=== PATIENT | male | born 1945 | race Caucasian/White ===

== ENCOUNTER 2018-03-29 11:58 | Emergency (ER) | payer OTHER, SELFPAY ==
[2018-03-29 12:05] VITALS: BP 153/87; PULSE 97; RESP 20; TEMP 36.8; O2SAT 95; BMI 30.8
--- NOTE | 2018-03-29 12:07 | DI.CT.S_ITS ---
PROCEDURE: CT CERVICAL SPINE WO CON INDICATIONS: fall yesterday neck pain TECHNIQUE: Noncontrast 3 mm thick sections acquired from the skull base to the T4 level. Sagittal and coronal reformats were then constructed. For radiation dose reduction, the following was used: automated exposure control, adjustment of mA and/or kV according to patient size. COMPARISON: None. FINDINGS: Image quality: Excellent. Bones: No fractures or dislocations. Visualized superior ribs are intact. Soft tissues: Prevertebral soft tissues are normal in thickness. No paravertebral hematomas. No apical pneumothoraces. 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 No hematoma is suspected. Dictated by: Hayden Monte M.D. on 03/29/2018 at 13:34 Approved by: Hayden Monte M.D. on 03/29/2018 at 13:35
--- NOTE | 2018-03-29 12:07 | DI.CT.S_ITS ---
PROCEDURE: CT HEAD/BRAIN WO CON INDICATIONS: fall yesterday on coumadin TECHNIQUE: Noncontrast 4.5 mm thick angled axial sections acquired from the foramen magnum to the vertex, with coronal and sagittal reformats. For radiation dose reduction, the following was used: automated exposure control, adjustment of mA and/or kV according to patient size. COMPARISON: [facility], CT, HEAD WITHOUT CONTRAST, 11/02/2015, 17:34. FINDINGS: Image quality: Excellent. CSF spaces: Basal cisterns are patent. No extra-axial fluid collections. The ventricles are symmetric in size and shape. Brain: No intracranial bleeds or masses. There is cerebral volume loss for age, with resultant ventricular and sulcal prominence. There are periventricular and deep white matter chronic small vessel ischemic changes. There is intracranial internal carotid artery atherosclerosis. Skull and face: Calvarium and visualized facial bones appear intact, without suspicious lesions. Sinuses: Visualized sinuses and mastoids are clear. IMPRESSION: No acute trauma found. Only mild microvascular atherosclerotic change is seen in the deep white matter of each hemisphere. Dictated by: Hayden Monte M.D. on 03/29/2018 at 13:34 Approved by: Hayden Monte M.D. on 03/29/2018 at 13:34
--- NOTE | 2018-03-29 12:07 | DI.RAD.S_ITS ---
PROCEDURE: XR ELBOW LT MIN 3V INDICATIONS: fall swelling TECHNIQUE: 3 views of the elbow were acquired. COMPARISON: None. FINDINGS: Bones: No fractures or dislocations. No suspicious bony lesions. Soft tissues: No elbow joint effusion. No suspicious soft tissue calcifications. IMPRESSION: Moderate osteoarthritis, no definite acute trauma found. However, osteoarthritic spurring produces areas of sclerosis and relative radiolucency and if there is clinical concerns for hidden fracture followup by CT he be warranted. Dictated by: Hayden Monte M.D. on 03/29/2018 at 13:33 Approved by: Hayden Monte M.D. on 03/29/2018 at 13:34
[2018-03-29 12:15] VITALS: BP 158/90; PULSE 93; RESP 14; O2SAT 93
--- NOTE | 2018-03-29 12:15 | ED_ITS ---
HPI - Head Injury General Chief complaint: Trauma Stated complaint: FALL, ARM AND NECK PAIN, HEAD HURTING Time Seen by Provider: 03/29/18 12:07 Source: patient and RN notes reviewed Mode of arrival: ambulatory Limitations: no limitations History of Present Illness HPI Narrative: Patient is a 72-year-old male who presents under ground level fall yesterday. He was sitting in a chair chair collapsed he fell backward hitting his head no loss of consciousness. He also landed on his left elbow. He is having left elbow pain and neck pain. He is on Coumadin for previous DVTs. He said he had some visual problems at of his right eye. Related Data Home Medications Medication Instructions Recorded Confirmed glucose 4 gm PO QDAYP PRN #0 11/27/17 03/29/18 diltiazem HCl 300 mg PO QDAY #0 11/28/17 03/29/18 glimepiride 4 mg PO QAM 03/29/18 03/29/18 Previous Rx's Medication Instructions Recorded prednisone 20 mg PO DAILY #5 tab 03/29/18 Allergies Allergy/AdvReac Type Severity Reaction Status Date / Time albuterol [ALBUTEROL] AdvReac Intermediate Shakiness Verified 03/29/18 12:14 Review of Systems Review of Systems All systems reviewed & are unremarkable except as noted in HPI and below Eyes Reports loss of vision (right side now improving) Cardiovascular Denies dyspnea and Denies dyspnea on exertion Respiratory Denies cough, Denies dyspnea, Denies dyspnea on exertion and Denies wheezing Gastrointestinal Gastrointestinal: Denies abdominal pain, Denies change in bowel habits, Denies diarrhea, Denies nausea and Denies vomiting Musculoskeletal Reports as per HPI and Denies abnormal gait Comments: left elbow pain Integumentary/Breasts Denies pruritus, Denies erythema, Denies rash and Denies wounds Neurologic Denies abnormal gait, Denies burning sensations, Reports loss of vision (right side now improving), Denies seizure-like activity and Denies other (LOC) Allergic/Immunologic Denies wheezing [facility] Medical History History of DVT (deep vein thrombosis) (Acute) Exam Initial Vital Signs Initial Vital Signs: Vital Signs Temperature 98.3 F 03/29/18 12:05 Pulse Rate 97 H 03/29/18 12:05 Respiratory Rate 20 03/29/18 12:05 Blood Pressure 153/87 H 03/29/18 12:05 Pulse Oximetry 95 03/29/18 12:05 Const General: cooperative and well developed Nutritional Appearance: well nourished Orientation: alert, awake, oriented x3 and not confused Neck Neck: normal visual inspection, trachea midline, No lymphadenopathy, No midline deformity and No JVD Lymphatic: No lymphedema Resp Effort & Inspection: normal respiratory effort, able to speak in complete sentences, no respiratory distress and no use of accessory muscles Auscultation: clear to auscultation bilaterally, no rales, no rhonchi and no wheezes Cardio Rate: regular rate Rhythm: regular rhythm Heart Sounds: no click, no gallops, no murmurs and no rubs Pulses: normal peripheral pulses Back/Spine/Pelvis Cervical Spine: cervical spinal tenderness (Mostly the right of vertebrae) and No step off deformity Skin General: no rashes or lesions noted, No jaundice and No petechiae Neuro General: alert, awake and oriented x3 Cranial Nerves: CN's II-XI intact bilaterally, PERRL, accommodation normal, EOM intact bilaterally, tongue midline and hearing normal Cognition: normal cognition Speech: speech normal Gait: normal gait Motor: muscle tone normal throughout and strength 5/5 throughout Sensory Exam: no sensory deficits noted Extrem Left upper extremity: elbow/forearm Details: swelling (Over olecranon on), normal ROM and distal pulses intact Course Orders Ordered: ED Orders 03/29/18 12:07 CT cervical spine wo con Stat CT head/brain wo con Stat XR elbow LT min 3V Stat Discontinued Medications Acetaminophen (Tylenol) 650 mg PO NOW ONE Stop: 03/29/18 13:50 Last Admin: 03/29/18 14:03 Dose: 650 mg Vital Signs - 8 hr 03/29/18 12:05 03/29/18 12:15 03/29/18 13:20 Temperature 98.3 F Pulse Rate 97 H 93 H 68 Respiratory Rate 20 14 16 Blood Pressure 153/87 H Blood Pressure [Right Arm] 158/90 H 136/73 H Pulse Oximetry 95 93 94 MDM - Head Injury Imaging Data CT scan - head: Radiologist's impression: PROCEDURE: CT HEAD/BRAIN WO CON INDICATIONS: fall yesterday on coumadin TECHNIQUE: Noncontrast 4.5 mm thick angled axial sections acquired from the foramen magnum to the vertex, with coronal and sagittal reformats. For radiation dose reduction, the following was used: automated exposure control, adjustment of mA and/or kV according to patient size. COMPARISON: [facility], CT, HEAD WITHOUT CONTRAST, 11/02/2015, 17:34. FINDINGS: Image quality: Excellent. CSF spaces: Basal cisterns are patent. No extra-axial fluid collections. The ventricles are symmetric in size and shape. Brain: No intracranial bleeds or masses. There is cerebral volume loss for age , with resultant ventricular and sulcal prominence. There are periventricular and deep white matter chronic small vessel ischemic changes. There is intracranial internal carotid artery atherosclerosis. Skull and face: Calvarium and visualized facial bones appear intact, without suspicious lesions. Sinuses: Visualized sinuses and mastoids are clear. IMPRESSION: No acute trauma found. Only mild microvascular atherosclerotic change is seen in the deep white matter of each hemisphere. CT C-spine: Radiologist's impression: PROCEDURE: CT CERVICAL SPINE WO CON INDICATIONS: fall yesterday neck pain TECHNIQUE: Noncontrast 3 mm thick sections acquired from the skull base to the T4 level. Sagittal and coronal reformats were then constructed. For radiation dose reduction, the following was used: automated exposure control, adjustment of mA and/or kV according to patient size. COMPARISON: None. FINDINGS: Image quality: Excellent. Bones: No fractures or dislocations. Visualized superior ribs are intact. Soft tissues: Prevertebral soft tissues are normal in thickness. No paravertebral hematomas. No apical pneumothoraces. 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 No hematoma is suspected. Dictated by: Hayden Monte M.D. on 03/29/2018 at 13:34 Left elbow x-ray: Radiologist's impression: PROCEDURE: XR ELBOW LT MIN 3V INDICATIONS: fall swelling TECHNIQUE: 3 views of the elbow were acquired. COMPARISON: None. FINDINGS: Bones: No fractures or dislocations. No suspicious bony lesions. Soft tissues: No elbow joint effusion. No suspicious soft tissue calcifications. IMPRESSION: Moderate osteoarthritis, no definite acute trauma found. However, osteoarthritic spurring produces areas of sclerosis and relative radiolucency and if there is clinical concerns for hidden fracture followup by CT he be warranted. Dictated by: Hayden Monte M.D. on 03/29/2018 at 13:33 MDM Narrative Medical decision making narrative: Patient has no focal deficits. His peripheral vision is intact. He is able to see out of both eyes. Head CT C- spine on an elbow x-ray are negative. Elbow likely has a bursitis is not appear to be infected he has very mild swelling not need to be drained at this point. Discharge Plan Departure Patient Disposition: Home, Self-Care Clinical Impression: Concussion, Bursitis of left elbow Discharge Date/Time: 03/29/18 14:30 Instructions: Concussion, Bursitis Activity Restrictions/Additional Instructions: *You have been diagnosed with concussion and left elbow bursitis *What to do: Expect to have some mild headache and neck pain, keep elbow elevated, iced 20 min at a time *Take medications as directed -Tylenol 650 mg every 4-6 hours if needed for pain -prednisone 20 mg once a day for 5 days for inflammation *Follow up with your primary care provider in 2-3 days *Return to ER if you should have increasing redness, increasing pain or fever, persistent vomiting or in headache, weakness or any new, worsening or concerning symptoms Prescriptions: New prednisone 20 mg tablet 20 mg PO DAILY Qty: 5 RF: 0 No Action glucose 4 GM tablet,chewable 4 gm PO QDAYP PRN (Reason: Hypoglycemia) Qty: 0 RF: 0 diltiazem HCl 300 MG capsule,extended release 24hr 300 mg PO QDAY Qty: 0 RF: 0 glimepiride 4 mg Tablet 4 mg PO QAM RF: 0 Referrals: Yuki Lopez MD [Primary Care Provider] -
[2018-03-29 13:20] VITALS: BP 136/73; PULSE 68; RESP 16; O2SAT 94
[2018-03-29] MEDS: ACETAMINOPHEN 325 MG TABLET 650 MG PO (14:03)
== END 2018-03-29 14:30 | disposition home or self-care (01) ==
PROVIDERS: Emergency Provider Emergency Medicine; Family Provider Internal Medicine; PCP Internal Medicine
DX: S06.0X9A Concussion with loss of consciousness of unspecified duration, initial encounter (principal); M70.32 Other bursitis of elbow, left elbow; W19.XXXA Unspecified fall, initial encounter
CPT/HCPCS: 70450; 72125; 73080; 99282; 99284

== ENCOUNTER 2018-07-21 10:12 | Emergency (ER) | payer OTHER, SELFPAY ==
[2018-07-21] VITALS (8 sets, daily range): BP systolic 126–157; BP diastolic 75–89; PULSE 64–75; RESP 13–20; TEMP 36.4; O2SAT 91–94; BMI 30.7
--- NOTE | 2018-07-21 10:31 | ED.CHESTPAIN ---
HPI - Chest Pain General Chief Complaint: Chest Pain Stated Complaint: CHEST PAIN,PNUMONIA Time Seen by Provider: 07/21/18 10:31 Source: patient Mode of arrival: ambulatory Limitations: no limitations History of Present Illness HPI narrative: The patient developed chest pain about 4 days ago. He has had a productive cough for about the same time duration. With the prior doctor cough there is no hemoptysis. He denies ear pain or sinus pain. He does have a mild sore throat. He has chest pain in the xiphoid area and across the costal margin bilaterally. He denies fever or chills. He denies a cardiac history. He occasionally smokes cigars, he does not smoke cigarettes. He has no associated orthopnea, or peripheral edema. He does tell me he has a hole in his heart, he does not know the specific diagnosis. Related Data Home Medications Medication Instructions Recorded Confirmed glucose 8 tab PO QDAYP PRN #0 11/27/17 07/21/18 diltiazem HCl 300 mg PO QDAY #0 11/28/17 07/21/18 atorvastatin 20 mg PO DAILY 07/21/18 07/21/18 brimonidine 1 drp OPHTHALMIC (EYE) BID 07/21/18 07/21/18 glimepiride 8 mg PO QAM 07/21/18 07/21/18 latanoprost 1 drp OPHTHALMIC (EYE) BEDTIME 07/21/18 07/21/18 losartan 50 mg PO DAILY 07/21/18 07/21/18 metformin 2,000 mg PO QPM 07/21/18 07/21/18 warfarin 10 mg PO MOFR 07/21/18 07/21/18 warfarin 12.5 mg PO SUTUWETHSA 07/21/18 07/21/18 Previous Rx's Medication Instructions Recorded azithromycin [Zithromax] 250 mg PO DAILY 4 Days #4 tab 07/21/18 codeine-guaifenesin 5 ml PO Q4H PRN #120 ml 07/21/18 prednisone 60 mg PO DAILY 5 Days #12 tab 07/21/18 Allergies Allergy/AdvReac Type Severity Reaction Status Date / Time albuterol [ALBUTEROL] AdvReac Intermediate Shakiness Verified 03/29/18 12:14 Review of Systems Review of Systems All systems reviewed & are unremarkable except as noted in HPI and below Constitutional Denies chills, Denies fever(s), Reports lethargy and Denies weakness Eyes Denies change in vision, Denies eye discharge and Denies irritation ENT Ears, Nose, Mouth, and Throat: Denies dizziness, Denies dry mouth, Denies nasal congestion, Denies neck pain, Denies sore throat and Reports other (No sinus tenderness.) Cardiovascular Reports chest pain, Denies irregular heart rhythm, Denies lightheadedness, Denies palpitations, Denies dyspnea and Denies orthopnea Respiratory Reports as per HPI, Reports cough, Denies dyspnea and Denies wheezing Gastrointestinal Gastrointestinal: Denies abdominal pain, Denies change in bowel habits, Denies diarrhea, Denies nausea and Denies vomiting Musculoskeletal Denies back pain and Denies neck pain Integumentary/Breasts Denies erythema, Denies rash and Denies wounds Neurologic Denies confusion, Denies dizziness and Denies weakness Psychiatric Denies confusion Endocrine Denies palpitations Allergic/Immunologic Denies wheezing PFSH Medical History Diabetes (Acute) History of DVT (deep vein thrombosis) (Acute) Hypertension (Acute) Social History Smoking Status: Current some day smoker substance use type: does not use Exam Initial Vital Signs Initial Vital Signs: Vital Signs Temperature 97.6 F 07/21/18 10:22 Pulse Rate 71 07/21/18 10:22 Respiratory Rate 20 07/21/18 10:22 Blood Pressure 157/89 H 07/21/18 10:22 Pulse Oximetry 94 07/21/18 10:22 Const General: cooperative and well developed Nutritional Appearance: well nourished Orientation: alert, awake, oriented x3 and not confused [facility] Head: normocephalic and atraumatic Ears: external ears normal and TM's normal bilaterally Nose: external nose normal and No nasal discharge Face and sinus: sinuses nontender, face symmetric, no sinus tenderness and No dry mucous membranes Mouth: oral mucosae normal and moist mucous membranes Teeth and gingiva: dentition normal Throat: tonsils normal and uvula midline Eyes General: appearance normal, both eyes and all related structures Eyelids: eyelids normal Conjunctivae: conjunctivae normal Sclera: sclerae normal Pupils: PERRL EOM: EOM intact bilaterally Neck Neck: normal visual inspection, trachea midline, No lymphadenopathy, No midline deformity and No JVD Chest Chest: No crepitus and localized rib tenderness with anteroposterior compression Resp Effort & Inspection: normal respiratory effort and able to speak in complete sentences Auscultation: clear to auscultation bilaterally, no rales, no rhonchi and no wheezes Cardio Rate: regular rate Rhythm: regular rhythm Heart Sounds: no click, no gallops, no murmurs and no rubs Pulses: normal peripheral pulses GI Inspection: non-distended Palpation: soft, no hepatosplenomegaly, No guarding, No pulsatile mass and No tender Auscultation: normal bowel sounds Back/Spine/Pelvis Back: No back tenderness and No CVA tenderness Skin General: no rashes or lesions noted Neuro General: alert, oriented x3, gait normal and no focal motor deficits Speech: speech normal Extrem General: no pedal edema and no calf tenderness Psych Appearance: grossly normal and well kempt Mental Status: mental status grossly normal Course Orders Ordered: Discontinued Medications Aspirin (Aspirin Chew) 324 mg PO NOW ONE Stop: 07/21/18 10:39 Last Admin: 07/21/18 10:56 Dose: 324 mg Azithromycin (Zithromax) 500 mg PO NOW ONE Stop: 07/21/18 14:33 Last Admin: 07/21/18 14:37 Dose: 500 mg Ipratropium [place] (Atrovent Neb) 0.5 mg INH NOW ONE Stop: 07/21/18 10:51 Last Admin: 07/21/18 10:53 Dose: 0.5 mg Ketorolac Tromethamine (Toradol) 15 mg IV NOW ONE Stop: 07/21/18 10:41 Last Admin: 07/21/18 10:58 Dose: 15 mg Levalbuterol HCl (Xopenex) 1.25 mg INH NOW ONE Stop: 07/21/18 10:41 Last Admin: 07/21/18 10:49 Dose: 1.25 mg Morphine Sulfate (Morphine) 4 mg IV NOW ONE Stop: 07/21/18 12:32 Last Admin: 07/21/18 12:57 Dose: 4 mg Prednisone (Deltasone) 60 mg PO NOW ONE Stop: 07/21/18 13:52 Last Admin: 07/21/18 13:58 Dose: 60 mg Vital Signs - 8 hr 07/21/18 12:30 07/21/18 13:00 07/21/18 14:03 Pulse Rate 66 64 69 Respiratory Rate 18 14 13 Blood Pressure [Left Arm] 129/82 138/79 133/75 Pulse Oximetry 93 91 94 MDM - Chest Pain Lab Data Result diagrams: 07/21/18 10:45 07/21/18 10:45 Lab Results 07/21/18 07/21/18 07/21/18 Range/Units 10:45 10:45 10:45 WBC 7.0 (4.5-11.0) X10^3/uL RBC 4.30 L (4.5-5.9) X10^6/uL Hgb 13.7 (13.5-17.5) g/dL Hct 40.1 L (41-53) % MCV 93.3 (80-100) fL MCH 31.8 (26-34) PG MCHC 34.1 (30-36) % RDW 14.8 (11.6-14.8) % Plt Count 173 (150-400) X10^3/uL Neut % (Auto) 68.7 (50-75) % Lymph % (Auto) 13.9 L (25-40) % [place] % (Auto) 13.5 (3-14) % Eos % (Auto) 3.0 (2-4) % Baso % (Auto) 0.9 (0-2) % Neut # (Auto) 4800 (4848-2099) /uL PT 31.5 H (10.1-12.7) SECONDS INR 2.9 H (0.9-1.3) D-Dimer 238 H (<230) ng/mL Sodium 142 (137-145) mmol/L Potassium 4.4 (3.4-5.1) mmol/L Chloride 105 (98-107) mmol/L Carbon Dioxide 27 (22-32) mmol/L BUN 15 (9-20) mg/dL Creatinine 0.80 (0.66-1.25) mg/dL Estimated GFR > 60.0 (>60) mL/min BUN/Creatinine Ratio 18.8 (6-22) Glucose 181 H (80-110) mg/dL Lactate (0.7-2.1) mmol/L Calcium 9.1 (8.4-10.2) mg/dL Total Creatine Kinase 216 H (55-170) U/L CK-MB (CK-2) 1.51 (<2.37) ng/mL CK-MB (CK-2) Rel Index 0.7 L (1.5-5.0) % Troponin I < 0.012 (0.01-0.034) ng/mL Lipase 58 (23-300) U/L 07/21/18 Range/Units 10:45 WBC (4.5-11.0) X10^3/uL RBC (4.5-5.9) X10^6/uL Hgb (13.5-17.5) g/dL Hct (41-53) % MCV (80-100) fL MCH (26-34) PG MCHC (30-36) % RDW (11.6-14.8) % Plt Count (150-400) X10^3/uL Neut % (Auto) (50-75) % Lymph % (Auto) (25-40) % [place] % (Auto) (3-14) % Eos % (Auto) (2-4) % Baso % (Auto) (0-2) % Neut # (Auto) (1004-6642) /uL PT (10.1-12.7) SECONDS INR (0.9-1.3) D-Dimer (<230) ng/mL Sodium (137-145) mmol/L Potassium (3.4-5.1) mmol/L Chloride (98-107) mmol/L Carbon Dioxide (22-32) mmol/L BUN (9-20) mg/dL Creatinine (0.66-1.25) mg/dL Estimated GFR (>60) mL/min BUN/Creatinine Ratio (6-22) Glucose (80-110) mg/dL Lactate 1.4 (0.7-2.1) mmol/L Calcium (8.4-10.2) mg/dL Total Creatine Kinase (55-170) U/L CK-MB (CK-2) (<2.37) ng/mL CK-MB (CK-2) Rel Index (1.5-5.0) % Troponin I (0.01-0.034) ng/mL Lipase (23-300) U/L Imaging Data Chest x-ray: Radiologist's impression: Normal ECG Data Attestation: I personally reviewed and interpreted this ECG as follows: (Normal sinus rhythm rate 67 bpm. IVCD. LVH. No acute ST or T-wave changes) MDM Narrative Medical decision making narrative: He has no evidence of is ACS, pneumonia or PE. The chest tenderness is costochondral nature. He was started on Zithromax for bronchitis. The chest discomfort was addressed with anti-inflammatories and antitussives. Discharge Plan Departure Patient Disposition: Home Clinical Impression: Bronchitis Discharge Date/Time: 07/21/18 14:52 Interventions: ED Discharge Assessment Last Done: 07/21/18 14:50 Instructions: Acute Bronchitis Activity Restrictions/Additional Instructions: Take a Zithromax (Z-Gonzalez) as prescribed. Advil 3 tablets every 6 hr as needed for pain. Robitussin/codeine 2 tsp every 4 hr as needed for cough. Prednisone 60 mg daily. Return here for increasing cough, increasing pain, fever or difficulty breathing. Recheck with her doctor next week. Prescriptions: New azithromycin [Zithromax] 250 mg tablet 250 mg PO DAILY 4 Days Qty: 4 RF: 0 prednisone 20 mg tablet 60 mg PO DAILY 5 Days Qty: 12 RF: 0 codeine-guaifenesin 10-100 mg/5 mL liquid 5 ml PO Q4H PRN (Reason: cough) Qty: 120 RF: 0 No Action glucose 4 GM tablet,chewable 8 tab PO QDAYP PRN (Reason: Hypoglycemia) Qty: 0 RF: 0 diltiazem HCl 300 MG capsule,extended release 24hr 300 mg PO QDAY Qty: 0 RF: 0 atorvastatin 20 mg Tablet 20 mg PO DAILY RF: 0 losartan 50 mg Tablet 50 mg PO DAILY RF: 0 latanoprost 0.005 % Drops 1 drp ophthalmic (eye) BEDTIME RF: 0 metformin 1,000 mg Tablet 2,000 mg PO QPM RF: 0 glimepiride 4 mg Tablet 8 mg PO QAM RF: 0 brimonidine 0.2 % Drops 1 drp ophthalmic (eye) BID RF: 0 warfarin 5 mg Tablet 12.5 mg PO SUTUWETHSA RF: 0 warfarin 5 mg Tablet 10 mg PO MOFR RF: 0
--- NOTE | 2018-07-21 10:38 | DI.RAD.S_ITS ---
PROCEDURE: XR CHEST 1V INDICATIONS: Chest pain. Productive cough. TECHNIQUE: One view of the chest was acquired. COMPARISON: [facility], , CHEST 1 VIEW, 11/27/2017, 15:15. FINDINGS: Surgical changes and devices: None. Lungs and pleura: No pleural effusions or pneumothorax. Lungs are clear. Eventration of the right hemidiaphragm noted. Mediastinum: Mediastinal contours appear normal. Heart size is normal. Bones and chest wall: No suspicious bony lesions. Overlying soft tissues appear unremarkable. IMPRESSION: No acute cardiopulmonary disease process. Dictated by: Deb Stevens MD, PhD on 07/21/2018 at 11:00 Approved by: Deb Stevens MD, PhD on 07/21/2018 at 11:01
[2018-07-21] MEDS: LEVALBUTEROL 1.25 MG/0.5 ML NEB INH (10:49)
[2018-07-21] MEDS: IPRATROPIUM 0.5 MG/3 ML NEB INH (10:53)
[2018-07-21 10:54] LABS: Add Manual Diff / Slide Review NO; Basophils Percent Auto 0.9 % (0-2); Hematocrit 40.1 % (41-53); Hemoglobin 13.7 g/dL (13.5-17.5); Lymphocytes Percent Auto 13.9 % (25-40); Mean Corpuscular HGB Conc 34.1 % (30-36); Mean Corpuscular Hemoglobin 31.8 PG (26-34); Mean Corpuscular Volume 93.3 fL (80-100); Monocytes Percent Auto 13.5 % (3-14); Neutrophils Absolute Auto 4800 /uL (3000-5900); Neutrophils Percent Auto 68.7 % (50-75); Platelet Count 173 X10^3/uL (150-400); Red Cell Distribution Width 14.8 % (11.6-14.8)
[2018-07-21] MEDS: ASPIRIN 81 MG TAB 324 MG PO (10:56)
[2018-07-21] MEDS: KETOROLAC 60 MG/2 ML VIAL 15 MG IV (10:58)
[2018-07-21 11:02] LABS: INR 2.9 (0.9-1.3); Prothrombin Time 31.5 SECONDS (10.1-12.7)
[2018-07-21 11:05] LABS: D Dimer 238 ng/mL (<230)
[2018-07-21 11:06] LABS: BUN Creatinine Ratio 18.8 (6-22); Blood Urea Nitrogen 15 mg/dL (9-20); Calcium 9.1 mg/dL (8.4-10.2); Carbon Dioxide 27 mmol/L (22-32); Chloride 105 mmol/L (98-107); Creatine Kinase 216 U/L (55-170); Estimated Glomerular Filt Rate > 60.0 mL/min (>60); Glucose 181 mg/dL (80-110); HEMOLYSIS < 15 (0-50); Lactate (Lactic Acid) 1.4 mmol/L (0.7-2.1); Lipase 58 U/L (23-300); Potassium 4.4 mmol/L (3.4-5.1); Sodium 142 mmol/L (137-145)
[2018-07-21 11:19] LABS: Troponin I < 0.012 ng/mL (0.01-0.034)
[2018-07-21 11:21] LABS: CKMB % Relative Index 0.7 % (1.5-5.0); Creatine Kinase MB 1.51 ng/mL (<2.37)
[2018-07-21] MEDS: MORPHINE 4 MG/ML INJ IV (12:57)
[2018-07-21] MEDS: predniSONE 20 MG TABLET 60 MG PO (13:58)
[2018-07-21] MEDS: AZITHROMYCIN 250 MG TABLET 500 MG PO (14:37)
== END 2018-07-21 14:52 | disposition home or self-care (01) ==
PROVIDERS: Emergency Provider Emergency Medicine; Family Provider Internal Medicine; PCP Internal Medicine
DX: J40 Bronchitis, not specified as acute or chronic (principal)
CPT/HCPCS: 36591; 71045; 80048; 82550; 82553; 83605; 83690; 84484; 85025; 85379; 85610; 93005; 93041; 94640; 96374; 96375; 99283; 99285; J1885; J2270; J7614

== ENCOUNTER 2018-12-19 18:06 | Observation (INO) | payer OTHER, SELFPAY ==
[2018-12-19] VITALS (7 sets, daily range): BP systolic 134–162; BP diastolic 80–93; PULSE 66–80; RESP 13–15; TEMP 36.5; O2SAT 92–94; BMI 32.2
--- NOTE | 2018-12-19 18:26 | DI.RAD.S_ITS ---
PROCEDURE: XR CHEST 1V INDICATIONS: chest pain TECHNIQUE: One view of the chest was acquired. COMPARISON: [facility], CR, XR CHEST 1V, 07/21/2018, 10:48. FINDINGS: Surgical changes and devices: None. Lungs and pleura: Minor left base atelectasis. Lungs are otherwise clear. No pleural effusions or pneumothorax. Mediastinum: Mediastinal contours appear normal. Heart size is normal. Bones and chest wall: No suspicious bony lesions. Overlying soft tissues appear unremarkable. IMPRESSION: Left lung base atelectasis versus scar. No acute process. Dictated by: Jennifer Tanner M.D. on 12/19/2018 at 19:18 Approved by: Jennifer Tanner M.D. on 12/19/2018 at 19:19
[2018-12-19 18:36] LABS: INR 1.1 (0.9-1.3); Prothrombin Time 12.6 SECONDS (10.1-12.7)
[2018-12-19 18:38] LABS: PTT Partial Thromboplastin Tim 33 SECONDS (26.4-36.2)
[2018-12-19 18:40] LABS: Alanine Aminotransferase 29 IU/L (21-72); Albumin 4.4 g/dL (3.5-5.0); Albumin Globulin Ratio 1.6 (1.0-2.8); Alkaline Phosphatase 85 U/L (38-126); Aspartate Aminotransferase 18 IU/L (17-59); BUN Creatinine Ratio 18.6 (6-22); Bilirubin Total 0.6 mg/dL (0.2-1.3); Blood Urea Nitrogen 13 mg/dL (9-20); Calcium 8.7 mg/dL (8.4-10.2); Carbon Dioxide 27 mmol/L (22-32); Chloride 103 mmol/L (98-107); Creatine Kinase 70 U/L (55-170); Estimated Glomerular Filt Rate > 60.0 mL/min (>60); Globulin 2.7 g/dL (1.7-4.1); Glucose 199 mg/dL (80-110); HEMOLYSIS < 15 (0-50); Lipase 109 U/L (23-300); Potassium 3.9 mmol/L (3.4-5.1); Sodium 140 mmol/L (137-145); Total Protein 7.1 g/dL (6.3-8.2)
--- NOTE | 2018-12-19 18:43 | DI.CT.S_ITS ---
PROCEDURE: CT HEAD/BRAIN WO CON INDICATIONS: dizzy, transient dysarthia, on eliquis TECHNIQUE: Noncontrast 4.5 mm thick angled axial sections acquired from the foramen magnum to the vertex, with coronal and sagittal reformats. For radiation dose reduction, the following was used: automated exposure control, adjustment of mA and/or kV according to patient size. COMPARISON: [facility], CT, CT HEAD/BRAIN WO CON, 03/29/2018, 12:17. FINDINGS: Image quality: Excellent. CSF spaces: Basal cisterns are patent. No extra-axial fluid collections. The ventricles are symmetric in size and shape. Brain: No intracranial bleeds or masses. There is cerebral volume loss for age, with resultant ventricular and sulcal prominence. There are mild to moderate periventricular and deep white matter chronic small vessel ischemic changes. There is intracranial internal carotid artery atherosclerosis. Skull and face: Calvarium and visualized facial bones appear intact, without suspicious lesions. Sinuses: Visualized sinuses and mastoids are clear. IMPRESSION: 1. No CT evidence of acute intracranial process. 2. Stable compared to the prior study. 3. Age-appropriate cortical volume loss and white matter changes suggestive of chronic microvascular ischemia. Dictated by: Jennifer Tanner M.D. on 12/19/2018 at 19:13 Approved by: Jennifer Tanner M.D. on 12/19/2018 at 19:18
--- NOTE | 2018-12-19 18:45 | ED.DIZZY ---
HPI - Dizziness General Chief Complaint: Dizziness Stated Complaint: states he almost passed out,low BP,feels dizzy Time Seen by Provider: 12/19/18 18:45 Source: patient Mode of arrival: ambulatory Limitations: no limitations History of Present Illness HPI Narrative: about noon today the patient was sitting at home, he became acutely dizzy. With this he had no visual changes. Symptom onset was very abrupt. His noticed a brief period of dysarthria. The patient denies visual deficits, confusion, or weakness. His speech quickly resolved. He is ambulatory without numbness or weakness. He has no balance problems. With the dizziness he is feeling left-sided pressure in the retro-orbital area. He has no neck pain. He does have diabetes, as well as hypertension. 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 He denies associated chest pain or dyspnea. He has no history of stroke or TIA. He denies recent illness. His glucose levels have been normal with home monitoring. He is currently alert, A very intelligent historian. He has no history of hypoglycemia on home monitoring. Related Data Home Medications Medication Instructions Recorded Confirmed glucose 8 tab PO QDAYP PRN #0 11/27/17 12/20/18 diltiazem HCl 300 mg PO QDAY #0 11/28/17 12/20/18 atorvastatin 20 mg PO DAILY 07/21/18 12/20/18 brimonidine 1 drp OPHTHALMIC (EYE) BID 07/21/18 12/20/18 glimepiride 8 mg PO QAM 07/21/18 07/21/18 latanoprost 1 drp OPHTHALMIC (EYE) BEDTIME 07/21/18 12/20/18 losartan 50 mg PO DAILY 07/21/18 12/20/18 apixaban [Eliquis] 5 mg PO BID 12/20/18 12/20/18 metformin 2,000 mg PO QPM 12/20/18 12/20/18 Allergies Allergy/AdvReac Type Severity Reaction Status Date / Time albuterol [ALBUTEROL] AdvReac Intermediate Shakiness Verified 12/19/18 18:20 Review of Systems Review of Systems ROS Unobtainable: All systems reviewed & are unremarkable except as noted in HPI and below Constitutional Denies chills, Denies fatigue, Denies fever(s), Reports headache(s) ( Left retro-orbital pain.), Denies lethargy and Denies weakness Eyes Denies change in vision, Denies eye discharge, Denies irritation and Denies loss of vision ENT Ears, Nose, Mouth, and Throat: Reports dizziness, Denies dry mouth, Denies ear discharge, Denies otalgia, Denies facial pain and Reports headache(s) ( Left retro-orbital pain.) Cardiovascular Denies chest pain, Denies irregular heart rhythm, Denies lightheadedness, Denies palpitations, Denies dyspnea, Denies dyspnea on exertion and Denies orthopnea Respiratory Denies cough, Denies dyspnea, Denies dyspnea on exertion and Denies wheezing Gastrointestinal Gastrointestinal: Denies abdominal pain, Denies change in bowel habits, Denies diarrhea, Denies nausea and Denies vomiting Musculoskeletal Denies back pain, Denies muscle weakness, Denies numbness and Denies tingling Integumentary/Breasts Denies pruritus, Denies erythema, Denies rash and Denies wounds Neurologic Reports dizziness, Reports headache(s) ( Left retro-orbital pain.), Denies loss of vision, Denies numbness, Denies tingling, Denies weakness and Reports other ( Brief speech changes) Endocrine Denies fatigue and Denies palpitations Comments: no significant abnormality on home glucose evaluation. Hematologic/Lymphatic Reports easy bleeding Allergic/Immunologic Denies wheezing [facility] Medical History Glaucoma (Acute) Hyperlipidemia (Acute) Diabetes (Acute) History of DVT (deep vein thrombosis) (Acute) Hypertension (Acute) Surgical History History of ankle surgery (Acute) History of bilateral inguinal hernia repair (Acute) History of hand surgery (Acute) Social History Smoking Status: Current some day smoker substance use type: does not use Social History Smoking Status: Current some day smoker substance use type: does not use Exam Initial Vital Signs Initial Vital Signs: Vital Signs Temperature 97.7 F 12/19/18 18:20 Pulse Rate 80 12/19/18 18:20 Respiratory Rate 13 12/19/18 18:20 Blood Pressure 162/93 H 12/19/18 18:20 Pulse Oximetry 92 12/19/18 18:20 Const General: cooperative and well developed Nutritional Appearance: well nourished Orientation: alert, awake, oriented x3 and not confused HENDE Head: normocephalic and atraumatic Ears: external ears normal and TM's normal bilaterally Nose: external nose normal and No nasal discharge Face and sinus: sinuses nontender, face symmetric, no sinus tenderness and No dry mucous membranes Mouth: oral mucosae normal and moist mucous membranes Teeth and gingiva: dentition normal Throat: tonsils normal and uvula midline Eyes General: appearance normal, both eyes and all related structures Eyelids: eyelids normal Conjunctivae: conjunctivae normal Sclera: sclerae normal Pupils: PERRL EOM: EOM intact bilaterally Neck Neck: normal visual inspection, trachea midline, No lymphadenopathy, No midline deformity and No JVD Lymphatic: No lymphedema Other: No carotid bruit Chest Chest: normal inspection of the chest Resp Effort & Inspection: normal respiratory effort, able to speak in complete sentences, no respiratory distress and no use of accessory muscles Auscultation: clear to auscultation bilaterally, no rales, no rhonchi and no wheezes Cardio Rate: regular rate Rhythm: regular rhythm Heart Sounds: no click, no gallops, no murmurs and no rubs Pulses: normal peripheral pulses GI Inspection: non-distended Palpation: soft, no hepatosplenomegaly, No guarding, No pulsatile mass and No tender Auscultation: normal bowel sounds Skin General: no rashes or lesions noted, No jaundice and No petechiae Neuro General: alert, oriented x3, gait normal and no focal motor deficits Speech: speech normal Extrem General: full ROM, no pedal edema, no calf tenderness and other ( normal lower extremity pulses.) Psych Appearance: well kempt Mental Status: mental status grossly normal Attitude: cooperative Thought Content: normal and suicidality Judgment: judgment good Scores NIH Stroke Scale Level of Conciousness: Alert, keenly responsive Ask month/age: Answers both questions correctly. Open/close eyes, close hand: Performs both tasks correctly Best gaze horizontal: Normal Visual brady: No visual loss Facial palsy: Normal symetrical movement Left arm drift: No drift for full 10 sec Right arm drift: No drift for full 10 sec Left leg drift: No drift for full 10 sec Right leg drift: No drift for full 10 sec Limb ataxia: Absent Sensory on face/arms/legs: Normal, no sensory loss Best language: No aphasia, normal Dysarthria: Normal Extinction or inattention: No abnormality Total NIH Stroke scale score: 0 Course Orders Ordered: ED Orders 12/19/18 18:23 BNP [B Type Natriuretic Peptide] Stat Complete Blood Count AUTO DIFF Stat Comprehensive Metabolic Panel Stat Lipase Stat Partial Thromboplastin Time Stat Prothrombin Time INR Stat Troponin & CK Cardiac Panel Stat 12/19/18 18:26 XR chest 1V Stat EKG-12 Lead Stat 12/19/18 18:43 CT head/brain wo con Stat 12/19/18 21:33 CT head/brain w con Stat 12/20/18 US carotid doppler BI Routine US periph venous low extrem rt Routine Lipid Panel Routine 12/20/18 00:59 Education, smoking cessation ONGOING 12/20/18 05:00 Comprehensive Metabolic Panel DAILY 12/21/18 05:00 Basic Metabolic Panel DAILY Comprehensive Metabolic Panel DAILY 12/22/18 05:00 Basic Metabolic Panel DAILY Comprehensive Metabolic Panel DAILY Acetaminophen (Tylenol) 650 mg PO Q6HR PRN PRN Reason: As Needed for Fever/Mild Pain Al Hydrox/Mg Hydrox/Simethicone (Maalox Plus) 30 ml PO Q6HR PRN PRN Reason: Dyspepsia Apixaban (Eliquis) 5 mg PO BID [facility] Atorvastatin Calcium (Lipitor) 20 mg PO DAILY [facility] Brimonidine Tartrate (Alphagan P 0.2%) 1 drops EYE-BOTH BID [facility] Dextrose (D50w) 25 gm IV PRN PRN; Protocol PRN Reason: Hypoglycemia Diltiazem HCl (Cardizem Cd) 120 mg PO DAILY [facility] Diltiazem HCl (Cardizem Cd) 180 mg PO DAILY [facility] Sodium Chloride (Normal Saline 0.9%) 1,000 mls @ 100 mls/hr IV CONT [facility] Insulin Aspart (Novolog Flexpen) 0 unit SUBCUT ACHS KAREY; Protocol Latanoprost (Xalatan) 1 drops EYE-BOTH BEDTIME [facility] Losartan Potassium (Cozaar) 50 mg PO DAILY [facility] Metformin HCl (Glucophage Xr) 2,000 mg PO QPM [facility] Ondansetron HCl (Zofran) 4 mg IV Q8HR PRN PRN Reason: Nausea And Vomiting Oxycodone HCl (Percolone) 5 mg PO Q4H PRN PRN Reason: Pain, Moderate (4-6) Pantoprazole Sodium (Protonix) 20 mg PO 0600 [facility] Discontinued Medications Sodium Chloride (Normal Saline 0.45%) 1,000 mls @ 100 mls/hr IV CONT [facility]ARE[facility] Stop: 12/20/18 10:59 Meclizine HCl (Antivert) 50 mg PO NOW ONE Stop: 12/19/18 20:17 Last Admin: 12/19/18 20:42 Dose: 50 mg Oxycodone/Acetaminophen (Percocet 5/325) 1 tab PO NOW ONE Stop: 12/19/18 20:17 Last Admin: 12/19/18 20:43 Dose: 1 tab Vital Signs - 8 hr 12/19/18 19:50 12/19/18 20:00 12/19/18 21:00 Pulse Rate 69 66 67 Respiratory Rate Blood Pressure [Right Arm] 135/82 134/82 137/80 Pulse Oximetry 92 93 94 12/19/18 21:30 12/19/18 22:00 12/20/18 00:03 Pulse Rate 69 69 73 Respiratory Rate 15 Blood Pressure [Right Arm] 135/81 135/81 Pulse Oximetry 94 92 93 12/20/18 00:31 12/20/18 02:18 Pulse Rate 73 67 Respiratory Rate 11 L 13 Blood Pressure [Right Arm] 139/90 142/91 H Pulse Oximetry 96 93 MDM - Dizziness Lab Data Result diagrams: 12/19/18 18:23 12/19/18 18:23 Lab Results 12/19/18 12/19/18 12/19/18 Range/Units 18:23 18:23 18:23 WBC 8.0 (4.5-11.0) X10^3/uL RBC 4.81 (4.5-5.9) X10^6/uL Hgb 15.3 (13.5-17.5) g/dL Hct 45.8 (41-53) % MCV 95.2 (80-100) fL MCH 31.7 (26-34) PG MCHC 33.3 (30-36) % RDW 14.4 (11.6-14.8) % Plt Count 218 (150-400) X10^3/uL Neut % (Auto) 70.7 (50-75) % Lymph % (Auto) 17.8 L (25-40) % Wright % (Auto) 8.1 (3-14) % Eos % (Auto) 2.6 (2-4) % Baso % (Auto) 0.8 (0-2) % Neut # (Auto) 5600 (8425-6170) /uL Lymph # (Auto) 1400 (9185-4491) /uL Wright # (Auto) 600 (0-900) /uL Eos # (Auto) 200 (0-450) /uL Baso # (Auto) 100 (0-100) /uL PT 12.6 (10.1-12.7) SECONDS INR 1.1 (0.9-1.3) APTT 33 (26.4-36.2) SECONDS Sodium 140 (137-145) mmol/L Potassium 3.9 (3.4-5.1) mmol/L Chloride 103 (98-107) mmol/L Carbon Dioxide 27 (22-32) mmol/L BUN 13 (9-20) mg/dL Creatinine 0.70 (0.66-1.25) mg/dL Estimated GFR > 60.0 (>60) mL/min BUN/Creatinine Ratio 18.6 (6-22) Glucose 199 H (80-110) mg/dL Calcium 8.7 (8.4-10.2) mg/dL Total Bilirubin 0.6 (0.2-1.3) mg/dL AST 18 (17-59) IU/L ALT 29 (21-72) IU/L Alkaline Phosphatase 85 (38-126) U/L Total Creatine Kinase 70 (55-170) U/L CK-MB (CK-2) TNP CK-MB (CK-2) Rel Index TNP Troponin I < 0.012 (0.01-0.034) ng/mL B-Natriuretic Peptide (<100) Total Protein 7.1 (6.3-8.2) g/dL Albumin 4.4 (3.5-5.0) g/dL Globulin 2.7 (1.7-4.1) g/dL Albumin/Globulin Ratio 1.6 (1.0-2.8) Lipase 109 (23-300) U/L 12/19/18 Range/Units 18:23 WBC (4.5-11.0) X10^3/uL RBC (4.5-5.9) X10^6/uL Hgb (13.5-17.5) g/dL Hct (41-53) % MCV (80-100) fL MCH (26-34) PG MCHC (30-36) % RDW (11.6-14.8) % Plt Count (150-400) X10^3/uL Neut % (Auto) (50-75) % Lymph % (Auto) (25-40) % Wright % (Auto) (3-14) % Eos % (Auto) (2-4) % Baso % (Auto) (0-2) % Neut # (Auto) (6222-1493) /uL Lymph # (Auto) (9057-9359) /uL Wright # (Auto) (0-900) /uL Eos # (Auto) (0-450) /uL Baso # (Auto) (0-100) /uL PT (10.1-12.7) SECONDS INR (0.9-1.3) APTT (26.4-36.2) SECONDS Sodium (137-145) mmol/L Potassium (3.4-5.1) mmol/L Chloride (98-107) mmol/L Carbon Dioxide (22-32) mmol/L BUN (9-20) mg/dL Creatinine (0.66-1.25) mg/dL Estimated GFR (>60) mL/min BUN/Creatinine Ratio (6-22) Glucose (80-110) mg/dL Calcium (8.4-10.2) mg/dL Total Bilirubin (0.2-1.3) mg/dL AST (17-59) IU/L ALT (21-72) IU/L Alkaline Phosphatase (38-126) U/L Total Creatine Kinase (55-170) U/L CK-MB (CK-2) CK-MB (CK-2) Rel Index Troponin I (0.01-0.034) ng/mL B-Natriuretic Peptide < 100 (<100) Total Protein (6.3-8.2) g/dL Albumin (3.5-5.0) g/dL Globulin (1.7-4.1) g/dL Albumin/Globulin Ratio (1.0-2.8) Lipase (23-300) U/L Point of Care Testing Glucose POC [address] scan - head: Radiologist's impression: [address] [address] [address] Scan Report Signed Patient: Maninder Hernandez CMR#: [id number] : 8Acct:[id number] Age/Sex: 72 / MDate of Service: 12/19/18 Loc: ED Accession Number: [id number] Procedure: CT head/brain wo con Ordering Provider: Jairo Goddard M.D. PROCEDURE: CT HEAD/BRAIN WO CON INDICATIONS: dizzy, transient dysarthia, on eliquis TECHNIQUE: Noncontrast 4.5 mm thick angled axial sections acquired from the foramen magnum to the vertex, with coronal and sagittal reformats. For radiation dose reduction, the following was used: automated exposure control, adjustment of mA and/or kV according to patient size. COMPARISON: [facility], CT, CT HEAD/BRAIN WO CON, 03/29/2018, 12:17. FINDINGS: Image quality: Excellent. CSF spaces: Basal cisterns are patent. No extra-axial fluid collections. The ventricles are symmetric in size and shape. Brain: No intracranial bleeds or masses. There is cerebral volume loss for age, with resultant ventricular and sulcal prominence. There are mild to moderate periventricular and deep white matter chronic small vessel ischemic changes. There is intracranial internal carotid artery atherosclerosis. Skull and face: Calvarium and visualized facial bones appear intact, without suspicious lesions. Sinuses: Visualized sinuses and mastoids are clear. IMPRESSION: 1. No CT evidence of acute intracranial process. 2. Stable compared to the prior study. 3. Age-appropriate cortical volume loss and white matter changes suggestive of chronic microvascular ischemia. Dictated by: Jennifer Tanner M.D. on 12/19/2018 at 19:13 Approved by: Jennifer Tanner M.D. on 12/19/2018 at 19:18 Chest x-ray: Radiologist's impression: [address] [address] XRay Report Signed Patient: Maninder Hernandez CMR#: [id number] : 8Acct:[id number] Age/Sex: 72 / MDate of Service: 12/19/18 Loc: ED Accession Number: [id number] Procedure: XR chest 1V Ordering Provider: Judd Potter D.O. PROCEDURE: XR CHEST 1V INDICATIONS: chest pain TECHNIQUE: One view of the chest was acquired. COMPARISON: [facility], CR, XR CHEST 1V, 07/21/2018, 10:48. FINDINGS: Surgical changes and devices: None. Lungs and pleura: Minor left base atelectasis. Lungs are otherwise clear. No pleural effusions or pneumothorax. Mediastinum: Mediastinal contours appear normal. Heart size is normal. Bones and chest wall: No suspicious bony lesions. Overlying soft tissues appear unremarkable. IMPRESSION: Left lung base atelectasis versus scar. No acute process. Dictated by: Jennifer Tanner M.D. on 12/19/2018 at 19:18 Approved by: Jennifer Tanner M.D. on 12/19/2018 at 19:19 CT brain:: Radiologist's impression: no acute findings ECG Data Attestation: I personally reviewed and interpreted this ECG as follows: ( normal sinus rhythm rate 77 bpm. LAFB. LVH with nonspecific ST T wave changes. Possible old septal OK. No acute ST T wave changes. No ectopy.) [facility] Narrative Medical decision making narrative: The patient presents with acute onset dizziness without confusion but with initial dysarthria. He has no recent illness, or history of ENT disease. He was not experiencing palpitations, or cardiovascular symptoms. I witnessed a brief episode of dysarthria while here in the ER. His was present, she confirmed the subtle speech change was consistent with her prior experience with him. Hallpike testing was negative. Meclizine did not help the dizziness. A normal head CT was followed by CTA, to assure there is no significant arterial lesion initiated current symptoms. With the negative CT a of the brain, hospitalization was discussed with [facility]UE[facility] Blake Hospitalist. My concern is that the symptoms may be from a posterior CVA, and given his risk factors further evaluation should be considered. Aspirin was not given because he already takes Eliquis. He is admitted to telemetry. My diagnosis is TIA due to the sudden neurologic changes, there is no other obvious reason. Discharge Plan Departure Patient Disposition: Admitted as Observation Clinical Impression: Brain TIA Admit Date/Time: 12/20/18 01:23 Admit Provider: Jed Blake
[2018-12-19 18:49] LABS: Add Manual Diff / Slide Review NO; Basophils Absolute Auto 100 /uL (0-100); Basophils Percent Auto 0.8 % (0-2); Eosinophils Absolute Auto 200 /uL (0-450); Eosinophils Percent Auto 2.6 % (2-4); Hematocrit 45.8 % (41-53); Hemoglobin 15.3 g/dL (13.5-17.5); Lymphocytes Absolute Auto 1400 /uL (1100-4500); Lymphocytes Percent Auto 17.8 % (25-40); Mean Corpuscular HGB Conc 33.3 % (30-36); Mean Corpuscular Hemoglobin 31.7 PG (26-34); Mean Corpuscular Volume 95.2 fL (80-100); Monocytes Absolute Auto 600 /uL (0-900); Monocytes Percent Auto 8.1 % (3-14); Neutrophils Absolute Auto 5600 /uL (1500-7000); Neutrophils Percent Auto 70.7 % (50-75); Platelet Count 218 X10^3/uL (150-400); Red Blood Cell Count 4.81 X10^6/uL (4.5-5.9); Red Cell Distribution Width 14.4 % (11.6-14.8)
[2018-12-19 18:51] LABS: Troponin I < 0.012 ng/mL (0.01-0.034)
[2018-12-19 19:12] LABS: B Type Natriuretic Peptide < 100 (<100)
[2018-12-19] MEDS: MECLIZINE HCL 12.5 MG TABLET 50 MG PO (20:42)
[2018-12-19] MEDS: OXYCODONE/ACETAMINOPHEN 5/325 TABLET 1 TAB PO (20:43)
--- NOTE | 2018-12-19 21:33 | DI.CT.S_ITS ---
PROCEDURE: CT HEAD/BRAIN W CON INDICATIONS: Dizziness, Dysarthria. no acute findings on noncontrast h TECHNIQUE: 4.5 mm thick angled axial sections acquired from the foramen magnum to the vertex after the administration of intravenous contrast, with coronal and sagittal reformats. For radiation dose reduction, the following was used: automated exposure control, adjustment of mA and/or kV according to patient size. COMPARISON: [facility], CT, CT HEAD WITHOUT CONTRAST, 03/31/2018, 16:04. [facility], CT, CT HEAD/BRAIN WO CON, 12/19/2018, 18:40. FINDINGS: Image quality: Excellent. CSF Spaces: Basal cisterns are patent. No extra-axial fluid collections. Ventricles are normal in size and shape. Brain: No midline shift. No intracranial bleeds or masses. No abnormal intracranial enhancement. Lin-white interface appears normal. Given slice thickness, the vasculature is grossly patent, although small aneurysm may be missed. No unusual enhancing mass. Skull and face: Calvarium and visualized facial bones appear intact, without suspicious lesions. No unusual extracranial enhancement. Sinuses: Visualized sinuses and mastoids are clear. IMPRESSION: 1. No abnormal enhancement within the brain. 2. The vasculature appears patent but given slice thickness, a small intracranial aneurysm may be missed. If there is further concern for such structural abnormality, MRA of the brain, or CT angiogram of the brain would be indicated. Dictated by: Jennifer Tanner M.D. on 12/19/2018 at 22:08 Approved by: Jennifer Tanner M.D. on 12/19/2018 at 22:18
[2018-12-20] VITALS (16 sets, daily range): BP systolic 125–157; BP diastolic 66–91; PULSE 67–90; RESP 11–20; TEMP 36.4–37; O2SAT 90–96; BMI 30.9
--- NOTE | 2018-12-20 | DI.ECHO.S_ITS ---
[facility]---------+ [facility] +---------+ : : [address] : : : : [address] : : : : Phone: [phone] Echocardiogram Report + + :Name: ALEAH CHICAS Study Date: 12/20/2018 Height: 74 in : :[facility] Weight: 240 lb : : Gender: Male BSA: 2.3 m2 : :: 1945 Age: 72 yrs BP: 132/72 mmHg: :Reason For Study: Dyspnea : : Performed By: Juanita Steiner : :Referring: ARIANA SMITH : + + Interpretation Summary Normal sinus rhythm. Normal LV size and wall thickness. Normal wall motion and LV systolic function. EF is 60-65%. Mild LA enlargement; otherwise normal chamber sizes. Mild MAC; otherwise no significant valvular abnormalities. No prior study available for comparison. Procedure: A two-dimensional transthoracic echocardiogram with color flow and Doppler was performed. The study quality was technically adequate. There is no prior echocardiogram noted for this patient. The patient was in normal sinus rhythm during the exam. Left Ventricle: The left ventricle is normal in size, wall thickness, and systolic function without any focal wall motion abnormalities. The ejection fraction is estimated to be 60-65%. Diastolic parameters suggest a relaxation abnormality of the left ventricle, consistent with probable normal filling pressures. Right Ventricle: The right ventricle grossly appears normal in size with probable normal systolic function. Atria: The left atrium is mildly dilated. Right atrial size is normal. Injection of contrast documented no interatrial shunt. Mitral Valve: The mitral valve is normal in structure and function. There is no mitral regurgitation noted. Aortic Valve: The aortic valve is trileaflet. The aortic valve opens well. There is trace aortic regurgitation. Tricuspid Valve: The tricuspid valve is normal in structure and function. There is trace tricuspid regurgitation. Pulmonic Valve: The pulmonic valve is normal in structure and function. There is no pulmonic valvular regurgitation. Great Vessels: The aortic root is borderline dilated. The dimensions of the ascending aorta are normal. The aortic arch is normal in size. The inferior vena cava was not visualized. Pericardium/ Pleura There is no pericardial effusion. There is no pleural effusion. MMode/2D Measurements & Calculations LVIDd: 5.4 cm Ao root diam: 3.8 cm LVIDs: 3.5 cm Aortic Jxn: 3.2 cm FS: 36.4 % asc Aorta Diam: 3.5 cm EPSS: 0.76 cm Ao Arch Diam (Prox Trans): 2.8 cm IVSd: 1.3 cm LVPWd: 1.1 cm LV mayer. diameter/BSA (cm/m^2): 2.3 LV sys. diameter/BSA (cm/m^2): 1.5 LA dimension: 4.4 cm RA long axis: 4.6 cm LA A2 area: 25.2 cm2 RA area: 20.7 cm2 LA A4 area: 22.2 cm2 RA vol: 78.9 ml LA length (vol): 5.2 cm RA : 33.6 ml/m2 LA vol: 91.4 ml RVDd major: 5.7 cm LA vol index: 38.9 ml/m2 RVD1 (basal): 4.4 cm RVD2 (mid): 3.7 cm Doppler Measurements & Calculations Ao V2 max: 150.8 cm/sec MV E max wilmer: 75.9 cm/sec Ao V2 mean: 102.1 cm/sec MV A max wilmer: 101.7 cm/sec Ao max P.1 mmHg MV E/A: 0.75 Ao mean P.8 mmHg Med Peak E' Wilmer: 4.2 cm/sec Ao V2 VTI: 31.1 cm E/E' med: 18.0 Lat Peak E' Wilmer: 5.2 cm/sec E/E' lat: 14.7 E/e' average: 16.4 MV dec time: 0.21 sec MV P1/2t: 63.3 msec TR max wilmer: 268.2 cm/sec MV P1/2t max wilmer: 75.4 cm/sec TR max P.8 mmHg MVA(P1/2t): 3.5 cm2 PA V2 max: 84.4 cm/sec PA V2 mean: 52.1 cm/sec PA mean P.3 mmHg PA Accel Time: 0.09 sec Electronically signed by: Sanjana Holcomb M.D. on Reading Physician:12/20/2018 06:33 PM
--- NOTE | 2018-12-20 | DI.MRI.S_ITS ---
PROCEDURE: MR HEAD/BRAIN WO CON INDICATIONS: TIA. DYSARTHRIA TECHNIQUE: Non-contrast axial T1 spin echo, axial T2 fast spin echo, sagittal and axial FLAIR, coronal T2 fast spin echo, axial gradient echo, axial diffusion and ADC through the brain. COMPARISON: None. FINDINGS: Image quality: Limited by patient motion artifact. CSF spaces: Ventricles appear symmetric in size and shape. Basal cisterns are patent. No extra-axial fluid collections. Brain: No intracranial bleeds or mass effects. There is mild cerebral volume loss for age. There are moderate periventricular and deep white matter chronic small vessel ischemic changes. Brainstem appears normal. Diffusion-weighted images show no acute ischemic insults. No chronic ischemic insults. Numerous punctate GRE weighted hypodensities noted in the parietal and cerebral hemispheres bilaterally. Normal intravascular flow voids are present. Skull and face: Calvarial bone marrow is normal in signal. Orbits are normal. Sinuses: Small mucous retention cyst versus polyp is noted in the right maxillary sinus. The mastoids are clear. IMPRESSION: 1. No acute intracranial disease process. 2. No areas of acute or chronic infarction. 3. Mild, diffuse cerebral and muscular para 4. Moderate periventricular and subcortical white matter chronic microvascular ischemic changes. 4. Punctate susceptibility artifact predominantly involving the parietal and occipital lobes bilaterally. Finding is nonspecific but typically represents hemosiderin deposition related to prior microbleeds. Finding is concerning for chronic hemorrhage related to amyloid angiopathy or less likely hypertension. Dictated by: Deb Stevens MD, PhD on 12/21/2018 at 15:22 Approved by: Deb Stevens MD, PhD on 12/21/2018 at 15:26
--- NOTE | 2018-12-20 01:55 | P.HP_ITS ---
History of Present Illness Date Patient Seen: 12/20/18 Time Patient Seen: 00:15 Chief complaint: states he almost passed out,low BP,feels dizzy Narrative: This is a 72-year-old male with a history of diabetes, hypertension, hyperlipidemia , glaucoma, obstructive sleep apnea, and prior diagnosis of DVT who was brought in the ER with chief complaint of feeling that he was going to pass out and weakness. The patient was brought in by his for symptoms began approximately noon when the patient states that he was not feeling well and felt lightheaded. He had associated ?hazy? vision and felt that he was about to pass out. His checked his blood sugar found to be within range a nd his symptoms abated however they reoccurred episodically several times through the afternoon into the evening. At dinner patient became diaphoretic and experienced an alteration in speech with slurring that too was transient for few minutes but reoccurred prompting presentation to the emergency. The patient has chronic neck pain related to degenerative disc disease and facet osteophytes however denies headache, nausea or vomiting, had no shortness of breath or chest pain. He endorses having a lengthy history of pleuritic type chest pain with deep inspiration or sneezing but denies cough, cardiac pain, radiation or palpitations. The patient presented to the ER at 6:20 p.m.. On arrival his blood pressure was 162/93 with heart rate of 80 and respirations of 14 an oxygen saturation 92% on room air. The patient was evaluated with a stat noncontrast CT that showed no acute intracranial pathology and subsequently a CT with contrast which again was negative for bleed or lesion. Twelve lead EKG was completed as reviewed by myself showed a sinus rhythm with ventricular rate of 77 without ectopy. 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 The Q-wave in V2 is new since his last EKG taken in July of 2018. Patient was given meclizine without change in his lightheadedness and oxycodone for his chronic neck pain. The ER physician obtained stroke consult with [facility] in [place] who based on information felt this was not a stroke event. Patient History Medical History Glaucoma (Acute) Hyperlipidemia (Acute) Diabetes (Acute) History of DVT (deep vein thrombosis) (Acute) Hypertension (Acute) Surgical History History of ankle surgery (Acute) History of bilateral inguinal hernia repair (Acute) History of hand surgery (Acute) Social History Smoking Status: Current some day smoker substance use type: does not use Family & Social History Safety & Behavioral: Feels Safe in Current Yes Environment Tobacco & Substance use: Smoking Status Current some day smoker alcohol intake frequency holiday/special occasion Substance Use Type does not use Comment: The patient is and lives with in a single family dwelling. His father is related to accidental when the patient was 7 years old. His mother at the age of 93 following trauma and closed head injury. He has 1 brother who had cancer involving the lungs and the brain and another brother who is in good and 1 sister who is estranged and has no knowledge of her health status. Smoking: Cigars Alcohol: Occasional Substance use: Denies recreational pharmaceuticals or cannabis products Advanced directive patient wishes to be full code and designates his Desiree to be a surrogate decision maker. Meds Home Medications Medication Instructions Recorded Confirmed Type glucose 8 tab PO QDAYP PRN #0 11/27/17 12/20/18 History diltiazem HCl 300 mg PO QDAY #0 11/28/17 12/20/18 History atorvastatin 20 mg PO DAILY 07/21/18 12/20/18 History brimonidine 1 drp OPHTHALMIC (EYE) BID 07/21/18 12/20/18 History glimepiride 8 mg PO QPM 07/21/18 12/20/18 History latanoprost 1 drp OPHTHALMIC (EYE) BEDTIME 07/21/18 12/20/18 History losartan 50 mg PO DAILY 07/21/18 12/20/18 History apixaban [Eliquis] 5 mg PO BID 12/20/18 12/20/18 History metformin 2,000 mg PO QPM 12/20/18 12/20/18 History Allergies Allergy/AdvReac Type Severity Reaction Status Date / Time albuterol [ALBUTEROL] AdvReac Intermediate Shakiness Verified 12/19/18 18:20 Review of Systems Review of Systems Constitutional: Denies recent illness, fevers, chills, sweats, fatigue, good appetite with stable weight Eyes: Positive for hazy vision with episodes of dizziness, Denies visual changes, visual field loss, floaters, diplopia ENT: Positive for multiple episodes of slurred speech, chronic cervical pain Denies headaches, hearing changes, ear pain, no nasal congestion, rhinorrhea, no dysphagia, sore throat or dentalgia Respiratory: Positive for smoking cigars, chest wall pain, Denies SOB, cough, exertional dyspnea, wheezing Cardiovascular: Positive for history of ?a hole in his heart, dyspnea on exertion, history of DVT right leg with continuing pain and swelling, Denies chest pressure, palpitations Gastrointestinal: Denies abdominal pain, nausea or vomiting, no reflux or bloating, constipation or diarrhea, denies blood in stool. Genitourinary: Positive for nocturia 3-4 times nightly, denies penile dischar ge, no complains of frequency, burning or urgency, hematuria on voiding Musculoskeletal: Positive for osteoarthritis bilateral knees, impaired ambulation using the braces, denies falls, cramps, myalgia or joint swelling. Integumentary: denies skin lesions, masses, rashes, hives, itching or hair loss Neurological: Positive for lightheadedness, denies and multiple episodes of difficulty speaking confusion, numbness or tingling, seizures Psychiatric: denies disturbances in thought, attentions or mood, denies substance abuse Endocrine: Positive for history of diabetes, excessive thirst and frequent urination, denies goiter, lethargy, abnormal sweating, and heat/cold intolerance. Heme/lymph: Positive for DVT treatment with Eliquis, Denies lymphadenopathy, abnormal bleeding or bruising Exam Vital Signs (past 8 hours): - 12/19/18 18:20 12/19/18 18:26 12/19/18 19:50 Temperature 97.7 F Pulse Rate 80 72 69 Respiratory Rate 13 15 Blood Pressure 162/93 H Blood Pressure [Right Arm] 162/93 H 135/82 Pulse Oximetry 92 93 92 12/19/18 20:00 12/19/18 21:00 12/19/18 21:30 Temperature Pulse Rate 66 67 69 Respiratory Rate Blood Pressure Blood Pressure [Right Arm] 134/82 137/80 135/81 Pulse Oximetry 93 94 94 12/19/18 22:00 12/20/18 00:03 12/20/18 00:31 Temperature Pulse Rate 69 73 73 Respiratory Rate 15 11 L Blood Pressure Blood Pressure [Right Arm] 135/81 139/90 Pulse Oximetry 92 93 96 Oxygen Delivery Method Room Air Narrative Exam Narrative: General: Well developed, well nourished, in no acute distress. Skin: Warm, dry, pink, no rashes, no visible lesions HEENT: Normocephalic, symmetrical facies, PERRLA, bilateral fundi are grossly normal bilateral, EOMs intact without nystagmus, conjunctiva moist, sclera is anicteric, right EAC occluded with cerumen, left EAC clear without inflammation with pearly translucent TM, hearing grossly normal, no sinus tenderness to percussion, no rhinorrhea, oropharynx is moist and pink without lesions or exudate, uvula midline, posterior pharynx without inflammation, no cervical lymphadenopathy Neck: Decreased range of motion related to pain, tender to palpation with bilateral cervical paraspinal muscle tension, no masses, no thyromegaly, trachea midline, no carotid bruits or JVD, no supraclavicular lymphadenopathy Cardiac: Regular rate and rhythm, S1-S2, no murmur appreciated, no gallops or rubs, 2+ radial pulse, 1+ dorsalis pedis pulse, capillary refill is brisk, 1+ edema right leg, no edema left leg Chest: Symmetrical movement, breathing non labored, no cough present, BS clear but diminished bibasilar without coarseness, crackles or wheezes Abdomen: Soft, no epigastric or abdominal tenderness or guarding, no masses or organomegaly, no flank or suprapubic pain, umbilical hernia, left upper abdomen ventral hernia, BS normal. Back: Normal curvature, no tenderness to palpation, no CVA tenderness on percussion Extremities: JOCY x4, strength 5/5 and symmetrical Neuro: AAOx4, cranial nerves II-XII grossly intact, impaired distal sensation to light touch in all extremities Psych: pleasant, thought coherent, stable mood and congruent affect Objective Labs Result Diagrams: 12/19/18 18:23 12/19/18 18:23 Labs: Laboratory Results - last 24 hr 12/19/18 12/19/18 12/19/18 18:23 18:23 18:23 WBC 8.0 RBC 4.81 Hgb 15.3 Hct 45.8 MCV 95.2 MCH 31.7 MCHC 33.3 RDW 14.4 Plt Count 218 Neut % (Auto) 70.7 Lymph % (Auto) 17.8 L [place] % (Auto) 8.1 Eos % (Auto) 2.6 Baso % (Auto) 0.8 Neut # (Auto) 5600 Lymph # (Auto) 1400 [place] # (Auto) 600 Eos # (Auto) 200 Baso # (Auto) 100 PT 12.6 INR 1.1 APTT 33 Sodium 140 Potassium 3.9 Chloride 103 Carbon Dioxide 27 BUN 13 Creatinine 0.70 Estimated GFR > 60.0 BUN/Creatinine Ratio 18.6 Glucose 199 H Calcium 8.7 Total Bilirubin 0.6 AST 18 ALT 29 Alkaline Phosphatase 85 Total Creatine Kinase 70 CK-MB (CK-2) TNP CK-MB (CK-2) Rel Index TNP Troponin I < 0.012 B-Natriuretic Peptide Total Protein 7.1 Albumin 4.4 Globulin 2.7 Albumin/Globulin Ratio 1.6 Lipase 109 12/19/18 18:23 WBC RBC Hgb Hct MCV MCH MCHC RDW Plt Count Neut % (Auto) Lymph % (Auto) [place] % (Auto) Eos % (Auto) Baso % (Auto) Neut # (Auto) Lymph # (Auto) [place] # (Auto) Eos # (Auto) Baso # (Auto) PT INR APTT Sodium Potassium Chloride Carbon Dioxide BUN Creatinine Estimated GFR BUN/Creatinine Ratio Glucose Calcium Total Bilirubin AST ALT Alkaline Phosphatase Total Creatine Kinase CK-MB (CK-2) CK-MB (CK-2) Rel Index Troponin I B-Natriuretic Peptide < 100 Total Protein Albumin Globulin Albumin/Globulin Ratio Lipase Assessment & Plan Assessment & Plan narrative: This is a 72-year-old male patient who is admitted to hospital for neurological symptoms including near syncope, dizziness/vertigo, dysarthria 1. Possible TIA, acute -patient with near syncope, continuing lightheadedness, episodic dysarthria -patient is high risk for neurologic event with diabetes and hypertension and is currently taking Eliquis without history of trauma or head injury -CT of head with and without find no intracranial abnormalities are lesions. -ABCD2 score is 6, NIH score at time of exam is 0 -no improvement in dizziness with meclizine in the ER. -patient continues to have dizziness at time of examination however dysarthria is not evident and cranial nerves are grossly normal -will obtain carotid ultrasound and an echocardiogram which will also evaluate patient's stated history a septal defect. -patient will be on telemetry with neurologic monitoring 2. Hypertension, chronic -patient is taking diltiazem 300 mg daily as well as losartan 50 mg daily -blood pressure on arrival was 162/93 which has diminished to 140/90 -will continue monitor blood pressure and assess the need for escalation of antihypertensive therapy 3. Type 2 diabetes with neuropathy, chronic -patient is taking metformin XR 2 g at bedtime -blood sugars evaluated when patient was diaphoretic at home found to be 102 with no overt hypoglycemia contributory to his neurologic symptoms -will continue metformin and check blood sugar a.c. and HS and cover with sliding scale insulin as needed -will obtain a hemoglobin A1c 4. Mixed hyperlipidemia, chronic -Patient taking atorvastatin 20 mg daily -will check a lipid panel 5. History of DVT, right leg, chronic, active -patient was recently transitioned from warfarin to Eliquis 5 mg twice daily which is continued -continuing right leg pain and swelling -will obtain a venous duplex right leg The patient is admitted to as an inpatient due to the high risk potential complications and the need for close monitoring. The patient's length of stay is expected to be greater than 2 midnights. Scores GCS [place] coma scale eye opening: Spontaneous Axel coma scale verbal response: Orientated Axel coma scale motor response: Obey commands [place] coma scale total score: 15 ABCD2 Age >= 60 years: yes Initial BP. Either SBP >= 140 or DBP >= 90.: yes Clinical features of the TIA: speech disturbance without weakness Duration of symptoms: >= 60 minutes History of diabetes: yes ABCD2 Score: 6 NIHSS Level of Conciousness: Alert, keenly responsive Ask month/age: Answers both questions correctly. Open/close eyes, close hand: Performs both tasks correctly Best gaze horizontal: Normal Visual brady: No visual loss Facial palsy: Normal symetrical movement Left arm drift: No drift for full 10 sec Right arm drift: No drift for full 10 sec Left leg drift: No drift for full 10 sec Right leg drift: No drift for full 10 sec Limb ataxia: Absent Sensory on face/arms/legs: Normal, no sensory loss (Peripheral neuropathy of all extremities present) Best language: No aphasia, normal Dysarthria: Normal Extinction or inattention: No abnormality Total NIH Stroke scale score: 0
[2018-12-20] MEDS: OXYCODONE IR 5 MG TABLET PO ×2 (03:38→08:26)
[2018-12-20] MEDS: SODIUM CHLORIDE 0.9% 1,000 ML 100 ML IV (03:39)
[2018-12-20 05:48] LABS: Alanine Aminotransferase 24 IU/L (21-72); Albumin 3.8 g/dL (3.5-5.0); Albumin Globulin Ratio 1.5 (1.0-2.8); Alkaline Phosphatase 59 U/L (38-126); Aspartate Aminotransferase 16 IU/L (17-59); Bilirubin Total 0.3 mg/dL (0.2-1.3); Blood Urea Nitrogen 14 mg/dL (9-20); Calcium 8.7 mg/dL (8.4-10.2); Carbon Dioxide 28 mmol/L (22-32); Chloride 104 mmol/L (98-107); Estimated Glomerular Filt Rate > 60.0 mL/min (>60); Globulin 2.5 g/dL (1.7-4.1); Glucose 137 mg/dL (80-110); HEMOLYSIS < 15 (0-50); Potassium 3.9 mmol/L (3.4-5.1); Sodium 140 mmol/L (137-145); Total Protein 6.3 g/dL (6.3-8.2)
[2018-12-20 06:08] LABS: Cholesterol 86 mg/dL (140-199); HDL Cholesterol 23 mg/dL (40-60); LDL Cholesterol Calculated 37 mg/dL (<100); Triglycerides 132 mg/dL (35-150)
--- NOTE | 2018-12-20 06:35 | PC.NURSE ---
NOC Shift: Pt admitted for persistent dizziness when ambulating, near syncope. Has HTN history, cardiac history of hole in heart, DM and bilateral LE's knee arthritis bone on bone chronic pain. Pt AAOx3, is ambulate w/SA to toilet. Complains of dizziness, intermittent SOB w/activity and knee joint pain. VSS, SR BBB on tele. Lungs clear, sats low 90's on room air, pt smokes cigars only 1 to 5 a day depending on the day. No murmur noted. Has left leg edema > than right. Pt currently waiting for surgical repair to knees but needs clearance due to A1C elevation. Pt is concerned about all the medications he is on and doesn't know if the meds are causing the dizziness, or is it actually a disease, condition process. Discussed w/pt and concerns and current ordered tests to be done by [facility] and treatment plan at this time. Pt medicated for 7/10 pain. , Desiree sleeping at bedside. F/C tele.
[2018-12-20] MEDS: APIXABAN 5 MG TABLET PO ×2 (08:25→22:37)
[2018-12-20] MEDS: LOSARTAN 50 MG TABLET PO (08:25)
[2018-12-20] MEDS: ATORVASTATIN 20 MG TABLET PO (08:25)
[2018-12-20] MEDS: dilTIAZem CD 240 MG CAP PO (08:25)
[2018-12-20] MEDS: PANTOPRAZOLE 20 MG TABLET PO (08:26)
[2018-12-20] MEDS: DORZOLAMIDE/TIMOLOL OPHTH 10 ML 1 DROPS EYE-BOTH ×2 (08:36→22:37)
--- NOTE | 2018-12-20 08:38 | CM.DANOTE ---
DCP: Case received, EMR reviewed and met with patient. Introduced self and role. DCP template completed with information currently available. Patient is a 72 year old male who admitted early this morning to the care of the hospitalist team. PCP: Dr. Miller at [facility]. Payer: confirmed: [facility]. Patient came to hospital via family vehicle due to dizziness and weakness. Patient was noted to have decreased blood pressure. Has history of diabetes as well, and had checked it when symptoms started, and blood sugar was normal. Met with patient and . He gets his medical care down at the [facility], and has his main provider there as well. Has supportive , Desiree. Patient does not drive, but stated that he is independent at home, uses a cane and walker as well. Him and his reside in [facility]. P: DCP to follow closely. May have further work up today at hospital. Should be able to go home when he is medically stable. Lurdes Kaur RN/[place]
--- NOTE | 2018-12-20 08:43 | PM.PN.1 ---
Subjective Date Patient Seen: 12/20/18 Interval history: He is seen today to follow up an apparent TIA yesterday. He also has Hyperlipidemia, a DVT, HTN and Diabetes Mellitus 2. Pending MRI and Carotid US today. He is complaining of a sore throat. His neurological exam is normal. He has had no recurrence of the stuttering neurological symptoms that occurred yesterday. Exam Vital Signs (past 8 hours): - 12/20/18 02:18 12/20/18 02:55 12/20/18 04:00 Temperature 98.0 F 98.5 F Pulse Rate 67 70 69 Respiratory Rate 13 20 15 Blood Pressure 143/84 H 142/83 H Blood Pressure [Right Arm] 142/91 H Pulse Oximetry 93 95 90 L 12/20/18 04:09 12/20/18 06:10 12/20/18 07:14 Temperature 97.5 F L Pulse Rate 70 Respiratory Rate 18 Blood Pressure 132/72 Blood Pressure [Right Arm] Pulse Oximetry 90 L 92 95 Oxygen Delivery Method Nasal Cannula Oxygen Flow Rate 1 Narrative Exam Narrative: He is alert and oriented x3 and is in no apparent distress Heart is regular rate and rhythm without murmur. Lungs are clear to auscultation bilaterally. Extremities have no ankle edema. Neurologic exam is notable for cranial nerves 2-12 testing normal, motor function 4/5 throughout and no lateralizing deficits. Objective Labs Result Diagrams: 12/19/18 18:23 12/20/18 04:44 Labs: Laboratory Results - last 24 hr 12/19/18 12/19/18 12/19/18 18:23 18:23 18:23 WBC 8.0 RBC 4.81 Hgb 15.3 Hct 45.8 MCV 95.2 MCH 31.7 MCHC 33.3 RDW 14.4 Plt Count 218 Neut % (Auto) 70.7 Lymph % (Auto) 17.8 L [place] % (Auto) 8.1 Eos % (Auto) 2.6 Baso % (Auto) 0.8 Neut # (Auto) 5600 Lymph # (Auto) 1400 [place] # (Auto) 600 Eos # (Auto) 200 Baso # (Auto) 100 PT 12.6 INR 1.1 APTT 33 Sodium 140 Potassium 3.9 Chloride 103 Carbon Dioxide 27 BUN 13 Creatinine 0.70 Estimated GFR > 60.0 BUN/Creatinine Ratio 18.6 Glucose 199 H Calcium 8.7 Total Bilirubin 0.6 AST 18 ALT 29 Alkaline Phosphatase 85 Total Creatine Kinase 70 CK-MB (CK-2) TNP CK-MB (CK-2) Rel Index TNP Troponin I < 0.012 B-Natriuretic Peptide Total Protein 7.1 Albumin 4.4 Globulin 2.7 Albumin/Globulin Ratio 1.6 Triglycerides Cholesterol LDL Cholesterol, Calc HDL Cholesterol Lipase 109 Nasal Screen MRSA (PCR) 12/19/18 12/20/18 12/20/18 18:23 03:09 04:44 WBC RBC Hgb Hct MCV MCH MCHC RDW Plt Count Neut % (Auto) Lymph % (Auto) [place] % (Auto) Eos % (Auto) Baso % (Auto) Neut # (Auto) Lymph # (Auto) [place] # (Auto) Eos # (Auto) Baso # (Auto) PT INR APTT Sodium 140 Potassium 3.9 Chloride 104 Carbon Dioxide 28 BUN 14 Creatinine 1.00 Estimated GFR > 60.0 BUN/Creatinine Ratio 14.0 Glucose 137 H Calcium 8.7 Total Bilirubin 0.3 AST 16 L ALT 24 Alkaline Phosphatase 59 Total Creatine Kinase CK-MB (CK-2) CK-MB (CK-2) Rel Index Troponin I B-Natriuretic Peptide < 100 Total Protein 6.3 Albumin 3.8 Globulin 2.5 Albumin/Globulin Ratio 1.5 Triglycerides Cholesterol LDL Cholesterol, Calc HDL Cholesterol Lipase Nasal Screen MRSA (PCR) Negative for mrsa 12/20/18 04:44 WBC RBC Hgb Hct MCV MCH MCHC RDW Plt Count Neut % (Auto) Lymph % (Auto) [place] % (Auto) Eos % (Auto) Baso % (Auto) Neut # (Auto) Lymph # (Auto) [place] # (Auto) Eos # (Auto) Baso # (Auto) PT INR APTT Sodium Potassium Chloride Carbon Dioxide BUN Creatinine Estimated GFR BUN/Creatinine Ratio Glucose Calcium Total Bilirubin AST ALT Alkaline Phosphatase Total Creatine Kinase CK-MB (CK-2) CK-MB (CK-2) Rel Index Troponin I B-Natriuretic Peptide Total Protein Albumin Globulin Albumin/Globulin Ratio Triglycerides 132 Cholesterol 86 L LDL Cholesterol, Calc 37 HDL Cholesterol 23 L Lipase Nasal Screen MRSA (PCR) Assessment & Plan Assessment & Plan narrative: 1. Possible TIA, acute -patient with near syncope, continuing lightheadedness, episodic dysarthria yesterday -patient is high risk for neurologic event with diabetes and hypertension and is currently taking Eliquis without history of trauma or head injury -CT of head with and without find no intracranial abnormalities or lesions. -ABCD2 score is 6, NIH score at time of exam is 0 -no improvement in dizziness with meclizine in the ER. -patient continues to have dizziness at time of examination however dysarthria is not evident and cranial nerves are grossly normal again during my exam -will obtain carotid ultrasound and an echocardiogram which will also evaluate patient's stated history of a septal defect. -patient will be on telemetry with neurologic monitoring -brain MRI tomorrow (not available today) 2. Hypertension, chronic -patient is taking diltiazem 300 mg daily as well as losartan 50 mg daily. There is no listed history of atrial fibrillation but he is on anticoagulation and diltiazem? -blood pressure on arrival was 162/93 which has diminished to 140/90 -will continue monitor blood pressure and assess the need for escalation of antihypertensive therapy 3. Type 2 diabetes with neuropathy, chronic -patient is taking metformin XR 2 g at bedtime -blood sugars evaluated when patient was diaphoretic at home found to be 102 with no overt hypoglycemia contributory to his neurologic symptoms -will continue metformin and check blood sugar a.c. and HS and cover with sliding scale insulin as needed -Hemoglobin A1c result is not available so will be reordered. 4. Mixed hyperlipidemia, chronic -Patient taking atorvastatin 20 mg daily -will check a lipid panel 5. History of DVT, right leg, chronic, active -patient was recently transitioned from warfarin to Eliquis 5 mg twice daily which is continued -continuing right leg pain and swelling -pending surveillance venous duplex right leg Quality VTE Deep Vein Thrombosis/Pulmonary Embolism Present on Admission: No
[2018-12-20] MEDS: VIT C/E/ZN/COPPR/LUTEIN/ZEAXAN CAPSULE 1 CAP PO (09:23)
[2018-12-20] MEDS: MULTIVIT,CALC,MINS/IRON/FOLIC 1 TABLET 1 TAB PO (09:23)
[2018-12-20] MEDS: INSULIN ASPART 100 UNIT/ML INSULN PEN SUBCUT (12:07)
[2018-12-20] MEDS: METFORMIN XR 500 MG TABLET 2000 MG PO (17:15)
[2018-12-20] MEDS: LATANOPROST 0.005% OPHTH 2.5 ML 1 DROPS EYE-BOTH (22:37)
[2018-12-20] MEDS: SODIUM CHLORIDE 0.9% FLUSH 10 ML IV (22:38)
[2018-12-21] VITALS (10 sets, daily range): BP systolic 119–154; BP diastolic 58–90; PULSE 67–77; RESP 16–20; TEMP 36.7–36.9; O2SAT 90–96
--- NOTE | 2018-12-21 | DI.US.S_ITS ---
PROCEDURE: US CAROTID DOPPLER BI INDICATIONS: dysarthria TECHNIQUE: Color and pulse Doppler interrogation was performed of both carotid systems, with image documentation and velocity measurements. COMPARISON: None. FINDINGS: Stenosis calculations are based on SRU (Society of Radiologists in Ultrasound) criteria. Right side: Brachial blood pressure: 152/90 mm Hg. Common carotid artery peak systolic velocity: 60 cm/sec. Internal carotid artery peak systolic velocity: 76 cm/sec. Internal carotid artery end diastolic velocity: 35 cm/sec. External carotid artery peak systolic velocity: 81 cm/sec. ICA/CCA peak systolic ratio: 1.3. Lin scale imaging description: Trace, sessile calcification in the right carotid bulb without significant luminal stenosis. Percent internal carotid artery stenosis: Less than 50%. Vertebral artery: Flow direction is antegrade. Left side: Brachial blood pressure: 140/85 mm Hg. Common carotid artery peak systolic velocity: 100 cm/sec. Internal carotid artery peak systolic velocity: 94 cm/sec. Internal carotid artery end diastolic velocity: 35 cm/sec. External carotid artery peak systolic velocity: 142 cm/sec. ICA/CCA peak systolic ratio: 1.0. Lin scale imaging description: Trace scattered calcification in the carotid bulb without focal stenosis. Tortuosity of the origin of the external carotid artery. Percent internal carotid artery stenosis: Less than 50%. Vertebral artery: Flow direction is antegrade. IMPRESSION: 1. Scattered atherosclerotic calcification. No visible stenosis. 2. Antegrade vertebral artery flow bilaterally. Dictated by: Jennifer Tanner M.D. on 12/21/2018 at 12:54 Approved by: Jennifer Tanner M.D. on 12/21/2018 at 12:59
--- NOTE | 2018-12-21 | DI.US.S_ITS ---
PROCEDURE: US PERIPH VENOUS LOW EXTREM RT INDICATIONS: Right leg pain, swelling, prior dx DVT TECHNIQUE: Real-time imaging, as well as color and pulse Doppler interrogation, were performed of the lower extremity deep veins from the inguinal ligament to the popliteal fossa. COMPARISON: None. FINDINGS: The deep veins are normally compressible, and free of intraluminal thrombus. Color and pulse Doppler demonstrate normal phasic intraluminal flow. There is normal augmentation response to distal compression maneuver. Incidental note is made of a borderline prominent right inguinal lymph nodes. Moderate-sized Jose cyst is seen within the popliteal fossa. IMPRESSION: 1. No evidence of right lower extremity deep vein thrombosis. 2. Moderate-sized Jose's cyst. Dictated by: Tree Nuñez M.D. on 12/21/2018 at 11:09 Approved by: Tree Nuñez M.D. on 12/21/2018 at 11:10
[2018-12-21 05:04] LABS: Alanine Aminotransferase 28 IU/L (21-72); Albumin 3.8 g/dL (3.5-5.0); Albumin Globulin Ratio 1.6 (1.0-2.8); Alkaline Phosphatase 61 U/L (38-126); Aspartate Aminotransferase 15 IU/L (17-59); BUN Creatinine Ratio 24.4 (6-22); Bilirubin Total 0.4 mg/dL (0.2-1.3); Blood Urea Nitrogen 22 mg/dL (9-20); Calcium 8.9 mg/dL (8.4-10.2); Carbon Dioxide 27 mmol/L (22-32); Chloride 104 mmol/L (98-107); Estimated Glomerular Filt Rate > 60.0 mL/min (>60); Globulin 2.4 g/dL (1.7-4.1); Glucose 161 mg/dL (80-110); HEMOLYSIS < 15 (0-50); Potassium 4.4 mmol/L (3.4-5.1); Sodium 139 mmol/L (137-145); Total Protein 6.2 g/dL (6.3-8.2)
[2018-12-21] MEDS: PANTOPRAZOLE 20 MG TABLET PO (05:08)
[2018-12-21] MEDS: SODIUM CHLORIDE 0.9% FLUSH 10 ML IV ×2 (05:09→08:18)
[2018-12-21] MEDS: INSULIN ASPART 100 UNIT/ML INSULN PEN SUBCUT (08:17)
[2018-12-21] MEDS: VIT C/E/ZN/COPPR/LUTEIN/ZEAXAN CAPSULE 1 CAP PO (08:17)
[2018-12-21] MEDS: APIXABAN 5 MG TABLET PO (08:18)
[2018-12-21] MEDS: LOSARTAN 50 MG TABLET PO (08:18)
[2018-12-21] MEDS: MULTIVIT,CALC,MINS/IRON/FOLIC 1 TABLET 1 TAB PO (08:19)
[2018-12-21] MEDS: DORZOLAMIDE/TIMOLOL OPHTH 10 ML 1 DROPS EYE-BOTH (08:19)
[2018-12-21] MEDS: ATORVASTATIN 20 MG TABLET PO (08:19)
[2018-12-21] MEDS: dilTIAZem CD 240 MG CAP PO (08:19)
[2018-12-21] MEDS: OXYCODONE IR 5 MG TABLET PO ×2 (08:27→13:58)
--- NOTE | 2018-12-21 11:14 | PC.NURSE ---
PT ALERT/ORIENTED X 3- VAGUE COMPLAINTS OF HEAD FEELING NUMB , NECK ISSUES AND BILAT HAND CLUMSINESS- SR WITHOUT ECTOPY- INDEPENDENT ( WITH ASSIST OF PER HIS INSISTENCE TO BR - TAKING PO WELL AND REQUESTING OXYCODONE FOR ABOVE STATED CONCERNS- HE DECLINES TO GET OUT OF BED TO CHAIR IN ROOM- SPO2 95% ON ROOM AIR
--- NOTE | 2018-12-21 16:50 | PM.DS.1 ---
History of Present Illness Date Patient Seen: 12/20/18 Chief complaint: states he almost passed out,low BP,feels dizzy Narrative: Written by Jed Blake: This is a 72-year-old male with a history of diabetes, hypertension, hyperlipidemia , glaucoma, obstructive sleep apnea, and prior diagnosis of DVT who was brought in the ER with chief complaint of feeling that he was going to pass out and weakness. The patient was brought in by his for symptoms began approximately noon when the patient states that he was not feeling well and felt lightheaded. He had associated ?hazy? vision and felt that he was about to pass out. His checked his blood sugar found to be within range and his symptoms abated however they reoccurred episodically several times through the afternoon into the evening. At dinner patient became diaphoretic and experienced an alteration in speech with slurring that too was transient for few minutes but reoccurred prompting presentation to the emergency. The patient has chronic neck pain related to degenerative disc disease and facet osteophytes however denies headache, nausea or vomiting, had no shortness of breath or chest pain. He endorses having a lengthy history of pleuritic type chest pain with deep inspiration or sneezing but denies cough, cardiac pain, radiation or palpitations. The patient presented to the ER at 6:20 p.m.. On arrival his blood pressure was 162/93 with heart rate of 80 and respirations of 14 an oxygen saturation 92% on room air. The patient was evaluated with a stat noncontrast CT that showed no acute intracranial pathology and subsequently a CT with contrast which again was negative for bleed or lesion. Twelve lead EKG was completed as reviewed by myself showed a sinus rhythm with ventricular rate of 77 without ectopy. 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 The Q-wave in V2 is new since his last EKG taken in July of 2018. Patient was given meclizine without change in his lightheadedness and oxycodone for his chronic neck pain. The ER physician obtained stroke consult with [facility] in [place] who based on information felt this was not a stroke event. Discharge Providers Date of admission: 12/20/18 01:23 Primary care physician: Yuki Lopez MD Discharge provider: Kiya Adorno DO Discharge Date: 12/21/18 Summary Discharge Diagnosis: 1. Possible amyloid angiopathy versus TIA, present on admission. Resolved. 2. Hypertension, chronic, present on admission. Stable. 3. Diabetes mellitus type 2, with peripheral neuropathy, present on admission. Stable. 4. Hyperlipidemia, chronic, present on admission. Stable. 5. 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 Resolved. Hospital Course: Maninder Hernandez is a 72-year-old male with a history of diabetes, hypertension, hyperlipidemia , glaucoma, obstructive sleep apnea, and prior diagnosis of DVT who was brought in the ER with chief complaint of feeling that he was going to pass out and weakness. 1. Possible amyloid angiopathy versus TIA, present on admission. Resolved. -Patient with near syncope, lightheadedness, and episodic dysarthria yesterday now thought to possibly related to amyloid angiopathy versus some other neurological process as below. -ABCD2 score was 6, NIH score at time of admission was 0. -CT brain did not demonstrate any acute intracranial process. MRI demonstrated no acute intracranial disease process or areas of acute or chronic infarction. Mild, diffuse cerebral volume loss and moderate periventricular and subcortical white matter chronic microvascular ischemic changes. Punctate susceptibility artifact predominantly involving the parietal and occipital lobes bilaterally. Finding is nonspecific but typically represents hemosiderin deposition related to prior micro-bleeds. Finding may represent chronic hemorrhage related to amyloid angiopathy or hypertension. -Patient is high risk for neurologic event with diabetes and hypertension. Patient is currently taking Eliquis due to remote history of DVT in approximately 1995. Discontinued Eliquis due to possibility of amyloid angiopathy. Also recommended he avoid aspirin and NSAIDs. Recommend close follow-up with PCP at [facility] and referral to Neurology for further workup and recommendations. -No improvement in dizziness with meclizine in the ER. -Carotid ultrasound did not demonstrate any significant stenosis. -Echocardiogram demonstrated preserved systolic function with EF of 60-65% with mild left atrial enlargement and MAC. No intra-atrial shunt. -Monitored closely on telemetry throughout hospitalization. No significant ectopy. 2. Hypertension, chronic, present on admission. Stable. -Continued diltiazem 240 mg daily and Losartan 50 mg daily. There is no listed history of atrial fibrillation but he is on anticoagulation and diltiazem? -Blood pressure on arrival was 162/93. Improved during hospitalization with SBP 140-150's. Will need tighter control outpatient. 3. Diabetes mellitus type 2, with peripheral neuropathy, present on admission. Stable. -Continued metformin XR 2 g at bedtime -Blood sugars evaluated when patient was diaphoretic at home found to be 102 with no overt hypoglycemia contributory to his neurologic symptoms. -Continued blood glucose checks and low-dose correction scale insulin ACHS. -Hemoglobin A1c 7.0% -Continued carbohydrate consistent and heart healthy diet. 4. Hyperlipidemia, chronic, present on admission. Stable. -Continued atorvastatin 20 mg daily. -Lipid panel within normal limits: Total cholesterol 86, triglycerides 132, LDL 37, HDL 23. 5. 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 Resolved. -Patient was recently transitioned from warfarin to Eliquis 5 mg twice daily which was continued throughout hospitalization and discontinued prior to discharge due to possibility of amyloid angiopathy. -Doppler ultrasound of right lower extremity did not demonstrate DVT in right leg. Status at Discharge Functional status at discharge: independent ambulation Overall status at discharge: patient is back to baseline Exam Vital Signs (past 8 hours): - 12/21/18 12:29 12/21/18 12:30 12/21/18 15:42 Temperature 98.5 F 98.2 F Pulse Rate 67 69 Respiratory Rate 16 18 Blood Pressure 140/85 150/90 H 123/64 Pulse Oximetry 91 90 L Oxygen Delivery Method Room Air Oxygen Flow Rate 0 Narrative Exam Narrative: General: Older gentleman sitting in bed and in no acute distress, mildly anxious, well-developed, well-nourished, appropriately interactive. HEENT: Normocephalic, atraumatic. External ears without defect. Pupils equal, round, and reactive to light. Anicteric sclerae, moist conjunctivae, and no lid lag. Poor dentition. Neck: Supple with full range of motion. No jugular venous distension. No bruits. No lymphadenopathy or thyromegaly. Cardiovascular: Regular rate and rhythm without murmurs, rubs, or gallops appreciated. Pulmonary: Clear to auscultation bilaterally without crackles, wheezes, or rhonchi. Normal respiratory effort with no use of accessory muscles. Abdomen: Soft, bowel sounds present, nontender, nondistended. No hepatosplenomegaly or masses appreciated. Extremities: No clubbing, cyanosis, or edema. Skin: Normal temperature, turgor, and texture; no rash, ulcers, or subcutaneous nodules appreciated. Neurological: Cranial nerves grossly intact. Psychiatric: Normal mood and affect. Alert and oriented to person, place, and time. Objective Labs Result Diagrams: 12/19/18 18:23 12/21/18 04:41 Labs: Laboratory Results - last 24 hr 12/21/18 12/21/18 04:41 04:41 Sodium 139 Potassium 4.4 Chloride 104 Carbon Dioxide 27 BUN 22 H Creatinine 0.90 Estimated GFR > 60.0 BUN/Creatinine Ratio 24.4 H Glucose 161 H Hemoglobin A1c 7.0 H Calcium 8.9 Total Bilirubin 0.4 AST 15 L ALT 28 Alkaline Phosphatase 61 Total Protein 6.2 L Albumin 3.8 Globulin 2.4 Albumin/Globulin Ratio 1.6 Discharge Plan Discharge Plan Patient Disposition: Home Discharge comment: You are being discharged home. The MRI of your brain demonstrated small micro bleeds on both sides of your brain. This may be related to uncontrolled high blood pressure versus amyloid angiopathy (a type of protein deposition in the blood vessels of the brain). Your Eliquis has been stopped. Do not take aspirin or NSAIDs such as ibuprofen, naproxen, meloxicam, indomethacin, etc. You may continue your Percocet as needed for osteoarthritic pain. Please follow-up with your PCP, as soon as, available and recommend that you be referred to a neurologist for further workup of your brain. Your ultrasound of your heart did not demonstrate PFO (hole in your heart) or heart failure, your carotid ultrasound did not demonstrate any narrowing of the vessels in your neck, and your ultrasound of your lower extremity did not demonstrate any blood clots. Please use a walker at all times and be very careful not to fall. Discharge Med Rec/Prescriptions Prescriptions: Continued glucose 4 GM tablet,chewable 8 tab PO QDAYP PRN (Reason: Hypoglycemia) Qty: 0 RF: 0 atorvastatin 20 mg Tablet 20 mg PO DAILY RF: 0 losartan 50 mg Tablet 50 mg PO DAILY RF: 0 latanoprost 0.005 % Drops 1 drp EYE-BOTH BEDTIME RF: 0 glimepiride 4 mg Tablet 8 mg PO QPM RF: 0 metformin 1,000 mg Tablet Extended Release 24hr 2,000 mg PO QPM RF: 0 polyvinyl alcohol [Artificial Tears (polyvin alc)] 1.4 % Drops 1 - 2 drp EYE-BOTH PRN PRN (Reason: Dry Eye(S)) RF: 0 diltiazem HCl 240 mg Capsule,Extended Release 24 Hr 240 mg PO DAILY RF: 0 dorzolamide-timolol 22.3-6.8 mg/mL Drops 1 drp EYE-BOTH BID RF: 0 capsaicin 0.1 % Cream 1 applic TOPICAL BID PRN (Reason: pain) RF: 0 empagliflozin 10 mg Tablet 10 mg PO QAM RF: 0 Discontinued Eliquis 5 mg Tablet 5 mg PO BID RF: 0 Follow up/Referrals: Yuki Lopez MD [Primary Care Provider] - Provider Discharge Instructions Diet: Carb-consistent/Diabetic, Low-fat, Low-sodium and Low-cholesterol Activity: Activity as tolerated with a cane/walker being very careful to sit down when dizzy and avoid falls. Discharge Data Primary Care Provider: Yuki Lopez Attending Provider: Jed Blake Admit Date/Time: 12/20/18 01:23 Discharges patient from system. Discharge Date/Time: 12/21/18 19:02 Quality VTE Deep Vein Thrombosis/Pulmonary Embolism Present on Admission: No
[2018-12-21] MEDS: METFORMIN XR 500 MG TABLET 2000 MG PO (17:29)
--- NOTE | 2018-12-22 11:03 | CM.DPC ---
Addendum entered by Inessa Rust LPN 12/22/18 15:37: Diandra has faxed multiple times to the [phone] (after confirming that this was a correct [facility] fax # but has yet to get a fax receipt saying it went through. States all 4 faxings have stated the line is busy. She does note this is not unusual when their dept faxes the [facility] as the system is so large. She has called back now to say that the Dept of [place] just sent Med Records a request from Dr. Miller (no first name) requesting the dc summary. Diandra states she will fax all of the records including the d/c summary as per Dr. Adorno's request. Fax gives tel # : Provider Line Only: [phone] and Pt has been calling this d/c tank erector anxiously throughout the day. Diandra has updated him and this CM did just speak with him now. Original Note: DCP: dc: update: Dr. Adorno states she d/c'd pt home last night but wants to make sure his records from this stay [facility] to the [facility]. She requested assist. She also needed confirmation re his PCP. Called pt and he confirmed that he sees Dr. Miller and provider Yuki Lopez primarily. His next [facility] appt at the [facility] is 12/28/18 but it's with another doctor. Pt states he was told by the [facility] that they had already requested records for this stay from . Conferred with CM team. UR RN states no clinicals were faxed as per their protocol for VA and OBS status stays. Called Medical Records and spoke with Diandra. She confirmed no request for clinical has been received from the [facility]. She agrees to gather all documents but does need a fax #. Have now left a vm at [phone] op 6 with request for this fax #. Will now call the basic line provided by the pt: . Agreed to update pt when more is known: cell: [phone]. Just heard back from pt. He has talked with the [facility] again and says Fax to send his info to is: either 206 or [phone]: [phone]. Diandra from [facility] records is updated. States she will do a search to confirm which is the appropriate number and then fax the records. She agrees to call pt back when all is faxed and when a fax receipt is obtained. Pt and his Desiree are updated. Diandra will alert this CM if there are any further difficulties with the faxing of the records.
== END 2018-12-21 19:02 | disposition home or self-care (01) ==
LOC: ED 18:45 → AC 12-20 02:36 → ICU 12-20 08:09 → AC 12-21 09:01 → ICU 12-21 09:01
PROVIDERS: Emergency Medicine; Family Medicine; Admitting Provider Nurse Practitioner Adult Health; Emergency Provider Emergency Medicine; Family Provider Internal Medicine; PCP Internal Medicine; Visit Provider Nurse Practitioner Adult Health
DX: G45.9 Transient cerebral ischemic attack, unspecified (principal); R42 Dizziness and giddiness; E11.40 Type 2 diabetes mellitus with diabetic neuropathy, unspecified; Z79.84 Long term (current) use of oral hypoglycemic drugs; I10 Essential (primary) hypertension; Z79.01 Long term (current) use of anticoagulants; Z86.718 Personal history of other venous thrombosis and embolism; E78.5 Hyperlipidemia, unspecified; H40.9 Unspecified glaucoma; F17.210 Nicotine dependence, cigarettes, uncomplicated; G47.33 Obstructive sleep apnea (adult) (pediatric); M54.2 Cervicalgia
CPT/HCPCS: 36415; 36591; 70450; 70460; 70551; 71045; 80053; 80061; 82550; 82962; 83036; 83690; 83880; 84484; 85025; 85610; 85730; 87797; 93005; 93306; 93880; 93971; 94762; 99284; 99285; G0378; Q9967

== ENCOUNTER 2019-03-07 16:27 | Emergency (ER) | payer OTHER, SELFPAY ==
[2018-12-20 03:00] VITALS: BMI 30.9
[2019-03-07 16:42] VITALS: BP 137/78; PULSE 83; RESP 20; TEMP 37.8; O2SAT 93
[2019-03-07 17:20] LABS: Add Manual Diff / Slide Review NO; Basophils Absolute Auto 0 /uL (0-100); Basophils Percent Auto 0.5 % (0-2); Eosinophils Absolute Auto 200 /uL (0-450); Hematocrit 43.7 % (41-53); Hemoglobin 14.4 g/dL (13.5-17.5); Lymphocytes Absolute Auto 1200 /uL (1100-4500); Lymphocytes Percent Auto 12.6 % (25-40); Mean Corpuscular Hemoglobin 31.6 PG (26-34); Mean Corpuscular Volume 95.6 fL (80-100); Monocytes Absolute Auto 1100 /uL (0-900); Monocytes Percent Auto 11.7 % (3-14); Neutrophils Absolute Auto 7100 /uL (1500-7000); Neutrophils Percent Auto 73.2 % (50-75); Platelet Count 205 X10^3/uL (150-400); Red Blood Cell Count 4.57 X10^6/uL (4.5-5.9); Red Cell Distribution Width 13.8 % (11.6-14.8); White Blood Cell Count 9.7 X10^3/uL (4.5-11.0)
[2019-03-07 17:29] LABS: INR 0.9 (0.9-1.3); Prothrombin Time 10.8 SECONDS (10.1-12.7)
[2019-03-07 17:33] LABS: Alanine Aminotransferase 25 IU/L (21-72); Albumin 4.4 g/dL (3.5-5.0); Albumin Globulin Ratio 1.6 (1.0-2.8); Alkaline Phosphatase 91 U/L (38-126); Aspartate Aminotransferase 13 IU/L (17-59); BUN Creatinine Ratio 18.8 (6-22); Bilirubin Total 0.5 mg/dL (0.2-1.3); Blood Urea Nitrogen 15 mg/dL (9-20); Calcium 9.1 mg/dL (8.4-10.2); Carbon Dioxide 25 mmol/L (22-32); Chloride 105 mmol/L (98-107); Creatine Kinase 57 U/L (55-170); Estimated Glomerular Filt Rate > 60.0 mL/min (>60); Globulin 2.8 g/dL (1.7-4.1); Glucose 148 mg/dL (80-110); HEMOLYSIS < 15 (0-50); Potassium 3.8 mmol/L (3.4-5.1); Sodium 141 mmol/L (137-145); Total Protein 7.2 g/dL (6.3-8.2)
[2019-03-07 17:44] LABS: Troponin I < 0.012 ng/mL (0.01-0.034)
--- NOTE | 2019-03-07 19:06 | ED.NECK ---
HPI - Neck Pain/Injury General Chief Complaint: Neck Pain/Injury Stated Complaint: history of brain bleed,thinks has blood clot Time Seen by Provider: 03/07/19 18:00 Source: patient and family Mode of arrival: ambulatory Limitations: no limitations History of Present Illness HPI Narrative: 73-year-old male smoker presents with right-sided neck pain in the absence of a known injury. this pain is worse with motion and improves with rest. Is in the musculature of the right side of his neck. He denies any radiation into his extremities. He denies any blurred vision or other stroke-like symptoms. Related Data Home Medications Medication Instructions Recorded Confirmed glucose 8 tab PO QDAYP PRN #0 11/27/17 12/20/18 atorvastatin 20 mg PO DAILY 07/21/18 12/20/18 glimepiride 8 mg PO QPM 07/21/18 12/20/18 latanoprost 1 drp EYE-BOTH BEDTIME 07/21/18 12/20/18 losartan 50 mg PO DAILY 07/21/18 12/20/18 capsaicin 1 applic TOPICAL BID PRN 12/20/18 12/20/18 diltiazem HCl 240 mg PO DAILY 12/20/18 12/20/18 dorzolamide-timolol 1 drp EYE-BOTH BID 12/20/18 12/20/18 empagliflozin 10 mg PO QAM 12/20/18 12/20/18 metformin 2,000 mg PO QPM 12/20/18 12/20/18 polyvinyl alcohol [Artificial 1 - 2 drp EYE-BOTH PRN PRN 12/20/18 12/20/18 Tears (polyvin alc)] Previous Rx's Medication Instructions Recorded cyclobenzaprine 10 mg PO TID PRN #14 tab 03/07/19 oxycodone 5 mg PO Q4-6H PRN #10 tab 03/07/19 Allergies Allergy/AdvReac Type Severity Reaction Status Date / Time albuterol [ALBUTEROL] AdvReac Intermediate Shakiness Verified 12/19/18 18:20 Review of Systems Constitutional Denies chills, Denies fever(s), Denies lethargy and Denies weakness Eyes Denies change in vision, Denies eye discharge, Denies irritation and Denies loss of vision ENT Ears, Nose, Mouth, and Throat: Denies change in voice, Reports neck pain and Denies sore throat Cardiovascular Denies chest pain, Denies irregular heart rhythm, Denies lightheadedness, Denies palpitations, Denies dyspnea, Denies dyspnea on exertion and Denies orthopnea Respiratory Denies cough, Denies dyspnea, Denies dyspnea on exertion and Denies wheezing Gastrointestinal Gastrointestinal: Denies abdominal pain, Denies change in bowel habits, Denies diarrhea, Denies nausea and Denies vomiting Genitourinary Denies hematuria, Denies flank pain, Denies urinary incontinence and Denies urinary urgency Musculoskeletal Reports neck pain Integumentary/Breasts Denies pruritus, Denies erythema, Denies rash and Denies wounds Neurologic Denies confusion, Denies loss of vision and Denies weakness Psychiatric Denies anxiety, Denies confusion, Denies depression, Denies homicidal ideation and Denies suicidal ideation Endocrine Denies palpitations Hematologic/Lymphatic Denies easy bruising Allergic/Immunologic Denies wheezing FOR[facility]LY [facility] Medical History Diabetes (Acute) Glaucoma (Acute) History of DVT (deep vein thrombosis) (Acute) Hyperlipidemia (Acute) Hypertension (Acute) Surgical History History of ankle surgery (Acute) History of bilateral inguinal hernia repair (Acute) History of hand surgery (Acute) Social History household members: spouse Smoking Status: Current some day smoker alcohol intake: former substance use type: does not use Social History household members: spouse Smoking Status: Current some day smoker alcohol intake: former substance use type: does not use Exam Narrative Exam Narrative: GENERAL: This is a well-nourished, well-developed patient, in mild distress. HEAD: Atraumatic. Normocephalic. No temporal or scalp tenderness. EYES: Pupils equal round and reactive. Extraocular motions intact. No scleral icterus. No injection or drainage. ENT: Nose without bleeding, purulent drainage or septal hematoma. Throat without erythema, tonsillar hypertrophy or exudate. Uvula midline. Airway patent. NECK: Trachea midline. R sided neck CARDIOVASCULAR: Regular rate and rhythm without murmurs, gallops, or rubs. RESPIRATORY: Clear to auscultation. Breath sounds equal bilaterally. No wheezes, rales, or rhonchi. GASTROINTESTINAL: Abdomen soft, non-tender, nondistended. No hepato-splenomegaly, or palpable masses. No guarding. EXTREMITIES: No clubbing, cyanosis, or edema. No joint tenderness, effusion, or edema noted. BACK: Nontender without deformity or crepitance. No flank tenderness. NEURO: AOx3. SKIN: No rash or erythema. Initial Vital Signs Initial Vital Signs: Vital Signs Temperature 100.1 F H 03/07/19 16:42 Pulse Rate 83 03/07/19 16:42 Respiratory Rate 20 03/07/19 16:42 Blood Pressure 137/78 03/07/19 16:42 Pulse Oximetry 93 03/07/19 16:42 Course Orders Ordered: Discontinued Medications Cyclobenzaprine HCl (Flexeril 10 Mg Prepack) 1 bottle MISC SEEINSTR ONE Stop: 03/07/19 21:16 Last Admin: 03/07/19 21:33 Dose: 1 bottle Oxycodone/Acetaminophen (Percocet 5/325) 1 tab PO NOW ONE Stop: 03/07/19 21:27 Last Admin: 03/07/19 21:33 Dose: 1 tab Vital Signs - 8 hr 03/07/19 16:42 Temperature 100.1 F H Pulse Rate 83 Respiratory Rate 20 Blood Pressure 137/78 Pulse Oximetry 93 MDM - Neck Pain/Injury Lab Data Result diagrams: 03/07/19 17:11 03/07/19 17:11 Lab Results 03/07/19 03/07/19 03/07/19 Range/Units 17:11 17:11 17:11 WBC 9.7 (4.5-11.0) X10^3/uL RBC 4.57 (4.5-5.9) X10^6/uL Hgb 14.4 (13.5-17.5) g/dL Hct 43.7 (41-53) % MCV 95.6 (80-100) fL MCH 31.6 (26-34) PG MCHC 33.0 (30-36) % RDW 13.8 (11.6-14.8) % Plt Count 205 (150-400) X10^3/uL Neut % (Auto) 73.2 (50-75) % Lymph % (Auto) 12.6 L (25-40) % [place] % (Auto) 11.7 (3-14) % Eos % (Auto) 2.0 (2-4) % Baso % (Auto) 0.5 (0-2) % Neut # (Auto) 7100 H (0776-1472) /uL Lymph # (Auto) 1200 (7869-5733) /uL [place] # (Auto) 1100 H (0-900) /uL Eos # (Auto) 200 (0-450) /uL Baso # (Auto) 0 (0-100) /uL PT 10.8 (10.1-12.7) SECONDS INR 0.9 (0.9-1.3) Sodium 141 (137-145) mmol/L Potassium 3.8 (3.4-5.1) mmol/L Chloride 105 (98-107) mmol/L Carbon Dioxide 25 (22-32) mmol/L BUN 15 (9-20) mg/dL Creatinine 0.80 (0.66-1.25) mg/dL Estimated GFR > 60.0 (>60) mL/min BUN/Creatinine Ratio 18.8 (6-22) Glucose 148 H (80-110) mg/dL Calcium 9.1 (8.4-10.2) mg/dL Total Bilirubin 0.5 (0.2-1.3) mg/dL AST 13 L (17-59) IU/L ALT 25 (21-72) IU/L Alkaline Phosphatase 91 (38-126) U/L Total Creatine Kinase 57 (55-170) U/L CK-MB (CK-2) TNP CK-MB (CK-2) Rel Index TNP Troponin I < 0.012 (0.01-0.034) ng/mL Total Protein 7.2 (6.3-8.2) g/dL Albumin 4.4 (3.5-5.0) g/dL Globulin 2.8 (1.7-4.1) g/dL Albumin/Globulin Ratio 1.6 (1.0-2.8) Imaging Data CTA Head/Neck: Radiologist's impression: [address] [address] [address] Scan Report Signed Patient: Maninder Hernandez CMR#: [id number] : 8Acct:[id number] Age/Sex: 73 / MDate of Service: 03/07/19 Loc: ED Accession Number: [id number] Procedure: CT angio head and neck Ordering Provider: Judd Potter D.O. PROCEDURE: CT ANGIO HEAD AND NECK INDICATIONS: R sided neck pain, vision change, R arm TECHNIQUE: Pre-contrast 4.5 mm thick sections acquired from the foramen magnum to the vertex. After the administration of intravenous contrast, 1 mm thick sections acquired from the aortic arch through the [place] of [place]. Post-contrast 4.5 mm thick sections then re-acquired from the foramen magnum to the vertex. 3-dimensional zvloycj-xizptcjyc-toywshexfr (MIP) and/or volume rendering reformats were acquired of the central intracranial vasculature and neck separately. COMPARISON: CT head dated 12/19/18. FINDINGS: Image quality: Excellent. BRAIN: CSF spaces: Ventricles are normal in size and shape. Basal cisterns are patent. No extra-axial fluid collections. Brain: No midline shift. No intracranial bleeds or masses. Lin-white matter interface appears intact. Stable diffuse cortical volume loss and changes of chronic small vessel ischemic disease. No acute intracranial hemorrhage. Skull and face: Calvarium and facial bones appear intact, without suspicious lesions. Orbits appear normal. Sinuses: Sinuses and mastoids are clear. HEAD CT ANGIOGRAPHY: Anterior circulation: Scattered atherosclerotic calcifications involving the intracranial segments of the internal carotid arteries without hemodynamically significant stenosis, occlusion, or aneurysm. The anterior and middle cerebral arteries are patent bilaterally. No hemodynamically significant stenosis, occlusion, or aneurysm. Posterior circulation: Visualized portions of the vertebral arteries demonstrate normal caliber, and join to form a normal appearing basilar artery. Flow within the posterior cerebral arteries is normal and symmetric. No aneurysms are seen. NECK CT ANGIOGRAPHY: Carotid system: The great vessels demonstrate a conventional anatomy as they arise from the aortic arch. Scattered atherosclerotic calcifications without hemodynamically significant stenosis. The origins of the common carotid arteries appear patent. The common carotid arteries demonstrate normal caliber and courses. The bifurcation regions are both widely patent. The internal carotid arteries demonstrate normal calibers and courses. Posterior circulation: The origins of the vertebral arteries both appear patent. The more superior extracranial portions of both vertebral arteries also demonstrate normal courses and calibers. They join to form a normal appearing basilar artery. Incidental note of left dominant vertebral artery. Soft tissues: Visualized neck soft tissues demonstrate no suspicious abnormalities. Bones: No suspicious bony lesions. Moderate multilevel cervical spondylosis. Visualized cervical spine appears normally aligned. IMPRESSION: 1. Head CT without acute intracranial abnormalities. Stable age-related senescent changes and sequela of chronic small vessel ischemic disease. 2. Scattered atherosclerotic calcifications of the carotid vasculature and intracranial segment of the bilateral internal carotid arteries without hemodynamically significant stenosis, occlusion, or aneurysms. Overall, negative CT angiogram of the brain and neck. Any quantitative measurements of stenosis were performed using NASCET criteria. Dictated by: Dale Mora M.D. on 03/07/2019 at 20:37 Approved by: Dale Mora M.D. on 03/07/2019 at 20:48 Discharge Plan Departure Patient Disposition: Home Clinical Impression: Cervical paraspinal muscle spasm Discharge Date/Time: 03/07/19 21:47 Interventions: ED Discharge Assessment Last Done: 03/07/19 21:47 Instructions: DI for Neck Pain Activity Restrictions/Additional Instructions: *You have been diagnosed with [neck pain] *What to do: *Take medications as directed *Follow up with your primary care provider in 2-3 days, call for an appointment. Let them know you were seen in the Emergency Department and that we ask that you be seen in follow up *Return to ER if you should have any new, worsening or concerning symptoms Prescriptions: New cyclobenzaprine 10 mg tablet 10 mg PO TID PRN (Reason: muscle spasm) Qty: 14 RF: 0 oxycodone 5 mg tablet 5 mg PO Q4-6H PRN (Reason: pain) Qty: 10 RF: 0 No Action glucose 4 GM tablet,chewable 8 tab PO QDAYP PRN (Reason: Hypoglycemia) Qty: 0 RF: 0 atorvastatin 20 mg Tablet 20 mg PO DAILY RF: 0 losartan 50 mg Tablet 50 mg PO DAILY RF: 0 latanoprost 0.005 % Drops 1 drp EYE-BOTH BEDTIME RF: 0 glimepiride 4 mg Tablet 8 mg PO QPM RF: 0 metformin 1,000 mg Tablet Extended Release 24hr 2,000 mg PO QPM RF: 0 polyvinyl alcohol [Artificial Tears (polyvin alc)] 1.4 % Drops 1 - 2 drp EYE-BOTH PRN PRN (Reason: Dry Eye(S)) RF: 0 diltiazem HCl 240 mg Capsule,Extended Release 24 Hr 240 mg PO DAILY RF: 0 dorzolamide-timolol 22.3-6.8 mg/mL Drops 1 drp EYE-BOTH BID RF: 0 capsaicin 0.1 % Cream 1 applic TOPICAL BID PRN (Reason: pain) RF: 0 empagliflozin 10 mg Tablet 10 mg PO QAM RF: 0 Referrals: Yuki Lopez MD [Primary Care Provider] -
--- NOTE | 2019-03-07 19:23 | DI.CT.S_ITS ---
PROCEDURE: CT ANGIO HEAD AND NECK INDICATIONS: R sided neck pain, vision change, R arm TECHNIQUE: Pre-contrast 4.5 mm thick sections acquired from the foramen magnum to the vertex. After the administration of intravenous contrast, 1 mm thick sections acquired from the aortic arch through the [place] of [place]. Post-contrast 4.5 mm thick sections then re-acquired from the foramen magnum to the vertex. 3-dimensional ldjcsfa-ccortsvus-dclbdoeoxw (MIP) and/or volume rendering reformats were acquired of the central intracranial vasculature and neck separately. COMPARISON: CT head dated 12/19/18. FINDINGS: Image quality: Excellent. BRAIN: CSF spaces: Ventricles are normal in size and shape. Basal cisterns are patent. No extra-axial fluid collections. Brain: No midline shift. No intracranial bleeds or masses. Lin-white matter interface appears intact. Stable diffuse cortical volume loss and changes of chronic small vessel ischemic disease. No acute intracranial hemorrhage. Skull and face: Calvarium and facial bones appear intact, without suspicious lesions. Orbits appear normal. Sinuses: Sinuses and mastoids are clear. HEAD CT ANGIOGRAPHY: Anterior circulation: Scattered atherosclerotic calcifications involving the intracranial segments of the internal carotid arteries without hemodynamically significant stenosis, occlusion, or aneurysm. The anterior and middle cerebral arteries are patent bilaterally. No hemodynamically significant stenosis, occlusion, or aneurysm. Posterior circulation: Visualized portions of the vertebral arteries demonstrate normal caliber, and join to form a normal appearing basilar artery. Flow within the posterior cerebral arteries is normal and symmetric. No aneurysms are seen. NECK CT ANGIOGRAPHY: Carotid system: The great vessels demonstrate a conventional anatomy as they arise from the aortic arch. Scattered atherosclerotic calcifications without hemodynamically significant stenosis. The origins of the common carotid arteries appear patent. The common carotid arteries demonstrate normal caliber and courses. The bifurcation regions are both widely patent. The internal carotid arteries demonstrate normal calibers and courses. Posterior circulation: The origins of the vertebral arteries both appear patent. The more superior extracranial portions of both vertebral arteries also demonstrate normal courses and calibers. They join to form a normal appearing basilar artery. Incidental note of left dominant vertebral artery. Soft tissues: Visualized neck soft tissues demonstrate no suspicious abnormalities. Bones: No suspicious bony lesions. Moderate multilevel cervical spondylosis. Visualized cervical spine appears normally aligned. IMPRESSION: 1. Head CT without acute intracranial abnormalities. Stable age-related senescent changes and sequela of chronic small vessel ischemic disease. 2. Scattered atherosclerotic calcifications of the carotid vasculature and intracranial segment of the bilateral internal carotid arteries without hemodynamically significant stenosis, occlusion, or aneurysms. Overall, negative CT angiogram of the brain and neck. Any quantitative measurements of stenosis were performed using NASCET criteria. Dictated by: Dale Mora M.D. on 03/07/2019 at 20:37 Approved by: Dale Mora M.D. on 03/07/2019 at 20:48
--- NOTE | 2019-03-07 21:13 | ED_ITS ---
HPI - Neck Pain/Injury General Chief Complaint: Neck Pain/Injury Stated Complaint: history of brain bleed,thinks has blood clot Time Seen by Provider: 03/07/19 18:00 Source: patient and family Mode of arrival: ambulatory Limitations: no limitations History of Present Illness HPI Narrative: 73-year-old male smoker presents with right-sided neck pain in the absence of a known injury. this pain is worse with motion and improves with rest. Is in the musculature of the right side of his neck. He denies any radiation into his extremities. He denies any blurred vision or other stroke- like symptoms. Related Data Home Medications Medication Instructions Recorded Confirmed glucose 8 tab PO QDAYP PRN #0 11/27/17 12/20/18 atorvastatin 20 mg PO DAILY 07/21/18 12/20/18 glimepiride 8 mg PO QPM 07/21/18 12/20/18 latanoprost 1 drp EYE-BOTH BEDTIME 07/21/18 12/20/18 losartan 50 mg PO DAILY 07/21/18 12/20/18 capsaicin 1 applic TOPICAL BID PRN 12/20/18 12/20/18 diltiazem HCl 240 mg PO DAILY 12/20/18 12/20/18 dorzolamide-timolol 1 drp EYE-BOTH BID 12/20/18 12/20/18 empagliflozin 10 mg PO QAM 12/20/18 12/20/18 metformin 2,000 mg PO QPM 12/20/18 12/20/18 polyvinyl alcohol [Artificial 1 - 2 drp EYE-BOTH PRN PRN 12/20/18 12/20/18 Tears (polyvin alc)] Previous Rx's Medication Instructions Recorded cyclobenzaprine 10 mg PO TID PRN #14 tab 03/07/19 oxycodone 5 mg PO Q4-6H PRN #10 tab 03/07/19 Allergies Allergy/AdvReac Type Severity Reaction Status Date / Time albuterol [ALBUTEROL] AdvReac Intermediate Shakiness Verified 12/19/18 18:20 Review of Systems Constitutional Denies chills, Denies fever(s), Denies lethargy and Denies weakness Eyes Denies change in vision, Denies eye discharge, Denies irritation and Denies loss of vision ENT Ears, Nose, Mouth, and Throat: Denies change in voice, Reports neck pain and Denies sore throat Cardiovascular Denies chest pain, Denies irregular heart rhythm, Denies lightheadedness, Denies palpitations, Denies dyspnea, Denies dyspnea on exertion and Denies orthopnea Respiratory Denies cough, Denies dyspnea, Denies dyspnea on exertion and Denies wheezing Gastrointestinal Gastrointestinal: Denies abdominal pain, Denies change in bowel habits, Denies diarrhea, Denies nausea and Denies vomiting Genitourinary Denies hematuria, Denies flank pain, Denies urinary incontinence and Denies urinary urgency Musculoskeletal Reports neck pain Integumentary/Breasts Denies pruritus, Denies erythema, Denies rash and Denies wounds Neurologic Denies confusion, Denies loss of vision and Denies weakness Psychiatric Denies anxiety, Denies confusion, Denies depression, Denies homicidal ideation and Denies suicidal ideation Endocrine Denies palpitations Hematologic/Lymphatic Denies easy bruising Allergic/Immunologic Denies wheezing COUNT INCLUDES THE [facility] Medical History Diabetes (Acute) Glaucoma (Acute) History of DVT (deep vein thrombosis) (Acute) Hyperlipidemia (Acute) Hypertension (Acute) Surgical History History of ankle surgery (Acute) History of bilateral inguinal hernia repair (Acute) History of hand surgery (Acute) Social History household members: spouse Smoking Status: Current some day smoker alcohol intake: former substance use type: does not use Social History household members: spouse Smoking Status: Current some day smoker alcohol intake: former substance use type: does not use Exam Narrative Exam Narrative: GENERAL: This is a well-nourished, well-developed patient, in mild distress. HEAD: Atraumatic. Normocephalic. No temporal or scalp tenderness. EYES: Pupils equal round and reactive. Extraocular motions intact. No scleral icterus. No injection or drainage. ENT: Nose without bleeding, purulent drainage or septal hematoma. Throat without erythema, tonsillar hypertrophy or exudate. Uvula midline. Airway patent. NECK: Trachea midline. R sided neck CARDIOVASCULAR: Regular rate and rhythm without murmurs, gallops, or rubs. RESPIRATORY: Clear to auscultation. Breath sounds equal bilaterally. No wheezes, rales, or rhonchi. GASTROINTESTINAL: Abdomen soft, non-tender, nondistended. No hepato- splenomegaly, or palpable masses. No guarding. EXTREMITIES: No clubbing, cyanosis, or edema. No joint tenderness, effusion, or edema noted. BACK: Nontender without deformity or crepitance. No flank tenderness. NEURO: AOx3. SKIN: No rash or erythema. Initial Vital Signs Initial Vital Signs: Vital Signs Temperature 100.1 F H 03/07/19 16:42 Pulse Rate 83 03/07/19 16:42 Respiratory Rate 20 03/07/19 16:42 Blood Pressure 137/78 03/07/19 16:42 Pulse Oximetry 93 03/07/19 16:42 Course Orders Ordered: Discontinued Medications Cyclobenzaprine HCl (Flexeril 10 Mg Prepack) 1 bottle MISC SEEINSTR ONE Stop: 03/07/19 21:16 Last Admin: 03/07/19 21:33 Dose: 1 bottle Oxycodone/Acetaminophen (Percocet 5/325) 1 tab PO NOW ONE Stop: 03/07/19 21:27 Last Admin: 03/07/19 21:33 Dose: 1 tab Vital Signs - 8 hr 03/07/19 16:42 Temperature 100.1 F H Pulse Rate 83 Respiratory Rate 20 Blood Pressure 137/78 Pulse Oximetry 93 MDM - Neck Pain/Injury Lab Data Result diagrams: 03/07/19 17:11 03/07/19 17:11 Lab Results 03/07/19 03/07/19 03/07/19 Range/Units 17:11 17:11 17:11 WBC 9.7 (4.5-11.0) X10^3/uL RBC 4.57 (4.5-5.9) X10^6/uL Hgb 14.4 (13.5-17.5) g/dL Hct 43.7 (41-53) % MCV 95.6 (80-100) fL MCH 31.6 (26-34) PG MCHC 33.0 (30-36) % RDW 13.8 (11.6-14.8) % Plt Count 205 (150-400) X10^3/uL Neut % (Auto) 73.2 (50-75) % Lymph % (Auto) 12.6 L (25-40) % Mcdonald % (Auto) 11.7 (3-14) % Eos % (Auto) 2.0 (2-4) % Baso % (Auto) 0.5 (0-2) % Neut # (Auto) 7100 H (5929-1816) /uL Lymph # (Auto) 1200 (8785-8062) /uL [place] # (Auto) 1100 H (0-900) /uL Eos # (Auto) 200 (0-450) /uL Baso # (Auto) 0 (0-100) /uL PT 10.8 (10.1-12.7) SECONDS INR 0.9 (0.9-1.3) Sodium 141 (137-145) mmol/L Potassium 3.8 (3.4-5.1) mmol/L Chloride 105 (98-107) mmol/L Carbon Dioxide 25 (22-32) mmol/L BUN 15 (9-20) mg/dL Creatinine 0.80 (0.66-1.25) mg/dL Estimated GFR > 60.0 (>60) mL/min BUN/Creatinine Ratio 18.8 (6-22) Glucose 148 H (80-110) mg/dL Calcium 9.1 (8.4-10.2) mg/dL Total Bilirubin 0.5 (0.2-1.3) mg/dL AST 13 L (17-59) IU/L ALT 25 (21-72) IU/L Alkaline Phosphatase 91 (38-126) U/L Total Creatine Kinase 57 (55-170) U/L CK-MB (CK-2) TNP CK-MB (CK-2) Rel Index TNP Troponin I < 0.012 (0.01-0.034) ng/mL Total Protein 7.2 (6.3-8.2) g/dL Albumin 4.4 (3.5-5.0) g/dL Globulin 2.8 (1.7-4.1) g/dL Albumin/Globulin Ratio 1.6 (1.0-2.8) Imaging Data CTA Head/Neck: Radiologist's impression: [address] [address] [address] Scan Report Signed Patient: Maninder Hernandez CMR#: [id number] : 8Acct:[id number] Age/Sex: 73 / MDate of Service: 03/07/19 Loc: ED Accession Number: [id number] Procedure: CT angio head and neck Ordering Provider: Judd Potter D.O. PROCEDURE: CT ANGIO HEAD AND NECK INDICATIONS: R sided neck pain, vision change, R arm TECHNIQUE: Pre-contrast 4.5 mm thick sections acquired from the foramen magnum to the vertex. After the administration of intravenous contrast, 1 mm thick sections acquired from the aortic arch through the [place]. Post-contrast 4.5 mm thick sections then re- acquired from the foramen magnum to the vertex. 3-dimensional maximum-intensity- projection (MIP) and/or volume rendering reformats were acquired of the central intracranial va sculature and neck separately. COMPARISON: CT head dated 12/19/18. FINDINGS: Image quality: Excellent. BRAIN: CSF spaces: Ventricles are normal in size and shape. Basal cisterns are pa tent. No extra-axial fluid collections. Brain: No midline shift. No intracranial bleeds or masses. Lin-white matter interface appears intact. Stable diffuse cortical volume loss and changes of chronic small vessel ischemic disease. No acute intracranial hemorrhage. Skull and face: Calvarium and facial bones appear intact, without suspicious lesions. Orbits appear normal. Sinuses: Sinuses and mastoids are clear. HEAD CT ANGIOGRAPHY: Anterior circulation: Scattered atherosclerotic calcifications involving the intracranial segments of the internal carotid arteries without hemodynamically significant stenosis, occlusion, or aneurysm. The anterior and middle cerebral arteries are patent bilaterally. No hemodynamically significant stenosis, occlusion, or aneurysm. Posterior circulation: Visualized portions of the vertebral arteries demonstrate normal caliber, and join to form a normal appearing basilar artery. Flow within the posterior cerebral arteries is normal and symmetric. No aneurysms are seen. NECK CT ANGIOGRAPHY: Carotid system: The great vessels demonstrate a conventional anatomy as they arise from the aortic arch. Scattered atherosclerotic calcifications without hemodynamically significant stenosis. The origins of the common carotid arteries appear patent. The common carotid arteries demonstrate normal caliber and courses. The bifurcation regions are both widely patent. The internal carotid arteries demonstrate normal calibers and courses. Posterior circulation: The origins of the vertebral arteries both appear patent. The more superior extracranial portions of both vertebral arteries also demonstrate normal courses and calibers. They join to form a normal appearing basilar artery. Incidental note of left dominant vertebral artery. Soft tissues: Visualized neck soft tissues demonstrate no suspicious abnormalities. Bones: No suspicious bony lesions. Moderate multilevel cervical spondylosis. Visualized cervical spine appears normally aligned. IMPRESSION: 1. Head CT without acute intracranial abnormalities. Stable age-related senescent changes and sequela of chronic small vessel ischemic disease. 2. Scattered atherosclerotic calcifications of the carotid vasculature and intra cranial segment of the bilateral internal carotid arteries without hemodynamically significant stenosis, occlusion, or aneurysms. Overall, negative CT angiogram of the brain and neck. Any quantitative measurements of stenosis were performed using NASCET criteria. Dictated by: Dale Mora M.D. on 03/07/2019 at 20:37 Approved by: Dale Mora M.D. on 03/07/2019 at 20:48 Discharge Plan Departure Patient Disposition: Home Clinical Impression: Cervical paraspinal muscle spasm Discharge Date/Time: 03/07/19 21:47 Interventions: ED Discharge Assessment Last Done: 03/07/19 21:47 Instructions: DI for Neck Pain Activity Restrictions/Additional Instructions: *You have been diagnosed with [neck pain] *What to do: *Take medications as directed *Follow up with your primary care provider in 2-3 days, call for an appointment. Let them know you were seen in the Emergency Department and that we ask that you be seen in follow up *Return to ER if you should have any new, worsening or concerning symptoms Prescriptions: New cyclobenzaprine 10 mg tablet 10 mg PO TID PRN (Reason: muscle spasm) Qty: 14 RF: 0 oxycodone 5 mg tablet 5 mg PO Q4-6H PRN (Reason: pain) Qty: 10 RF: 0 No Action glucose 4 GM tablet,chewable 8 tab PO QDAYP PRN (Reason: Hypoglycemia) Qty: 0 RF: 0 atorvastatin 20 mg Tablet 20 mg PO DAILY RF: 0 losartan 50 mg Tablet 50 mg PO DAILY RF: 0 latanoprost 0.005 % Drops 1 drp EYE-BOTH BEDTIME RF: 0 glimepiride 4 mg Tablet 8 mg PO QPM RF: 0 metformin 1,000 mg Tablet Extended Release 24hr 2,000 mg PO QPM RF: 0 polyvinyl alcohol [Artificial Tears (polyvin alc)] 1.4 % Drops 1 - 2 drp EYE-BOTH PRN PRN (Reason: Dry Eye(S)) RF: 0 diltiazem HCl 240 mg Capsule,Extended Release 24 Hr 240 mg PO DAILY RF: 0 dorzolamide-timolol 22.3-6.8 mg/mL Drops 1 drp EYE-BOTH BID RF: 0 capsaicin 0.1 % Cream 1 applic TOPICAL BID PRN (Reason: pain) RF: 0 empagliflozin 10 mg Tablet 10 mg PO QAM RF: 0 Referrals: Yuki Lopez MD [Primary Care Provider] -
[2019-03-07 21:24] VITALS: BP 137/79; PULSE 87; RESP 17; O2SAT 92
[2019-03-07] MEDS: CYCLOBENZAPRINE 10 MG PREPACK 1 BOTTLE MISC (21:33)
[2019-03-07] MEDS: OXYCODONE/ACETAMINOPHEN 5/325 TABLET 1 TAB PO (21:33)
== END 2019-03-07 21:47 | disposition home or self-care (01) ==
PROVIDERS: Emergency Medicine; Emergency Provider Emergency Medicine; Family Provider Internal Medicine; PCP Internal Medicine
DX: M62.838 Other muscle spasm (principal); M54.2 Cervicalgia
CPT/HCPCS: 36415; 70496; 70498; 80053; 82550; 84484; 85025; 85610; 93005; 99282; 99284; Q9967

== ENCOUNTER 2019-06-06 20:10 | Emergency (ER) | payer OTHER, SELFPAY ==
[2018-12-20 03:00] VITALS: BMI 30.9
[2019-06-06 20:15] VITALS: BP 175/102; PULSE 84; RESP 16; TEMP 37.1; O2SAT 94; BMI 30.7
[2019-06-06 20:45] LABS: Add Manual Diff / Slide Review NO; Basophils Absolute Auto 100 /uL (0-100); Basophils Percent Auto 0.9 % (0-2); Eosinophils Absolute Auto 200 /uL (0-450); Hematocrit 42.3 % (41-53); Hemoglobin 14.3 g/dL (13.5-17.5); Lymphocytes Absolute Auto 1500 /uL (1100-4500); Lymphocytes Percent Auto 24.1 % (25-40); Mean Corpuscular HGB Conc 33.8 % (30-36); Mean Corpuscular Hemoglobin 32.2 PG (26-34); Mean Corpuscular Volume 95.3 fL (80-100); Monocytes Absolute Auto 700 /uL (0-900); Monocytes Percent Auto 11.3 % (3-14); Neutrophils Absolute Auto 3600 /uL (1500-7000); Neutrophils Percent Auto 59.7 % (50-75); Platelet Count 188 X10^3/uL (150-400); Red Blood Cell Count 4.44 X10^6/uL (4.5-5.9); Red Cell Distribution Width 14.2 % (11.6-14.8)
[2019-06-06 20:48] LABS: HCO3 VBG 26 mmol/L (23-28); Oxygen Saturation VBG 86 % (70-75); PCO2 VBG 44.5 mmHg (45-50); PO2 VBG 54 mmHg (35-45); Total CO2 VBG 27 mmol/L (24-29); pH VBG 7.37 (7.33-7.43)
[2019-06-06 20:51] LABS: INR 0.9 (0.9-1.3); Prothrombin Time 9.9 SECONDS (10.1-12.7)
[2019-06-06 20:53] LABS: PTT Partial Thromboplastin Tim 27 SECONDS (26.4-36.2)
[2019-06-06 20:55] LABS: Alanine Aminotransferase 29 IU/L (21-72); Albumin 4.2 g/dL (3.5-5.0); Albumin Globulin Ratio 1.6 (1.0-2.8); Alkaline Phosphatase 114 U/L (38-126); Aspartate Aminotransferase 15 IU/L (17-59); BUN Creatinine Ratio 24.3 (6-22); Bilirubin Total 0.5 mg/dL (0.2-1.3); Blood Urea Nitrogen 17 mg/dL (9-20); Calcium 9.5 mg/dL (8.4-10.2); Carbon Dioxide 25 mmol/L (22-32); Chloride 105 mmol/L (98-107); Estimated Glomerular Filt Rate > 60.0 mL/min (>60); Globulin 2.7 g/dL (1.7-4.1); Glucose 309 mg/dL (80-110); HEMOLYSIS < 15 (0-50); Lipase 109 U/L (23-300); Sodium 141 mmol/L (137-145); Total Protein 6.9 g/dL (6.3-8.2)
[2019-06-06 21:00] VITALS: BP 144/85; PULSE 82; O2SAT 94
--- NOTE | 2019-06-06 21:10 | ED.ABDPAIN ---
HPI - Abdominal Pain General Chief Complaint: Abdominal Pain Stated Complaint: Diabetes Time Seen by Provider: 06/06/19 20:23 Source: patient and family Mode of arrival: ambulatory Limitations: no limitations History of Present Illness HPI narrative: 73-year-old male former smoker with history of diabetes presents with a chief complaint of elevated blood sugars in the 300, when he consistently runs in the 150s and 60s. Patient is not dizzy nor weak or lightheaded. He denies nausea or vomiting. He did have few days of very loose stools last week followed by some generalized abdominal cramping which tended to build until he had a bowel movement. Today he checked his blood sugar and found it to be elevated and was encouraged to come to the emergency department. Patient denies any international travel, recent antibiotics, or exposure to obviously bad food. He no longer has significant abdominal pain, he has never had a colonoscopy. He denies any respiratory distress MD complaint: abdominal pain Onset (ago): day(s) Pain Consistency: now resolved Location: diffuse Severity: mild Quality: cramping Radiation: none Migration to: no migration Relieving factors: bowel movement Exacerbating factors: nothing Associated symptoms: diarrhea Related Data Home Medications Medication Instructions Recorded Confirmed glucose 8 tab PO QDAYP PRN #0 11/27/17 12/20/18 atorvastatin 20 mg PO DAILY 07/21/18 12/20/18 glimepiride 8 mg PO QPM 07/21/18 12/20/18 latanoprost 1 drp EYE-BOTH BEDTIME 07/21/18 12/20/18 losartan 50 mg PO DAILY 07/21/18 12/20/18 capsaicin 1 applic TOPICAL BID PRN 12/20/18 12/20/18 diltiazem HCl 240 mg PO DAILY 12/20/18 12/20/18 dorzolamide-timolol 1 drp EYE-BOTH BID 12/20/18 12/20/18 empagliflozin 10 mg PO QAM 12/20/18 12/20/18 metformin 2,000 mg PO QPM 12/20/18 12/20/18 polyvinyl alcohol [Artificial 1 - 2 drp EYE-BOTH PRN PRN 12/20/18 12/20/18 Tears (polyvin alc)] Previous Rx's Medication Instructions Recorded cyclobenzaprine 10 mg PO TID PRN #14 tab 03/07/19 oxycodone 5 mg PO Q4-6H PRN #10 tab 03/07/19 Allergies Allergy/AdvReac Type Severity Reaction Status Date / Time albuterol [ALBUTEROL] AdvReac Intermediate Shakiness Verified 12/19/18 18:20 Review of Systems Constitutional Denies chills, Denies fever(s), Denies lethargy and Denies weakness Eyes Denies change in vision, Denies eye discharge, Denies irritation and Denies loss of vision ENT Ears, Nose, Mouth, and Throat: Denies change in voice, Denies neck pain and Denies sore throat Cardiovascular Denies chest pain, Denies irregular heart rhythm, Denies lightheadedness, Denies palpitations, Denies dyspnea, Denies dyspnea on exertion and Denies orthopnea Respiratory Denies cough, Denies dyspnea, Denies dyspnea on exertion and Denies wheezing Gastrointestinal Gastrointestinal: Reports abdominal pain, Denies change in bowel habits, Reports diarrhea, Denies nausea and Denies vomiting Genitourinary Denies hematuria, Denies flank pain, Denies urinary incontinence and Denies urinary urgency Musculoskeletal Denies neck pain Integumentary/Breasts Denies pruritus, Denies erythema, Denies rash and Denies wounds Neurologic Denies confusion, Denies loss of vision and Denies weakness Psychiatric Denies anxiety, Denies confusion, Denies depression, Denies homicidal ideation and Denies suicidal ideation Endocrine Denies palpitations Hematologic/Lymphatic Denies easy bruising Allergic/Immunologic Denies wheezing [facility] Medical History Diabetes (Acute) Glaucoma (Acute) History of DVT (deep vein thrombosis) (Acute) Hyperlipidemia (Acute) Hypertension (Acute) Surgical History History of ankle surgery (Acute) History of bilateral inguinal hernia repair (Acute) History of hand surgery (Acute) Social History household members: spouse Smoking Status: Current some day smoker alcohol intake: former substance use type: does not use Social History household members: spouse Smoking Status: Current some day smoker alcohol intake: former substance use type: does not use Exam Narrative Exam Narrative: GENERAL: 73-year-old male appears stated age, obviously uncomfortable and a bit nervous or anxious. HEAD: Atraumatic. Normocephalic. No temporal or scalp tenderness. EYES: Pupils equal round and reactive. Extraocular motions intact. No scleral icterus. No injection or drainage. ENT: Nose without bleeding, purulent drainage or septal hematoma. Throat without erythema, tonsillar hypertrophy or exudate. Uvula midline. Airway patent. NECK: Trachea midline. No JVD or lymphadenopathy. Supple, nontender, no meningeal signs. CARDIOVASCULAR: Regular rate and rhythm without murmurs, gallops, or rubs. RESPIRATORY: Clear to auscultation. Breath sounds equal bilaterally. No wheezes, rales, or rhonchi. GASTROINTESTINAL: Abdomen soft, non-tender, nondistended. No hepato-splenomegaly, or palpable masses. No guarding. EXTREMITIES: No clubbing, cyanosis, or edema. No joint tenderness, effusion, or edema noted. BACK: Nontender without deformity or crepitance. No flank tenderness. NEURO: AOx3. SKIN: No rash or erythema. Initial Vital Signs Initial Vital Signs: Vital Signs Temperature 98.7 F 06/06/19 20:15 Pulse Rate 84 06/06/19 20:15 Respiratory Rate 16 06/06/19 20:15 Blood Pressure 175/102 H 06/06/19 20:15 Pulse Oximetry 94 06/06/19 20:15 Course Orders Ordered: ED Orders 06/06/19 20:22 EKG-12 Lead Stat 06/06/19 20:30 Complete Blood Count AUTO DIFF Stat Comprehensive Metabolic Panel Stat Lipase Stat Partial Thromboplastin Time Stat Prothrombin Time INR Stat 06/06/19 20:34 Venous Blood Gas Stat 06/06/19 21:19 CT abdomen pelvis w con Stat Vital Signs - 8 hr 06/06/19 21:00 06/06/19 22:00 06/06/19 23:00 Pulse Rate 82 73 67 Respiratory Rate Blood Pressure Blood Pressure [Left Arm] 144/85 H 145/85 H 149/90 H Pulse Oximetry 94 93 92 06/06/19 23:40 Pulse Rate 73 Respiratory Rate 16 Blood Pressure 138/95 H Blood Pressure [Left Arm] Pulse Oximetry 94 MDM - Abdominal Pain Lab Data Result diagrams: 06/06/19 20:30 06/06/19 20:30 Lab Results 06/06/19 06/06/19 06/06/19 Range/Units 20:30 20:30 20:30 WBC 6.0 (4.5-11.0) X10^3/uL RBC 4.44 L (4.5-5.9) X10^6/uL Hgb 14.3 (13.5-17.5) g/dL Hct 42.3 (41-53) % MCV 95.3 (80-100) fL MCH 32.2 (26-34) PG MCHC 33.8 (30-36) % RDW 14.2 (11.6-14.8) % Plt Count 188 (150-400) X10^3/uL Neut % (Auto) 59.7 (50-75) % Lymph % (Auto) 24.1 L (25-40) % [place] % (Auto) 11.3 (3-14) % Eos % (Auto) 4.0 (2-4) % Baso % (Auto) 0.9 (0-2) % Neut # (Auto) 3600 (4003-4125) /uL Lymph # (Auto) 1500 (6320-8366) /uL [place] # (Auto) 700 (0-900) /uL Eos # (Auto) 200 (0-450) /uL Baso # (Auto) 100 (0-100) /uL PT 9.9 L (10.1-12.7) SECONDS INR 0.9 (0.9-1.3) APTT 27 D (26.4-36.2) SECONDS VBG pH (7.33-7.43) VBG pCO2 (45-50) mmHg VBG pO2 (35-45) mmHg VBG HCO3 (23-28) mmol/L VBG Total CO2 (24-29) mmol/L VBG O2 Saturation (70-75) % VBG Base Excess (0-4) mmol/L Sodium 141 (137-145) mmol/L Potassium 4.0 (3.4-5.1) mmol/L Chloride 105 (98-107) mmol/L Carbon Dioxide 25 (22-32) mmol/L BUN 17 (9-20) mg/dL Creatinine 0.70 (0.66-1.25) mg/dL Estimated GFR > 60.0 (>60) mL/min BUN/Creatinine Ratio 24.3 H (6-22) Glucose 309 H (80-110) mg/dL Calcium 9.5 (8.4-10.2) mg/dL Total Bilirubin 0.5 (0.2-1.3) mg/dL AST 15 L (17-59) IU/L ALT 29 (21-72) IU/L Alkaline Phosphatase 114 (38-126) U/L Total Protein 6.9 (6.3-8.2) g/dL Albumin 4.2 (3.5-5.0) g/dL Globulin 2.7 (1.7-4.1) g/dL Albumin/Globulin Ratio 1.6 (1.0-2.8) Lipase 109 (23-300) U/L 06/06/19 Range/Units 20:34 WBC (4.5-11.0) X10^3/uL RBC (4.5-5.9) X10^6/uL Hgb (13.5-17.5) g/dL Hct (41-53) % MCV (80-100) fL MCH (26-34) PG MCHC (30-36) % RDW (11.6-14.8) % Plt Count (150-400) X10^3/uL Neut % (Auto) (50-75) % Lymph % (Auto) (25-40) % Lam[place] % (Auto) (3-14) % Eos % (Auto) (2-4) % Baso % (Auto) (0-2) % Neut # (Auto) (1017-2161) /uL Lymph # (Auto) (0018-2786) /uL Lamar # (Auto) (0-900) /uL Eos # (Auto) (0-450) /uL Baso # (Auto) (0-100) /uL PT (10.1-12.7) SECONDS INR (0.9-1.3) APTT (26.4-36.2) SECONDS VBG pH 7.37 (7.33-7.43) VBG pCO2 44.5 L (45-50) mmHg VBG pO2 54 H (35-45) mmHg VBG HCO3 26 (23-28) mmol/L VBG Total CO2 27 (24-29) mmol/L VBG O2 Saturation 86 H (70-75) % VBG Base Excess 0.0 (0-4) mmol/L Sodium (137-145) mmol/L Potassium (3.4-5.1) mmol/L Chloride (98-107) mmol/L Carbon Dioxide (22-32) mmol/L BUN (9-20) mg/dL Creatinine (0.66-1.25) mg/dL Estimated GFR (>60) mL/min BUN/Creatinine Ratio (6-22) Glucose (80-110) mg/dL Calcium (8.4-10.2) mg/dL Total Bilirubin (0.2-1.3) mg/dL AST (17-59) IU/L ALT (21-72) IU/L Alkaline Phosphatase (38-126) U/L Total Protein (6.3-8.2) g/dL Albumin (3.5-5.0) g/dL Globulin (1.7-4.1) g/dL Albumin/Globulin Ratio (1.0-2.8) Lipase (23-300) U/L Point of care testing: Point of Care Testing Glucose POC 312 Urine Dip Bedside Urine Glucose 1000 mg/dl Bedside Urine Bilirubin - Negative Bedside Urine Ketone - Negative Urine Specific [place] 1.015 Bedside Urine Occult Blood - Negative Bedside Urine pH 6.0 Bedside Urine Protein - Negative Bedside Urine Urobilinogen - Negative Bedside Urine Nitrite - Negative Bedside Urine Leukocytes - Negative Esterase MDM Narrative Medical decision making narrative: Multiple etiologies for patient's symptoms considered including: [DKA vs. HONK vs. infectious diarrhea vs. colitis vs. SBO vs. other] Patient's symptoms improved or duration of stay with above-stated therapies. Findings and discharge diagnosis discussed with patient/family followed by verbalization of understanding Return precautions discussed with patient/family whom verbalize understanding. Discharge Plan Departure Patient Disposition: Home Clinical Impression: Acute hyperglycemia Abdominal pain Qualifiers: Abdominal location: generalized Qualified Code(s): R10.84 - Generalized abdominal pain Diarrhea Qualifiers: Diarrhea type: unspecified type Qualified Code(s): R19.7 - Diarrhea, unspecified Discharge Date/Time: 06/06/19 23:40 Interventions: ED Discharge Assessment Last Done: 06/06/19 23:40 Instructions: DI for Hyperglycemia -- Adult Activity Restrictions/Additional Instructions: *You have been diagnosed with [elevated blood sugar, generalized abdominal pain, likely due to the recent diarrhea] *What to do: *Take medications as directed *Follow up with your primary care provider in 2-3 days, call for an appointment. Let them know you were seen in the Emergency Department and that we ask that you be seen in follow up *Return to ER if you should have any new, worsening or concerning symptoms, such as [worsening pain, fever over 101, vomiting, other bothersome symptom] Prescriptions: No Action glucose 4 GM tablet,chewable 8 tab PO QDAYP PRN (Reason: Hypoglycemia) Qty: 0 RF: 0 atorvastatin 20 mg Tablet 20 mg PO DAILY RF: 0 losartan 50 mg Tablet 50 mg PO DAILY RF: 0 latanoprost 0.005 % Drops 1 drp EYE-BOTH BEDTIME RF: 0 glimepiride 4 mg Tablet 8 mg PO QPM RF: 0 metformin 1,000 mg Tablet Extended Release 24hr 2,000 mg PO QPM RF: 0 polyvinyl alcohol [Artificial Tears (polyvin alc)] 1.4 % Drops 1 - 2 drp EYE-BOTH PRN PRN (Reason: Dry Eye(S)) RF: 0 diltiazem HCl 240 mg Capsule,Extended Release 24 Hr 240 mg PO DAILY RF: 0 dorzolamide-timolol 22.3-6.8 mg/mL Drops 1 drp EYE-BOTH BID RF: 0 capsaicin 0.1 % Cream 1 applic TOPICAL BID PRN (Reason: pain) RF: 0 empagliflozin 10 mg Tablet 10 mg PO QAM RF: 0 cyclobenzaprine 10 mg tablet 10 mg PO TID PRN (Reason: muscle spasm) Qty: 14 RF: 0 oxycodone 5 mg tablet 5 mg PO Q4-6H PRN (Reason: pain) Qty: 10 RF: 0 Referrals: Yuki Lopez MD [Primary Care Provider] -
--- NOTE | 2019-06-06 21:19 | DI.CT.S_ITS ---
PROCEDURE: CT ABDOMEN PELVIS W CON INDICATIONS: severe lower abdominal pain TECHNIQUE: After the administration of intravenous contrast, 5 mm thick sections acquired from the diaphragm to the symphysis. 5 mm coronal and sagittal reformats were acquired. For radiation dose reduction, the following was used: automated exposure control, adjustment of mA and/or kV according to patient size. COMPARISON: [facility], CT, ABDOMEN/PELVIS WITH CONTRAST, 07/28/2015, 13:16. FINDINGS: Image quality: Excellent. ABDOMEN: Lung bases: Lung bases are clear. Stable benign 7 mm pleural-based nodule extreme right lung base. Heart size is normal. Solid organs: Mild hepatic steatosis. No focal liver mass. Gallbladder is contracted without visualized stone. Biliary system is non dilated. Pancreas enhances normally. Spleen is normal in size and enhancement. Benign stable low-density left adrenal nodule. Right adrenal is unremarkable. Kidneys demonstrate normal size and enhancement, without hydronephrosis. Bilateral renal cysts are noted. Peritoneum and bowel: Bowel loops demonstrate normal wall thickness and caliber. No free fluid or air. Normal appendix. Nodes and vessels: No retroperitoneal or mesenteric adenopathy by size criteria. Aorta and inferior vena cava are normal in size. Miscellaneous: Fat-containing umbilical hernia. PELVIS: Genitourinary: Bladder wall thickness is normal. Miscellaneous: Fat containing left inguinal hernia. No inguinal adenopathy. Bones: No suspicious bony lesions. No vertebral body compression fractures. Lumbar degenerative change with severe canal stenosis at L4-L5. IMPRESSION: 1. No evidence acute abdominal process. 2. Periumbilical hernia, left inguinal hernia 3. Severe canal stenosis at L4-L5. 4. Stable benign left adrenal nodule Comment: Final report is concurrent with preliminary interpretation provided by [facility]. Dictated by: Edward Aguillon M.D. on 06/07/2019 at 7:38 Approved by: Edward Aguillon M.D. on 06/07/2019 at 7:48
[2019-06-06 22:00] VITALS: BP 145/85; PULSE 73; O2SAT 93
[2019-06-06 23:00] VITALS: BP 149/90; PULSE 67; O2SAT 92
[2019-06-06 23:40] VITALS: BP 138/95; PULSE 73; RESP 16; O2SAT 94
== END 2019-06-06 23:40 | disposition home or self-care (01) ==
PROVIDERS: Emergency Provider Emergency Medicine; Family Provider Internal Medicine; PCP Internal Medicine
DX: R73.9 Hyperglycemia, unspecified (principal); R10.9 Unspecified abdominal pain; R19.7 Diarrhea, unspecified
CPT/HCPCS: 36591; 74177; 80053; 81003; 82805; 82962; 83690; 85025; 85610; 85730; 93005; 93010; 99283; 99285; Q9967

== ENCOUNTER 2020-03-08 12:12 | Emergency (ER) | payer OTHER, SELFPAY ==
[2018-12-20 03:00] VITALS: BMI 30.9
[2020-03-08 12:25] VITALS: BP 158/89; PULSE 71; RESP 16; TEMP 36.7; O2SAT 98; BMI 31.9
[2020-03-08 13:00] LABS: Add Manual Diff / Slide Review NO; Basophils Absolute Auto 0 /uL (0-100); Basophils Percent Auto 0.9 % (0-2); Eosinophils Absolute Auto 200 /uL (0-450); Hematocrit 43.1 % (41-53); Hemoglobin 14.9 g/dL (13.5-17.5); Lymphocytes Absolute Auto 1200 /uL (1100-4500); Lymphocytes Percent Auto 23.4 % (25-40); Mean Corpuscular HGB Conc 34.5 % (30-36); Mean Corpuscular Hemoglobin 33.6 PG (26-34); Mean Corpuscular Volume 97.2 fL (80-100); Monocytes Absolute Auto 600 /uL (0-900); Monocytes Percent Auto 10.5 % (3-14); Neutrophils Absolute Auto 3200 /uL (1500-7000); Neutrophils Percent Auto 61.2 % (50-75); Platelet Count 182 X10^3/uL (150-400); Red Blood Cell Count 4.44 X10^6/uL (4.5-5.9); Red Cell Distribution Width 13.9 % (11.6-14.8); White Blood Cell Count 5.3 X10^3/uL (4.5-11.0)
[2020-03-08 13:12] LABS: Lactate (Lactic Acid) 1.2 mmol/L (0.7-2.1)
[2020-03-08 13:13] LABS: Alanine Aminotransferase 17 IU/L (<50); Albumin 4.4 g/dL (3.5-5.0); Albumin Globulin Ratio 1.6 (1.0-2.8); Alkaline Phosphatase 77 U/L (38-126); Aspartate Aminotransferase 20 IU/L (17-59); BUN Creatinine Ratio 22.1 (6-22); Bilirubin Total 0.8 mg/dL (0.2-1.3); Blood Urea Nitrogen 17 mg/dL (9-20); Calcium 9.4 mg/dL (8.4-10.2); Carbon Dioxide 24 mmol/L (22-32); Chloride 107 mmol/L (98-107); Estimated Glomerular Filt Rate > 60.0 mL/min (>60); Globulin 2.8 g/dL (1.7-4.1); Glucose 101 mg/dL (80-110); HEMOLYSIS 23 (0-50); Lipase 106 U/L (23-300); Potassium 4.2 mmol/L (3.4-5.1); Sodium 140 mmol/L (137-145); Total Protein 7.2 g/dL (6.3-8.2)
--- NOTE | 2020-03-08 13:29 | DI.CT.S_ITS ---
PROCEDURE: CT CHEST ABD PEL W CON INDICATIONS: hx of DVT, generalized abd pain, R flank pain TECHNIQUE: After the administration of intravenous contrast, 5 mm thick sections acquired from the lung apices to the symphysis. 5 mm coronal and sagittal reformats were performed, with additional 7 mm MIP reformats through the lungs. For radiation dose reduction, the following was used: automated exposure control, adjustment of mA and/or kV according to patient size. COMPARISON: [facility], CT, ABDOMEN/PELVIS WITH CONTRAST, 07/28/2015, 13:16. FINDINGS: Image quality: Excellent. CHEST: Lungs and pleura: No acute consolidation. Scattered scarring/atelectasis A pair of small nodules in the right posterior right lung base are unchanged since 2015, therefore benign No pleural effusions or pneumothorax. Central and peripheral airways appear patent and normal in caliber. Mediastinum: Heart size is normal. Coronary artery calcifications are present. No pericardial effusion. No mediastinal or hilar adenopathy by size criteria. Thoracic aorta and central pulmonary arteries are normal in size. Esophagus is normal in caliber. No hiatal hernia. Chest wall: No axillary or supraclavicular adenopathy by size criteria. Thyroid gland negative. ABDOMEN: Solid organs: Liver is normal in size and enhancement. Gallbladder negative. Biliary system is non dilated. Pancreas enhances normally. Spleen is normal in size and enhancement. Left adrenal nodule measuring approximately 1.3 cm grossly unchanged since 2014. No hydronephrosis. Bilateral renal cysts are seen, with grossly simple appearance. Peritoneum and bowel: Colonic diverticulosis is seen without evidence of acute complication. Normal appendix No free fluid or air. Nodes and vessels: No retroperitoneal or mesenteric adenopathy by size criteria. Aorta and inferior vena cava are normal in size. Fat-containing umbilical hernia. PELVIS: Genitourinary: Bladder wall thickness is normal. Fat containing left inguinal hernia. Bones: No suspicious bony lesions. No vertebral body compression fractures. Spondylosis and facet arthropathy IMPRESSION: Normal appearance of the appendix. Colonic diverticulosis without evidence of acute complication Elsewhere, no acute process identified Additional chronic and incidental findings as above. Dictated by: Wang Kunz M.D. on 03/08/2020 at 14:58 Approved by: Wang Kunz M.D. on 03/08/2020 at 15:13
--- NOTE | 2020-03-08 13:37 | ED.ABDPAIN ---
HPI - Abdominal Pain <DOMINGUEZ Michaud - Last Filed: 03/09/20 02:54> General Chief Complaint: Abdominal Pain Stated Complaint: Lower right side pain Time Seen by Provider: 03/08/20 12:18 Source: patient Mode of arrival: Ambulatory Limitations: no limitations History of Present Illness HPI narrative: This is a 74-year-old gentleman, smoker, who presents to ED with chief complain of generalized abdominal pain and right flank/back pain for last 8 days. Patient reports pain is constant and rates as 8/10 and sharp. Patient denies aggravating and relieving factors including rest, movements, changing in position. Patient denies nausea, vomiting, fever or chills. His appetite has been normal and denies diarrhea or blood in his stool. Last bowel movement was his normal and today while in ED. patient denies chest pain, dyspnea, dizziness, urinary symptoms including hematuria, urgency, frequency, dysuria. Patient states he has history of diabetes, hemorrhagic stroke, bilateral knee pain, DVT on right lower extremity. 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 Patient reports recent travel to [facility] 1 week ago. Patient wears bilateral lower extremity braces for constant knee pain but denies redness, swelling, warmth to his legs and different or increasing pain from his baseline. [facility] and was referred to ED for an evaluation. Patient denies recent fall or trauma. Related Data Home Medications Medication Instructions Recorded Confirmed glucose 8 tab PO QDAYP PRN #0 11/27/17 12/20/18 atorvastatin 20 mg PO DAILY 07/21/18 12/20/18 glimepiride 8 mg PO QPM 07/21/18 12/20/18 latanoprost 1 drp EYE-BOTH BEDTIME 07/21/18 12/20/18 losartan 50 mg PO DAILY 07/21/18 12/20/18 capsaicin 1 applic TOPICAL BID PRN 12/20/18 12/20/18 diltiazem HCl 240 mg PO DAILY 12/20/18 12/20/18 dorzolamide-timolol 1 drp EYE-BOTH BID 12/20/18 12/20/18 empagliflozin 10 mg PO QAM 12/20/18 12/20/18 metformin 2,000 mg PO QPM 12/20/18 12/20/18 polyvinyl alcohol [Artificial 1 - 2 drp EYE-BOTH PRN PRN 12/20/18 12/20/18 Tears (polyvin alc)] Previous Rx's Medication Instructions Recorded cyclobenzaprine 10 mg PO TID PRN #14 tab 03/07/19 oxycodone 5 mg PO Q4-6H PRN #10 tab 03/07/19 lidocaine 1 patch TOP Q24H #30 each 03/08/20 Allergies Allergy/AdvReac Type Severity Reaction Status Date / Time albuterol [ALBUTEROL] AdvReac Intermediate Shakiness Verified 03/08/20 12:32 Review of Systems <DOMINGUEZ Michaud - Last Filed: 03/09/20 02:54> Review of Systems Narrative: General: Denies fever, chills, fatigue, malaise, sweats. HEENT: Denies sinus pain, ear pain, sore throat, difficulty swallowing, dizziness. Respiratory: Denies dyspnea, cough, wheezing, hemoptysis, sputum. Cardiovascular: Denies chest pain, palpitations, orthopnea, edema. Gastrointestinal: Denies nausea, vomiting, (+) abdominal pain, diarrhea, constipation, melena. : Denies dysuria, frequency, incontinence, hematuria, urinary retention. Musculoskeletal: See HPI Skin: Denies rash, skin lesions, or other. Neurologic: Denies weakness, headache, numbness, change in speech, confusion, seizures, incoordination. Psychiatric: No concerning psychosocial issues. 12-point review of systems is negative except for those stated above. Patient History <DOMINGUEZ Michaud - Last Filed: 03/09/20 02:54> Medical History Diabetes (Acute) Glaucoma (Acute) History of DVT (deep vein thrombosis) (Acute) Hyperlipidemia (Acute) Hypertension (Acute) Surgical History History of ankle surgery (Acute) History of bilateral inguinal hernia repair (Acute) History of hand surgery (Acute) Social History household members: spouse Smoking Status: Current some day smoker alcohol intake: former substance use type: does not use Smoking Status: Current some day smoker alcohol intake frequency: holidays/special occasions only Substance Use Type: does not use Exam <Peter DOMINGUEZ Nichole - Last Filed: 03/09/20 02:54> Narrative Exam Narrative: GEN: Alert, oriented x 3, well appearing and nourished, and in no acute distress. Head: Normal cephalic, atraumatic. No scalp or temporal tenderness, palpable mass or rash. EYES: Pupils are equal, round, and reactive to light and accommodation. Extraocular muscles are intact bilaterally. There is no subconjunctival hemorrhage, exudate and sclera non-icteric. ENT: Bilateral auditory canals and tympanic membranes clear. Hearing grossly intact. Nose without bleeding, purulent discharge or deviation. Facial sinuses nontender to palpate. Mucous membrane moist, no mucosal lesion. Throat without erythema, tonsillar hypertrophy or exudate. Uvula in midline, airway patent. Neck: Trachea in midline. No JVD, non-tender without lymphadenopathy. No masses or thyroid megaly. Supple, non-tender and no meningeal signs. CARDIAC: Normal regular rate and rhythm without murmurs, gallops, or rubs. No chest wall tenderness. No peripheral edema, cyanosis or pallor. Capillary refill is less than 2 seconds. RESPIRATORY: Lungs are clear to auscultate bilaterally. No cough, wheezes, rales, or rhonchi. No stridor, respiratory distress, increase work of breathing, or accessary muscle used. ABD: Abdomen soft and non-distended. Tender to palpate in 4 quadrants. No guarding or rebound tenderness to palpate. Bowel sounds are normal in all 4 quadrants. There is no palpable masses or organomegaly. EXT: Patient has bilateral lower extremity braces due to chronic knee pain. No increased or loss of sensation, strength, effusion or edema. SKIN: Warm, dry, normal color for patient. No erythema, lesions or rash over visible areas. BACK: Spinous tenderness to palpate in thoracic region. Mild tenderness to palpate in right paraspinous region. No rashes or deformity noted. Nontender without deformity or crepitance. NEUROLOGICAL: Alert and oriented to place, time and person. Sensation and motor function intact bilaterally. No facial droops, dysphasia. PSYCHIATRIC: Good judgement and reason, without hallucinations, abnormal affect or abnormal behaviors during the examination. Initial Vital Signs Initial Vital Signs: Vital Signs Temperature 98.0 F 03/08/20 12:25 Pulse Rate 71 03/08/20 12:25 Respiratory Rate 16 03/08/20 12:25 Blood Pressure 158/89 H 03/08/20 12:25 Pulse Oximetry 98 03/08/20 12:25 <Odette Crowe MD - Last Filed: 03/14/20 21:01> Initial Vital Signs Initial Vital Signs: Vital Signs Temperature 98.0 F 03/08/20 12:25 Pulse Rate 71 03/08/20 12:25 Respiratory Rate 16 03/08/20 12:25 Blood Pressure 158/89 H 03/08/20 12:25 Pulse Oximetry 98 03/08/20 12:25 Scores <DOMINGUEZ Michaud - Last Filed: 03/09/20 02:54> GCS Axel coma scale eye opening: Spontaneous [place] coma scale verbal response: Orientated [place] coma scale motor response: Obey commands Axel coma scale total score: 15 Wells' Criteria for PE Clinical signs and symptoms of DVT: No PE is #1 Dx or equally likely: No Heart rate > 100: No Immobilization at least 3 days or surg in previous 4 weeks: No History of PE or DVT: Yes Hemoptysis: No Malignancy w/Treatment within 6 months or palliative: No Wells' PE Score total: 1.5 Wells' Criteria for DVT Active Cancer (Treatment within 6 months): No Bedridden recently >3 days or major surgery within 4 weeks: No Calf Swelling >3cm compared to other leg: No Collateral (nonvericose) superficial veins present: No Entire leg swollen: No Localized tenderness along the deep vein system: Yes Pitting edema, confined to symtomatic leg: No Paralysis, paresis, or recent plaster immobilization of ext: No Previously documented DVT: Yes Alternative dx to DVT as likely or more likely: Yes Wells' criteria for DVT: 0 Course <DOMINGUEZ Michaud - Last Filed: 03/09/20 02:54> Orders Ordered: Discontinued Medications Sodium Chloride (Normal Saline 0.9%) 1,000 mls @ 125 mls/hr IV CONT KAREY Last Infusion: 03/08/20 16:54 Dose: 0 mls/hr Documented by: Admin: 03/08/20 14:02 Dose: 125 mls/hr Documented by: CELINA Ketorolac Tromethamine (Toradol) 15 mg IV NOW ONE Stop: 03/08/20 13:50 Last Admin: 03/08/20 14:02 Dose: 15 mg Documented by: CELINA Lidocaine (Lidoderm) 1 each TOP NOW ONE Stop: 03/08/20 15:49 Last Admin: 03/08/20 16:03 Dose: 1 each Documented by: AMOL Morphine Sulfate (Morphine) 2 mg IV NOW ONE Stop: 03/08/20 14:47 Last Admin: 03/08/20 15:14 Dose: 2 mg Documented by: AMOL Morphine Sulfate (Morphine) 2 mg IV NOW ONE Stop: 03/08/20 15:49 Last Admin: 03/08/20 16:04 Dose: 2 mg Documented by: AMOL Vital Signs Vital signs: Vital Signs - 8 hr 03/08/20 12:25 Temperature 98.0 F Pulse Rate 71 Respiratory Rate 16 Blood Pressure 158/89 H Pulse Oximetry 98 <Odette Crowe MD - Last Filed: 03/14/20 21:01> Orders Ordered: Discontinued Medications Sodium Chloride (Normal Saline 0.9%) 1,000 mls @ 125 mls/hr IV CONT KAREY Last Infusion: 03/08/20 16:54 Dose: 0 mls/hr Documented by: Admin: 03/08/20 14:02 Dose: 125 mls/hr Documented by: CELINA Ketorolac Tromethamine (Toradol) 15 mg IV NOW ONE Stop: 03/08/20 13:50 Last Admin: 03/08/20 14:02 Dose: 15 mg Documented by: CELINA Lidocaine (Lidoderm) 1 each TOP NOW ONE Stop: 03/08/20 15:49 Last Admin: 03/08/20 16:03 Dose: 1 each Documented by: AMOL Morphine Sulfate (Morphine) 2 mg IV NOW ONE Stop: 03/08/20 14:47 Last Admin: 03/08/20 15:14 Dose: 2 mg Documented by: AMOL Morphine Sulfate (Morphine) 2 mg IV NOW ONE Stop: 03/08/20 15:49 Last Admin: 03/08/20 16:04 Dose: 2 mg Documented by: AMOL Vital Signs Vital signs: Vital Signs - 8 hr 03/08/20 12:25 Temperature 98.0 F Pulse Rate 71 Respiratory Rate 16 Blood Pressure 158/89 H Pulse Oximetry 98 MDM - Abdominal Pain <Peter Juarez-NadineDOMINGUEZ - Last Filed: 03/09/20 02:54> Differential Diagnosis Differential diagnosis: Likely abdominal pain, calculus of kidney, diverticulitis, pancreatitis, small bowel obstruction and other (Cholecystitis, PE, musculoskeletal back pain, spine fracture, kidney infection,) Medical Records Attestation: I reviewed the patient's medical records. Lab Data Attestation: I reviewed the patient's lab results. Result diagrams: 03/08/20 12:48 03/08/20 12:48 Labs: Lab Results 03/08/20 03/08/20 03/08/20 Range/Units 12:48 12:48 12:48 WBC 5.3 (4.5-11.0) X10^3/uL RBC 4.44 L (4.5-5.9) X10^6/uL Hgb 14.9 (13.5-17.5) g/dL Hct 43.1 (41-53) % MCV 97.2 (80-100) fL MCH 33.6 (26-34) PG MCHC 34.5 (30-36) % RDW 13.9 (11.6-14.8) % Plt Count 182 (150-400) X10^3/uL Neut % (Auto) 61.2 (50-75) % Lymph % (Auto) 23.4 L (25-40) % Harrison % (Auto) 10.5 (3-14) % Eos % (Auto) 4.0 (2-4) % Baso % (Auto) 0.9 (0-2) % Neut # (Auto) 3200 (5676-8441) /uL Lymph # (Auto) 1200 (7952-9326) /uL Harrison # (Auto) 600 (0-900) /uL Eos # (Auto) 200 (0-450) /uL Baso # (Auto) 0 (0-100) /uL Sodium 140 (137-145) mmol/L Potassium 4.2 (3.4-5.1) mmol/L Chloride 107 (98-107) mmol/L Carbon Dioxide 24 (22-32) mmol/L BUN 17 (9-20) mg/dL Creatinine 0.77 (0.66-1.25) mg/dL Estimated GFR > 60.0 (>60) mL/min BUN/Creatinine Ratio 22.1 H (6-22) Glucose 101 (80-110) mg/dL Lactate 1.2 (0.7-2.1) mmol/L Calcium 9.4 (8.4-10.2) mg/dL Total Bilirubin 0.8 (0.2-1.3) mg/dL AST 20 (17-59) IU/L ALT 17 (<50) IU/L Alkaline Phosphatase 77 (38-126) U/L Total Creatine Kinase (55-170) U/L CK-MB (CK-2) CK-MB (CK-2) Rel Index Troponin I (0.01-0.034) ng/mL Total Protein 7.2 (6.3-8.2) g/dL Albumin 4.4 (3.5-5.0) g/dL Globulin 2.8 (1.7-4.1) g/dL Albumin/Globulin Ratio 1.6 (1.0-2.8) Lipase 106 (23-300) U/L /04/22 Range/Units 12:48 WBC (4.5-11.0) X10^3/uL RBC (4.5-5.9) X10^6/uL Hgb (13.5-17.5) g/dL Hct (41-53) % MCV (80-100) fL MCH (26-34) PG MCHC (30-36) % RDW (11.6-14.8) % Plt Count (150-400) X10^3/uL Neut % (Auto) (50-75) % Lymph % (Auto) (25-40) % Harrison % (Auto) (3-14) % Eos % (Auto) (2-4) % Baso % (Auto) (0-2) % Neut # (Auto) (8108-0729) /uL Lymph # (Auto) (5371-6784) /uL Harrison # (Auto) (0-900) /uL Eos # (Auto) (0-450) /uL Baso # (Auto) (0-100) /uL Sodium (137-145) mmol/L Potassium (3.4-5.1) mmol/L Chloride (98-107) mmol/L Carbon Dioxide (22-32) mmol/L BUN (9-20) mg/dL Creatinine (0.66-1.25) mg/dL Estimated GFR (>60) mL/min BUN/Creatinine Ratio (6-22) Glucose (80-110) mg/dL Lactate (0.7-2.1) mmol/L Calcium (8.4-10.2) mg/dL Total Bilirubin (0.2-1.3) mg/dL AST (17-59) IU/L ALT (<50) IU/L Alkaline Phosphatase (38-126) U/L Total Creatine Kinase 70 (55-170) U/L CK-MB (CK-2) TNP CK-MB (CK-2) Rel Index TNP Troponin I < 0.012 (0.01-0.034) ng/mL Total Protein (6.3-8.2) g/dL Albumin (3.5-5.0) g/dL Globulin (1.7-4.1) g/dL Albumin/Globulin Ratio (1.0-2.8) Lipase (23-300) U/L Point of care testing: Urine Dip Bedside Urine Glucose 1000 mg/dl Bedside Urine Bilirubin - Negative Bedside Urine Ketone - Negative Urine Specific [place] 1.015 Bedside Urine Occult Blood - Negative Bedside Urine pH 7.0 Bedside Urine Protein - Negative Bedside Urine Urobilinogen +/- 1mg Bedside Urine Nitrite - Negative Bedside Urine Leukocytes - Negative Esterase Imaging Data CT-Chest/abd/pelvis: Radiologist's Impression: [place] [address] CT Scan Report Signed Patient: Maninder Hernandez CMR#: [id number] : 1946Acct:[id number] Age/Sex: 74 / MDate of Service: 03/08/20 Loc: ED Accession Number: [id number] Procedure: CT chest abd pel w con Ordering Provider: Peter Nichole PROCEDURE: CT CHEST ABD PEL W CON INDICATIONS: hx of DVT, generalized abd pain, R flank pain TECHNIQUE: After the administration of intravenous contrast, 5 mm thick sections acquired from the lung apices to the symphysis. 5 mm coronal and sagittal reformats were performed, with additional 7 mm MIP reformats through the lungs. For radiation dose reduction, the following was used: automated exposure control, adjustment of mA and/or kV according to patient size. COMPARISON: [facility], CT, ABDOMEN/PELVIS WITH CONTRAST, 07/28/2015, 13:16. FINDINGS: Image quality: Excellent. CHEST: Lungs and pleura: No acute consolidation. Scattered scarring/atelectasis A pair of small nodules in the right posterior right lung base are unchanged since 2015, therefore benign No pleural effusions or pneumothorax. Central and peripheral airways appear patent and normal in caliber. Mediastinum: Heart size is normal. Coronary artery calcifications are present. No pericardial effusion. No mediastinal or hilar adenopathy by size criteria. Thoracic aorta and central pulmonary arteries are normal in size. Esophagus is normal in caliber. No hiatal hernia. Chest wall: No axillary or supraclavicular adenopathy by size criteria. Thyroid gland negative. ABDOMEN: Solid organs: Liver is normal in size and enhancement. Gallbladder negative. Biliary system is non dilated. Pancreas enhances normally. Spleen is normal in size and enhancement. Left adrenal nodule measuring approximately 1.3 cm grossly unchanged since 2015. No hydronephrosis. Bilateral renal cysts are seen, with grossly simple appearance. Peritoneum and bowel: Colonic diverticulosis is seen without evidence of acute complication. Normal appendix No free fluid or air. Nodes and vessels: No retroperitoneal or mesenteric adenopathy by size criteria. Aorta and inferior vena cava are normal in size. Fat-containing umbilical hernia. PELVIS: Genitourinary: Bladder wall thickness is normal. Fat containing left inguinal hernia. Bones: No suspicious bony lesions. No vertebral body compression fractures. Spondylosis and facet arthropathy IMPRESSION: Normal appearance of the appendix. Colonic diverticulosis without evidence of acute complication Elsewhere, no acute process identified Additional chronic and incidental findings as above. Dictated by: Wang Kunz M.D. on 03/08/2020 at 14:58 Approved by: Wang Kunz M.D. on 03/08/2020 at 15:13 ECG Data Attestation: I personally reviewed and interpreted this ECG as follows: Prior ECG tracings: available for review Interpretation: Sinus rhythm rate at 66 with left anterior fascicular block. Left ventricular hypertrophy with nonspecific ST and T-wave abnormality. Left axis dominant. TX interval 182, QRS duration 120, QT/QTC 384/402. No significant changes from previous EKGs. MDM Narrative Medical decision making narrative: This is a 74-year-old male who presents to ED with right flank/back pain for about 8 days without urinary symptoms. Patient reports pain has been constant sharp without aggravating and relieving factors. No constitutional symptoms. Patient has history of diabetes, hemorrhagic CVA/stroke, bilateral knee pain wears braces daily, history of right DVT and currently not on anticoagulants. Patient states he has history of pulled muscle/back pain but it does not feels the same. Patient had recent prolonged travel to [facility] and back to home. Patient's wells score for DVT was 0 and wells score for PE was 1.5. Patient's heat rates in 70s without syncopal episode. Was free of urine nitrite or leukocytes esterase but with 1000 mg/dL urine glucose. There is no leukocytosis. Normal lactate. Negative cardiac enzyme and normal kidney function, liver function test and normal lipase. Glucose is normal as 101. Due to patient's history of DVT and currently not on anticoagulant due to hemorrhagic stroke, CT test of abdomen/pelvis including chest was obtained. CT test indicates no acute consolidation but scattered scarring atelectasis and a pair of benign small nodule in right posterior lung. No indication for PE. No hydronephrosis, stones but bilateral simple renal cysts. There was colonic diverticulosis without evidence of acute complications with normal appendix. Thoracic aorta and inferior vena cava are normal in size. Patient has fat containing umbilical hernia which is known to him. There was no vertebral body compression fracture appreciated but spondylosis and facet arthropathy. Appendix appears to be normal. Patient was medicated with IV morphine, toward our, Zofran, lidocaine patch patient found to be improved discomfort. Patient's back pain is likely musculoskeletal in origin. Patient informed to follow with primary care physician for recurring pain and may need a referral to physical therapy and return precautions were discussed with the patient and verbalized understanding in agreement with the treatment plan. Patient advised to use [id number] Tylenol as first-line pain management and to use lidocaine patch. Patient states he has Percocet at home and of advised to use this medication as needed for severe pain. Narcotic medication precautions and constipation side effect has been discussed with the patient. <Odette Crowe MD - Last Filed: 03/14/20 21:01> Lab Data Labs: Lab Results 03/08/20 03/08/20 03/08/20 Range/Units 12:48 12:48 12:48 WBC 5.3 (4.5-11.0) X10^3/uL RBC 4.44 L (4.5-5.9) X10^6/uL Hgb 14.9 (13.5-17.5) g/dL Hct 43.1 (41-53) % MCV 97.2 (80-100) fL MCH 33.6 (26-34) PG MCHC 34.5 (30-36) % RDW 13.9 (11.6-14.8) % Plt Count 182 (150-400) X10^3/uL Neut % (Auto) 61.2 (50-75) % Lymph % (Auto) 23.4 L (25-40) % Harrison % (Auto) 10.5 (3-14) % Eos % (Auto) 4.0 (2-4) % Baso % (Auto) 0.9 (0-2) % Neut # (Auto) 3200 (5439-1259) /uL Lymph # (Auto) 1200 (1370-5007) /uL Harrison # (Auto) 600 (0-900) /uL Eos # (Auto) 200 (0-450) /uL Baso # (Auto) 0 (0-100) /uL Sodium 140 (137-145) mmol/L Potassium 4.2 (3.4-5.1) mmol/L Chloride 107 (98-107) mmol/L Carbon Dioxide 24 (22-32) mmol/L BUN 17 (9-20) mg/dL Creatinine 0.77 (0.66-1.25) mg/dL Estimated GFR > 60.0 (>60) mL/min BUN/Creatinine Ratio 22.1 H (6-22) Glucose 101 (80-110) mg/dL Lactate 1.2 (0.7-2.1) mmol/L Calcium 9.4 (8.4-10.2) mg/dL Total Bilirubin 0.8 (0.2-1.3) mg/dL AST 20 (17-59) IU/L ALT 17 (<50) IU/L Alkaline Phosphatase 77 (38-126) U/L Total Creatine Kinase (55-170) U/L CK-MB (CK-2) CK-MB (CK-2) Rel Index Troponin I (0.01-0.034) ng/mL Total Protein 7.2 (6.3-8.2) g/dL Albumin 4.4 (3.5-5.0) g/dL Globulin 2.8 (1.7-4.1) g/dL Albumin/Globulin Ratio 1.6 (1.0-2.8) Lipase 106 (23-300) U/L 03/08/20 Range/Units 12:48 WBC (4.5-11.0) X10^3/uL RBC (4.5-5.9) X10^6/uL Hgb (13.5-17.5) g/dL Hct (41-53) % MCV (80-100) fL MCH (26-34) PG MCHC (30-36) % RDW (11.6-14.8) % Plt Count (150-400) X10^3/uL Neut % (Auto) (50-75) % Lymph % (Auto) (25-40) % Harrison % (Auto) (3-14) % Eos % (Auto) (2-4) % Baso % (Auto) (0-2) % Neut # (Auto) (4903-4945) /uL Lymph # (Auto) (3797-6591) /uL Harrison # (Auto) (0-900) /uL Eos # (Auto) (0-450) /uL Baso # (Auto) (0-100) /uL Sodium (137-145) mmol/L Potassium (3.4-5.1) mmol/L Chloride (98-107) mmol/L Carbon Dioxide (22-32) mmol/L BUN (9-20) mg/dL Creatinine (0.66-1.25) mg/dL Estimated GFR (>60) mL/min BUN/Creatinine Ratio (6-22) Glucose (80-110) mg/dL Lactate (0.7-2.1) mmol/L Calcium (8.4-10.2) mg/dL Total Bilirubin (0.2-1.3) mg/dL AST (17-59) IU/L ALT (<50) IU/L Alkaline Phosphatase (38-126) U/L Total Creatine Kinase 70 (55-170) U/L CK-MB (CK-2) TNP CK-MB (CK-2) Rel Index TNP Troponin I < 0.012 (0.01-0.034) ng/mL Total Protein (6.3-8.2) g/dL Albumin (3.5-5.0) g/dL Globulin (1.7-4.1) g/dL Albumin/Globulin Ratio (1.0-2.8) Lipase (23-300) U/L Point of care testing: Urine Dip Bedside Urine Glucose 1000 mg/dl Bedside Urine Bilirubin - Negative Bedside Urine Ketone - Negative Urine Specific [place] 1.015 Bedside Urine Occult Blood - Negative Bedside Urine pH 7.0 Bedside Urine Protein - Negative Bedside Urine Urobilinogen +/- 1mg Bedside Urine Nitrite - Negative Bedside Urine Leukocytes - Negative Esterase Discharge Plan Departure Patient Disposition: Home Clinical Impression: Lumbar back pain Thoracic back pain Qualifiers: Chronicity: unspecified Back pain laterality: right Qualified Code(s): M54.6 - Pain in thoracic spine Abdominal pain Qualifiers: Abdominal location: generalized Qualified Code(s): R10.84 - Generalized abdominal pain Discharge Date/Time: 03/08/20 17:00 Instructions: DI for Low Back Pain, DI for Abdominal Pain-Adult Activity Restrictions/Additional Instructions: You have been diagnosed with [right back pain and generalized abdominal pain. For kidney infection or stones. Labs for liver function tests were within normal and unremarkable CT test results on abdominal organs. You have left kidney nodule measuring 1.3 cm which has been unchanged since 2015 CT scan. There is colonic diverticulosis without acute findings such as infection. Appendectomy appears to be normal. As you already know you have fat containing umbilical hernia. No findings of pneumonia per CT test and airway appears to be patent and central pulmonary arteries are normal in size. You were medicated with small dose of morphine and Toradol via IV and Lidocaine patch while in ED. At this time, your symptoms are likely related to musculoskeletal pathology. What to do: *Take your medications as directed. Please continue with her medications and you can take Percocet that you have 0.5 tab to 1 tab as needed for severe pain. Otherwise, you can add [id number] Tylenol and ibuprofen as needed for discomfort. Percocet has 325 mg of Tylenol mixed with oxycodone 5 mg. Please limited Tylenol intake up to 3000 mg a day. Please use lidocaine patch which stays on for 12 hours and off for 12 hours on affected site for pain. *Follow up with your primary care provider in 2-3 days, call for an appointment. Let them know you were seen in the ED and that we asked you to be seen in follow up. *Return to ED if you have any new, worsening, or concerning symptoms, such as [chest pain, breathing difficulty, unable to tolerate fluids, high fever, tingling/numbness/weakness to lower extremities, incontinence, or any acute concerns]. Prescriptions: New lidocaine 5 % adhesive patch,medicated 1 patch TOP Q24H Qty: 30 RF: 0 No Action glucose 4 GM tablet,chewable 8 tab PO QDAYP PRN (Reason: Hypoglycemia) Qty: 0 RF: 0 atorvastatin 20 mg Tablet 20 mg PO DAILY RF: 0 losartan 50 mg Tablet 50 mg PO DAILY RF: 0 latanoprost 0.005 % Drops 1 drp EYE-BOTH BEDTIME RF: 0 glimepiride 4 mg Tablet 8 mg PO QPM RF: 0 metformin 1,000 mg Tablet Extended Release 24hr 2,000 mg PO QPM RF: 0 polyvinyl alcohol [Artificial Tears (polyvin alc)] 1.4 % Drops 1 - 2 drp EYE-BOTH PRN PRN (Reason: Dry Eye(S)) RF: 0 diltiazem HCl 240 mg Capsule,Extended Release 24 Hr 240 mg PO DAILY RF: 0 dorzolamide-timolol 22.3-6.8 mg/mL Drops 1 drp EYE-BOTH BID RF: 0 capsaicin 0.1 % Cream 1 applic TOPICAL BID PRN (Reason: pain) RF: 0 empagliflozin 10 mg Tablet 10 mg PO QAM RF: 0 cyclobenzaprine 10 mg tablet 10 mg PO TID PRN (Reason: muscle spasm) Qty: 14 RF: 0 oxycodone 5 mg tablet 5 mg PO Q4-6H PRN (Reason: pain) Qty: 10 RF: 0 Referrals: Yuki Lopez MD [Primary Care Provider] - <Odette Crowe MD - Last Filed: 03/14/20 21:01> Cosign ED Attending Rafature Attestation: I was immediately available in the department for consultation throughout this patient's visit. I agree with documentation as above. Odette Crowe MD
[2020-03-08 13:47] LABS: Creatine Kinase 70 U/L (55-170)
[2020-03-08 14:00] LABS: Troponin I < 0.012 ng/mL (0.01-0.034)
[2020-03-08] MEDS: SODIUM CHLORIDE 0.9% 1,000 ML 125 ML IV (14:02)
[2020-03-08] MEDS: KETOROLAC 60 MG/2 ML VIAL 15 MG IV (14:02)
[2020-03-08 14:32] VITALS: BP 133/76; PULSE 62; O2SAT 94
[2020-03-08] MEDS: MORPHINE 2 MG/ML INJ IV ×2 (15:14→16:04)
[2020-03-08] MEDS: LIDOCAINE PATCH 1 EACH ADH..PATCH TOP (16:03)
[2020-03-08 16:30] VITALS: BP 149/88; PULSE 72; RESP 15; O2SAT 94
[2020-03-08 16:55] VITALS: BP 152/94; PULSE 73; RESP 20; O2SAT 94
== END 2020-03-08 17:00 | disposition home or self-care (01) ==
PROVIDERS: Emergency Provider Nurse Practitioner Family; Family Provider Internal Medicine; PCP Internal Medicine
DX: M54.5 Low back pain (principal); M54.6 Pain in thoracic spine; R10.84 Generalized abdominal pain; E11.9 Type 2 diabetes mellitus without complications; K42.9 Umbilical hernia without obstruction or gangrene
CPT/HCPCS: 36415; 71260; 74177; 80053; 81003; 82550; 83605; 83690; 84484; 85025; 93005; 96361; 96374; 96375; 96376; 99284; J1885; J2270; Q9967

== ENCOUNTER 2020-04-29 16:00 | Emergency (ER) | payer OTHER, SELFPAY ==
[2018-12-20 03:00] VITALS: BMI 30.9
[2020-04-29 16:04] VITALS: BMI 32.1
--- NOTE | 2020-04-29 16:09 | DI.US.S_ITS ---
PROCEDURE: US PERIPH VENOUS LOW EXTREM LT INDICATIONS: UNILATERAL EDEMA, R/O DVT TECHNIQUE: Real-time imaging, as well as color and pulse Doppler interrogation, were performed of the lower extremity deep veins from the inguinal ligament to the popliteal fossa. COMPARISON: None. FINDINGS: The common femoral, femoral and popliteal veins are normally compressible, and free of intraluminal thrombus. Color and pulse Doppler demonstrate normal phasic intraluminal flow. There is normal augmentation response to distal compression maneuver. IMPRESSION: Negative left lower extremity deep venous ultrasound for DVT Comment: Preliminary findings were reported by the textile supervisor to the referring provider at the time of study completion. Dictated by: Edward Aguillon M.D. on 04/29/2020 at 16:57 Approved by: Edward Aguillon M.D. on 04/29/2020 at 16:58
[2020-04-29 16:16] VITALS: BP 147/82; PULSE 60; RESP 20; TEMP 36.8; O2SAT 95
--- NOTE | 2020-04-29 16:24 | DI.RAD.S_ITS ---
PROCEDURE: XR KNEE LT 3V INDICATIONS: acute L knee pain TECHNIQUE: 3 views of the knee were acquired. COMPARISON: None. FINDINGS: Bones: No fractures or dislocations. No suspicious bony lesions. Severe, end-stage degenerative arthritis of the left knee. Bulky tricompartment osteophytes. Medial compartment joint space obliteration with lateral subluxation of the tibia relative to the femur. Lateral patellofemoral joint space obliteration. Soft tissues: No joint effusion. No suspicious soft tissue calcifications. IMPRESSION: End-stage degenerative arthritis of the left knee. No evidence acute bony abnormality of the left knee. Dictated by: Edward Aguillon M.D. on 04/29/2020 at 15:42 Approved by: Edward Aguillon M.D. on 04/29/2020 at 15:43
--- NOTE | 2020-04-29 16:40 | ED_ITS ---
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 He he says that lab comp of weeks ago his left knee started hurting much worse than usual he says he does have chronic severe bilateral knee pain because he is ?bone on bone? 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 He says that it is so bad that he can barely walk because of the pain and when he does have to walk recently he has been using a cane and his for support. Describes the pain as constant and sharp and it does not radiate he says that it is most intense on the left side of the outside of his knee but he also feels like the back of his left knee is swollen and tender. He wears compression socks most of the time and knee braces whenever he is up. He advises he is waiting to hear back regarding scheduling bilateral MRIs of his knees. He denies any fever, chills, shortness of breath, calf pain, hip pain, abdominal pain, nausea, vomiting, diarrhea or any other symptoms. MD Complaint: extremity pain, joint swelling and joint paint Onset (ago): week(s) (worsened 2 weeks ago) Pain Consistency: constant Location: left Severity scale (1-10): 8 Quality: sharp Radiation: none Relieving factors: nothing Exacerbating factors: range of motion, weight bearing, walking and palpation Associated symptoms: denies other symptoms Related Data Home Medications Medication Instructions Recorded Confirmed glucose 8 tab PO QDAYP PRN #0 11/27/17 12/20/18 atorvastatin 20 mg PO DAILY 07/21/18 12/20/18 glimepiride 8 mg PO QPM 07/21/18 12/20/18 latanoprost 1 drp EYE-BOTH BEDTIME 07/21/18 12/20/18 losartan 50 mg PO DAILY 07/21/18 12/20/18 capsaicin 1 applic TOPICAL BID PRN 12/20/18 12/20/18 diltiazem HCl 240 mg PO DAILY 12/20/18 12/20/18 dorzolamide-timolol 1 drp EYE-BOTH BID 12/20/18 12/20/18 empagliflozin 10 mg PO QAM 12/20/18 12/20/18 metformin 2,000 mg PO QPM 12/20/18 12/20/18 polyvinyl alcohol [Artificial 1 - 2 drp EYE-BOTH PRN PRN 12/20/18 12/20/18 Tears (polyvin alc)] Previous Rx's Medication Instructions Recorded cyclobenzaprine 10 mg PO TID PRN #14 tab 03/07/19 oxycodone 5 mg PO Q4-6H PRN #10 tab 03/07/19 lidocaine 1 patch TOP Q24H #30 each 03/08/20 Allergies Allergy/AdvReac Type Severity Reaction Status Date / Time albuterol [ALBUTEROL] AdvReac Intermediate Shakiness Verified 04/29/20 16:04 Review of Systems <Amalia Wiggins PA-C - Last Filed: 04/29/20 23:30> Review of Systems Narrative: GENERAL: Denies chills, fatigue, malaise, fever, sweats. HEENT: Denies sinus pain, ear pain, sore throat, difficulty swallowing, dizziness. RESPIRATORY: Denies dyspnea, cough, wheezing, hemoptysis, sputum. CARDIOVASCULAR: Denies chest pain, palpitations, orthopnea, edema, GASTROINTESTINAL: Denies nausea, vomiting, abdominal pain, diarrhea, constipation, melena. : Denies dysuria, frequency, incontinence, hematuria, urinary retention. MUSCULOSKELETAL: Positive for chronic bilateral weakness of lower extremities, chronic bilateral knee joint pain, and chronic bilateral bony pain of knees, negative for any other bony pain, joint pain or weakness. SKIN: Denies rash, skin lesions, or other NEUROLOGIC: Denies weakness, headache, numbness, change in speech, confusion, seizures, incoordination. PSYCHIATRIC: No concerning psychosocial issues. 12 point review of systems is negative except for those stated above Patient History <Amalia Wiggins PA-C - Last Filed: 04/29/20 23:30> Medical History Diabetes (Acute) Glaucoma (Acute) History of DVT (deep vein thrombosis) (Acute) Hyperlipidemia (Acute) Hypertension (Acute) Surgical History History of ankle surgery (Acute) History of bilateral inguinal hernia repair (Acute) History of hand surgery (Acute) Social History household members: spouse Smoking Status: Current some day smoker alcohol intake: former substance use type: does not use Smoking Status: Current some day smoker alcohol intake frequency: holidays/special occasions only Substance Use Type: does not use Exam <Amalia Wiggins PA-C - Last Filed: 04/29/20 23:30> Narrative Exam Narrative: GENERAL: 74 year old patient appears stated age. Well-nourished, obese patient, in mild distress. HEAD: Atraumatic. Normocephalic. EYES: Pupils equal round and reactive. Extraocular motions intact. No scleral icterus. No injection or drainage. ENT: Nose without bleeding, purulent drainage. Throat without erythema, tonsillar hypertrophy or exudate. Airway patent. NECK: Trachea midline. Non tender CARDIOVASCULAR: Regular rate and rhythm without murmurs, gallops, or rubs. RESPIRATORY: Clear to auscultation. Breath sounds equal bilaterally. No wheezes, rales, or rhonchi. GASTROINTESTINAL: Abdomen soft, protruberant, non-tender, nondistended. EXTREMITIES: Bilateral compression socks up to just below the knee, bilateral knee braces (both removed for exam). There is tenderness of the knees bilaterally at the medial joint line, there is a small area of mild swelling and tenderness on the lateral left knee just posterior to the patella approximately 1 cm x 1 cm in the area of the patient's described severe pain. No edema or joint tenderness. The right and left calves measured at 10 cm below the tibial tuberosity are equal bilaterally 44.5 cm. There is no appreciable heat in the left knee joint, dorsalis pedis pulses are strong and equal bilaterally. There is pain with range of motion of the knee on the left. BACK: Nontender without deformity or crepitance. No flank tenderness. NEURO: AOx3. SKIN: No rash or erythema of visible areas; the sun-exposed areas on the patient's knees are bilaterally madrigal in color around the area where he wears his leg brace, however his left knee is darker in color but does not appear to be erythematous simply more ?tanned. Initial Vital Signs Initial Vital Signs: Vital Signs Temperature 98.2 F 04/29/20 16:16 Pulse Rate 60 04/29/20 16:16 Respiratory Rate 04/29/20 16:16 Blood Pressure 147/82 H 04/29/20 16:16 Pulse Oximetry 95 04/29/20 16:16 <Odette Crowe MD - Last Filed: 05/01/20 18:53> Initial Vital Signs Initial Vital Signs: Vital Signs Temperature 98.2 F 04/29/20 16:16 Pulse Rate 60 04/29/20 16:16 Respiratory Rate 04/29/20 16:16 Blood Pressure 147/82 H 04/29/20 16:16 Pulse Oximetry 95 04/29/20 16:16 Scores <Amalia Wiggins PA-C - Last Filed: 04/29/20 23:30> GCS Axel coma scale eye opening: Spontaneous Axel coma scale verbal response: Orientated [place] coma scale motor response: Obey commands Axel coma scale total score: 15 Course <Amalia Wiggins PA-C - Last Filed: 04/29/20 23:30> Orders Ordered: Discontinued Medications Oxycodone/Acetaminophen (Percocet 5/325) 1 tab PO NOW ONE Stop: 04/29/20 18:39 Last Admin: 04/29/20 18:42 Dose: 1 tab Documented by: HAN Vital Signs Vital signs: Vital Signs - 8 hr 04/29/20 16:16 Temperature 98.2 F Pulse Rate 60 Respiratory Rate 20 Blood Pressure [Left Arm] 147/82 H Pulse Oximetry 95 <Odette Crowe MD - Last Filed: 05/01/20 18:53> Orders Ordered: Discontinued Medications Oxycodone/Acetaminophen (Percocet 5/325) 1 tab PO NOW ONE Stop: 04/29/20 18:39 Last Admin: 04/29/20 18:42 Dose: 1 tab Documented by: HAN Vital Signs Vital signs: Vital Signs - 8 hr 04/29/20 16:16 Temperature 98.2 F Pulse Rate 60 Respiratory Rate 20 Blood Pressure [Left Arm] 147/82 H Pulse Oximetry 95 MDM - Extremity (Nontraumatic) <Amalia Wiggins PA-C - Last Filed: 04/29/20 23:30> Lab Data Result diagrams: 04/29/20 16:50 04/29/20 16:50 Labs: Lab Results 04/29/20 04/29/20 04/29/20 Range/Units 16:50 16:50 16:50 WBC 5.3 (4.5-11.0) X10^3/uL RBC 4.30 L (4.5-5.9) X10^6/uL Hgb 14.4 (13.5-17.5) g/dL Hct 41.6 (41-53) % MCV 96.7 (80-100) fL MCH 33.5 (26-34) PG MCHC 34.7 (30-36) % RDW 13.3 (11.6-14.8) % Plt Count 183 (150-400) X10^3/uL Neut % (Auto) 58.1 (50-75) % Lymph % (Auto) 24.6 L (25-40) % [place] % (Auto) 11.3 (3-14) % Eos % (Auto) 5.2 H (2-4) % Baso % (Auto) 0.8 (0-2) % Neut # (Auto) 3100 (1420-6580) /uL Lymph # (Auto) 1300 (0282-1596) /uL [place] # (Auto) 600 (0-900) /uL Eos # (Auto) 300 (0-450) /uL Baso # (Auto) 0 (0-100) /uL Sodium 141 (137-145) mmol/L Potassium 4.0 (3.4-5.1) mmol/L Chloride 108 H (98-107) mmol/L Carbon Dioxide 30 (22-32) mmol/L BUN 13 (9-20) mg/dL Creatinine 0.79 (0.66-1.25) mg/dL Estimated GFR > 60.0 (>60) mL/min BUN/Creatinine Ratio 16.5 (6-22) Glucose 76 L (80-110) mg/dL Lactate 0.8 (0.7-2.1) mmol/L Uric Acid 4.2 (3.5-8.5) mg/dL Calcium 9.3 (8.4-10.2) mg/dL Total Bilirubin 0.6 (0.2-1.3) mg/dL AST 17 (17-59) IU/L ALT 18 (<50) IU/L Alkaline Phosphatase 82 (38-126) U/L C-Reactive Protein < 0.5 (<1.0) mg/dL Total Protein 6.7 (6.3-8.2) g/dL Albumin 4.1 (3.5-5.0) g/dL Globulin 2.6 (1.7-4.1) g/dL Albumin/Globulin Ratio 1.6 (1.0-2.8) Imaging Data Extremity x-ray #1: Attestation: I personally reviewed and interpreted this imaging study as follows: Radiologist's Impression: [address] [address] XRay Report Signed Patient: Maninder Hernandez CMR#: [id number] : 8Acct:[id number] Age/Sex: 74 / MDate of Service: 04/29/20 Loc: ED Accession Number: [id number] Procedure: XR knee LT 3V Ordering Provider: Amalia Wiggins P.A-C PROCEDURE: XR KNEE LT 3V INDICATIONS: acute L knee pain TECHNIQUE: 3 views of the knee were acquired. COMPARISON: None. FINDINGS: Bones: No fractures or dislocations. No suspicious bony lesions. Severe, end-stage degenerative arthritis of the left knee. Bulky tricompartment osteophytes. Medial compartment joint space obliteration with lateral subluxation of the tibia relative to the femur. Lateral patellofemoral joint space obliteration. Soft tissues: No joint effusion. No suspicious soft tissue calcifications. IMPRESSION: End-stage degenerative arthritis of the left knee. No evidence acute bony abnormality of the left knee. Dictated by: Edward Aguillon M.D. on 04/29/2020 at 15:42 Approved by: Edward Aguillon M.D. on 04/29/2020 at 15:43 US - DVT: Attestation: I personally reviewed and interpreted this imaging study as follows: Radiologist's Impression: [address] [address] Ultrasound Report Signed Patient: Maninder Hernandez CMR#: [id number] : 8Acct:[id number] Age/Sex: 74 / MDate of Service: 04/29/20 Loc: ED Accession Number: [id number] Procedure: US periph venous low extrem lt Ordering Provider: Odette Crowe MD PROCEDURE: US PERIPH VENOUS LOW EXTREM LT INDICATIONS: UNILATERAL EDEMA, R/O DVT TECHNIQUE: Real-time imaging, as well as color and pulse Doppler interrogation, were performed of the lower extremity deep veins from the inguinal ligament to the popliteal bert a. COMPARISON: None. FINDINGS: The common femoral, femoral and popliteal veins are normally c ompressible, and free of intraluminal thrombus. Color and pulse Doppler demonstrate normal phasic intraluminal flow. There is normal augmentation response to distal compression maneuver. IMPRESSION: Negative left lower extremity deep venous ultrasound for DVT Comment: Preliminary findings were reported by the masonry teacher to the referring provider at the time of study completion. Dictated by: Edward Aguillon M.D. on 04/29/2020 at 16:57 Approved by: Edward Aguillon M.D. on 04/29/2020 at 16:58 [facility] [place] Narrative Medical decision making narrative: This is a 74-year-old gentleman with a history of TIA, back pain, bilateral chronic knee pain with degenerative changes to his knees who presents to the emergency department with left knee pain that been going on for 2 weeks but he feels is not getting better. Differential diagnoses considered include bursitis, DVT, Bakers cyst, degenerative joint disease pain, septic arthritis, gout. No recent trauma, patient has chronic knee pain, not on blood thinners, reported history of DVT in the right leg prior to 2009. Have low suspicion for DVT, gout or septic arthritis based on the location and nature of the patient's pain, labs and imaging; however given his history of DVT, he is not on blood thinners, and he is a smoker assessed with ultrasound for DVT and other findings that might suggest cause of his worsening pain, XR/labs performed. X-ray and ultrasound did not show anything to suggest a cause for the patient's new worsening pain over the last 2 weeks, it is still possible that he has a bursitis, it is also possible that he simply has worsening of his knee joint pain 2nd to his significant degenerative changes. Declined to add medicine to his pain regimen as he is already taking opioids, has lidocaine patches and capsaicin. Advised him to continue to work with his doctors regarding MRI for his knees, and follow-up with his other medical issues and imaging, consider consulting for a 2nd opinion regarding the possibility of knee surgery (he has been advised he is not a candidate for surgery). And minimize use of his knees at least through his follow-up appointment. Discussed emergency return precautions, follow-up plan, all questions answered. <Odette Crowe MD - Last Filed: 05/01/20 18:53> Lab Data Labs: Lab Results 04/29/20 04/29/20 04/29/20 Range/Units 16:50 16:50 16:50 WBC 5.3 (4.5-11.0) X10^3/uL RBC 4.30 L (4.5-5.9) X10^6/uL Hgb 14.4 (13.5-17.5) g/dL Hct 41.6 (41-53) % MCV 96.7 (80-100) fL MCH 33.5 (26-34) PG MCHC 34.7 (30-36) % RDW 13.3 (11.6-14.8) % Plt Count 183 (150-400) X10^3/uL Neut % (Auto) 58.1 (50-75) % Lymph % (Auto) 24.6 L (25-40) % [place] % (Auto) 11.3 (3-14) % Eos % (Auto) 5.2 H (2-4) % Baso % (Auto) 0.8 (0-2) % Neut # (Auto) 3100 (1385-9169) /uL Lymph # (Auto) 1300 (9114-0474) /uL [place] # (Auto) 600 (0-900) /uL Eos # (Auto) 300 (0-450) /uL Baso # (Auto) 0 (0-100) /uL Sodium 141 (137-145) mmol/L Potassium 4.0 (3.4-5.1) mmol/L Chloride 108 H (98-107) mmol/L Carbon Dioxide 30 (22-32) mmol/L BUN 13 (9-20) mg/dL Creatinine 0.79 (0.66-1.25) mg/dL Estimated GFR > 60.0 (>60) mL/min BUN/Creatinine Ratio 16.5 (6-22) Glucose 76 L (80-110) mg/dL Lactate 0.8 (0.7-2.1) mmol/L Uric Acid 4.2 (3.5-8.5) mg/dL Calcium 9.3 (8.4-10.2) mg/dL Total Bilirubin 0.6 (0.2-1.3) mg/dL AST 17 (17-59) IU/L ALT 18 (<50) IU/L Alkaline Phosphatase 82 (38-126) U/L C-Reactive Protein < 0.5 (<1.0) mg/dL Total Protein 6.7 (6.3-8.2) g/dL Albumin 4.1 (3.5-5.0) g/dL Globulin 2.6 (1.7-4.1) g/dL Albumin/Globulin Ratio 1.6 (1.0-2.8) Discharge Plan Departure Patient Disposition: Home Clinical Impression: Acute pain of left knee Discharge Date/Time: 04/29/20 19:00 Instructions: DI for Knee Pain Activity Restrictions/Additional Instructions: You for letting us to be part of your care in the emergency department today. There is no evidence of an emergent or life threatening illness at this time, but follow up with your doctor in 1-2 days is recommended nonetheless to continue to rule out serious underlying causes of your symptoms. Please call the office for an appointment. Please return to the Emergency Department for any worsening or persistent symptoms. Please take medications as directed. We do no t find evidence of a DVT today on ultrasound nor did we see any evidence of a Jose cyst or effusion in your knee, it is difficult to clearly see bursitis or inflammation of some of the smaller bursa with the ultrasound, so it is possible that you may have some bursitis that could explain some of your pain, it is also possible that your pain is due to your ongoing knee issues and that this chronic pain has worsened for a recently. I recommend you continue to follow-up as planned for your bilateral knee MRIs in your other medical care as has already been coordinated by your doctors. Please continue to wear your compression socks and your knee braces. Prescriptions: No Action glucose 4 GM tablet,chewable 8 tab PO QDAYP PRN (Reason: Hypoglycemia) Qty: 0 RF: 0 atorvastatin 20 mg Tablet 20 mg PO DAILY RF: 0 losartan 50 mg Tablet 50 mg PO DAILY RF: 0 latanoprost 0.005 % Drops 1 drp EYE-BOTH BEDTIME RF: 0 glimepiride 4 mg Tablet 8 mg PO QPM RF: 0 lidocaine 5 % adhesive patch,medicated 1 patch TOP Q24H Qty: 30 RF: 0 metformin 1,000 mg Tablet Extended Release 24hr 2,000 mg PO QPM RF: 0 polyvinyl alcohol [Artificial Tears (polyvin alc)] 1.4 % Drops 1 - 2 drp EYE-BOTH PRN PRN (Reason: Dry Eye(S)) RF: 0 diltiazem HCl 240 mg Capsule,Extended Release 24 Hr 240 mg PO DAILY RF: 0 dorzolamide-timolol 22.3-6.8 mg/mL Drops 1 drp EYE-BOTH BID RF: 0 capsaicin 0.1 % Cream 1 applic TOPICAL BID PRN (Reason: pain) RF: 0 empagliflozin 10 mg Tablet 10 mg PO QAM RF: 0 cyclobenzaprine 10 mg tablet 10 mg PO TID PRN (Reason: muscle spasm) Qty: 14 RF: 0 oxycodone 5 mg tablet 5 mg PO Q4-6H PRN (Reason: pain) Qty: 10 RF: 0 Referrals: Yuki Lopez MD [Primary Care Provider] - <Odette Crowe MD - Last Filed: 05/01/20 18:53> Cosign ED Attending Cosignature Attestation: I was immediately available in the department for consultation throughout this patient's visit. I agree with documentation as above. Odette Crowe MD
[2020-04-29 16:59] LABS: Add Manual Diff / Slide Review NO; Basophils Absolute Auto 0 /uL (0-100); Basophils Percent Auto 0.8 % (0-2); Eosinophils Absolute Auto 300 /uL (0-450); Eosinophils Percent Auto 5.2 % (2-4); Hematocrit 41.6 % (41-53); Hemoglobin 14.4 g/dL (13.5-17.5); Lymphocytes Absolute Auto 1300 /uL (1100-4500); Lymphocytes Percent Auto 24.6 % (25-40); Mean Corpuscular HGB Conc 34.7 % (30-36); Mean Corpuscular Hemoglobin 33.5 PG (26-34); Mean Corpuscular Volume 96.7 fL (80-100); Monocytes Absolute Auto 600 /uL (0-900); Monocytes Percent Auto 11.3 % (3-14); Neutrophils Absolute Auto 3100 /uL (1500-7000); Neutrophils Percent Auto 58.1 % (50-75); Platelet Count 183 X10^3/uL (150-400); Red Cell Distribution Width 13.3 % (11.6-14.8); White Blood Cell Count 5.3 X10^3/uL (4.5-11.0)
[2020-04-29 17:18] LABS: Lactate (Lactic Acid) 0.8 mmol/L (0.7-2.1)
[2020-04-29 17:20] LABS: Alanine Aminotransferase 18 IU/L (<50); Albumin 4.1 g/dL (3.5-5.0); Albumin Globulin Ratio 1.6 (1.0-2.8); Alkaline Phosphatase 82 U/L (38-126); Aspartate Aminotransferase 17 IU/L (17-59); BUN Creatinine Ratio 16.5 (6-22); Bilirubin Total 0.6 mg/dL (0.2-1.3); Blood Urea Nitrogen 13 mg/dL (9-20); C-Reactive Protein Quant < 0.5 mg/dL (<1.0); Calcium 9.3 mg/dL (8.4-10.2); Carbon Dioxide 30 mmol/L (22-32); Chloride 108 mmol/L (98-107); Estimated Glomerular Filt Rate > 60.0 mL/min (>60); Globulin 2.6 g/dL (1.7-4.1); Glucose 76 mg/dL (80-110); HEMOLYSIS < 15 (0-50); Sodium 141 mmol/L (137-145); Total Protein 6.7 g/dL (6.3-8.2); Uric Acid 4.2 mg/dL (3.5-8.5)
[2020-04-29] MEDS: OXYCODONE/ACETAMINOPHEN 5/325 TABLET 1 TAB PO (18:42)
== END 2020-04-29 19:00 | disposition home or self-care (01) ==
PROVIDERS: Emergency Provider Student in an Organized Health Care Education/Training Program; Family Provider Internal Medicine; PCP Internal Medicine
DX: M25.562 Pain in left knee (principal); R60.9 Edema, unspecified
CPT/HCPCS: 36415; 73562; 80053; 83605; 84550; 85025; 86140; 93971; 99284

== ENCOUNTER 2020-10-20 17:29 | Emergency (ER) | payer OTHER, SELFPAY ==
[2018-12-20 03:00] VITALS: BMI 30.9
[2020-10-20] VITALS (13 sets, daily range): BP systolic 141–155; BP diastolic 78–82; PULSE 65–82; RESP 15–30; TEMP 36.7; O2SAT 92–96; BMI 33.7
--- NOTE | 2020-10-20 | DI.MRI.S_ITS ---
PROCEDURE: MR ANGIO HEAD WO CON INDICATIONS: STROKE TECHNIQUE: Noncontrast axial 3-D [id number] MR angiogram, with 3-dimensional maximum intensity projection (MIP) reformats of the internal carotid arteries and posterior circulation then performed. COMPARISON: [facility], CT, CT ANGIO HEAD AND NECK, 03/07/2019, 19:44. FINDINGS: Image quality: Excellent. Anterior circulation: Intracranial internal carotid arteries demonstrate normal size and intraluminal flow signal. The flow within the paired anterior cerebral arteries is normal and symmetric. The flow within the middle cerebral arteries is normal and symmetric. The anterior communicating artery is seen. No stenoses, occlusions, or aneurysms. Posterior circulation: Visualized portions of the vertebral arteries demonstrate normal caliber, and join to form a normal appearing basilar artery. The flow within the posterior cerebral arteries is normal and symmetric. No stenoses, occlusions, or aneurysms. IMPRESSION: No hemodynamically significant stenosis or aneurysm is seen in intracranial circulation. No significant changes from 2019 study. Dictated by: Raheem Fernandez M.D. on 10/20/2020 at 21:33 Approved by: Raheem Fernandez M.D. on 10/20/2020 at 21:36
--- NOTE | 2020-10-20 17:42 | DI.RAD.S_ITS ---
PROCEDURE: XR CHEST 1V INDICATIONS: Chest pain TECHNIQUE: One view of the chest was acquired. COMPARISON: [facility], CR, XR CHEST 1V, 12/19/2018, 18:50. FINDINGS: Surgical changes and devices: None. Lungs and pleura: Lungs are clear. No pleural effusions or pneumothorax. Mediastinum: Mediastinal contours appear normal. Heart size is normal. Bones and chest wall: No suspicious bony lesions. Overlying soft tissues appear unremarkable. IMPRESSION: No acute cardiopulmonary pathology. Dictated by: Raheem Fernandez M.D. on 10/20/2020 at 18:10 Approved by: Raheem Fernandez M.D. on 10/20/2020 at 18:10
--- NOTE | 2020-10-20 18:01 | DI.CT.S_ITS ---
PROCEDURE: CT HEAD/BRAIN WO CON INDICATIONS: dizziness, feelis like prior brain bleed TECHNIQUE: Noncontrast 4.5 mm thick angled axial sections acquired from the foramen magnum to the vertex, with coronal and sagittal reformats. For radiation dose reduction, the following was used: automated exposure control, adjustment of mA and/or kV according to patient size. COMPARISON: [facility], CT, CT HEAD/BRAIN WO CON, 12/19/2018, 18:40. FINDINGS: Image quality: Excellent. CSF spaces: Basal cisterns are patent. No extra-axial fluid collections. The ventricles are symmetric in size and shape. Brain: No intracranial bleeds or masses. There is cerebral volume loss for age, with resultant ventricular and sulcal prominence. There are periventricular and deep white matter chronic small vessel ischemic changes. There is intracranial internal carotid artery atherosclerosis. Skull and face: Calvarium and visualized facial bones appear intact, without suspicious lesions. Sinuses: Visualized sinuses and mastoids are clear. IMPRESSION: No CT evidence of acute intracranial pathology. No significant changes from previous study. Dictated by: Raheem Fernandez M.D. on 10/20/2020 at 18:24 Approved by: Raheem Fernandez M.D. on 10/20/2020 at 18:24
[2020-10-20 18:23] LABS: Add Manual Diff / Slide Review NO; Basophils Absolute Auto 0 /uL (0-100); Basophils Percent Auto 0.7 % (0-2); Eosinophils Absolute Auto 200 /uL (0-450); Eosinophils Percent Auto 3.4 % (2-4); Hematocrit 45.6 % (41-53); Hemoglobin 15.1 g/dL (13.5-17.5); Lymphocytes Absolute Auto 1300 /uL (1100-4500); Lymphocytes Percent Auto 22.4 % (25-40); Mean Corpuscular HGB Conc 33.2 % (30-36); Mean Corpuscular Hemoglobin 32.4 PG (26-34); Mean Corpuscular Volume 97.8 fL (80-100); Monocytes Absolute Auto 600 /uL (0-900); Monocytes Percent Auto 10.8 % (3-14); Neutrophils Absolute Auto 3600 /uL (1500-7000); Neutrophils Percent Auto 62.7 % (50-75); Platelet Count 195 X10^3/uL (150-400); Red Blood Cell Count 4.66 X10^6/uL (4.5-5.9); Red Cell Distribution Width 13.8 % (11.6-14.8); White Blood Cell Count 5.8 X10^3/uL (4.5-11.0)
--- NOTE | 2020-10-20 18:28 | DI.MRI.S_ITS ---
PROCEDURE: MR HEAD/BRAIN WO/W CON INDICATIONS: dizziness, symptoms similar to prior stroke TECHNIQUE: Noncontrast axial T1 spin echo, axial T2 fast spin echo, sagittal and axial FLAIR, coronal T2 fast spin echo, axial gradient echo, axial diffusion and ADC through the brain. After the administration of contrast, axial and coronal T1 spin echo with fat saturation through the brain. COMPARISON: [facility], MR, MR HEAD/BRAIN WO CON, 12/21/2018, 14:46. [facility], CT, CT ANGIO HEAD AND NECK, 03/07/2019, 19:44. FINDINGS: Image quality: Excellent. CSF spaces: Basal cisterns are patent. No extra-axial fluid collections. Ventricles are normal in size and shape. Brain: No midline shift. No intracranial bleeds or masses. No abnormal intracranial enhancement. There is cerebral volume loss for age. There is periventricular white matter chronic small vessel ischemic change. The brainstem appears normal. Diffusion-weighted images demonstrate no acute ischemic insults. No chronic ischemic insults. Previously described numerous punctate GRE weighted hypodensities noted in parietal and cerebral hemispheres bilaterally are again seen and are grossly unchanged in size and appearance. Normal intravascular flow voids are present. Skull and face: Calvarial marrow is normal in signal. Orbits appear normal. Sinuses: Sinuses and mastoids appear clear. IMPRESSION: 1. No evidence of acute or chronic infarction. No acute intracranial bleed. No midline shift or mass effect. 2. Mild diffuse cerebral atrophy and moderate white matter chronic microvascular ischemic changes. 3. Again noted are punctate susceptibility artifact predominantly involving bilateral parietal and occipital lobes unchanged in size and appearance from previous study and are most consistent with chronic micro bleed related to amyloid angiopathy or hypertension. 4. No area of abnormal intracranial enhancement is seen. Dictated by: Raheem Fernandez M.D. on 10/20/2020 at 21:27 Approved by: Raheem Fernandez M.D. on 10/20/2020 at 21:32
[2020-10-20 18:32] LABS: Alanine Aminotransferase 22 IU/L (<50); Albumin 4.2 g/dL (3.5-5.0); Albumin Globulin Ratio 1.4 (1.0-2.8); Alkaline Phosphatase 82 U/L (38-126); Aspartate Aminotransferase 21 IU/L (17-59); BUN Creatinine Ratio 23.8 (6-22); Bilirubin Total 0.9 mg/dL (0.2-1.3); Blood Urea Nitrogen 20 mg/dL (9-20); Calcium 9.1 mg/dL (8.4-10.2); Carbon Dioxide 28 mmol/L (22-32); Chloride 108 mmol/L (98-107); Creatine Kinase 73 U/L (55-170); Estimated Glomerular Filt Rate > 60.0 mL/min (>60); Globulin 2.9 g/dL (1.7-4.1); Glucose 98 mg/dL (80-110); HEMOLYSIS 29 (0-50); Lipase 83 U/L (23-300); Potassium 4.1 mmol/L (3.4-5.1); Sodium 140 mmol/L (137-145); Total Protein 7.1 g/dL (6.3-8.2)
--- NOTE | 2020-10-20 18:34 | ED.CHESTPAIN ---
HPI - Chest Pain General Chief Complaint: Chest Pain Stated Complaint: low blood pressure and low oxygen level Time Seen by Provider: 10/20/20 18:01 Source: patient Mode of arrival: Ambulatory Limitations: no limitations History of Present Illness HPI narrative: 74M former smoker with history of prior microbleed stroke, HTN, hyperlipidemia, DM presents with a concern of an abnormal vital sign on a home monitor. He has a home blood pressure monitor and the ?bottom number? was 69 and he thought this correlated to the percentage of oxygen in his blood. He states he came in because his doctor told him to due to 69% pulse ox. In fact, he did not have a pulse ox at all and the 69 was his diastolic blood pressure. Upon further questioning he mentions that he has had three weeks of dizziness and lightheadedness which reminds him of an episode that required admission a few years ago in which he was told he had a history of microbleeds. His symptoms have been present for the past few weeks and he denies any other neurologic symptoms such as blurred vision, trouble with speech, numbness, tingling or weakness. He states that he has generally felt fatigued and overall weak. He denies any obvious provocation or palliation and specifically says he doesn't seem to have any improvement if he slowly gets up. He states the symptoms have largely been present, and mild for the duration. He denies any recent head injuries or falls. He denies any chest pain or shortness of breath. He denies any new medications or dietary change. He has had no nausea, vomiting or diarrhea. He denies any symptoms consistent with COVID. MD complaint: other Onset (ago): week(s) Duration: constant Severity: moderate Pain radiation: none Relieving factors: nothing Exacerbating factors: nothing Treatments prior to arrival chest pain: none Related Data Home Medications Medication Instructions Recorded Confirmed glucose 8 tab PO QDAYP PRN #0 11/27/17 12/20/18 atorvastatin 20 mg PO DAILY 07/21/18 12/20/18 glimepiride 8 mg PO QPM 07/21/18 12/20/18 latanoprost 1 drp EYE-BOTH BEDTIME 07/21/18 12/20/18 losartan 50 mg PO DAILY 07/21/18 12/20/18 capsaicin 1 applic TOPICAL BID PRN 12/20/18 12/20/18 diltiazem HCl 240 mg PO DAILY 12/20/18 12/20/18 dorzolamide-timolol 1 drp EYE-BOTH BID 12/20/18 12/20/18 empagliflozin 10 mg PO QAM 12/20/18 12/20/18 metformin 2,000 mg PO QPM 12/20/18 12/20/18 polyvinyl alcohol [Artificial 1 - 2 drp EYE-BOTH PRN PRN 12/20/18 12/20/18 Tears (polyvin alc)] Previous Rx's Medication Instructions Recorded cyclobenzaprine 10 mg PO TID PRN #14 tab 03/07/19 oxycodone 5 mg PO Q4-6H PRN #10 tab 03/07/19 lidocaine 1 patch TOP Q24H #30 each 03/08/20 Allergies Allergy/AdvReac Type Severity Reaction Status Date / Time albuterol [ALBUTEROL] AdvReac Intermediate Shakiness Verified 10/20/20 17:36 Review of Systems Constitutional Constitutional: Denies chills, Denies fatigue, Denies fever(s), Denies frequent falls, Reports lethargy and Reports weakness Eyes Eyes: Denies change in vision, Denies eye discharge, Denies irritation and Denies loss of vision ENT Ears, Nose, Mouth, and Throat: Denies change in voice, Reports dizziness, Denies neck pain, Denies sore throat and Denies throat swelling Cardiovascular Cardiovascular: Denies chest pain, Denies irregular heart rhythm, Denies lightheadedness, Denies palpitations, Denies dyspnea, Denies dyspnea on exertion and Denies orthopnea Respiratory Respiratory: Denies cough, Denies dyspnea, Denies dyspnea on exertion and Denies wheezing Gastrointestinal Gastrointestinal: Denies abdominal pain, Denies change in bowel habits, Denies diarrhea, Denies nausea and Denies vomiting Musculoskeletal Musculoskeletal: Denies neck pain and Denies numbness Integumentary/Breasts Skin/Breast: Denies pruritus, Denies erythema, Denies rash and Denies wounds Neurologic Neurologic: Denies behavioral changes, Denies confusion, Reports dizziness, Denies frequent falls, Denies loss of vision, Denies numbness and Reports weakness Psychiatric Psychiatric: Denies anxiety, Denies behavioral changes, Denies confusion, Denies depression, Denies homicidal ideation and Denies suicidal ideation Endocrine Endocrine: Denies fatigue, Denies flushing and Denies palpitations Hematologic/Lymphatic Hematologic/Lymphatic: Denies easy bruising Allergic/Immunologic Allergic/Immunologic: Denies urticaria, Denies throat swelling and Denies wheezing Patient History Medical History (Updated 10/20/20 @ 23:06 by Judd Potter DO) Diabetes Glaucoma History of DVT (deep vein thrombosis) Hyperlipidemia Hypertension Surgical History History of ankle surgery History of bilateral inguinal hernia repair History of hand surgery Social History household members: spouse Smoking Status: Former smoker alcohol intake: former substance use type: does not use Smoking Status: Former smoker alcohol intake frequency: holidays/special occasions only Substance Use Type: does not use Exam Narrative Exam Narrative: GENERAL: [74] year old patient appears stated age. Well-nourished, well-developed patient, in mild distress. Resting comfortably. GCS 15. HEAD: Atraumatic. Normocephalic. EYES: Pupils equal round and reactive. Extraocular motions intact. No scleral icterus. No injection or drainage. No obvious nystagmus. ENT: Nose without bleeding, purulent drainage. Throat without erythema, tonsillar hypertrophy or exudate. Airway patent. NECK: Trachea midline. Non tender CARDIOVASCULAR: Regular rate and rhythm without murmurs, gallops, or rubs. RESPIRATORY: Clear to auscultation. Breath sounds equal bilaterally. No wheezes, rales, or rhonchi. GASTROINTESTINAL: Abdomen soft, non-tender, nondistended. EXTREMITIES: No edema or joint tenderness. B/L knee braces in place. BACK: Nontender without deformity or crepitance. No flank tenderness. NEURO: AOx3. SKIN: No rash or erythema of visible areas NIH Stroke Scale 1a. LOC: Patient is alert and keenly responsive (0) 1b. LOC Questions: Patient answers both LOC questions accurately (0) 1c. LOC Commands: Patient performs both tasks correctly (0) 2. Best Gaze: Normal (0) 3. Visual: No visual loss (0) 4. Facial palsy: Normal symmetrical movements (0) 5. Motor arm: No drift (0) 6. Motor leg: No drift (0) 7. Limb ataxia: Absent (0) 8. Sensory: Normal (0) 9. Best language: No aphasia; normal (0) 10. Dysarthria: Normal (0) 11. Extinction and inattention: No abnormality (0) NIHSS: 0 Initial Vital Signs Initial Vital Signs: Vital Signs Temperature 98.1 F 10/20/20 17:36 Pulse Rate 82 10/20/20 17:36 Respiratory Rate 18 10/20/20 17:36 Blood Pressure 145/80 H 10/20/20 17:36 Pulse Oximetry 96 10/20/20 17:36 Course Orders Ordered: Discontinued Medications Aspirin (Aspirin 81 Mg Chew Tab) 324 mg PO NOW ONE Stop: 10/20/20 17:43 Last Admin: 10/20/20 18:40 Dose: 324 mg Documented by: KIMBERLEY Sodium Chloride (Normal Saline 0.9%) 1,000 mls @ 150 mls/hr IV CONT KAREY Last Infusion: 10/20/20 22:31 Dose: 0 mls/hr Documented by: Admin: 10/20/20 18:40 Dose: 150 mls/hr Documented by: KIMBERLEY Vital Signs Vital signs: Vital Signs - 8 hr 10/20/20 21:26 10/20/20 21:27 10/20/20 21:30 Pulse Rate 81 80 81 Respiratory Rate 16 18 19 Blood Pressure 150/82 H 145/80 H Pulse Oximetry 94 94 94 10/20/20 22:00 Pulse Rate 77 Respiratory Rate 17 Blood Pressure 141/79 H Pulse Oximetry 92 MDM - Chest Pain Lab Data Result diagrams: 10/20/20 18:00 10/20/20 18:00 Labs: Lab Results 10/20/20 10/20/20 Range/Units 18:00 18:00 WBC 5.8 (4.5-11.0) X10^3/uL RBC 4.66 (4.5-5.9) X10^6/uL Hgb 15.1 (13.5-17.5) g/dL Hct 45.6 (41-53) % MCV 97.8 (80-100) fL MCH 32.4 (26-34) PG MCHC 33.2 (30-36) % RDW 13.8 (11.6-14.8) % Plt Count 195 (150-400) X10^3/uL Neut % (Auto) 62.7 (50-75) % Lymph % (Auto) 22.4 L (25-40) % [place] % (Auto) 10.8 (3-14) % Eos % (Auto) 3.4 (2-4) % Baso % (Auto) 0.7 (0-2) % Neut # (Auto) 3600 (5029-9968) /uL Lymph # (Auto) 1300 (1687-3652) /uL [place] # (Auto) 600 (0-900) /uL Eos # (Auto) 200 (0-450) /uL Baso # (Auto) 0 (0-100) /uL Sodium 140 (137-145) mmol/L Potassium 4.1 (3.4-5.1) mmol/L Chloride 108 H (98-107) mmol/L Carbon Dioxide 28 (22-32) mmol/L BUN 20 (9-20) mg/dL Creatinine 0.84 (0.66-1.25) mg/dL Estimated GFR > 60.0 (>60) mL/min BUN/Creatinine Ratio 23.8 H (6-22) Glucose 98 (80-110) mg/dL Calcium 9.1 (8.4-10.2) mg/dL Total Bilirubin 0.9 (0.2-1.3) mg/dL AST 21 (17-59) IU/L ALT 22 (<50) IU/L Alkaline Phosphatase 82 (38-126) U/L Total Creatine Kinase 73 (55-170) U/L CK-MB (CK-2) TNP CK-MB (CK-2) Rel Index TNP Troponin I < 0.012 (0.01-0.034) ng/mL Total Protein 7.1 (6.3-8.2) g/dL Albumin 4.2 (3.5-5.0) g/dL Globulin 2.9 (1.7-4.1) g/dL Albumin/Globulin Ratio 1.4 (1.0-2.8) Lipase 83 (23-300) U/L Imaging Data CT scan - head: Radiologist's Impression: No bleed MRI Head: Radiologist's Impression: Chart Viewer Diagnostics DATE TYPE STATUS REF RANGE/AUTHOR Hx 10/20/20 18:28 Raheem Fernandez 10/20/20 18:01 Raheem Fernandez 10/20/20 17:42 Raheem Fernandez 10/20/20 00:00 Raheem Fernandez 04/29/20 16:24 Edward Aguillon 04/29/20 16:09 Elva Aguillonic 03/08/20 13:29 Wang Kunz 06/06/19 21:19 Pal,[place] 03/07/19 19:23 Dale Mora 12/21/18 00:00 JoaquinTree taylor 12/21/18 00:00 Jennifer Tanner 12/20/18 01:23 12/20/18 00:00 AichaSanjana 12/20/18 00:00 RodneyDeb 12/19/18 21:33 Ciro,Jennifer 12/19/18 18:43 Ciro,Jennifer 12/19/18 18:26 Ciro,Jennifer 07/21/18 10:38 Rodney,Deb 03/29/18 12:07 Hayden Monte 03/29/18 12:07 Hayden Monte 03/29/18 12:07 Hayden MonteManinder fatima Marizol 74, M1945 [facility] ER, Main ED 187.96cm 119.295kg BMI: 33.8kg/m? Chest Pain Search Chart No Data to Display Shakiness ONSET 10/20/20 22:00 Maninder Hernandez 74 M [address] [id number] Resonance ReportSigned Patient: Maninder Hernandez CMR#: [id number]: 1945cct:[id number]/Sex: 74 / MDate of Service: 10/20/20Loc: EDAccession Number: [id number] Procedure: MR head/brain wo/w con Ordering Provider: Judd Potter D.O. PROCEDURE: MR HEAD/BRAIN WO/W CON INDICATIONS: dizziness, symptoms similar to prior stroke TECHNIQUE: Noncontrast axial T1 spin echo, axial T2 fast spin echo, sagittal and axial FLAIR, coronal T2 fast spin echo, axial gradient echo, axial diffusion and ADC through the brain. After the administration of contrast, axial and coronal T1 spin echo with fat saturation through the brain. COMPARISON: [facility], MR HEAD/BRAIN WO CON, 12/21/2018, 14:46. [facility], CT, CT ANGIO HEAD AND NECK, 03/07/2019, 19:44. FINDINGS: Image quality: Excellent. CSF spaces: Basal cisterns are patent. No extra-axial fluid collections. Ventricles are normal in size and shape. Brain: No midline shift. No intracranial bleeds or masses. No abnormal intracranial enhancement. There is cerebral volume loss for age. There is periventricular white matter chronic small vessel ischemic change. The brainstem appears normal. Diffusion-weighted images demonstrate no acute ischemic insults. No chronic ischemic insults. Previously described numerous punctate GRE weighted hypodensities noted in parietal and cerebral hemispheres bilaterally are again seen and are grossly unchanged in size and appearance. Normal intravascular flow voids are present. Skull and face: Calvarial marrow is normal in signal. Orbits appear normal. Sinuses: Sinuses and mastoids appear clear. IMPRESSION: 1. No evidence of acute or chronic infarction. No acute intracranial bleed. No midline shift or mass effect. 2. Mild diffuse cerebral atrophy and moderate white matter chronic microvascular ischemic changes. 3. Again noted are punctate susceptibility artifact predominantly involving bilateral parietal and occipital lobes unchanged in size and appearance from previous study and are most consistent with chronic micro bleed related to amyloid angiopathy or hypertension. 4. No area of abnormal intracranial enhancement is seen. Dictated by: Raheem Fernandez M.D. on 10/20/2020 at 21:27 Approved by: Raheem Fernandez M.D. on 10/20/2020 at 21:32 MDM Narrative Medical decision making narrative: Multiple etiologies for patient's symptoms considered including: stroke vs. bleed vs. cardiac disease vs. electrolyte abnormality vs. other Patient's symptoms improved over duration of stay with above-stated therapies. Findings and discharge diagnosis discussed with patient/family followed by verbalization of understanding Return precautions discussed with patient/family whom verbalize understanding. Discharge Plan Departure Patient Disposition: Home Clinical Impression: Dizziness Instructions: DI for Dizziness-Nonvertigo Activity Restrictions/Additional Instructions: *You have been diagnosed with [chronic dizziness, your exam, CT scan, MRI and labs are very reassuring.] *What to do: *Take medications as directed *Follow up with your primary care provider in 2-3 days, call for an appointment. Let them know you were seen in the Emergency Department and that we ask that you be seen in follow up *Return to ER if you should have any new, worsening or concerning symptoms Prescriptions: No Action glucose 4 GM tablet,chewable 8 tab PO QDAYP PRN (Reason: Hypoglycemia) Qty: 0 RF: 0 atorvastatin 20 mg Tablet 20 mg PO DAILY RF: 0 losartan 50 mg Tablet 50 mg PO DAILY RF: 0 latanoprost 0.005 % Drops 1 drp EYE-BOTH BEDTIME RF: 0 glimepiride 4 mg Tablet 8 mg PO QPM RF: 0 lidocaine 5 % adhesive patch,medicated 1 patch TOP Q24H Qty: 30 RF: 0 metformin 1,000 mg Tablet Extended Release 24hr 2,000 mg PO QPM RF: 0 polyvinyl alcohol [Artificial Tears (polyvin alc)] 1.4 % Drops 1 - 2 drp EYE-BOTH PRN PRN (Reason: Dry Eye(S)) RF: 0 diltiazem HCl 240 mg Capsule,Extended Release 24 Hr 240 mg PO DAILY RF: 0 dorzolamide-timolol 22.3-6.8 mg/mL Drops 1 drp EYE-BOTH BID RF: 0 capsaicin 0.1 % Cream 1 applic TOPICAL BID PRN (Reason: pain) RF: 0 empagliflozin 10 mg Tablet 10 mg PO QAM RF: 0 cyclobenzaprine 10 mg tablet 10 mg PO TID PRN (Reason: muscle spasm) Qty: 14 RF: 0 oxycodone 5 mg tablet 5 mg PO Q4-6H PRN (Reason: pain) Qty: 10 RF: 0 Referrals: Yuki oLpez MD [Primary Care Provider] -
[2020-10-20] MEDS: SODIUM CHLORIDE 0.9% 1,000 ML 150 ML IV (18:40)
[2020-10-20] MEDS: ASPIRIN 81 MG CHEW TAB 324 MG PO (18:40)
[2020-10-20 18:44] LABS: Troponin I < 0.012 ng/mL (0.01-0.034)
== END 2020-10-20 23:10 | disposition home or self-care (01) ==
PROVIDERS: Emergency Provider Emergency Medicine; Family Provider Internal Medicine; PCP Internal Medicine
DX: R42 Dizziness and giddiness (principal); R07.9 Chest pain, unspecified; I10 Essential (primary) hypertension; E78.5 Hyperlipidemia, unspecified; E11.9 Type 2 diabetes mellitus without complications; Z86.73 Personal history of transient ischemic attack (TIA), and cerebral infarction without residual deficits; Z86.718 Personal history of other venous thrombosis and embolism
CPT/HCPCS: 36415; 70450; 70544; 70553; 71045; 80053; 82550; 83690; 84484; 85025; 93005; 96360; 96361; 99284; A9579

== ENCOUNTER 2020-11-15 16:39 | Observation (INO) | payer OTHER, SELFPAY ==
[2018-12-20 03:00] VITALS: BMI 30.9
[2020-11-15] VITALS (20 sets, daily range): BP systolic 129–177; BP diastolic 76–96; PULSE 69–94; RESP 13–20; TEMP 36.7–37.6; O2SAT 91–96; BMI 33.3
--- NOTE | 2020-11-15 16:57 | ED_ITS ---
HPI - Dizziness <Alicia Rabago, DO - Last Filed: 11/16/20 07:59> General Chief Complaint: Syncope Stated Complaint: Dizziness Time Seen by Provider: 11/15/20 16:49 Source: patient, EMS and old records reviewed Mode of arrival: EMS Limitations: no limitations History of Present Illness HPI Narrative: Patient is a 74-year-old male with history of prior micro bleeding strokes, hypertension, lipidemia, diabetes presenting with dizziness. He states that he was under his car when he felt sudden onset of dizziness. He feels at rest and with change in position. He says this is how his previous micro bleeds have happened in the past. He denies any chest pain or palpitations. EMS reports fever of 101. He was unaware he had a fever he says he certainly and have 1 yesterday. He denies any cough shortness of breath painful or frequent urination. He does have an umbilical hernia which is quite tender. But that is always that way MD complaint: dizziness Timing: sudden onset Description: sense of movement Severity: moderate Relieving factors: nothing Exacerbating factors: nothing Related Data Home Medications Medication Instructions Recorded Confirmed glucose 8 tab PO QDAYP PRN #0 11/27/17 11/16/20 atorvastatin 20 mg PO DAILY 07/21/18 11/16/20 glimepiride 8 mg PO QPM 07/21/18 11/16/20 latanoprost 1 drp EYE-BOTH BEDTIME 07/21/18 11/16/20 losartan 50 mg PO DAILY 07/21/18 11/16/20 capsaicin 1 applic TOPICAL BID PRN 12/20/18 11/16/20 diltiazem HCl 240 mg PO DAILY 12/20/18 11/16/20 dorzolamide-timolol 1 drp EYE-BOTH BID 12/20/18 11/16/20 empagliflozin 10 mg PO QAM 12/20/18 11/16/20 metformin 2,000 mg PO QPM 12/20/18 11/16/20 polyvinyl alcohol [Artificial 1 - 2 drp EYE-BOTH PRN PRN 12/20/18 11/16/20 Tears (polyvin alc)] Previous Rx's Medication Instructions Recorded cyclobenzaprine 10 mg PO TID PRN #14 tab 03/07/19 lidocaine 1 patch TOP Q24H #30 each 03/08/20 Allergies Allergy/AdvReac Type Severity Reaction Status Date / Time albuterol [ALBUTEROL] AdvReac Intermediate Shakiness Verified 11/15/20 16:49 Review of Systems <Alicia Rabago DO - Last Filed: 11/16/20 07:59> Review of Systems ROS Unobtainable: All systems reviewed & are unremarkable except as noted in HPI and below Constitutional Constitutional: Denies chills, Denies fever(s), Denies lethargy and Denies weakness Eyes Eyes: Denies blurry vision, Denies change in vision and Denies diplopia ENT Ears, Nose, Mouth, and Throat: Denies change in voice, Reports vertigo, Reports dizziness, Denies neck pain and Denies sore throat Cardiovascular Cardiovascular: Denies chest pain, Denies irregular heart rhythm, Denies lightheadedness, Denies palpitations, Denies dyspnea, Denies dyspnea on exertion and Denies orthopnea Respiratory Respiratory: Denies cough, Denies dyspnea, Denies dyspnea on exertion and Denies wheezing Gastrointestinal Gastrointestinal: Denies abdominal pain, Denies change in bowel habits, Denies diarrhea, Denies nausea and Denies vomiting Musculoskeletal Musculoskeletal: Denies neck pain Integumentary/Breasts Skin/Breast: Denies pruritus, Denies erythema, Denies rash and Denies wounds Neurologic Neurologic: Reports as per HPI, Reports vertigo, Reports dizziness and Denies weakness Endocrine Endocrine: Denies palpitations Allergic/Immunologic Allergic/Immunologic: Denies wheezing Patient History <Alicia Rabago DO - Last Filed: 11/16/20 07:59> Medical History Diabetes Glaucoma History of DVT (deep vein thrombosis) Hyperlipidemia Hypertension Surgical History History of ankle surgery History of bilateral inguinal hernia repair History of hand surgery Social History household members: none Smoking Status: Former smoker alcohol intake: former substance use type: does not use Smoking Status: Former smoker alcohol intake frequency: holidays/special occasions only Substance Use Type: does not use Exam <Alicia Rabago DO - Last Filed: 11/16/20 07:59> Initial Vital Signs Initial Vital Signs: Vital Signs Pulse Rate 87 11/15/20 16:45 Pulse Oximetry 95 11/15/20 16:45 GENERAL: Alert 74-year-old male and in no acute distress. HEENT: Head atraumatic,EOMI, pupils reactive, face symmetric, moist mucous m embranes CARDIOVASCULAR: Regular rate and rhythm without murmurs, rubs or gallops. RESPIRATORY: Breath sounds equal bilaterally, no wheezes rales or rhonchi. ABDOMEN: Soft, nontender. Normoactive bowel sounds all 4 quadrants. No guarding or rebound. EXTREMITIES: Normal range of motion, no clubbing or edema. Neurovascularly intact NEUROLOGICAL: Alert and oriented x4.Normal gait and speech. Cranial nerves II through XII grossly intact. Good [id number], good [id number], strength equal bilaterally, no dysarthria or aphasia, sensation in tact to soft touch bilaterally, no visual changes, no facial droop SKIN: Warm, dry, no laceration, no petechiae, no rashes or lesions. <Evert Peralta, DO - Last Filed: 11/16/20 00:14> Initial Vital Signs Initial Vital Signs: Vital Signs Pulse Rate 87 11/15/20 16:45 Pulse Oximetry 95 11/15/20 16:45 Course <Alicia Rabago DO - Last Filed: 11/16/20 07:59> Orders Ordered: Acetaminophen (Acetaminophen 325 Mg Tablet) 650 mg PO Q6HR PRN PRN Reason: Fever/Mild Pain (1-3) Artificial Tears (Polyvinyl Alcohol Drops) 0 drops EYE-BOTH PRN PRN PRN Reason: Dry Eye(S) Atorvastatin Calcium (Atorvastatin 20 Mg Tablet) 20 mg PO DAILY [facility] Dextrose (Dextrose 50 % In Water 25 Gm/50 Ml Syringe) 25 gm IV PRN PRN PRN Reason: Hypoglycemia Diltiazem HCl (Diltiazem Cd 240 Mg Cap) 240 mg PO DAILY [facility] Dorzolamide/Timolol (Dorzolamide/Timolol Ophth 10 Ml) 1 drops EYE-BOTH BID [facility] Last Admin: 11/16/20 01:33 Dose: Not Given Documented by: JERMAINE Insulin Aspart (Insulin Aspart 100 Unit/Ml Insuln Pen) 0 unit SUBCUT ACHS KAREY; Protocol Ketorolac Tromethamine (Ketorolac 30 Mg/Ml Vial) 30 mg IV Q6HR PRN PRN Reason: Pain, Moderate (4-6) Stop: 11/21/20 01:01 Last Admin: 11/16/20 01:40 Dose: 30 mg Documented by: JERMAINE Latanoprost (Latanoprost 0.005% Ophth 2.5 Ml) 1 drops EYE-BOTH BEDTIME KAREY Losartan Potassium (Losartan 50 Mg Tablet) 50 mg PO DAILY [facility] Naloxone HCl (Naloxone 0.4 Mg/Ml Vial) 0.2 mg IV Q2MIN PRN PRN Reason: Opiate Reversal Ondansetron HCl (Ondansetron 4 Mg/2 Ml Inj) 4 mg IV Q8HR PRN PRN Reason: Nausea And Vomiting Discontinued Medications Meclizine HCl (Meclizine Hcl 12.5 Mg Tablet) 25 mg PO NOW ONE Stop: 11/15/20 18:38 Last Admin: 11/15/20 18:42 Dose: 25 mg Documented by: HAN Vital Signs Vital signs: Vital Signs - 8 hr 11/15/20 16:45 11/15/20 16:49 11/15/20 17:00 Temperature 99.7 F H Pulse Rate 87 87 87 Pulse Rate [Orthostatic Lying] Pulse Rate [Orthostatic Sitting] Pulse Rate [Orthostatic Standing] Respiratory Rate 20 Blood Pressure 177/96 H Blood Pressure [Orthostatic Lying] Blood Pressure [Orthostatic Sitting] Blood Pressure [Orthostatic Standing] Pulse Oximetry 95 96 93 11/15/20 17:01 11/15/20 17:30 11/15/20 17:36 Temperature Pulse Rate 86 83 84 Pulse Rate [Orthostatic Lying] Pulse Rate [Orthostatic Sitting] Pulse Rate [Orthostatic Standing] Respiratory Rate 18 Blood Pressure 157/89 H 158/87 H Blood Pressure [Orthostatic Lying] Blood Pressure [Orthostatic Sitting] Blood Pressure [Orthostatic Standing] Pulse Oximetry 93 95 94 11/15/20 18:00 11/15/20 18:17 11/15/20 18:22 Temperature Pulse Rate 82 85 94 H Pulse Rate [Orthostatic Lying] Pulse Rate [Orthostatic Sitting] Pulse Rate [Orthostatic Standing] Respiratory Rate 20 Blood Pressure 138/77 131/84 158/91 H Blood Pressure [Orthostatic Lying] Blood Pressure [Orthostatic Sitting] Blood Pressure [Orthostatic Standing] Pulse Oximetry 93 91 11/15/20 18:30 11/15/20 18:33 11/15/20 19:00 Temperature Pulse Rate 80 81 Pulse Rate [Orthostatic Lying] 82 Pulse Rate [Orthostatic Sitting] 90 Pulse Rate [Orthostatic Standing] 87 Respiratory Rate 20 19 Blood Pressure 138/81 155/78 H Blood Pressure [Orthostatic Lying] 138/77 Blood Pressure [Orthostatic Sitting] 131/84 Blood Pressure [Orthostatic Standing] 158/91 H Pulse Oximetry 95 95 11/15/20 19:30 11/15/20 20:00 11/15/20 20:30 Temperature Pulse Rate 77 77 75 Pulse Rate [Orthostatic Lying] Pulse Rate [Orthostatic Sitting] Pulse Rate [Orthostatic Standing] Respiratory Rate 17 13 16 Blood Pressure 135/80 136/78 136/80 Blood Pressure [Orthostatic Lying] Blood Pressure [Orthostatic Sitting] Blood Pressure [Orthostatic Standing] Pulse Oximetry 92 94 93 11/15/20 21:00 11/15/20 21:03 11/15/20 21:30 Temperature 98.1 F Pulse Rate 72 73 Pulse Rate [Orthostatic Lying] Pulse Rate [Orthostatic Sitting] Pulse Rate [Orthostatic Standing] Respiratory Rate 20 14 Blood Pressure 129/81 144/76 H Blood Pressure [Orthostatic Lying] Blood Pressure [Orthostatic Sitting] Blood Pressure [Orthostatic Standing] Pulse Oximetry 94 <Evert Peralta, - Last Filed: 11/16/20 00:14> Orders Ordered: Acetaminophen (Acetaminophen 325 Mg Tablet) 650 mg PO Q6HR PRN PRN Reason: Fever/Mild Pain (1-3) Artificial Tears (Polyvinyl Alcohol Drops) 0 drops EYE-BOTH PRN PRN PRN Reason: Dry Eye(S) Atorvastatin Calcium (Atorvastatin 20 Mg Tablet) 20 mg PO DAILY [facility] Dextrose (Dextrose 50 % In Water 25 Gm/50 Ml Syringe) 25 gm IV PRN PRN PRN Reason: Hypoglycemia Diltiazem HCl (Diltiazem Cd 240 Mg Cap) 240 mg PO DAILY [facility] Dorzolamide/Timolol (Dorzolamide/Timolol Ophth 10 Ml) 1 drops EYE-BOTH BID [facility] Last Admin: 11/16/20 01:33 Dose: Not Given Documented by: RAMSEYEXCRISTAL Insulin Aspart (Insulin Aspart 100 Unit/Ml Insuln Pen) 0 unit SUBCUT ACHS KAREY; Protocol Ketorolac Tromethamine (Ketorolac 30 Mg/Ml Vial) 30 mg IV Q6HR PRN PRN Reason: Pain, Moderate (4-6) Stop: 11/21/20 01:01 Last Admin: 11/16/20 01:40 Dose: 30 mg Documented by: JERMAINE Latanoprost (Latanoprost 0.005% Ophth 2.5 Ml) 1 drops EYE-BOTH BEDTIME KAREY Losartan Potassium (Losartan 50 Mg Tablet) 50 mg PO DAILY [facility] Naloxone HCl (Naloxone 0.4 Mg/Ml Vial) 0.2 mg IV Q2MIN PRN PRN Reason: Opiate Reversal Ondansetron HCl (Ondansetron 4 Mg/2 Ml Inj) 4 mg IV Q8HR PRN PRN Reason: Nausea And Vomiting Discontinued Medications Meclizine HCl (Meclizine Hcl 12.5 Mg Tablet) 25 mg PO NOW ONE Stop: 11/15/20 18:38 Last Admin: 11/15/20 18:42 Dose: 25 mg Documented by: HAN Vital Signs Vital signs: Vital Signs - 8 hr 11/15/20 16:45 11/15/20 16:49 11/15/20 17:00 Temperature 99.7 F H Pulse Rate 87 87 87 Pulse Rate [Orthostatic Lying] Pulse Rate [Orthostatic Sitting] Pulse Rate [Orthostatic Standing] Respiratory Rate 20 Blood Pressure 177/96 H Blood Pressure [Orthostatic Lying] Blood Pressure [Orthostatic Sitting] Blood Pressure [Orthostatic Standing] Pulse Oximetry 95 96 93 11/15/20 17:01 11/15/20 17:30 11/15/20 17:36 Temperature Pulse Rate 86 83 84 Pulse Rate [Orthostatic Lying] Pulse Rate [Orthostatic Sitting] Pulse Rate [Orthostatic Standing] Respiratory Rate 18 Blood Pressure 157/89 H 158/87 H Blood Pressure [Orthostatic Lying] Blood Pressure [Orthostatic Sitting] Blood Pressure [Orthostatic Standing] Pulse Oximetry 93 95 94 11/15/20 18:00 11/15/20 18:17 11/15/20 18:22 Temperature Pulse Rate 82 85 94 H Pulse Rate [Orthostatic Lying] Pulse Rate [Orthostatic Sitting] Pulse Rate [Orthostatic Standing] Respiratory Rate 20 Blood Pressure 138/77 131/84 158/91 H Blood Pressure [Orthostatic Lying] Blood Pressure [Orthostatic Sitting] Blood Pressure [Orthostatic Standing] Pulse Oximetry 93 91 11/15/20 18:30 11/15/20 18:33 11/15/20 19:00 Temperature Pulse Rate 80 81 Pulse Rate [Orthostatic Lying] 82 Pulse Rate [Orthostatic Sitting] 90 Pulse Rate [Orthostatic Standing] 87 Respiratory Rate 20 19 Blood Pressure 138/81 155/78 H Blood Pressure [Orthostatic Lying] 138/77 Blood Pressure [Orthostatic Sitting] 131/84 Blood Pressure [Orthostatic Standing] 158/91 H Pulse Oximetry 95 95 11/15/20 19:30 11/15/20 20:00 11/15/20 20:30 Temperature Pulse Rate 77 77 75 Pulse Rate [Orthostatic Lying] Pulse Rate [Orthostatic Sitting] Pulse Rate [Orthostatic Standing] Respiratory Rate 17 13 16 Blood Pressure 135/80 136/78 136/80 Blood Pressure [Orthostatic Lying] Blood Pressure [Orthostatic Sitting] Blood Pressure [Orthostatic Standing] Pulse Oximetry 92 94 93 11/15/20 21:00 11/15/20 21:03 11/15/20 21:30 Temperature 98.1 F Pulse Rate 72 73 Pulse Rate [Orthostatic Lying] Pulse Rate [Orthostatic Sitting] Pulse Rate [Orthostatic Standing] Respiratory Rate 20 14 Blood Pressure 129/81 144/76 H Blood Pressure [Orthostatic Lying] Blood Pressure [Orthostatic Sitting] Blood Pressure [Orthostatic Standing] Pulse Oximetry 94 MDM - Dizziness <Alicia Rabago DO - Last Filed: 11/16/20 07:59> Lab Data Attestation: I reviewed the patient's lab results. Result diagrams: 11/16/20 05:41 11/16/20 05:41 Labs: Lab Results 11/15/20 11/15/20 11/15/20 Range/Units 16:52 17:26 17:26 WBC 5.8 (4.5-11.0) X10^3/uL RBC 4.66 (4.5-5.9) X10^6/uL Hgb 15.4 (13.5-17.5) g/dL Hct 45.5 (41-53) % MCV 97.7 (80-100) fL MCH 33.0 (26-34) PG MCHC 33.8 (30-36) % RDW 13.3 (11.6-14.8) % Plt Count 174 (150-400) X10^3/uL Neut % (Auto) 66.1 (50-75) % Lymph % (Auto) 21.0 L (25-40) % Nelson % (Auto) 9.6 (3-14) % Eos % (Auto) 2.4 (2-4) % Baso % (Auto) 0.9 (0-2) % Neut # (Auto) 3800 (8984-5675) /uL Lymph # (Auto) 1200 (4588-7933) /uL Nelson # (Auto) 600 (0-900) /uL Eos # (Auto) 100 (0-450) /uL Baso # (Auto) 100 (0-100) /uL PT 11.2 (10.1-12.7) SECONDS INR 1.0 (0.9-1.3) APTT (26.4-36.2) SECONDS Sodium (137-145) mmol/L Potassium (3.4-5.1) mmol/L Chloride (98-107) mmol/L Carbon Dioxide (22-32) mmol/L BUN (9-20) mg/dL Creatinine (0.66-1.25) mg/dL Estimated GFR (>60) mL/min BUN/Creatinine Ratio (6-22) Glucose (80-110) mg/dL Hemoglobin A1c (4.0-6.0) % Lactate (0.7-2.1) mmol/L Calcium (8.4-10.2) mg/dL Magnesium (1.6-2.3) mg/dL Total Bilirubin (0.2-1.3) mg/dL AST (17-59) IU/L ALT (<50) IU/L Alkaline Phosphatase (38-126) U/L Total Creatine Kinase (55-170) U/L CK-MB (CK-2) CK-MB (CK-2) Rel Index Troponin I (0.01-0.034) ng/mL Total Protein (6.3-8.2) g/dL Albumin (3.5-5.0) g/dL Globulin (1.7-4.1) g/dL Albumin/Globulin Ratio (1.0-2.8) Procalcitonin (<0.5) ng/mL Urine Color Urine Appearance Urine pH (4.5-8.0) Ur Specific [place] (1.000-1.035) Urine Protein (Negative) Urine Glucose (UA) (Negative) g/dL Urine Ketones (NEGATIVE) Urine Occult Blood (Negative) Urine Nitrate (Negative) Urine Bilirubin (NEGATIVE) Urine Urobilinogen (0.2) E.U./dL Ur Leukocyte Esterase (NEGATIVE) Urine RBC (0-5/HPF) Urine WBC (0-5/HPF) Urine Bacteria (None) Ur Culture Indicated? SARS-CoV-2 (PCR) Negative (Negative) 11/15/20 11/15/20 11/15/20 Range/Units 17:26 17:26 17:26 WBC (4.5-11.0) X10^3/uL RBC (4.5-5.9) X10^6/uL Hgb (13.5-17.5) g/dL Hct (41-53) % MCV (80-100) fL MCH (26-34) PG MCHC (30-36) % RDW (11.6-14.8) % Plt Count (150-400) X10^3/uL Neut % (Auto) (50-75) % Lymph % (Auto) (25-40) % Nelson % (Auto) (3-14) % Eos % (Auto) (2-4) % Baso % (Auto) (0-2) % Neut # (Auto) (4710-4667) /uL Lymph # (Auto) (6047-0120) /uL Nelson # (Auto) (0-900) /uL Eos # (Auto) (0-450) /uL Baso # (Auto) (0-100) /uL PT (10.1-12.7) SECONDS INR (0.9-1.3) APTT (26.4-36.2) SECONDS Sodium 140 (137-145) mmol/L Potassium 3.8 (3.4-5.1) mmol/L Chloride 106 (98-107) mmol/L Carbon Dioxide 30 (22-32) mmol/L BUN 14 (9-20) mg/dL Creatinine 0.86 (0.66-1.25) mg/dL Estimated GFR > 60.0 (>60) mL/min BUN/Creatinine Ratio 16.3 (6-22) Glucose 76 L (80-110) mg/dL Hemoglobin A1c (4.0-6.0) % Lactate 1.1 (0.7-2.1) mmol/L Calcium 9.2 (8.4-10.2) mg/dL Magnesium (1.6-2.3) mg/dL Total Bilirubin 0.8 (0.2-1.3) mg/dL AST 19 (17-59) IU/L ALT 16 (<50) IU/L Alkaline Phosphatase 84 (38-126) U/L Total Creatine Kinase 78 (55-170) U/L CK-MB (CK-2) TNP CK-MB (CK-2) Rel Index TNP Troponin I < 0.012 (0.01-0.034) ng/mL Total Protein 6.8 (6.3-8.2) g/dL Albumin 4.1 (3.5-5.0) g/dL Globulin 2.7 (1.7-4.1) g/dL Albumin/Globulin Ratio 1.5 (1.0-2.8) Procalcitonin < 0.05 (<0.5) ng/mL Urine Color Urine Appearance Urine pH (4.5-8.0) Ur Specific [place] (1.000-1.035) Urine Protein (Negative) Urine Glucose (UA) (Negative) g/dL Urine Ketones (NEGATIVE) Urine Occult Blood (Negative) Urine Nitrate (Negative) Urine Bilirubin (NEGATIVE) Urine Urobilinogen (0.2) E.U./dL Ur Leukocyte Esterase (NEGATIVE) Urine RBC (0-5/HPF) Urine WBC (0-5/HPF) Urine Bacteria (None) Ur Culture Indicated? SARS-CoV-2 (PCR) (Negative) 11/15/20 11/15/20 11/15/20 Range/Units 17:26 17:26 17:26 WBC (4.5-11.0) X10^3/uL RBC (4.5-5.9) X10^6/uL Hgb (13.5-17.5) g/dL Hct (41-53) % MCV (80-100) fL MCH (26-34) PG MCHC (30-36) % RDW (11.6-14.8) % Plt Count (150-400) X10^3/uL Neut % (Auto) (50-75) % Lymph % (Auto) (25-40) % Nelson % (Auto) (3-14) % Eos % (Auto) (2-4) % Baso % (Auto) (0-2) % Neut # (Auto) (8919-6044) /uL Lymph # (Auto) (5278-2812) /uL Nelson # (Auto) (0-900) /uL Eos # (Auto) (0-450) /uL Baso # (Auto) (0-100) /uL PT (10.1-12.7) SECONDS INR (0.9-1.3) APTT 29 (26.4-36.2) SECONDS Sodium (137-145) mmol/L Potassium (3.4-5.1) mmol/L Chloride (98-107) mmol/L Carbon Dioxide (22-32) mmol/L BUN (9-20) mg/dL Creatinine (0.66-1.25) mg/dL Estimated GFR (>60) mL/min BUN/Creatinine Ratio (6-22) Glucose (80-110) mg/dL Hemoglobin A1c 7.1 H (4.0-6.0) % Lactate (0.7-2.1) mmol/L Calcium (8.4-10.2) mg/dL Magnesium 2.0 (1.6-2.3) mg/dL Total Bilirubin (0.2-1.3) mg/dL AST (17-59) IU/L ALT (<50) IU/L Alkaline Phosphatase (38-126) U/L Total Creatine Kinase (55-170) U/L CK-MB (CK-2) CK-MB (CK-2) Rel Index Troponin I (0.01-0.034) ng/mL Total Protein (6.3-8.2) g/dL Albumin (3.5-5.0) g/dL Globulin (1.7-4.1) g/dL Albumin/Globulin Ratio (1.0-2.8) Procalcitonin (<0.5) ng/mL Urine Color Urine Appearance Urine pH (4.5-8.0) Ur Specific [place] (1.000-1.035) Urine Protein (Negative) Urine Glucose (UA) (Negative) g/dL Urine Ketones (NEGATIVE) Urine Occult Blood (Negative) Urine Nitrate (Negative) Urine Bilirubin (NEGATIVE) Urine Urobilinogen (0.2) E.U./dL Ur Leukocyte Esterase (NEGATIVE) Urine RBC (0-5/HPF) Urine WBC (0-5/HPF) Urine Bacteria (None) Ur Culture Indicated? SARS-CoV-2 (PCR) (Negative) 11/15/20 Range/Units 18:30 WBC (4.5-11.0) X10^3/uL RBC (4.5-5.9) X10^6/uL Hgb (13.5-17.5) g/dL Hct (41-53) % MCV (80-100) fL MCH (26-34) PG MCHC (30-36) % RDW (11.6-14.8) % Plt Count (150-400) X10^3/uL Neut % (Auto) (50-75) % Lymph % (Auto) (25-40) % Nelson % (Auto) (3-14) % Eos % (Auto) (2-4) % Baso % (Auto) (0-2) % Neut # (Auto) (5899-6413) /uL Lymph # (Auto) (9361-3719) /uL Nelson # (Auto) (0-900) /uL Eos # (Auto) (0-450) /uL Baso # (Auto) (0-100) /uL PT (10.1-12.7) SECONDS INR (0.9-1.3) APTT (26.4-36.2) SECONDS Sodium (137-145) mmol/L Potassium (3.4-5.1) mmol/L Chloride (98-107) mmol/L Carbon Dioxide (22-32) mmol/L BUN (9-20) mg/dL Creatinine (0.66-1.25) mg/dL Estimated GFR (>60) mL/min BUN/Creatinine Ratio (6-22) Glucose (80-110) mg/dL Hemoglobin A1c (4.0-6.0) % Lactate (0.7-2.1) mmol/L Calcium (8.4-10.2) mg/dL Magnesium (1.6-2.3) mg/dL Total Bilirubin (0.2-1.3) mg/dL AST (17-59) IU/L ALT (<50) IU/L Alkaline Phosphatase (38-126) U/L Total Creatine Kinase (55-170) U/L CK-MB (CK-2) CK-MB (CK-2) Rel Index Troponin I (0.01-0.034) ng/mL Total Protein (6.3-8.2) g/dL Albumin (3.5-5.0) g/dL Globulin (1.7-4.1) g/dL Albumin/Globulin Ratio (1.0-2.8) Procalcitonin (<0.5) ng/mL Urine Color Yellow Urine Appearance Clear Urine pH 7.0 (4.5-8.0) Ur Specific [place] 1.015 (1.000-1.035) Urine Protein Negative (Negative) Urine Glucose (UA) 2+ H (Negative) g/dL Urine Ketones 1+ H (NEGATIVE) Urine Occult Blood Negative (Negative) Urine Nitrate Negative (Negative) Urine Bilirubin Negative (NEGATIVE) Urine Urobilinogen 0.2 (0.2) E.U./dL Ur Leukocyte Esterase Negative (NEGATIVE) Urine RBC 0-1/hpf (0-5/HPF) Urine WBC 0-1/hpf (0-5/HPF) Urine Bacteria None seen (None) Ur Culture Indicated? Cult not indicated SARS-CoV-2 (PCR) (Negative) Point of Care Testing Glucose POC 101 Urine Dip Bedside Urine Glucose 1000 mg/dl Bedside Urine Bilirubin - Negative Bedside Urine Ketone + 15 Urine Specific [place] 1.020 Bedside Urine Occult Blood - Negative Bedside Urine pH 6.5 Bedside Urine Protein - Negative Bedside Urine Urobilinogen - Negative Bedside Urine Nitrite - Negative Bedside Urine Leukocytes - Negative Esterase Imaging Data CT scan - head: Radiologist's Impression: PROCEDURE: CT HEAD/BRAIN WO CON INDICATIONS: dizzy hx of bleeds TECHNIQUE: Noncontrast 4.5 mm thick angled axial sections acquired from the foramen magnum to the vertex, with coronal and sagittal reformats. For radiation dose reduction, the following was used: automated exposure control, adjustment of mA and/or kV according to patient size. COMPARISON: [facility], CT, CT HEAD WITHOUT CONTRAST, 03/31/2018, 16:04. [facility], CT, CT HEAD/BRAIN WO CON, 10/20/2020, 18:01. [facility], CT, CT HEAD/BRAIN WO CON, 12/19/2018, 18:40. FINDINGS: Image quality: Excellent. CSF spaces: Basal cisterns are patent. No extra-axial fluid collections. The ventricles are symmetric in size and shape. Brain: No intracranial bleeds or masses. There is moderate cerebral volume loss for age, with resultant ventricular and sulcal prominence. There are moderate periventricular and deep white matter chronic small vessel ischemic changes. Findings are most pronounced in the posterior parietal region bilaterally and more severe on the left. This is unchanged. There is intracranial internal carotid artery atherosclerosis. Skull and face: Calvarium and visualized facial bones appear intact, without suspicious lesions. Sinuses: Visualized sinuses and mastoids are clear. IMPRESSION: 1. CT head without acute intracranial abnormalities or acute calvarial fractures. 2. Age-related senescent changes and sequela of chronic small vessel ischemic disease, unchanged. Dictated by: Dale Mora M.D. on 11/15/2020 at 16:26 Chest x-ray: Radiologist's Impression: PROCEDURE: XR CHEST 1V INDICATIONS: dizzy TECHNIQUE: One view of the chest was acquired. COMPARISON: [facility], , XR CHEST 1V, 10/20/2020, 17:48. FINDINGS: Surgical changes and devices: None. Lungs and pleura: Lungs are clear. No pleural effusions or pneumothorax. Mediastinum: Mediastinal contours appear normal. Heart size is normal. Bones and chest wall: No suspicious bony lesions. Overlying soft tissues appear unremarkable. IMPRESSION: No acute disease. Dictated by: Wang Kunz M.D. on 11/15/2020 at 17:21 ECG Data Attestation: I personally reviewed and interpreted this ECG as follows: Prior ECG tracings: available for review Interpretation: Sinus rhythm rate 86 OH interval 138 QRS [address] changes similar to previous EKGs MDM Narrative Medical decision making narrative: Patient is afebrile in the ED. No source of infection found certainly does not appear septic. His head CT is negative. Patient still is feeling dizzy. He has had complications in the past and is afraid. He is given meclizine to help with dizziness. Signed out to Dr. Peralta for further management <Evert Peralta, - Last Filed: 11/16/20 00:14> Lab Data Labs: Lab Results 11/15/20 11/15/20 11/15/20 Range/Units 16:52 17:26 17:26 WBC 5.8 (4.5-11.0) X10^3/uL RBC 4.66 (4.5-5.9) X10^6/uL Hgb 15.4 (13.5-17.5) g/dL Hct 45.5 (41-53) % MCV 97.7 (80-100) fL MCH 33.0 (26-34) PG MCHC 33.8 (30-36) % RDW 13.3 (11.6-14.8) % Plt Count 174 (150-400) X10^3/uL Neut % (Auto) 66.1 (50-75) % Lymph % (Auto) 21.0 L (25-40) % Nelson % (Auto) 9.6 (3-14) % Eos % (Auto) 2.4 (2-4) % Baso % (Auto) 0.9 (0-2) % Neut # (Auto) 3800 (3294-8584) /uL Lymph # (Auto) 1200 (9869-8350) /uL Nelson # (Auto) 600 (0-900) /uL Eos # (Auto) 100 (0-450) /uL Baso # (Auto) 100 (0-100) /uL PT 11.2 (10.1-12.7) SECONDS INR 1.0 (0.9-1.3) APTT (26.4-36.2) SECONDS Sodium (137-145) mmol/L Potassium (3.4-5.1) mmol/L Chloride (98-107) mmol/L Carbon Dioxide (22-32) mmol/L BUN (9-20) mg/dL Creatinine (0.66-1.25) mg/dL Estimated GFR (>60) mL/min BUN/Creatinine Ratio (6-22) Glucose (80-110) mg/dL Hemoglobin A1c (4.0-6.0) % Lactate (0.7-2.1) mmol/L Calcium (8.4-10.2) mg/dL Magnesium (1.6-2.3) mg/dL Total Bilirubin (0.2-1.3) mg/dL AST (17-59) IU/L ALT (<50) IU/L Alkaline Phosphatase (38-126) U/L Total Creatine Kinase (55-170) U/L CK-MB (CK-2) CK-MB (CK-2) Rel Index Troponin I (0.01-0.034) ng/mL Total Protein (6.3-8.2) g/dL Albumin (3.5-5.0) g/dL Globulin (1.7-4.1) g/dL Albumin/Globulin Ratio (1.0-2.8) Procalcitonin (<0.5) ng/mL Urine Color Urine Appearance Urine pH (4.5-8.0) Ur Specific [place] (1.000-1.035) Urine Protein (Negative) Urine Glucose (UA) (Negative) g/dL Urine Ketones (NEGATIVE) Urine Occult Blood (Negative) Urine Nitrate (Negative) Urine Bilirubin (NEGATIVE) Urine Urobilinogen (0.2) E.U./dL Ur Leukocyte Esterase (NEGATIVE) Urine RBC (0-5/HPF) Urine WBC (0-5/HPF) Urine Bacteria (None) Ur Culture Indicated? SARS-CoV-2 (PCR) Negative (Negative) 11/15/20 11/15/20 11/15/20 Range/Units 17:26 17:26 17:26 WBC (4.5-11.0) X10^3/uL RBC (4.5-5.9) X10^6/uL Hgb (13.5-17.5) g/dL Hct (41-53) % MCV (80-100) fL MCH (26-34) PG MCHC (30-36) % RDW (11.6-14.8) % Plt Count (150-400) X10^3/uL Neut % (Auto) (50-75) % Lymph % (Auto) (25-40) % Nelson % (Auto) (3-14) % Eos % (Auto) (2-4) % Baso % (Auto) (0-2) % Neut # (Auto) (0878-4493) /uL Lymph # (Auto) (0943-4030) /uL Nelson # (Auto) (0-900) /uL Eos # (Auto) (0-450) /uL Baso # (Auto) (0-100) /uL PT (10.1-12.7) SECONDS INR (0.9-1.3) APTT (26.4-36.2) SECONDS Sodium 140 (137-145) mmol/L Potassium 3.8 (3.4-5.1) mmol/L Chloride 106 (98-107) mmol/L Carbon Dioxide 30 (22-32) mmol/L BUN 14 (9-20) mg/dL Creatinine 0.86 (0.66-1.25) mg/dL Estimated GFR > 60.0 (>60) mL/min BUN/Creatinine Ratio 16.3 (6-22) Glucose 76 L (80-110) mg/dL Hemoglobin A1c (4.0-6.0) % Lactate 1.1 (0.7-2.1) mmol/L Calcium 9.2 (8.4-10.2) mg/dL Magnesium (1.6-2.3) mg/dL Total Bilirubin 0.8 (0.2-1.3) mg/dL AST 19 (17-59) IU/L ALT 16 (<50) IU/L Alkaline Phosphatase 84 (38-126) U/L Total Creatine Kinase 78 (55-170) U/L CK-MB (CK-2) TNP CK-MB (CK-2) Rel Index TNP Troponin I < 0.012 (0.01-0.034) ng/mL Total Protein 6.8 (6.3-8.2) g/dL Albumin 4.1 (3.5-5.0) g/dL Globulin 2.7 (1.7-4.1) g/dL Albumin/Globulin Ratio 1.5 (1.0-2.8) Procalcitonin < 0.05 (<0.5) ng/mL Urine Color Urine Appearance Urine pH (4.5-8.0) Ur Specific [place] (1.000-1.035) Urine Protein (Negative) Urine Glucose (UA) (Negative) g/dL Urine Ketones (NEGATIVE) Urine Occult Blood (Negative) Urine Nitrate (Negative) Urine Bilirubin (NEGATIVE) Urine Urobilinogen (0.2) E.U./dL Ur Leukocyte Esterase (NEGATIVE) Urine RBC (0-5/HPF) Urine WBC (0-5/HPF) Urine Bacteria (None) Ur Culture Indicated? SARS-CoV-2 (PCR) (Negative) 11/15/20 11/15/20 11/15/20 Range/Units 17:26 17:26 17:26 WBC (4.5-11.0) X10^3/uL RBC (4.5-5.9) X10^6/uL Hgb (13.5-17.5) g/dL Hct (41-53) % MCV (80-100) fL MCH (26-34) PG MCHC (30-36) % RDW (11.6-14.8) % Plt Count (150-400) X10^3/uL Neut % (Auto) (50-75) % Lymph % (Auto) (25-40) % Nelson % (Auto) (3-14) % Eos % (Auto) (2-4) % Baso % (Auto) (0-2) % Neut # (Auto) (6543-3623) /uL Lymph # (Auto) (6757-1241) /uL Nelson # (Auto) (0-900) /uL Eos # (Auto) (0-450) /uL Baso # (Auto) (0-100) /uL PT (10.1-12.7) SECONDS INR (0.9-1.3) APTT 29 (26.4-36.2) SECONDS Sodium (137-145) mmol/L Potassium (3.4-5.1) mmol/L Chloride (98-107) mmol/L Carbon Dioxide (22-32) mmol/L BUN (9-20) mg/dL Creatinine (0.66-1.25) mg/dL Estimated GFR (>60) mL/min BUN/Creatinine Ratio (6-22) Glucose (80-110) mg/dL Hemoglobin A1c 7.1 H (4.0-6.0) % Lactate (0.7-2.1) mmol/L Calcium (8.4-10.2) mg/dL Magnesium 2.0 (1.6-2.3) mg/dL Total Bilirubin (0.2-1.3) mg/dL AST (17-59) IU/L ALT (<50) IU/L Alkaline Phosphatase (38-126) U/L Total Creatine Kinase (55-170) U/L CK-MB (CK-2) CK-MB (CK-2) Rel Index Troponin I (0.01-0.034) ng/mL Total Protein (6.3-8.2) g/dL Albumin (3.5-5.0) g/dL Globulin (1.7-4.1) g/dL Albumin/Globulin Ratio (1.0-2.8) Procalcitonin (<0.5) ng/mL Urine Color Urine Appearance Urine pH (4.5-8.0) Ur Specific [place] (1.000-1.035) Urine Protein (Negative) Urine Glucose (UA) (Negative) g/dL Urine Ketones (NEGATIVE) Urine Occult Blood (Negative) Urine Nitrate (Negative) Urine Bilirubin (NEGATIVE) Urine Urobilinogen (0.2) E.U./dL Ur Leukocyte Esterase (NEGATIVE) Urine RBC (0-5/HPF) Urine WBC (0-5/HPF) Urine Bacteria (None) Ur Culture Indicated? SARS-CoV-2 (PCR) (Negative) 11/15/20 Range/Units 18:30 WBC (4.5-11.0) X10^3/uL RBC (4.5-5.9) X10^6/uL Hgb (13.5-17.5) g/dL Hct (41-53) % MCV (80-100) fL MCH (26-34) PG MCHC (30-36) % RDW (11.6-14.8) % Plt Count (150-400) X10^3/uL Neut % (Auto) (50-75) % Lymph % (Auto) (25-40) % Nelson % (Auto) (3-14) % Eos % (Auto) (2-4) % Baso % (Auto) (0-2) % Neut # (Auto) (6757-5978) /uL Lymph # (Auto) (3067-1400) /uL Nelson # (Auto) (0-900) /uL Eos # (Auto) (0-450) /uL Baso # (Auto) (0-100) /uL PT (10.1-12.7) SECONDS INR (0.9-1.3) APTT (26.4-36.2) SECONDS Sodium (137-145) mmol/L Potassium (3.4-5.1) mmol/L Chloride (98-107) mmol/L Carbon Dioxide (22-32) mmol/L BUN (9-20) mg/dL Creatinine (0.66-1.25) mg/dL Estimated GFR (>60) mL/min BUN/Creatinine Ratio (6-22) Glucose (80-110) mg/dL Hemoglobin A1c (4.0-6.0) % Lactate (0.7-2.1) mmol/L Calcium (8.4-10.2) mg/dL Magnesium (1.6-2.3) mg/dL Total Bilirubin (0.2-1.3) mg/dL AST (17-59) IU/L ALT (<50) IU/L Alkaline Phosphatase (38-126) U/L Total Creatine Kinase (55-170) U/L CK-MB (CK-2) CK-MB (CK-2) Rel Index Troponin I (0.01-0.034) ng/mL Total Protein (6.3-8.2) g/dL Albumin (3.5-5.0) g/dL Globulin (1.7-4.1) g/dL Albumin/Globulin Ratio (1.0-2.8) Procalcitonin (<0.5) ng/mL Urine Color Yellow Urine Appearance Clear Urine pH 7.0 (4.5-8.0) Ur Specific [place] 1.015 (1.000-1.035) Urine Protein Negative (Negative) Urine Glucose (UA) 2+ H (Negative) g/dL Urine Ketones 1+ H (NEGATIVE) Urine Occult Blood Negative (Negative) Urine Nitrate Negative (Negative) Urine Bilirubin Negative (NEGATIVE) Urine Urobilinogen 0.2 (0.2) E.U./dL Ur Leukocyte Esterase Negative (NEGATIVE) Urine RBC 0-1/hpf (0-5/HPF) Urine WBC 0-1/hpf (0-5/HPF) Urine Bacteria None seen (None) Ur Culture Indicated? Cult not indicated SARS-CoV-2 (PCR) (Negative) Point of Care Testing Glucose POC 101 Urine Dip Bedside Urine Glucose 1000 mg/dl Bedside Urine Bilirubin - Negative Bedside Urine Ketone + 15 Urine Specific [place] 1.020 Bedside Urine Occult Blood - Negative Bedside Urine pH 6.5 Bedside Urine Protein - Negative Bedside Urine Urobilinogen - Negative Bedside Urine Nitrite - Negative Bedside Urine Leukocytes - Negative Esterase MDM Narrative Medical decision making narrative: Dr peralta: Received turned over. Reviewed patient's history and physical and workup up to this point. Performed my own independent exam. I did discuss patient's symptoms with the patient. Patient still having dizziness despite meclizine. He states he has had vertigo in the past in the symptoms and brought him in today are not a vertigo like sensation. He has had intracranial ?micro bleeds ?in the past. He states that he felt very similar to this when these have been diagnosed. He has not seen ear nose and throat. Feel given his age, presentation and the fact that he is very unsteady with standing at bedside that patient should be admitted for further evaluation to include ear nose and throat and also an MRI. Discussed the case with JR Kunz the [facility] provider who will admit for further evaluation and treatment. Discharge Plan Departure Patient Disposition: Admitted as Observation Clinical Impression: Dizziness Admit Date/Time: 11/15/20 21:50 Admit Provider: Cinthya Kunz
--- NOTE | 2020-11-15 17:02 | DI.CT.S_ITS ---
PROCEDURE: CT HEAD/BRAIN WO CON INDICATIONS: dizzy hx of bleeds TECHNIQUE: Noncontrast 4.5 mm thick angled axial sections acquired from the foramen magnum to the vertex, with coronal and sagittal reformats. For radiation dose reduction, the following was used: automated exposure control, adjustment of mA and/or kV according to patient size. COMPARISON: [facility], CT, CT HEAD WITHOUT CONTRAST, 03/31/2018, 16:04. [facility], CT, CT HEAD/BRAIN WO CON, 10/20/2020, 18:01. [facility], CT, CT HEAD/BRAIN WO CON, 12/19/2018, 18:40. FINDINGS: Image quality: Excellent. CSF spaces: Basal cisterns are patent. No extra-axial fluid collections. The ventricles are symmetric in size and shape. Brain: No intracranial bleeds or masses. There is moderate cerebral volume loss for age, with resultant ventricular and sulcal prominence. There are moderate periventricular and deep white matter chronic small vessel ischemic changes. Findings are most pronounced in the posterior parietal region bilaterally and more severe on the left. This is unchanged. There is intracranial internal carotid artery atherosclerosis. Skull and face: Calvarium and visualized facial bones appear intact, without suspicious lesions. Sinuses: Visualized sinuses and mastoids are clear. IMPRESSION: 1. CT head without acute intracranial abnormalities or acute calvarial fractures. 2. Age-related senescent changes and sequela of chronic small vessel ischemic disease, unchanged. Dictated by: Dale Mora M.D. on 11/15/2020 at 16:26 Approved by: Dale Mora M.D. on 11/15/2020 at 16:29
--- NOTE | 2020-11-15 17:02 | DI.RAD.S_ITS ---
PROCEDURE: XR CHEST 1V INDICATIONS: dizzy TECHNIQUE: One view of the chest was acquired. COMPARISON: [facility], , XR CHEST 1V, 10/20/2020, 17:48. FINDINGS: Surgical changes and devices: None. Lungs and pleura: Lungs are clear. No pleural effusions or pneumothorax. Mediastinum: Mediastinal contours appear normal. Heart size is normal. Bones and chest wall: No suspicious bony lesions. Overlying soft tissues appear unremarkable. IMPRESSION: No acute disease. Dictated by: Wang Kunz M.D. on 11/15/2020 at 17:21 Approved by: Wang Kunz M.D. on 11/15/2020 at 17:22
[2020-11-15 17:34] LABS: Add Manual Diff / Slide Review NO; Basophils Absolute Auto 100 /uL (0-100); Basophils Percent Auto 0.9 % (0-2); Eosinophils Absolute Auto 100 /uL (0-450); Eosinophils Percent Auto 2.4 % (2-4); Hematocrit 45.5 % (41-53); Hemoglobin 15.4 g/dL (13.5-17.5); Lymphocytes Absolute Auto 1200 /uL (1100-4500); Mean Corpuscular HGB Conc 33.8 % (30-36); Mean Corpuscular Volume 97.7 fL (80-100); Monocytes Absolute Auto 600 /uL (0-900); Monocytes Percent Auto 9.6 % (3-14); Neutrophils Absolute Auto 3800 /uL (1500-7000); Neutrophils Percent Auto 66.1 % (50-75); Platelet Count 174 X10^3/uL (150-400); Red Blood Cell Count 4.66 X10^6/uL (4.5-5.9); Red Cell Distribution Width 13.3 % (11.6-14.8); White Blood Cell Count 5.8 X10^3/uL (4.5-11.0)
[2020-11-15 17:43] LABS: COVID19 -Nasal RAPID Negative (Negative)
[2020-11-15 17:44] LABS: Prothrombin Time 11.2 SECONDS (10.1-12.7)
[2020-11-15 17:47] LABS: Alanine Aminotransferase 16 IU/L (<50); Albumin 4.1 g/dL (3.5-5.0); Albumin Globulin Ratio 1.5 (1.0-2.8); Alkaline Phosphatase 84 U/L (38-126); Aspartate Aminotransferase 19 IU/L (17-59); BUN Creatinine Ratio 16.3 (6-22); Bilirubin Total 0.8 mg/dL (0.2-1.3); Blood Urea Nitrogen 14 mg/dL (9-20); Calcium 9.2 mg/dL (8.4-10.2); Carbon Dioxide 30 mmol/L (22-32); Chloride 106 mmol/L (98-107); Creatine Kinase 78 U/L (55-170); Estimated Glomerular Filt Rate > 60.0 mL/min (>60); Globulin 2.7 g/dL (1.7-4.1); Glucose 76 mg/dL (80-110); HEMOLYSIS < 15 (0-50); PTT Partial Thromboplastin Tim 29 SECONDS (26.4-36.2); Potassium 3.8 mmol/L (3.4-5.1); Sodium 140 mmol/L (137-145); Total Protein 6.8 g/dL (6.3-8.2)
[2020-11-15 17:48] LABS: Lactate (Lactic Acid) 1.1 mmol/L (0.7-2.1)
[2020-11-15 18:00] LABS: Troponin I < 0.012 ng/mL (0.01-0.034)
[2020-11-15 18:19] LABS: Procalcitonin < 0.05 ng/mL (<0.5)
[2020-11-15 18:35] LABS: Bacteria Urine None Seen
[2020-11-15 18:36] LABS: Appearance Urine UA CLEAR; Bilirubin Urine UA NEGATIVE (NEGATIVE); Color Urine UA YELLOW; Glucose Urine UA 2+ g/dL (Negative); Ketones Urine UA 1+ (NEGATIVE); Leukocyte Esterase Urine UA NEGATIVE (NEGATIVE); Nitrite Urine UA NEGATIVE (Negative); Occult Blood Urine UA NEGATIVE (Negative); Protein Urine UA NEGATIVE (Negative); Specific Gravity Urine UA 1.015 (1.000-1.035); Urobilinogen Urine UA 0.2 E.U./dL (0.2)
[2020-11-15] MEDS: MECLIZINE HCL 12.5 MG TABLET 25 MG PO (18:42)
[2020-11-15 18:43] LABS: RBC Urine 0-1/HPF (0-5/HPF); WBC Urine 0-1/HPF (0-5/HPF)
[2020-11-15 18:57] LABS: Culture Indicated Urine Cult Not Indicated
--- NOTE | 2020-11-15 22:14 | PC.NURSE ---
Pt still reports dizziness while lying in bed, increased dizziness with position changes. Denies pain. Spoke with daughter Mehnaz per pt request to update family on pt status.
--- NOTE | 2020-11-15 22:43 | PM.HP.1 ---
History of Present Illness History of Present Illness Date Patient Seen: 11/15/20 Time Patient Seen: 22:43 Chief complaint: Dizziness Narrative: Maninder Hernandez is a 74 y.o. male with a history of diabetes, hypertension, hyperlipidemia , glaucoma, obstructive sleep apnea, and prior diagnosis of right sided lower extremity DVT who was brought in the ER with chief complaint of passing out while working under his car. He does not know how long he was out before waking up. He has a multitude of complaints which include headache, pressure behind his eyes, chest tightness but not pain and that he has a hole in his heart [facility], denies nausea or vomiting, had dark urine this am, but was normal tonight, denies diarrhea or constipation and is very anxious. He states in the last year, he was hospitalized for what he calls a micro brain bleed which was preventing him from having surgery on his knees. He complains that they are both bone on bone and that his doctor told him that the left leg was one-half inch larger than his right. He states he has an umbilical hernia and one proximal to his lower ribs. He states he was told by the [facility] that they wanted to do imaging studies of both his aorta and his liver. He was admitted in December of 2018 for vertigo and a syncopal episode with similar symptoms. He previously was on warfarin, then transitioned to eliquis and this was d/c'd during the hospitalization of December 2018. He states he was hospitalized again where he underwent both a head CT as well as an MRI, though that was a daytime ED visit. He states he was told by a number of people that he had microvascular bleeds and is concerned it is happening again. After the hospitalization in 2018, he states he saw Dr. Grant a neurologist at the [facility] and stated he was informed at that time of having had a microvascular brain bleed. He also states he has a hole in his heart. Echo done during his December 2018 admission ruled out presence of a PFO. Head CT was normal with no acute intercranial process. Report noted age related microvascular changes. On arrival his blood pressure was 176/96 with heart rate of 87 and respirations of 20 an oxygen saturation 95% on room air, he weighs 117.8 kgs with a BMI of 30.9. Patient was given meclizine without change in his lightheadedness in the ED. He was requested for admission to have the head MRI done in the morning and for ENT to see him on 11/16. CBC and BMP within normal limits, he was mildly hypoglycemic at 76 and his A1c was 7.1, U/A nl, and COVID-19 PCR is negative. Patient History Medical History Diabetes Glaucoma History of DVT (deep vein thrombosis) Hyperlipidemia Hypertension Surgical History History of ankle surgery History of bilateral inguinal hernia repair History of hand surgery Family & Social History Social History: household members spouse Safety & Behavioral: Feels Safe in Current Yes Environment Tobacco & Substance use: Tobacco type cigars Smoking Status Former smoker alcohol intake former alcohol intake frequency holiday/special occasion Substance Use Type does not use Meds Home Medications and Allergies Home Medications Medication Instructions Recorded Confirmed Type glucose 8 tab PO QDAYP PRN #0 11/27/17 12/20/18 History atorvastatin 20 mg PO DAILY 07/21/18 12/20/18 History glimepiride 8 mg PO QPM 07/21/18 12/20/18 History latanoprost 1 drp EYE-BOTH BEDTIME 07/21/18 12/20/18 History losartan 50 mg PO DAILY 07/21/18 12/20/18 History capsaicin 1 applic TOPICAL BID PRN 12/20/18 12/20/18 History diltiazem HCl 240 mg PO DAILY 12/20/18 12/20/18 History dorzolamide-timolol 1 drp EYE-BOTH BID 12/20/18 12/20/18 History empagliflozin 10 mg PO QAM 12/20/18 12/20/18 History metformin 2,000 mg PO QPM 12/20/18 12/20/18 History polyvinyl alcohol [Artificial 1 - 2 drp EYE-BOTH PRN PRN 12/20/18 12/20/18 History Tears (polyvin alc)] cyclobenzaprine 10 mg PO TID PRN #14 tab 03/07/19 Rx oxycodone 5 mg PO Q4-6H PRN #10 tab 03/07/19 Rx lidocaine 1 patch TOP Q24H #30 each 03/08/20 Rx Allergies Allergy/AdvReac Type Severity Reaction Status Date / Time albuterol [ALBUTEROL] AdvReac Intermediate Shakiness Verified 11/15/20 16:49 Review of Systems Review of Systems ROS: Yes All systems reviewed with the patient and are negative except as otherwise documented Exam Vital Signs (past 8 hours): - 11/15/20 16:45 11/15/20 16:49 11/15/20 17:00 Temperature 99.7 F H Pulse Rate 87 87 87 Pulse Rate [Orthostatic Lying] Pulse Rate [Orthostatic Sitting] Pulse Rate [Orthostatic Standing] Respiratory Rate 20 Blood Pressure 177/96 H Blood Pressure [Orthostatic Lying] Blood Pressure [Orthostatic Sitting] Blood Pressure [Orthostatic Standing] Pulse Oximetry 95 96 93 11/15/20 17:01 11/15/20 17:30 11/15/20 17:36 Temperature Pulse Rate 86 83 84 Pulse Rate [Orthostatic Lying] Pulse Rate [Orthostatic Sitting] Pulse Rate [Orthostatic Standing] Respiratory Rate 18 Blood Pressure 157/89 H 158/87 H Blood Pressure [Orthostatic Lying] Blood Pressure [Orthostatic Sitting] Blood Pressure [Orthostatic Standing] Pulse Oximetry 93 95 94 11/15/20 18:00 11/15/20 18:17 11/15/20 18:22 Temperature Pulse Rate 82 85 94 H Pulse Rate [Orthostatic Lying] Pulse Rate [Orthostatic Sitting] Pulse Rate [Orthostatic Standing] Respiratory Rate 20 Blood Pressure 138/77 131/84 158/91 H Blood Pressure [Orthostatic Lying] Blood Pressure [Orthostatic Sitting] Blood Pressure [Orthostatic Standing] Pulse Oximetry 93 91 11/15/20 18:30 11/15/20 18:33 11/15/20 19:00 Temperature Pulse Rate 80 81 Pulse Rate [Orthostatic Lying] 82 Pulse Rate [Orthostatic Sitting] 90 Pulse Rate [Orthostatic Standing] 87 Respiratory Rate 20 19 Blood Pressure 138/81 155/78 H Blood Pressure [Orthostatic Lying] 138/77 Blood Pressure [Orthostatic Sitting] 131/84 Blood Pressure [Orthostatic Standing] 158/91 H Pulse Oximetry 95 95 11/15/20 19:30 11/15/20 20:00 11/15/20 20:30 Temperature Pulse Rate 77 77 75 Pulse Rate [Orthostatic Lying] Pulse Rate [Orthostatic Sitting] Pulse Rate [Orthostatic Standing] Respiratory Rate 17 13 16 Blood Pressure 135/80 136/78 136/80 Blood Pressure [Orthostatic Lying] Blood Pressure [Orthostatic Sitting] Blood Pressure [Orthostatic Standing] Pulse Oximetry 92 94 93 11/15/20 21:00 11/15/20 21:03 11/15/20 21:30 Temperature 98.1 F Pulse Rate 72 73 Pulse Rate [Orthostatic Lying] Pulse Rate [Orthostatic Sitting] Pulse Rate [Orthostatic Standing] Respiratory Rate 20 14 Blood Pressure 129/81 144/76 H Blood Pressure [Orthostatic Lying] Blood Pressure [Orthostatic Sitting] Blood Pressure [Orthostatic Standing] Pulse Oximetry 94 11/15/20 22:00 Temperature Pulse Rate 69 Pulse Rate [Orthostatic Lying] Pulse Rate [Orthostatic Sitting] Pulse Rate [Orthostatic Standing] Respiratory Rate 17 Blood Pressure 130/76 Blood Pressure [Orthostatic Lying] Blood Pressure [Orthostatic Sitting] Blood Pressure [Orthostatic Standing] Pulse Oximetry 91 Oxygen Delivery Method Room Air Narrative Exam Narrative: Gen: Alert, oriented, overweight 74 y.o. male, very anxious HEENT: normocephalic, atraumatic, conjunctiva clear, sclera non-icteric, Neck: supple, full ROM, no JVD, trachea is midline Resp: Lungs CTA, non-labored breathing CV: RRR, no murmur or rubs Abd: soft, non-tender, normoactive BTs, umbilical hernia Skin: no lesions or rashes, dry and intact Neuro: Alert and oriented X 4 w/no focal deficits. Speech clear and coherent. Extremities: moves all 4 extremities, is ambulatory, positive Nura?s sign Psyche: normal mood and affect. Objective Labs Result Diagrams: 11/15/20 17:26 11/15/20 17:26 Labs: Laboratory Results - last 24 hr 11/15/20 11/15/20 11/15/20 16:52 17:26 17:26 WBC 5.8 RBC 4.66 Hgb 15.4 Hct 45.5 MCV 97.7 MCH 33.0 MCHC 33.8 RDW 13.3 Plt Count 174 Neut % (Auto) 66.1 Lymph % (Auto) 21.0 L [place] % (Auto) 9.6 Eos % (Auto) 2.4 Baso % (Auto) 0.9 Neut # (Auto) 3800 Lymph # (Auto) 1200 [place] # (Auto) 600 Eos # (Auto) 100 Baso # (Auto) 100 PT 11.2 INR 1.0 APTT Sodium Potassium Chloride Carbon Dioxide BUN Creatinine Estimated GFR BUN/Creatinine Ratio Glucose Lactate Calcium Total Bilirubin AST ALT Alkaline Phosphatase Total Creatine Kinase CK-MB (CK-2) CK-MB (CK-2) Rel Index Troponin I Total Protein Albumin Globulin Albumin/Globulin Ratio Procalcitonin Urine Color Urine Appearance Urine pH Ur Specific [place] Urine Protein Urine Glucose (UA) Urine Ketones Urine Occult Blood Urine Nitrate Urine Bilirubin Urine Urobilinogen Ur Leukocyte Esterase Urine RBC Urine WBC Urine Bacteria Ur Culture Indicated? SARS-CoV-2 (PCR) Negative 11/15/20 11/15/20 11/15/20 17:26 17:26 17:26 WBC RBC Hgb Hct MCV MCH MCHC RDW Plt Count Neut % (Auto) Lymph % (Auto) [place] % (Auto) Eos % (Auto) Baso % (Auto) Neut # (Auto) Lymph # (Auto) [place] # (Auto) Eos # (Auto) Baso # (Auto) PT INR APTT Sodium 140 Potassium 3.8 Chloride 106 Carbon Dioxide 30 BUN 14 Creatinine 0.86 Estimated GFR > 60.0 BUN/Creatinine Ratio 16.3 Glucose 76 L Lactate 1.1 Calcium 9.2 Total Bilirubin 0.8 AST 19 ALT 16 Alkaline Phosphatase 84 Total Creatine Kinase 78 CK-MB (CK-2) TNP CK-MB (CK-2) Rel Index TNP Troponin I < 0.012 Total Protein 6.8 Albumin 4.1 Globulin 2.7 Albumin/Globulin Ratio 1.5 Procalcitonin < 0.05 Urine Color Urine Appearance Urine pH Ur Specific [place] Urine Protein Urine Glucose (UA) Urine Ketones Urine Occult Blood Urine Nitrate Urine Bilirubin Urine Urobilinogen Ur Leukocyte Esterase Urine RBC Urine WBC Urine Bacteria Ur Culture Indicated? SARS-CoV-2 (PCR) 11/15/20 11/15/20 17:26 18:30 WBC RBC Hgb Hct MCV MCH MCHC RDW Plt Count Neut % (Auto) Lymph % (Auto) [place] % (Auto) Eos % (Auto) Baso % (Auto) Neut # (Auto) Lymph # (Auto) [place] # (Auto) Eos # (Auto) Baso # (Auto) PT INR APTT 29 Sodium Potassium Chloride Carbon Dioxide BUN Creatinine Estimated GFR BUN/Creatinine Ratio Glucose Lactate Calcium Total Bilirubin AST ALT Alkaline Phosphatase Total Creatine Kinase CK-MB (CK-2) CK-MB (CK-2) Rel Index Troponin I Total Protein Albumin Globulin Albumin/Globulin Ratio Procalcitonin Urine Color Yellow Urine Appearance Clear Urine pH 7.0 Ur Specific [place] 1.015 Urine Protein Negative Urine Glucose (UA) 2+ H Urine Ketones 1+ H Urine Occult Blood Negative Urine Nitrate Negative Urine Bilirubin Negative Urine Urobilinogen 0.2 Ur Leukocyte Esterase Negative Urine RBC 0-1/hpf Urine WBC 0-1/hpf Urine Bacteria None seen Ur Culture Indicated? Cult not indicated SARS-CoV-2 (PCR) Assessment & Plan Assessment & Plan narrative: Maninder Hernandez will be placed in observation for further workup of a syncopal episode. He apparently was unsteady on his feet in the ED. Syncopal episode, acute, not present on admission -MR stroke scheduled for 11/16 -Will contact ENT on 11/16, but will not order a consult unless they are agreeable to seeing the patient in house Left lower leg tenderness -Patient had a positive Nura's sign -US of the left lower extremity to r/o DVT -He has a hx of a right lower leg DVT Hx of PFO, -Echocardiogram in 12/22 ruled out intratrial shunt Diabetes type 2, fair controll -A1c was 7.1 -Low dose insulin correctional scale -carb controlled diet Essential hypertension, stable -Continue home dose of diltiazem 240 mg po daily and losartan 50 mg po daily Hyperlipidemia, stable -Continue home dose of atorvastatin 20 mg po daily VTE prophylaxis: Wells risk score: 1..5 [] Enoxaparin 40 mg subQ daily Bilateral SCDs Consults: none Patient is observation status as his stay is not likely to exceed 2 midnights. FEN: Saline lock, carb controlled diet, BMP and magnesium in the am. Dispo: eventual discharge to home Code Status: Full Code as discussed with patient COVID-19 COVID-19 status: Negative Result date/Date tested (Pos, Neg/Pending): 11/15/20 Scores Wells' Criteria for PE Clinical signs and symptoms of DVT: No PE is #1 Dx or equally likely: No Heart rate > 100: No Immobilization at least 3 days or surg in previous 4 weeks: No History of PE or DVT: Yes Hemoptysis: No Malignancy w/Treatment within 6 months or palliative: No Wells' PE Score total: 1.5
--- NOTE | 2020-11-15 23:07 | DI.US.S_ITS ---
PROCEDURE: US PERIPH VENOUS LOW EXTREM LT INDICATIONS: EDEMA TECHNIQUE: Real-time imaging, as well as color and pulse Doppler interrogation, were performed of the lower extremity deep veins from the inguinal ligament to the popliteal fossa. COMPARISON: [facility], CR, XR KNEE LT 3V, 04/29/2020, 16:19. [facility], US, US PERIPH VENOUS LOW EXTREM LT, 04/29/2020, 17:14. FINDINGS: The common femoral, femoral and popliteal veins are normally compressible, and free of intraluminal thrombus. Color and pulse Doppler demonstrate normal phasic intraluminal flow. There is normal augmentation response to distal compression maneuver. There is a complex Jose cyst measuring 8.6 x 2.3 x 6.3 cm. IMPRESSION: 1. No DVT in the left lower extremity. 2. A large complex Jose cyst. Dictated by: Maddi Engle M.D. on 11/16/2020 at 8:28 Approved by: Maddi Engle M.D. on 11/16/2020 at 8:29
--- NOTE | 2020-11-15 23:23 | PC.NURSE ---
Admit/Evening Shift Note- Patient arrived to room via stretcher from ER at 2225. Patient able to pivot from stretcher to bed without issue. Patient alert and oriented and able to make needs known to staff. Vital signs done. Hospitalist came in to see patient while this RN was attempting to orient patient to room. was able to orient patient to call loaiza. Safety measures in place. bed alarm activated for safety. Report passed on to operations supervisor 2nd shift.
[2020-11-15 23:34] LABS: Hemoglobin A1C% w Est Avg Glu 7.1 % (4.0-6.0)
[2020-11-15 23:52] LABS: Troponin I < 0.012 ng/mL (0.01-0.034)
[2020-11-16] VITALS: BP 145/76; PULSE 72; RESP 18; TEMP 36.2; O2SAT 94
[2020-11-16] MEDS: KETOROLAC 30 MG/ML VIAL IV ×2 (01:40→09:59)
--- NOTE | 2020-11-16 03:10 | PC.NURSE ---
Pt stable at start of shift, admission assessment completed at 2330. Pt in no apparent cardiovascular or respiratory distress, AOx4, lungs bilat CTA, pedal and radial pulses present 2+, BLE measure equal 42 cm calf circumference. Abdomen soft non tender but presence of umbilical hernia that is extremely tender to touch. Intermittent dizziness doesn't feel like vertigo, reports no nausea, able to eat without difficulty. Chronic pain BLE. Home medications reconciled. Requested Percocet for sleep, educated on pain medication. Pt is currently from with a no-contact order against him from the court per pt report. Pt attempting to get staff to contact her for him, coordinator aware, staff OK to refuse.
[2020-11-16 05:40] VITALS: BP 119/69; PULSE 68; RESP 18; TEMP 36.7; O2SAT 93
[2020-11-16 05:51] LABS: Add Manual Diff / Slide Review NO; Basophils Absolute Auto 100 /uL (0-100); Basophils Percent Auto 0.9 % (0-2); Eosinophils Absolute Auto 200 /uL (0-450); Eosinophils Percent Auto 4.1 % (2-4); Hematocrit 42.4 % (41-53); Hemoglobin 14.1 g/dL (13.5-17.5); Lymphocytes Absolute Auto 1700 /uL (1100-4500); Lymphocytes Percent Auto 29.8 % (25-40); Mean Corpuscular HGB Conc 33.2 % (30-36); Mean Corpuscular Hemoglobin 32.4 PG (26-34); Mean Corpuscular Volume 97.6 fL (80-100); Monocytes Absolute Auto 700 /uL (0-900); Monocytes Percent Auto 12.2 % (3-14); Neutrophils Absolute Auto 3100 /uL (1500-7000); Platelet Count 175 X10^3/uL (150-400); Red Blood Cell Count 4.34 X10^6/uL (4.5-5.9); Red Cell Distribution Width 13.8 % (11.6-14.8); White Blood Cell Count 5.8 X10^3/uL (4.5-11.0)
[2020-11-16 06:05] LABS: Alanine Aminotransferase 13 IU/L (<50); Albumin 3.7 g/dL (3.5-5.0); Albumin Globulin Ratio 1.6 (1.0-2.8); Alkaline Phosphatase 64 U/L (38-126); Aspartate Aminotransferase 16 IU/L (17-59); Bilirubin Total 0.4 mg/dL (0.2-1.3); Blood Urea Nitrogen 22 mg/dL (9-20); Calcium 9.2 mg/dL (8.4-10.2); Carbon Dioxide 34 mmol/L (22-32); Chloride 105 mmol/L (98-107); Estimated Glomerular Filt Rate > 60.0 mL/min (>60); Globulin 2.3 g/dL (1.7-4.1); Glucose 128 mg/dL (80-110); HEMOLYSIS < 15 (0-50); Potassium 4.1 mmol/L (3.4-5.1); Sodium 142 mmol/L (137-145)
[2020-11-16 06:16] LABS: Troponin I < 0.012 ng/mL (0.01-0.034)
[2020-11-16 06:36] LABS: Thyroid Stimulating Hormone 1.43 uIU/mL (0.47-4.68)
[2020-11-16 07:55] VITALS: BP 130/83; PULSE 68; RESP 13; TEMP 36.6; O2SAT 96
--- NOTE | 2020-11-16 08:47 | PC.NURSE ---
Addendum entered by Raymundo Sarmiento R.N. 11/16/20 10:47: After MRI patient back in room and back to bed. Patient states he had another lightheaded episode while he was laying in MRI and one when he was up. He states these episodes have been occurring intermittently for several weeks but also states I never had these episodes before they found the micro bleeds. Education on fall precautions reinforced with patient, and patient instructed not to get up by himself related to risk of falling when dizzy or lightheaded. Patient agrees, call light within reach reach and bed alarm active for safety. Patient medicated for his continued headache, and will continue to monitor. Patient currently resting in bed, states his head is a little better. Patient is very anxious about not finding answers to what is causing the episodes. Original Note: Patient taken down to MRI while this RN off unit for code team. Continue with plan of care when patient back.
--- NOTE | 2020-11-16 09:07 | DI.MRI.S_ITS ---
PROCEDURE: MR STROKE Pre- and post-contrast brain MRI, non-contrast brain MR angiogram, pre- and postcontrast neck MR angiogram INDICATIONS: dizziness, suspect amyloid angiopathy TECHNIQUE: Brain: Noncontrast axial T1 spin echo, axial T2 fast spin echo, sagittal and axial FLAIR, coronal T2 fast spin echo, axial gradient echo, axial diffusion and ADC through the brain. After the administration of contrast, axial 3D VIBE of the cranial vasculature and brain. Brain MRA: Non-contrast 3-D time of flight MR angiogram, with multiple dsxbjsz-scnygjoiy-mulcpnxypt (MIP) reformats performed. Neck MRA: Axial and sagittal TruFISP through the neck. Coronal dynamic MR angiogram during administration of contrast in the arterial and venous phases, with 3-dimenstional heasfqi-qcyujnyfn-wirxmkjvje (MIP) reformats constructed from subtraction images. COMPARISON: [facility], CT, CT HEAD/BRAIN WO CON, 12/19/2018, 18:40. [facility], , US CAROTID DOPPLER BI, 12/21/2018, 11:28. [facility], CT, CT ANGIO HEAD AND NECK, 03/07/2019, 19:44. [facility], MR, MR HEAD/BRAIN WO CON, 12/21/2018, 14:46. [facility], MR, MR ANGIO HEAD WO CON, 10/20/2020, 20:32. [facility], CT, CT HEAD/BRAIN WO CON, 11/15/2020, 17:02. [facility], , US PERIPH VENOUS LOW EXTREM LT, 11/16/2020, 7:40. [facility], CR, XR CHEST 1V, 11/15/2020, 17:06. FINDINGS: Image quality: Excellent. BRAIN: CSF spaces: Ventricles are normal in size and shape. Basal cisterns are patent. No extra-axial fluid collections. Brain: No intracranial mass effects. As previously demonstrated, there are a few foci of susceptibility artifact seen, primarily within the occipital lobes, as on series 25. Lin-white matter interface is normal. Diffusion weighted images show no acute ischemic insults. Brain parenchymal volume loss is seen. Chronic small vessel ischemic changes are seen. Brainstem appears normal. Normal intravascular flow voids are present. No abnormal intracranial enhancement. Skull and face: Calvarial marrow signal is normal. Orbits appear normal. Sinuses: Sinuses and mastoids are clear. BRAIN MR ANGIOGRAM: Anterior circulation: Intracranial internal carotid arteries are normal in size and enhancement. The flow within the paired anterior cerebral arteries is normal and symmetric. The flow within the middle cerebral arteries is normal and symmetric. The anterior communicating artery is seen. No stenoses, occlusions, or aneurysms. Posterior circulation: The visualized portions of the vertebral arteries demonstrate normal caliber, and join to form a normal appearing basilar artery. The flow within the posterior cerebral arteries is normal and symmetric. No stenoses, occlusions, or aneurysms. NECK MR ANGIOGRAM: Carotids: Great vessels demonstrate a conventional anatomy as they arise from the aortic arch. The origins of the common carotid arteries appear patent. The calibers and courses of both common carotid arteries are normal. The bifurcation regions appear normal bilaterally. The internal carotid arteries demonstrate normal course and caliber. Posterior circulation: The origins of the vertebral arteries appear somewhat obscured. More superior portions of both vertebral arteries demonstrate normal course and caliber, and join to form a normal appearing basilar artery. The left vertebral artery is dominant to the right. Miscellaneous: Subclavian arteries appear patent. Pre-contrast images through the neck show no soft tissue abnormalities. IMPRESSION: BRAIN MRI: A few foci of susceptibility artifact can be seen, primarily within the occipital lobes. Differential diagnosis includes mild amyloid angiopathy. No masses or abnormal enhancement can be seen. No findings of acute or subacute infarction can be seen. Note is made of age-appropriate brain parenchymal volume loss and chronic small vessel ischemic changes. BRAIN MR ANGIOGRAM: No significant intracranial arterial abnormality is seen. NECK MR ANGIOGRAM: Within the arteries of the neck, no hemodynamically significant stenosis can be seen. Dictated by: Zafar Last M.D. on 11/16/2020 at 8:33 Approved by: Zafar Last M.D. on 11/16/2020 at 8:39
[2020-11-16] MEDS: ATORVASTATIN 20 MG TABLET PO (09:55)
[2020-11-16] MEDS: ACETAMINOPHEN 325 MG TABLET 650 MG PO (09:55)
[2020-11-16] MEDS: dilTIAZem CD 240 MG CAP PO (09:55)
[2020-11-16 09:59] VITALS: BP 130/74; PULSE 77
[2020-11-16] MEDS: SODIUM CHLORIDE 0.9% FLUSH 10 ML IV (09:59)
[2020-11-16] MEDS: LOSARTAN 50 MG TABLET PO (09:59)
[2020-11-16] MEDS: DORZOLAMIDE/TIMOLOL OPHTH 10 ML 1 DROPS EYE-BOTH (10:07)
[2020-11-16] MEDS: ENOXAPARIN 40 MG/0.4 ML SYRINGE SUBCUT (11:47)
[2020-11-16] MEDS: INSULIN ASPART 100 UNIT/ML INSULN PEN SUBCUT ×2 (12:16→16:20)
--- NOTE | 2020-11-16 14:43 | PC.NURSE ---
Addendum entered by Raymundo Sarmiento R.N. 11/16/20 14:59: Patient was able to speak with his daughter and is planning to have her come up and pick him up, she lives in [place] and can come up this evening to pick him up and then have him stay with her for a few days. He will go home to get his medications and belongings and stay with his daughter, he feels better about his new plan. Report given to evening shift RN who will review discharge instructions and discharge this evening when his daughter arrives. Patient currently resting in bed comfortably, call light within reach. Original Note: Patient reports he had diarrhea and is now worried he has something wrong with his colon. Patient is anxious about going home, and feels like he wants to stay longer in the hospital. Dr. Yap notified of patient's concerns, he states he spent a long time with patient and he feels patient is safe to discharge to home.
[2020-11-16 15:20] VITALS: BP 116/62; PULSE 69; RESP 16; TEMP 36.9; O2SAT 90
[2020-11-16 16:10] VITALS: O2SAT 90
--- NOTE | 2020-11-16 18:42 | PC.NURSE ---
Pt discharge education given to pt and daughter, Lucretia. DC instructions discussed- vertigo education, continue medications, no new medications, s/s of stroke and reason to seek medical attention, follow-up with PCP. SUPERVISOR CAB assisted pt with dressing. IV removed, intact. Tele removed. All belongings given to pt and daughter. Pt left via W/C by SUPERVISOR CAB to daughter's POV.
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
== END 2020-11-16 18:45 | disposition home or self-care (01) ==
LOC: ED 21:23 → AC 21:51
PROVIDERS: Emergency Medicine; Admitting Provider Nurse Practitioner Family; Emergency Provider Emergency Medicine; Family Provider Internal Medicine; PCP Internal Medicine; Referring Provider Emergency Medicine; Visit Provider Nurse Practitioner Family
DX: R55 Syncope and collapse (principal); R42 Dizziness and giddiness; I10 Essential (primary) hypertension; E11.9 Type 2 diabetes mellitus without complications; E78.5 Hyperlipidemia, unspecified; G47.33 Obstructive sleep apnea (adult) (pediatric); Z86.718 Personal history of other venous thrombosis and embolism; H40.9 Unspecified glaucoma; Z79.84 Long term (current) use of oral hypoglycemic drugs; Z20.822 Contact with and (suspected) exposure to COVID-19
CPT/HCPCS: 36415; 70450; 70548; 70553; 71045; 80053; 81001; 81003; 82550; 82962; 83036; 83605; 83735; 84145; 84443; 84484; 85025; 85610; 85730; 87040; 87635; 93005; 93010; 93971; 96372; 96374; 96376; 99284; C9803; G0378; J1650; J1885

== ENCOUNTER 2020-12-30 18:41 | Emergency (ER) | payer OTHER, SELFPAY ==
[2020-11-15 23:30] VITALS: BMI 33.3
[2020-12-30] VITALS (8 sets, daily range): BP systolic 129–160; BP diastolic 76–90; PULSE 79–89; RESP 18–31; TEMP 37.3; O2SAT 92–94; BMI 31.4
--- NOTE | 2020-12-30 19:18 | DI.RAD.S_ITS ---
PROCEDURE: XR CHEST 1V INDICATIONS: shortness of breath TECHNIQUE: One view of the chest was acquired. COMPARISON: [facility], CR, XR CHEST 1V, 10/20/2020, 17:48. [facility], CR, XR CHEST 1V, 11/15/2020, 17:06. FINDINGS: Surgical changes and devices: None. Lungs and pleura: There is right hemidiaphragm elevation. Left basilar infiltrate, scars or atelectasis. No pneumothorax. Mediastinum: Mediastinal contours appear normal. Heart size is normal. Bones and chest wall: No suspicious bony lesions. Overlying soft tissues appear unremarkable. IMPRESSION: Left basilar infiltrate, scar or atelectasis. Dictated by: Maddi Engle M.D. on 12/30/2020 at 20:01 Approved by: Maddi Engle M.D. on 12/30/2020 at 20:03
[2020-12-30 19:32] LABS: COVID19 -Nasal RAPID POSITIVE (Negative)
[2020-12-30 20:21] LABS: Creatine Kinase 55 U/L (55-170)
[2020-12-30 20:31] LABS: Alanine Aminotransferase 27 IU/L (<50); Albumin 3.9 g/dL (3.5-5.0); Albumin Globulin Ratio 1.4 (1.0-2.8); Alkaline Phosphatase 84 U/L (38-126); Aspartate Aminotransferase 25 IU/L (17-59); BUN Creatinine Ratio 15.7 (6-22); Bilirubin Total 0.5 mg/dL (0.2-1.3); Blood Urea Nitrogen 13 mg/dL (9-20); Carbon Dioxide 28 mmol/L (22-32); Chloride 105 mmol/L (98-107); Estimated Glomerular Filt Rate > 60.0 mL/min (>60); Globulin 2.8 g/dL (1.7-4.1); Glucose 90 mg/dL (80-110); HEMOLYSIS < 15 (0-50); Potassium 4.1 mmol/L (3.4-5.1); Sodium 139 mmol/L (137-145); Total Protein 6.7 g/dL (6.3-8.2)
[2020-12-30 20:34] LABS: Troponin I < 0.012 ng/mL (0.01-0.034)
--- NOTE | 2020-12-30 20:49 | ED.SOB ---
HPI - SOB/Dyspnea General Chief Complaint: Shortness of Breath/Dyspnea Stated Complaint: CHILLS, COUGH Time Seen by Provider: 12/30/20 19:32 Source: patient and family Mode of arrival: Ambulatory Limitations: no limitations History of Present Illness HPI Narrative: Patient is a 74-year-old male with history of diabetes hyperlipidemia presenting today with 3 days of body aches and shortness of breath. He is currently afebrile. He says he thinks he has pneumonia he has had pneumonia in the past. He denies any chest pain tightness palpitations. He denies orthopnea and lower extremity edema. He is actually positive for COVID. He denies any loss of taste or smell. He says that he has been quite isolated. They live in a trailer currently in the [place] but are supposed to stay in a hotel tonight and go to [place] in 2 days. He states that they have been quite isolated. Related Data Home Medications Medication Instructions Recorded Confirmed glucose 8 tab PO QDAYP PRN #0 11/27/17 11/16/20 atorvastatin 20 mg PO DAILY 07/21/18 11/16/20 glimepiride 8 mg PO QPM 07/21/18 11/16/20 latanoprost 1 drp EYE-BOTH BEDTIME 07/21/18 11/16/20 losartan 50 mg PO DAILY 07/21/18 11/16/20 capsaicin 1 applic TOPICAL BID PRN 12/20/18 11/16/20 diltiazem HCl 240 mg PO DAILY 12/20/18 11/16/20 dorzolamide-timolol 1 drp EYE-BOTH BID 12/20/18 11/16/20 empagliflozin 10 mg PO QAM 12/20/18 11/16/20 metformin 2,000 mg PO QPM 12/20/18 11/16/20 polyvinyl alcohol [Artificial 1 - 2 drp EYE-BOTH PRN PRN 12/20/18 11/16/20 Tears (polyvin alc)] Previous Rx's Medication Instructions Recorded cyclobenzaprine 10 mg PO TID PRN #14 tab 03/07/19 lidocaine 1 patch TOP Q24H #30 each 03/08/20 Allergies Allergy/AdvReac Type Severity Reaction Status Date / Time albuterol [ALBUTEROL] AdvReac Intermediate Shakiness Verified 11/15/20 16:49 Review of Systems Review of Systems ROS Unobtainable: All systems reviewed & are unremarkable except as noted in HPI and below Constitutional Constitutional: Denies chills, Reports fever(s), Reports lethargy and Reports weakness Eyes Eyes: Denies change in vision, Denies eye discharge, Denies irritation and Denies loss of vision Cardiovascular Cardiovascular: Denies chest pain, Denies irregular heart rhythm, Denies lightheadedness, Denies palpitations and Denies orthopnea Respiratory Respiratory: Reports as per HPI Gastrointestinal Gastrointestinal: Denies abdominal pain, Denies change in bowel habits, Denies diarrhea, Denies nausea and Denies vomiting Musculoskeletal Musculoskeletal: Reports myalgias and Reports arthralgias (Bilateral lower leg) Integumentary/Breasts Skin/Breast: Denies pruritus, Denies erythema, Denies rash and Denies wounds Neurologic Neurologic: Denies loss of vision and Reports weakness Endocrine Endocrine: Denies palpitations Patient History Medical History Diabetes Glaucoma History of DVT (deep vein thrombosis) Hyperlipidemia Hypertension Surgical History History of ankle surgery History of bilateral inguinal hernia repair History of hand surgery Social History household members: none Smoking Status: Former smoker alcohol intake: former substance use type: does not use Smoking Status: Former smoker alcohol intake frequency: holidays/special occasions only Substance Use Type: does not use Exam Initial Vital Signs Initial Vital Signs: Vital Signs Pulse Rate 82 12/30/20 19:07 Pulse Oximetry 94 12/30/20 19:07 GENERAL: Alert 74-year-old male slightly and in no acute distress. HEENT: Head atraumatic,EOMI, pupils reactive, face symmetric, moist mucous membranes CARDIOVASCULAR: Regular rate and rhythm without murmurs, rubs or gallops. RESPIRATORY: Breath sounds equal bilaterally, no wheezes rales or rhonchi. ABDOMEN: Soft, nontender. Normoactive bowel sounds all 4 quadrants. No guarding or rebound. EXTREMITIES: Normal range of motion, no clubbing or edema. Neurovascularly intact NEUROLOGICAL: Alert and oriented x4.Normal gait and speech. Cranial nerves II through XII grossly intact. SKIN: Warm, dry, no laceration, no petechiae, no rashes or lesions. Course Orders Ordered: ED Orders 12/30/20 19:09 COVID19 Stat 12/30/20 19:14 EKG-12 Lead Stat 12/30/20 19:18 XR chest 1V Stat 12/30/20 19:30 BNP [NT-proBNP (BNP-Adult 18+)] Stat Comprehensive Metabolic Panel Stat 12/30/20 19:50 Troponin & CK Cardiac Panel Stat 12/30/20 20:20 Blood Culture Stat 12/30/20 20:40 Complete Blood Count AUTO DIFF Stat D Dimer Stat Lactate (Lactic Acid) Stat Discontinued Medications Acetaminophen (Acetaminophen 325 Mg Tablet) 975 mg PO NOW ONE Stop: 12/30/20 21:28 Last Admin: 12/30/20 21:33 Dose: 975 mg Documented by: OMARI Vital Signs Vital signs: Vital Signs - 8 hr 12/30/20 19:07 12/30/20 19:15 12/30/20 19:30 Temperature 99.1 F Pulse Rate 82 85 79 Respiratory Rate 18 23 Blood Pressure 160/90 H Pulse Oximetry 94 94 93 12/30/20 20:00 12/30/20 20:13 12/30/20 20:30 Temperature Pulse Rate 83 89 80 Respiratory Rate 22 31 H 19 Blood Pressure 142/78 H 142/76 H Pulse Oximetry 92 93 94 12/30/20 21:00 12/30/20 22:45 Temperature Pulse Rate 85 85 Respiratory Rate 24 25 H Blood Pressure 147/85 H 129/76 Pulse Oximetry 93 92 MDM - SOB/Dyspnea Lab Data Attestation: I reviewed the patient's lab results. Result diagrams: 12/30/20 20:40 12/30/20 19:30 Labs: Lab Results 12/30/20 12/30/20 12/30/20 Range/Units 19:09 19:30 19:30 WBC (4.5-11.0) X10^3/uL RBC (4.5-5.9) X10^6/uL Hgb (13.5-17.5) g/dL Hct (41-53) % MCV (80-100) fL MCH (26-34) PG MCHC (30-36) % RDW (11.6-14.8) % Plt Count (150-400) X10^3/uL Neut % (Auto) (50-75) % Lymph % (Auto) (25-40) % [place] % (Auto) (3-14) % Eos % (Auto) (2-4) % Baso % (Auto) (0-2) % Neut # (Auto) (5999-7416) /uL Lymph # (Auto) (9273-1469) /uL [place] # (Auto) (0-900) /uL Eos # (Auto) (0-450) /uL Baso # (Auto) (0-100) /uL D-Dimer (<230) ng/mL Sodium 139 (137-145) mmol/L Potassium 4.1 (3.4-5.1) mmol/L Chloride 105 (98-107) mmol/L Carbon Dioxide 28 (22-32) mmol/L BUN 13 (9-20) mg/dL Creatinine 0.83 (0.66-1.25) mg/dL Estimated GFR > 60.0 (>60) mL/min BUN/Creatinine Ratio 15.7 (6-22) Glucose 90 (80-110) mg/dL Lactate (0.7-2.1) mmol/L Calcium 9.0 (8.4-10.2) mg/dL Total Bilirubin 0.5 (0.2-1.3) mg/dL AST 25 (17-59) IU/L ALT 27 (<50) IU/L Alkaline Phosphatase 84 (38-126) U/L Total Creatine Kinase (55-170) U/L CK-MB (CK-2) CK-MB (CK-2) Rel Index Troponin I (0.01-0.034) ng/mL NT-Pro-B Natriuret Pep 32 (<125) pg/mL Total Protein 6.7 (6.3-8.2) g/dL Albumin 3.9 (3.5-5.0) g/dL Globulin 2.8 (1.7-4.1) g/dL Albumin/Globulin Ratio 1.4 (1.0-2.8) SARS-CoV-2 (PCR) Positive H (Negative) 12/30/20 12/30/20 12/30/20 Range/Units 19:50 20:40 20:40 WBC 5.6 (4.5-11.0) X10^3/uL RBC 4.30 L (4.5-5.9) X10^6/uL Hgb 13.9 (13.5-17.5) g/dL Hct 42.3 (41-53) % MCV 98.4 (80-100) fL MCH 32.4 (26-34) PG MCHC 33.0 (30-36) % RDW 14.2 (11.6-14.8) % Plt Count 131 L (150-400) X10^3/uL Neut % (Auto) 68.8 (50-75) % Lymph % (Auto) 14.0 L (25-40) % [place] % (Auto) 15.1 H (3-14) % Eos % (Auto) 1.2 L (2-4) % Baso % (Auto) 0.9 (0-2) % Neut # (Auto) 3900 (9083-4540) /uL Lymph # (Auto) 800 L (1729-4662) /uL [place] # (Auto) 800 (0-900) /uL Eos # (Auto) 100 (0-450) /uL Baso # (Auto) 100 (0-100) /uL D-Dimer (<230) ng/mL Sodium (137-145) mmol/L Potassium (3.4-5.1) mmol/L Chloride (98-107) mmol/L Carbon Dioxide (22-32) mmol/L BUN (9-20) mg/dL Creatinine (0.66-1.25) mg/dL Estimated GFR (>60) mL/min BUN/Creatinine Ratio (6-22) Glucose (80-110) mg/dL Lactate 0.9 (0.7-2.1) mmol/L Calcium (8.4-10.2) mg/dL Total Bilirubin (0.2-1.3) mg/dL AST (17-59) IU/L ALT (<50) IU/L Alkaline Phosphatase (38-126) U/L Total Creatine Kinase 55 (55-170) U/L CK-MB (CK-2) TNP CK-MB (CK-2) Rel Index TNP Troponin I < 0.012 (0.01-0.034) ng/mL NT-Pro-B Natriuret Pep (<125) pg/mL Total Protein (6.3-8.2) g/dL Albumin (3.5-5.0) g/dL Globulin (1.7-4.1) g/dL Albumin/Globulin Ratio (1.0-2.8) SARS-CoV-2 (PCR) (Negative) 12/30/20 Range/Units 20:40 WBC (4.5-11.0) X10^3/uL RBC (4.5-5.9) X10^6/uL Hgb (13.5-17.5) g/dL Hct (41-53) % MCV (80-100) fL MCH (26-34) PG MCHC (30-36) % RDW (11.6-14.8) % Plt Count (150-400) X10^3/uL Neut % (Auto) (50-75) % Lymph % (Auto) (25-40) % [place] % (Auto) (3-14) % Eos % (Auto) (2-4) % Baso % (Auto) (0-2) % Neut # (Auto) (6250-2284) /uL Lymph # (Auto) (0034-3928) /uL [place] # (Auto) (0-900) /uL Eos # (Auto) (0-450) /uL Baso # (Auto) (0-100) /uL D-Dimer < 200 (<230) ng/mL Sodium (137-145) mmol/L Potassium (3.4-5.1) mmol/L Chloride (98-107) mmol/L Carbon Dioxide (22-32) mmol/L BUN (9-20) mg/dL Creatinine (0.66-1.25) mg/dL Estimated GFR (>60) mL/min BUN/Creatinine Ratio (6-22) Glucose (80-110) mg/dL Lactate (0.7-2.1) mmol/L Calcium (8.4-10.2) mg/dL Total Bilirubin (0.2-1.3) mg/dL AST (17-59) IU/L ALT (<50) IU/L Alkaline Phosphatase (38-126) U/L Total Creatine Kinase (55-170) U/L CK-MB (CK-2) CK-MB (CK-2) Rel Index Troponin I (0.01-0.034) ng/mL NT-Pro-B Natriuret Pep (<125) pg/mL Total Protein (6.3-8.2) g/dL Albumin (3.5-5.0) g/dL Globulin (1.7-4.1) g/dL Albumin/Globulin Ratio (1.0-2.8) SARS-CoV-2 (PCR) (Negative) Imaging Data Chest x-ray: Radiologist's Impression: PROCEDURE: XR CHEST 1V INDICATIONS: shortness of breath TECHNIQUE: One view of the chest was acquired. COMPARISON: [facility], CR, XR CHEST 1V, 10/20/2020, 17:48. [facility], CR, XR CHEST 1V, 11/15/2020, 17:06. FINDINGS: Surgical changes and devices: None. Lungs and pleura: There is right hemidiaphragm elevation. Left basilar infiltrate, scars or atelectasis. No pneumothorax. Mediastinum: Mediastinal contours appear normal. Heart size is normal. Bones and chest wall: No suspicious bony lesions. Overlying soft tissues appear unremarkable. IMPRESSION: Left basilar infiltrate, scar or atelectasis. Dictated by: Maddi Engle M.D. on 12/30/2020 at 20:01 ECG Data Attestation: I personally reviewed and interpreted this ECG as follows: Prior ECG tracings: available for review Interpretation: Normal sinus rhythm rate 77 p.r. interval 174 swollen and OTC for [address] changes or T-wave inversions similar to previous EKG even somewhat improved from prior EKG MDM Narrative Medical decision making narrative: Patient is positive for COVID but is not hypoxic negative D dimer is. 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 At this time does not meet admission criteria. I discussed with both he and his to stay quarantined and how to manage his symptoms at home and when to return to the emergency department. At this time they both agree. Patient is actually scheduled to have his 1st dose of the vaccine on January 14. I discussed all findings with the patient and spouse, Education has been performed regarding treatment plan, diagnosis, warning signs and symptoms and all concerns have been addressed. Verbally agree with and understood all of the above. Discharge Plan Departure Patient Disposition: Home Clinical Impression: COVID-19 Instructions: DI for COVID-19 (Suspected or Confirmed ), Coronavirus Disease 2019 Activity Restrictions/Additional Instructions: *You have been diagnosed with COVID-19 *What to do: Recommend that you get a home pulse oximeter to check oxygen intermittently. If oxygen level drops below 88% and remains that way for an hour or more please return to the emergency department. At this time recommend supportive care *Continue to take medications as directed Recommend vitamin-D 2000 units daily Tylenol 650 mg every 4-6 hours if needed for fever body aches or pain *Follow up with your primary care provider in 2-3 days *Return to ER if you should have any of the below symptoms [or] any new, worsening or concerning symptoms if you should have - Difficulty breathing or shortness of breath - Persistent pain or pressure in the chest - New confusion or inability to arouse - Bluish lips or face CDC Guidelines for home isolation: - Stay away from others - Limit contact with pets and animals: If you must care for a pet, wash your hands before and after interacting with them - Wear a mask if you are sick - Cover your mouth and nose with a tissue when you cough or sneeze. Dispose of tissues in a lined trash can and wash your hands immediately with soap and water for at least 20 seconds. If soap and water are not available, clean hands with alcohol-based hand warehouse representative that contains at least 60% alcohol. - Clean your hands often with soap and water for at least 20 seconds - Avoid touching your eyes, nose and mouth with unwashed hands - Do not share dishes, drinking glasses, cups, eating utensils, towels, or bedding with other people in your home. After using these items, wash them thoroughly with soap and water or put in the systems navigator. - Clean high-touch surfaces in your isolation area (?sick room? and bathroom) every day; let a caregiver clean and disinfect high-touch surfaces in other areas of the home. Clean the area or item with soap and water or another detergent if it is dirty. Then, use a household disinfectant. Seek medical attention, but call first: - Seek medical care right away if your illness is worsening (for example, if you have difficulty breathing). - Call your doctor before going in: Before going to the doctor?s office or emergency room, call ahead and tell them your symptoms. They will tell you what to do. - If possible, put on a facemask before you enter the building. If you can?t put on a facemask, try to keep a safe distance from other people (at least 6 feet away). This will help protect the people in the office or waiting room. - Follow care instructions from your healthcare provider and local health department: Your local health authorities will give instructions on checking your symptoms and reporting information. Prescriptions: No Action glucose 4 GM tablet,chewable 8 tab PO QDAYP PRN (Reason: Hypoglycemia) Qty: 0 RF: 0 atorvastatin 20 mg Tablet 20 mg PO DAILY RF: 0 losartan 50 mg Tablet 50 mg PO DAILY RF: 0 latanoprost 0.005 % Drops 1 drp EYE-BOTH BEDTIME RF: 0 glimepiride 4 mg Tablet 8 mg PO QPM RF: 0 lidocaine 5 % adhesive patch,medicated 1 patch TOP Q24H Qty: 30 RF: 0 metformin 1,000 mg Tablet Extended Release 24hr 2,000 mg PO QPM RF: 0 polyvinyl alcohol [Artificial Tears (polyvin alc)] 1.4 % Drops 1 - 2 drp EYE-BOTH PRN PRN (Reason: Dry Eye(S)) RF: 0 diltiazem HCl 240 mg Capsule,Extended Release 24 Hr 240 mg PO DAILY RF: 0 dorzolamide-timolol 22.3-6.8 mg/mL Drops 1 drp EYE-BOTH BID RF: 0 capsaicin 0.1 % Cream 1 applic TOPICAL BID PRN (Reason: pain) RF: 0 empagliflozin 10 mg Tablet 10 mg PO QAM RF: 0 cyclobenzaprine 10 mg tablet 10 mg PO TID PRN (Reason: muscle spasm) Qty: 14 RF: 0 Referrals: Yuki Lopez MD [Primary Care Provider] -
[2020-12-30 20:57] LABS: Add Manual Diff / Slide Review NO; Basophils Absolute Auto 100 /uL (0-100); Basophils Percent Auto 0.9 % (0-2); Eosinophils Absolute Auto 100 /uL (0-450); Eosinophils Percent Auto 1.2 % (2-4); Hematocrit 42.3 % (41-53); Hemoglobin 13.9 g/dL (13.5-17.5); Lymphocytes Absolute Auto 800 /uL (1100-4500); Mean Corpuscular Hemoglobin 32.4 PG (26-34); Mean Corpuscular Volume 98.4 fL (80-100); Monocytes Absolute Auto 800 /uL (0-900); Monocytes Percent Auto 15.1 % (3-14); Neutrophils Absolute Auto 3900 /uL (1500-7000); Neutrophils Percent Auto 68.8 % (50-75); Platelet Count 131 X10^3/uL (150-400); Red Cell Distribution Width 14.2 % (11.6-14.8); White Blood Cell Count 5.6 X10^3/uL (4.5-11.0)
[2020-12-30 21:01] LABS: Lactate (Lactic Acid) 0.9 mmol/L (0.7-2.1)
[2020-12-30 21:06] LABS: D Dimer < 200 ng/mL (<230)
[2020-12-30] MEDS: ACETAMINOPHEN 325 MG TABLET 975 MG PO (21:33)
[2020-12-30 21:34] LABS: NT-proBNP (BNP-Adult 18+) 32 pg/mL (<125)
== END 2020-12-30 22:46 | disposition home or self-care (01) ==
PROVIDERS: Emergency Provider Emergency Medicine; Family Provider Internal Medicine; PCP Internal Medicine
DX: U07.1 COVID-19 (principal); R06.02 Shortness of breath
CPT/HCPCS: 36415; 71045; 80053; 82550; 83605; 83880; 84484; 85025; 85379; 87040; 87635; 93005; 99283; 99284; C9803

== ENCOUNTER 2022-11-10 11:27 | Emergency (ER) | payer OTHER, SELFPAY ==
[2020-11-15 23:30] VITALS: BMI 33.3
[2022-11-10] VITALS (22 sets, daily range): BP systolic 119–142; BP diastolic 66–86; PULSE 53–70; RESP 12–22; TEMP 36.2; O2SAT 91–98; BMI 30.8
--- NOTE | 2022-11-10 11:40 | DI.RAD.S_ITS ---
PROCEDURE: XR CHEST 1V INDICATIONS: chest pain TECHNIQUE: One view of the chest was acquired. COMPARISON: [facility], CR, XR CHEST 1V, 12/30/2020, 19:41. FINDINGS: Surgical changes and devices: None. Lungs and pleura: Lungs are clear. No pleural effusions or pneumothorax. Mediastinum: Mediastinal contours appear normal. Heart size is normal. Bones and chest wall: No suspicious bony lesions. Overlying soft tissues appear unremarkable. IMPRESSION: No acute cardiopulmonary findings Approved by: Joaquin Ruvalcaba M.D. on 11/10/2022 at 11:40
[2022-11-10 12:00] LABS: COVID19 -Nasal RAPID Negative (Negative)
[2022-11-10 12:01] LABS: Add Manual Diff / Slide Review NO; Basophils Absolute Auto 100 /uL (0-100); Basophils Percent Auto 0.9 % (0-2); Eosinophils Absolute Auto 300 /uL (0-450); Eosinophils Percent Auto 4.1 % (2-4); Hematocrit 45.6 % (41-53); Hemoglobin 15.2 g/dL (13.5-17.5); Lymphocytes Absolute Auto 1100 /uL (1100-4500); Mean Corpuscular HGB Conc 33.4 % (30-36); Mean Corpuscular Hemoglobin 32.7 PG (26-34); Mean Corpuscular Volume 97.6 fL (80-100); Monocytes Absolute Auto 600 /uL (0-900); Monocytes Percent Auto 8.9 % (3-14); Neutrophils Absolute Auto 4400 /uL (1500-7000); Neutrophils Percent Auto 69.1 % (50-75); Platelet Count 168 X10^3/uL (150-400); Red Blood Cell Count 4.67 X10^6/uL (4.5-5.9); Red Cell Distribution Width 13.6 % (11.6-14.8); White Blood Cell Count 6.3 X10^3/uL (4.5-11.0)
[2022-11-10] MEDS: ASPIRIN 81 MG CHEW TAB 324 MG PO (12:02)
[2022-11-10 12:06] LABS: INR 0.9 (0.9-1.3); Prothrombin Time 10.6 SECONDS (10.1-12.7)
[2022-11-10 12:09] LABS: PTT Partial Thromboplastin Tim 29 SECONDS (26-36)
[2022-11-10 12:11] LABS: Alanine Aminotransferase 21 IU/L (<50); Albumin 4.3 g/dL (3.5-5.0); Albumin Globulin Ratio 1.6 (1.0-2.8); Alkaline Phosphatase 84 U/L (38-126); Aspartate Aminotransferase 20 IU/L (17-59); Bilirubin Total 0.7 mg/dL (0.2-1.3); Blood Urea Nitrogen 15 mg/dL (9-20); Calcium 8.9 mg/dL (8.4-10.2); Carbon Dioxide 26 mmol/L (22-32); Chloride 105 mmol/L (98-107); Creatine Kinase 46 U/L (55-170); Estimated Glomerular Filt Rate > 60 mL/min (>60); Globulin 2.7 g/dL (1.7-4.1); Glucose 152 mg/dL (80-110); HEMOLYSIS < 15 (0-50); Lipase 88 U/L (23-300); Magnesium 2.1 mg/dL (1.6-2.3); Potassium 4.1 mmol/L (3.4-5.1); Sodium 142 mmol/L (137-145)
[2022-11-10 12:22] LABS: Troponin I < 0.012 ng/mL (0.01-0.034)
[2022-11-10] MEDS: OXYCODONE/ACETAMINOPHEN 5/325 TABLET 1 TAB PO (13:17)
[2022-11-10] MEDS: IBUPROFEN 400 MG TABLET PO (13:18)
[2022-11-10 15:09] LABS: Troponin I < 0.012 ng/mL (0.01-0.034)
--- NOTE | 2022-11-10 16:02 | ED.CHESTPAIN ---
HPI - Chest Pain <Odette Crowe MD - Last Filed: 11/17/22 18:01> General Chief Complaint: Chest Pain Stated Complaint: RT side hurts/chest tight/HX hole in heart Time Seen by Provider: 11/10/22 13:06 Source: patient Mode of arrival: Ambulatory Limitations: no limitations History of Present Illness HPI narrative: 76-year-old gentleman who presents with right-sided chest pain that has been present for 5 months getting worse despite gabapentin treatment Related Data Home Medications Medication Instructions Recorded Confirmed glucose 4 gram chewable tablet 8 tab PO QDAYP PRN Hypoglycemia ##0 11/27/17 11/16/20 atorvastatin 20 mg tablet 20 mg PO DAILY Cholesterol 07/21/18 11/16/20 glimepiride 4 mg tablet 8 mg PO QPM 07/21/18 11/16/20 latanoprost 0.005 % eye drops 1 drp EYE-BOTH BEDTIME 07/21/18 11/16/20 losartan 50 mg tablet 50 mg PO DAILY 07/21/18 11/16/20 capsaicin 0.1 % topical cream 1 applic topical BID PRN pain 12/20/18 11/16/20 diltiazem HCl 240 mg capsule,24 240 mg PO DAILY 12/20/18 11/16/20 hr,extended release dorzolamide 22.3 mg-timolol 6.8 1 drp EYE-BOTH BID 12/20/18 11/16/20 mg/mL eye drops empagliflozin 10 mg tablet 10 mg PO QAM 12/20/18 11/16/20 metformin 1,000 mg tablet,extended 2,000 mg PO QPM 12/20/18 11/16/20 release 24hr polyvinyl alcohol 1.4 % eye drops 1 - 2 drp EYE-BOTH PRN PRN Dry 12/20/18 11/16/20 (Artificial Tears (polyvinyl Eye(S) alcohol)) Previous Rx's Medication Instructions Recorded cyclobenzaprine 10 mg tablet 10 mg PO TID PRN muscle spasm #14 03/07/19 tabs lidocaine 5 % topical patch 1 patch topical Q24H back pain #30 03/08/20 ea cyclobenzaprine 10 mg tablet 10 mg PO TID PRN muscle spasm #14 11/10/22 tabs hydrocodone 5 mg-acetaminophen 325 1 tab PO Q4-6H PRN pain #10 tabs 01/08/23 mg tablet Allergies Allergy/AdvReac Type Severity Reaction Status Date / Time albuterol [ALBUTEROL] AdvReac Intermediate Shakiness Verified 11/15/20 16:49 <Judd Potter DO - Last Filed: 11/11/22 02:15> History of Present Illness HPI narrative: 76-year-old gentleman who presents with right-sided chest pain that has been present for 5 months getting worse despite gabapentin treatment presents for evaluation. He denies any significant or new changes in his symptoms but states he wanted to be checked out nonetheless. He denies any change in his medications or diet. He denies any exertional symptoms. He denies any worsening symptoms. He states that he has persistent right-sided chest and abdomen discomfort and states it frequently radiates down his leg. He denies any recent trauma or injury. He has no fever, chills nor nausea or vomiting. He denies any numbness, tingling or weakness of his extremities and denies. He denies any change in bowel or bladder habits specifically no constipation or diarrhea <Judd Potter DO - Last Filed: 11/11/22 02:15> Review of Systems Narrative: GENERAL: Denies chills, fatigue, malaise, fever, sweats. HEENT: Denies sinus pain, ear pain, sore throat, difficulty swallowing, dizziness. RESPIRATORY: Denies dyspnea, cough, wheezing, hemoptysis, sputum. CARDIOVASCULAR: See HPI GASTROINTESTINAL: See HPI : Denies dysuria, frequency, incontinence, hematuria, urinary retention. MUSCULOSKELETAL: denies weakness, joint pain, or bony pain SKIN: Denies rash, skin lesions, or other NEUROLOGIC: See HPI PSYCHIATRIC: No concerning psychosocial issues. 12 point review of systems is negative except for those stated above Patient History <Odette Crowe MD - Last Filed: 11/17/22 18:01> Medical History Diabetes Glaucoma History of DVT (deep vein thrombosis) Hyperlipidemia Hypertension Surgical History History of ankle surgery History of bilateral inguinal hernia repair History of hand surgery Social History household members: none Smoking Status: Former smoker alcohol intake: former substance use type: does not use Smoking Status: Former smoker alcohol intake frequency: holidays/special occasions only Substance Use Type: does not use Exam <Odette Crowe MD - Last Filed: 11/17/22 18:01> Initial Vital Signs Initial Vital Signs: Vital Signs Temperature 97.2 F L 11/10/22 11:35 Pulse Rate 70 11/10/22 11:35 Respiratory Rate 18 11/10/22 11:35 Blood Pressure 126/67 11/10/22 11:35 Pulse Oximetry 98 11/10/22 11:35 Oxygen Delivery Method 11/10/22 11:35 <Judd Potter DO - Last Filed: 11/11/22 02:15> Narrative Exam Narrative: GENERAL: [76] year old patient appears stated age. Well-developed patient, in mild distress. GCS 15 HEAD: Atraumatic. Normocephalic. EYES: Pupils equal round and reactive. Extraocular motions intact. No scleral icterus. No injection or drainage. ENT: Nose without bleeding, purulent drainage. Throat without erythema, tonsillar hypertrophy or exudate. Airway patent. NECK: Trachea midline. Non tender CARDIOVASCULAR: Regular rate and rhythm without murmurs, gallops, or rubs. RESPIRATORY: Clear to auscultation. Breath sounds equal bilaterally. No wheezes, rales, or rhonchi. GASTROINTESTINAL: Abdomen soft, non-tender, nondistended. EXTREMITIES: No edema or joint tenderness. BACK: Nontender without deformity or crepitance. No flank tenderness. NEURO: AOx3. SKIN: No rash or erythema of visible areas Initial Vital Signs Initial Vital Signs: Vital Signs Temperature 97.2 F L 11/10/22 11:35 Pulse Rate 70 11/10/22 11:35 Respiratory Rate 18 11/10/22 11:35 Blood Pressure 126/67 11/10/22 11:35 Pulse Oximetry 98 11/10/22 11:35 Oxygen Delivery Method 11/10/22 11:35 Course <Odette Crowe MD - Last Filed: 11/17/22 18:01> Orders Ordered: Discontinued Medications Hydrocodone Bitart/Acetaminophen (Hydrocodone/Acet 5/325 Prepack) 1 bottle MISC SEEINSTR ONE Stop: 11/10/22 20:52 Last Admin: 11/10/22 21:00 Dose: 1 bottle Documented By: MARCIA Aspirin (Aspirin 81 Mg Chew Tab) 324 mg PO NOW ONE Stop: 11/10/22 11:41 Last Admin: 11/10/22 12:02 Dose: 324 mg Documented By: GATO Hydromorphone HCl (Hydromorphone 0.5 Mg Inj) 0.5 mg IV Q15MIN PRN PRN Reason: Pain, Last Admin: 11/10/22 18:03 Dose: 0.5 mg Documented By: GATO(2) Ibuprofen (Ibuprofen 400 Mg Tablet) 400 mg PO NOW ONE Stop: 11/10/22 13:09 Last Admin: 11/10/22 13:18 Dose: 400 mg Documented By: GATO Ketorolac Tromethamine (Ketorolac 30 Mg/Ml Vial) 15 mg IV NOW ONE Stop: 11/10/22 13:08 Last Admin: 11/10/22 13:19 Dose: Not Given Documented By: GATO Ketorolac Tromethamine (Ketorolac 30 Mg/Ml Vial) 15 mg IV NOW ONE Stop: 11/10/22 17:54 Last Admin: 11/10/22 18:03 Dose: 15 mg Documented By: GATO(2) Oxycodone/Acetaminophen (Oxycodone/Acetaminophen 5/325 Tablet) 1 tab PO NOW ONE Stop: 11/10/22 13:08 Last Admin: 11/10/22 13:17 Dose: 1 tab Documented By: GATO Vital Signs Vital signs: Vital Signs - 8 hr 11/10/22 18:09 11/10/22 18:09 11/10/22 18:30 Pulse Rate 58 L 54 L Respiratory Rate 17 21 Blood Pressure 142/86 H Pulse Oximetry 93 93 Oxygen Delivery Method 11/10/22 19:00 11/10/22 19:25 11/10/22 19:25 Pulse Rate 56 L 59 L Respiratory Rate 16 19 Blood Pressure 128/73 Pulse Oximetry 94 92 Oxygen Delivery Method 11/10/22 19:30 11/10/22 19:40 11/10/22 19:40 Pulse Rate 57 L 55 L Respiratory Rate 13 15 Blood Pressure 124/66 Pulse Oximetry 92 92 Oxygen Delivery Method 11/10/22 20:00 11/10/22 20:00 11/10/22 20:20 Pulse Rate 57 L Respiratory Rate 18 Blood Pressure 119/71 120/66 Pulse Oximetry 93 Oxygen Delivery Method 11/10/22 20:20 11/10/22 20:30 11/10/22 20:40 Pulse Rate 56 L 54 L 55 L Respiratory Rate 16 22 15 Blood Pressure Pulse Oximetry 93 94 93 Oxygen Delivery Method Room Air 11/10/22 20:40 Pulse Rate Respiratory Rate Blood Pressure 132/80 Pulse Oximetry Oxygen Delivery Method <Judd Potter, - Last Filed: 11/11/22 02:15> Orders Ordered: Discontinued Medications Hydrocodone Bitart/Acetaminophen (Hydrocodone/Acet 5/325 Prepack) 1 bottle MISC SEEINSTR ONE Stop: 11/10/22 20:52 Last Admin: 11/10/22 21:00 Dose: 1 bottle Documented By: MARCIA Aspirin (Aspirin 81 Mg Chew Tab) 324 mg PO NOW ONE Stop: 11/10/22 11:41 Last Admin: 11/10/22 12:02 Dose: 324 mg Documented By: GATO Hydromorphone HCl (Hydromorphone 0.5 Mg Inj) 0.5 mg IV Q15MIN PRN PRN Reason: Pain, Last Admin: 11/10/22 18:03 Dose: 0.5 mg Documented By: GATO(2) Ibuprofen (Ibuprofen 400 Mg Tablet) 400 mg PO NOW ONE Stop: 11/10/22 13:09 Last Admin: 11/10/22 13:18 Dose: 400 mg Documented By: GATO Ketorolac Tromethamine (Ketorolac 30 Mg/Ml Vial) 15 mg IV NOW ONE Stop: 11/10/22 13:08 Last Admin: 11/10/22 13:19 Dose: Not Given Documented By: GATO Ketorolac Tromethamine (Ketorolac 30 Mg/Ml Vial) 15 mg IV NOW ONE Stop: 11/10/22 17:54 Last Admin: 11/10/22 18:03 Dose: 15 mg Documented By: GATO(2) Oxycodone/Acetaminophen (Oxycodone/Acetaminophen 5/325 Tablet) 1 tab PO NOW ONE Stop: 11/10/22 13:08 Last Admin: 11/10/22 13:17 Dose: 1 tab Documented By: GATO Vital Signs Vital signs: Vital Signs - 8 hr 11/10/22 18:09 11/10/22 18:09 11/10/22 18:30 Pulse Rate 58 L 54 L Respiratory Rate 17 21 Blood Pressure 142/86 H Pulse Oximetry 93 93 Oxygen Delivery Method 11/10/22 19:00 11/10/22 19:25 11/10/22 19:25 Pulse Rate 56 L 59 L Respiratory Rate 16 19 Blood Pressure 128/73 Pulse Oximetry 94 92 Oxygen Delivery Method 11/10/22 19:30 11/10/22 19:40 11/10/22 19:40 Pulse Rate 57 L 55 L Respiratory Rate 13 15 Blood Pressure 124/66 Pulse Oximetry 92 92 Oxygen Delivery Method 11/10/22 20:00 11/10/22 20:00 11/10/22 20:20 Pulse Rate 57 L Respiratory Rate 18 Blood Pressure 119/71 120/66 Pulse Oximetry 93 Oxygen Delivery Method 11/10/22 20:20 11/10/22 20:30 11/10/22 20:40 Pulse Rate 56 L 54 L 55 L Respiratory Rate 16 22 15 Blood Pressure Pulse Oximetry 93 94 93 Oxygen Delivery Method Room Air 11/10/22 20:40 Pulse Rate Respiratory Rate Blood Pressure 132/80 Pulse Oximetry Oxygen Delivery Method MDM - Chest Pain <Odette Crowe MD - Last Filed: 11/17/22 18:01> Lab Data Result diagrams: 11/10/22 11:48 11/10/22 11:48 Labs: Lab Results 11/10/22 11/10/22 11/10/22 Range/Units 11:40 11:48 11:48 WBC 6.3 (4.5-11.0) X10^3/uL RBC 4.67 (4.5-5.9) X10^6/uL Hgb 15.2 (13.5-17.5) g/dL Hct 45.6 (41-53) % MCV 97.6 (80-100) fL MCH 32.7 (26-34) PG MCHC 33.4 (30-36) % RDW 13.6 (11.6-14.8) % Plt Count 168 (150-400) X10^3/uL Neut % (Auto) 69.1 (50-75) % Lymph % (Auto) 17.0 L (25-40) % [place] % (Auto) 8.9 (3-14) % Eos % (Auto) 4.1 H (2-4) % Baso % (Auto) 0.9 (0-2) % Neut # (Auto) 4400 (8859-0639) /uL Lymph # (Auto) 1100 (6232-1251) /uL [place] # (Auto) 600 (0-900) /uL Eos # (Auto) 300 (0-450) /uL Baso # (Auto) 100 (0-100) /uL PT 10.6 (10.1-12.7) SECONDS INR 0.9 (0.9-1.3) APTT 29 (26-36) SECONDS Sodium (137-145) mmol/L Potassium (3.4-5.1) mmol/L Chloride (98-107) mmol/L Carbon Dioxide (22-32) mmol/L BUN (9-20) mg/dL Creatinine (0.66-1.25) mg/dL Estimated GFR (>60) mL/min BUN/Creatinine Ratio (6-22) Glucose (80-110) mg/dL Calcium (8.4-10.2) mg/dL Magnesium (1.6-2.3) mg/dL Total Bilirubin (0.2-1.3) mg/dL AST (17-59) IU/L ALT (<50) IU/L Alkaline Phosphatase (38-126) U/L Total Creatine Kinase (55-170) U/L CK-MB (CK-2) CK-MB (CK-2) Rel Index Troponin I (0.01-0.034) ng/mL Total Protein (6.3-8.2) g/dL Albumin (3.5-5.0) g/dL Globulin (1.7-4.1) g/dL Albumin/Globulin Ratio (1.0-2.8) Lipase (23-300) U/L SARS-CoV-2 (PCR) Negative (Negative) 11/10/22 11/10/22 Range/Units 11:48 14:40 WBC (4.5-11.0) X10^3/uL RBC (4.5-5.9) X10^6/uL Hgb (13.5-17.5) g/dL Hct (41-53) % MCV (80-100) fL MCH (26-34) PG MCHC (30-36) % RDW (11.6-14.8) % Plt Count (150-400) X10^3/uL Neut % (Auto) (50-75) % Lymph % (Auto) (25-40) % [place] % (Auto) (3-14) % Eos % (Auto) (2-4) % Baso % (Auto) (0-2) % Neut # (Auto) (9643-7778) /uL Lymph # (Auto) (4380-2155) /uL [place] # (Auto) (0-900) /uL Eos # (Auto) (0-450) /uL Baso # (Auto) (0-100) /uL PT (10.1-12.7) SECONDS INR (0.9-1.3) APTT (26-36) SECONDS Sodium 142 (137-145) mmol/L Potassium 4.1 (3.4-5.1) mmol/L Chloride 105 (98-107) mmol/L Carbon Dioxide 26 (22-32) mmol/L BUN 15 (9-20) mg/dL Creatinine 0.75 (0.66-1.25) mg/dL Estimated GFR > 60 (>60) mL/min BUN/Creatinine Ratio 20.0 (6-22) Glucose 152 H (80-110) mg/dL Calcium 8.9 (8.4-10.2) mg/dL Magnesium 2.1 (1.6-2.3) mg/dL Total Bilirubin 0.7 (0.2-1.3) mg/dL AST 20 (17-59) IU/L ALT 21 (<50) IU/L Alkaline Phosphatase 84 (38-126) U/L Total Creatine Kinase 46 L (55-170) U/L CK-MB (CK-2) TNP CK-MB (CK-2) Rel Index TNP Troponin I < 0.012 < 0.012 (0.01-0.034) ng/mL Total Protein 7.0 (6.3-8.2) g/dL Albumin 4.3 (3.5-5.0) g/dL Globulin 2.7 (1.7-4.1) g/dL Albumin/Globulin Ratio 1.6 (1.0-2.8) Lipase 88 (23-300) U/L SARS-CoV-2 (PCR) (Negative) Urine Dip Bedside Urine Glucose 1000 mg/dl Bedside Urine Bilirubin - Negative Bedside Urine Ketone - Negative Urine Specific Pickrell 1.025 Bedside Urine Occult Blood - Negative Bedside Urine pH 6.0 Bedside Urine Protein - Negative Bedside Urine Urobilinogen - Negative Bedside Urine Nitrite - Negative Bedside Urine Leukocytes - Negative Esterase ECG Data Interpretation: 12:07pm Sinus rhythm at a rate of [address] T wave changes without acute ischemia 14:35 Sinus rhythm at [address] T wave changes No significant changes in comparison to initial EKG MDM Narrative Medical decision making narrative: MDM CC: Complicating co-morbidities: Corroborating data: Data collected from: patient, Medical records reviewed: Differential considered: Exam documented above, pertinent findings include: Lab Test results independently reviewed as above. Pertinent findings: Unremarkable CBC no evidence of infection Chemistries are reassuring with no evidence of electrolyte abnormalities or renal failure Troponin x2 unremarkable Urine shows no bladder infection COVID negative Independently reviewed EKG as above Imaging studies independently reviewed: Chest x-ray is interpreted as no acute cardiopulmonary findings Consultations: Treatments: Re-evaluations: Discussion: Diagnosis: Disposition: see below, along with detailed discharge instructions that have been reviewed with patient as well as indications for ED re-evaluation and additional outpatient follow up <Judd Potter, DO - Last Filed: 11/11/22 02:15> Lab Data Labs: Lab Results 11/10/22 11/10/22 11/10/22 Range/Units 11:40 11:48 11:48 WBC 6.3 (4.5-11.0) X10^3/uL RBC 4.67 (4.5-5.9) X10^6/uL Hgb 15.2 (13.5-17.5) g/dL Hct 45.6 (41-53) % MCV 97.6 (80-100) fL MCH 32.7 (26-34) PG MCHC 33.4 (30-36) % RDW 13.6 (11.6-14.8) % Plt Count 168 (150-400) X10^3/uL Neut % (Auto) 69.1 (50-75) % Lymph % (Auto) 17.0 L (25-40) % [place] % (Auto) 8.9 (3-14) % Eos % (Auto) 4.1 H (2-4) % Baso % (Auto) 0.9 (0-2) % Neut # (Auto) 4400 (8982-5052) /uL Lymph # (Auto) 1100 (5202-3780) /uL [place] # (Auto) 600 (0-900) /uL Eos # (Auto) 300 (0-450) /uL Baso # (Auto) 100 (0-100) /uL PT 10.6 (10.1-12.7) SECONDS INR 0.9 (0.9-1.3) APTT 29 (26-36) SECONDS Sodium (137-145) mmol/L Potassium (3.4-5.1) mmol/L Chloride (98-107) mmol/L Carbon Dioxide (22-32) mmol/L BUN (9-20) mg/dL Creatinine (0.66-1.25) mg/dL Estimated GFR (>60) mL/min BUN/Creatinine Ratio (6-22) Glucose (80-110) mg/dL Calcium (8.4-10.2) mg/dL Magnesium (1.6-2.3) mg/dL Total Bilirubin (0.2-1.3) mg/dL AST (17-59) IU/L ALT (<50) IU/L Alkaline Phosphatase (38-126) U/L Total Creatine Kinase (55-170) U/L CK-MB (CK-2) CK-MB (CK-2) Rel Index Troponin I (0.01-0.034) ng/mL Total Protein (6.3-8.2) g/dL Albumin (3.5-5.0) g/dL Globulin (1.7-4.1) g/dL Albumin/Globulin Ratio (1.0-2.8) Lipase (23-300) U/L SARS-CoV-2 (PCR) Negative (Negative) 11/10/22 11/10/22 Range/Units 11:48 14:40 WBC (4.5-11.0) X10^3/uL RBC (4.5-5.9) X10^6/uL Hgb (13.5-17.5) g/dL Hct (41-53) % MCV (80-100) fL MCH (26-34) PG MCHC (30-36) % RDW (11.6-14.8) % Plt Count (150-400) X10^3/uL Neut % (Auto) (50-75) % Lymph % (Auto) (25-40) % [place] % (Auto) (3-14) % Eos % (Auto) (2-4) % Baso % (Auto) (0-2) % Neut # (Auto) (5676-8621) /uL Lymph # (Auto) (1313-2221) /uL [place] # (Auto) (0-900) /uL Eos # (Auto) (0-450) /uL Baso # (Auto) (0-100) /uL PT (10.1-12.7) SECONDS INR (0.9-1.3) APTT (26-36) SECONDS Sodium 142 (137-145) mmol/L Potassium 4.1 (3.4-5.1) mmol/L Chloride 105 (98-107) mmol/L Carbon Dioxide 26 (22-32) mmol/L BUN 15 (9-20) mg/dL Creatinine 0.75 (0.66-1.25) mg/dL Estimated GFR > 60 (>60) mL/min BUN/Creatinine Ratio 20.0 (6-22) Glucose 152 H (80-110) mg/dL Calcium 8.9 (8.4-10.2) mg/dL Magnesium 2.1 (1.6-2.3) mg/dL Total Bilirubin 0.7 (0.2-1.3) mg/dL AST 20 (17-59) IU/L ALT 21 (<50) IU/L Alkaline Phosphatase 84 (38-126) U/L Total Creatine Kinase 46 L (55-170) U/L CK-MB (CK-2) TNP CK-MB (CK-2) Rel Index TNP Troponin I < 0.012 < 0.012 (0.01-0.034) ng/mL Total Protein 7.0 (6.3-8.2) g/dL Albumin 4.3 (3.5-5.0) g/dL Globulin 2.7 (1.7-4.1) g/dL Albumin/Globulin Ratio 1.6 (1.0-2.8) Lipase 88 (23-300) U/L SARS-CoV-2 (PCR) (Negative) Urine Dip Bedside Urine Glucose 1000 mg/dl Bedside Urine Bilirubin - Negative Bedside Urine Ketone - Negative Urine Specific [place] 1.025 Bedside Urine Occult Blood - Negative Bedside Urine pH 6.0 Bedside Urine Protein - Negative Bedside Urine Urobilinogen - Negative Bedside Urine Nitrite - Negative Bedside Urine Leukocytes - Negative Esterase MDM Narrative Medical decision making narrative: MDM CC: Vague, chronic right-sided chest and abdomen pain with radiation into extremities Complicating co-morbidities: Diabetes, hypertension, age Data collected from: patient, Medical records reviewed: Including multiple prior visits to the emergency department Differential considered: Pneumonia, cardiac ischemia, constipation, bowel obstruction Exam documented above, pertinent findings include: No significant abnormalities Lab Test results independently reviewed as above. Pertinent findings: Unremarkable CBC no evidence of infection Chemistries are reassuring with no evidence of electrolyte abnormalities or renal failure Troponin x2 unremarkable Urine shows no bladder infection COVID negative Independently reviewed EKG as above Imaging studies independently reviewed: Chest x-ray is interpreted as no acute cardiopulmonary findings, CT of abdomen and pelvis without significant findings Treatments: Patient given pain medications Re-evaluations: Significant improvement in his discomfort with the above-stated therapies Discussion: Patient with vague, nonspecific right-sided pain complaints. No significant provocation, palliation or associated symptoms, no classic presentations for significant diagnoses including cardiac ischemia, pneumonia, pneumothorax, bowel obstruction, versus other Disposition: see below, along with detailed discharge instructions that have been reviewed with patient as well as indications for ED re-evaluation and additional outpatient follow up Discharge Plan Departure Patient Disposition: Home Clinical Impression: Atypical chest pain, Abdominal pain Activity Restrictions/Additional Instructions: *You have been diagnosed with [atypical chest pain and right-sided body pain. As we discussed your history and physical exam are reassuring and thankfully there is no evidence of heart attack, collapsed lung, bowel obstruction or other significant diagnosis which would require immediate or specific intervention] *What to do: *Please continue to take your regular medications as directed. [x ] New medication prescriptions sent to your pharmacy: [[facility] ] [ ] New medication written as a paper prescription [ ] No new medications given *Please follow up with your primary care provider in 2-3 days, call for an appointment. Let them know you were seen in the Emergency Department and that we ask that you be seen in follow up. We will electronically transmit a record of today's note if your PCP is in our system *If you do not have a primary care provider please contact the [facility] Resource line at [phone]. They will ask some questions about your medical history and help get you set up with a doctor in the community. *Return to Emergency Department if you should have any new, worsening or concerning symptoms, such as [fever greater than 101 F, shaking chills, worsening pain, persistent vomiting or other bothersome symptoms] You have been prescribed a short course of narcotic medications. These are potentially dangerous and addictive medications that should be used carefully. While on these medications you cannot drive or operate heavy machinery. Additionally, you cannot sign legal documents or perform any duties such as this. 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 Please understand that we cannot provide further refills of narcotics or controlled substances through the ED and your pain management will need to be through your Primary Care Provider Prescriptions: New cyclobenzaprine 10 mg tablet 10 mg PO TID PRN (Reason: muscle spasm) Qty: 14 0RF hydrocodone-acetaminophen 5-325 mg tablet 1 tab PO Q4-6H PRN (Reason: pain) Qty: 10 0RF No Action glucose 4 GM tablet,chewable 8 tab PO QDAYP PRN (Reason: Hypoglycemia) Qty: 0 Label Comments: Has not taken recently atorvastatin 20 mg Tablet 20 mg PO DAILY losartan 50 mg Tablet 50 mg PO DAILY latanoprost 0.005 % Drops 1 drp EYE-BOTH BEDTIME glimepiride 4 mg Tablet 8 mg PO QPM lidocaine 5 % adhesive patch,medicated 1 patch TOP Q24H Qty: 30 0RF Label Comments: Pt does not use often Rx Instructions: leave on most painful area for up to 12 hrs metformin 1,000 mg Tablet Extended Release 24hr 2,000 mg PO QPM polyvinyl alcohol [Artificial Tears (polyvin alc)] 1.4 % Drops 1 - 2 drp EYE-BOTH PRN PRN (Reason: Dry Eye(S)) diltiazem HCl 240 mg Capsule,Extended Release 24 Hr 240 mg PO DAILY dorzolamide-timolol 22.3-6.8 mg/mL Drops 1 drp EYE-BOTH BID capsaicin 0.1 % Cream 1 applic TOPICAL BID PRN (Reason: pain) empagliflozin 10 mg Tablet 10 mg PO QAM cyclobenzaprine 10 mg tablet 10 mg PO TID PRN (Reason: muscle spasm) Qty: 14 0RF Label Comments: Has not ttaken recently Referrals: Hannah Miller MD [Primary Care Provider] - Stand Alone Forms: Patient Portal/API
--- NOTE | 2022-11-10 17:53 | DI.CT.S_ITS ---
PROCEDURE: CT ABDOMEN PELVIS W CON INDICATIONS: Right side abdominal pain TECHNIQUE: After the administration of intravenous contrast, axial sections acquired from the lung bases to the pubic symphysis. Coronal and sagittal reformats were performed. For radiation dose reduction, the following was used: automated exposure control, adjustment of mA and/or kV according to patient size. COMPARISON: [facility], CT, CT ABDOMEN PELVIS W CON, 06/06/2019, 21:39. [facility], CT, ABDOMEN/PELVIS WITH CONTRAST, 07/28/2015, 13:16. FINDINGS: Image quality: Excellent. Lung bases: Stable posterior right lower lobe pulmonary nodules. Heart: Heart size is normal. Coronary atherosclerotic vascular calcifications are noted. ABDOMEN: Liver: Unremarkable. Gallbladder: Unremarkable. Biliary ducts: Unremarkable. Pancreas: Unremarkable. Spleen: Unremarkable. Adrenal Glands: Stable left adrenal adenoma. No right adrenal nodule. Kidneys and Ureters: Kidneys are symmetric in size and enhancement, and there is no obstructive uropathy. No perinephric inflammatory changes. Ureters are normal in course and caliber. Redemonstration of multiple bilateral renal cysts. Stomach and Bowel: Stomach, small bowel loops, and colon are unremarkable. Normal appendix. Redundant colon. Moderate fecal material seen throughout the colon. Scattered colonic diverticulosis without acute diverticulitis. Peritoneum: No abnormal intraperitoneal fluid. No free air. Ventral Wall: There is a fat-containing umbilical hernia without acute inflammation. Abdominal Nodes: No retroperitoneal or mesenteric adenopathy by size criteria. Vessels: Scattered atherosclerotic calcifications of the abdominal aorta and iliac vessels without aneurysmal dilatation. The inferior vena cava appears patent. PELVIS: Pelvic Organs: Prominent prostate gland. Bladder: Urinary bladder thickness appears normal for degree of distention. No perivesicular inflammatory stranding. Pelvic Nodes: No enlarged lymph nodes. Miscellaneous: Small fat containing left inguinal hernia without acute inflammation. Bones: No acute vertebral body compression fractures. Multilevel spondylitic changes throughout the imaged spine. No suspicious osseous lesions. IMPRESSION: 1. CT abdomen and pelvis without acute abnormalities. 2. Colonic diverticulosis without acute diverticulitis. 3. Normal appendix. 4. No evidence for obstructive uropathy. 5. Other chronic findings as above. Dictated by: Dale Mora M.D. on 11/10/2022 at 19:48 Approved by: Dale Mora M.D. on 11/10/2022 at 19:57
[2022-11-10] MEDS: KETOROLAC 30 MG/ML VIAL 15 MG IV (18:03)
[2022-11-10] MEDS: HYDROMORPHONE 0.5 MG INJ IV (18:03)
[2022-11-10] MEDS: HYDROCODONE/ACET 5/325 PREPACK 1 BOTTLE MISC (21:00)
== END 2022-11-10 21:25 | disposition home or self-care (01) ==
PROVIDERS: Emergency Medicine; Emergency Provider Emergency Medicine; Family Provider Internal Medicine; PCP Internal Medicine
DX: R07.89 Other chest pain (principal); R10.9 Unspecified abdominal pain; Z79.899 Other long term (current) drug therapy; Z20.822 Contact with and (suspected) exposure to COVID-19
CPT/HCPCS: 36415; 71045; 74177; 80053; 81003; 82550; 83690; 83735; 84484; 85025; 85610; 85730; 87635; 93005; 93010; 96374; 96375; 99284; C9803; J1170; J1885; Q9967

== ENCOUNTER 2024-10-06 16:26 | Emergency (ER) | payer OTHER, SELFPAY ==
[2020-11-15 23:30] VITALS: BMI 33.3
[2024-10-06 16:35] VITALS: BP 159/85; PULSE 80; RESP 18; TEMP 36.7; O2SAT 96; BMI 32.1
--- NOTE | 2024-10-06 17:30 | DI.US.S_ITS ---
PROCEDURE: US PERIP VENOUS LOW EXTREM RT INDICATIONS: R hip/thigh pain Hx R leg DVT; not on thinners TECHNIQUE: Real-time imaging, as well as color and pulse Doppler interrogation, were performed of the lower extremity deep veins from the inguinal ligament to the popliteal fossa, with documentation of the visualized calf veins. COMPARISON: [facility], PERIP VENOUS LOW EXTREM RT, 12/21/2018, 11:50. FINDINGS: The common femoral, femoral, popliteal, and the visualized calf veins are normally compressible, and free of intraluminal thrombus. Color and pulse Doppler demonstrate normal phasic intraluminal flow. There is normal augmentation response to distal compression maneuver. IMPRESSION: No findings of lower extremity deep venous thrombosis. Dictated by: Rhoda Sanon M.D. on 10/06/2024 at 18:34 Approved by: Rhoda Sanon M.D. on 10/06/2024 at 18:34
--- NOTE | 2024-10-06 17:31 | DI.RAD.S_ITS ---
PROCEDURE: XR LUMBAR SPINE 2-3V INDICATIONS: R side LBP radiating to thigh TECHNIQUE: 3 views of the lumbar spine were acquired. COMPARISON: [facility], CR, XR LUMBAR SPINE 2 OR 3 VIEWS, 07/11/2022, 16:58. FINDINGS: Bones: 5 [id number] vertebrae are present. There is straightening of normal lumbar curvature. Multilevel moderate to severe degenerative disc space narrowing is present most severe at L5-S1. Multilevel foraminal narrowing is also present severe at L4-5, L5-S1.. No vertebral body compression fractures. No suspicious bony lesions. Soft tissues: Overlying bowel gas pattern is normal. No suspicious soft tissue calcifications. IMPRESSION: Multilevel degenerative changes most severe at L5-S1. Dictated by: Rhoda Sanon M.D. on 10/06/2024 at 19:05 Approved by: Rhoda Sanon M.D. on 10/06/2024 at 19:05
--- NOTE | 2024-10-06 17:31 | DI.RAD.S_ITS ---
PROCEDURE: XR HIP W PEL IF DONE RT 2V INDICATIONS: R hip/LBP radiating to thigh TECHNIQUE: AP pelvis with lateral view(s) of the right hip(s). COMPARISON: [facility], CT, CT ABDOMEN PELVIS WITH CONTRAST, 06/10/2024, 21:24. FINDINGS: Bones: No fractures or dislocations. Pelvic ring appears intact. No suspicious bony lesions. Moderate bilateral hip arthritic change. Degenerative changes are present within the lumbar spine. Soft tissues: The visualized bowel gas pattern is normal. No suspicious soft tissue calcifications. IMPRESSION: Bilateral hip arthritic change. Degenerative changes also present in the lower lumbar spine. Dictated by: Rhoda Sanon M.D. on 10/06/2024 at 19:04 Approved by: Rhoda Sanon M.D. on 10/06/2024 at 19:04
--- NOTE | 2024-10-06 17:40 | ED.EXTPRO ---
HPI - Extremity Problem <Amalia Wiggins PA-C - Last Filed: 10/06/24 20:23> General Chief complaint: Extremity Problem,Nontraumatic Stated complaint: rt hip pain, states hardning of liver Time Seen by Provider: 10/06/24 17:00 Source: patient Mode of arrival: Ambulatory History of Present Illness HPI Narrative: 78-year-old male [facility] patient with hx of chronic LE pain bilaterally and bilateral leg braces presents with concern for right low back/ hip and thigh pain. History of right leg DVT > 2yr [employer]. Not currently anticoagulated. Patient states for about 3 weeks he has had pain in his right low back hip and upper thigh. He states he has been off his blood thinners for about a year which he was taking due to a previous DVT in his right leg. He endorses chronic pain in both of his legs since [place] and wears leg braces most of the time. He endorses the last three weeks he has been having pain in the very low right back/hip that is sharp feeling pain radiating down into his right thigh. It is improved with lying flat. He is also concerned today that he wants evaluation for a lesion on his back That has been there for months and was previously quite painful though he states it is not painful now. He states he has had previous skin cancer removed and is concerned that this could be cancer as well. He was advised to come in to ER for further evaluation by CT nurse line. Denies any other complaints or concerns Including saddle paresthesia, lower extremity numbness, change in bowel or bladder function, fevers, chills or other. He takes a daily hydrocodone at night chronically for his bilateral chronic leg pain. States this does not help much with his pain but does help him to relax and allow him to sleep. Related Data Home Medications Medication Instructions Recorded Confirmed glucose 4 gram chewable tablet 8 tab PO QDAYP PRN Hypoglycemia ##0 11/27/17 11/16/20 atorvastatin 20 mg tablet 20 mg PO DAILY Cholesterol 07/21/18 11/16/20 glimepiride 4 mg tablet 8 mg PO QPM 07/21/18 11/16/20 latanoprost 0.005 % eye drops 1 drp EYE-BOTH BEDTIME 07/21/18 11/16/20 losartan 50 mg tablet 50 mg PO DAILY 07/21/18 11/16/20 capsaicin 0.1 % topical cream 1 applic topical BID PRN pain 12/20/18 11/16/20 diltiazem HCl 240 mg capsule,24 240 mg PO DAILY 12/20/18 11/16/20 hr,extended release dorzolamide 22.3 mg-timolol 6.8 1 drp EYE-BOTH BID 12/20/18 11/16/20 mg/mL eye drops empagliflozin 10 mg tablet 10 mg PO QAM 12/20/18 11/16/20 metformin 1,000 mg tablet,extended 2,000 mg PO QPM 12/20/18 11/16/20 release 24hr (osmotic) polyvinyl alcohol 1.4 % eye drops 1 - 2 drp EYE-BOTH PRN PRN Dry 12/20/18 11/16/20 (Artificial Tears (polyvinyl Eye(S) alcohol)) Previous Rx's Medication Instructions Recorded cyclobenzaprine 10 mg tablet 10 mg PO TID PRN muscle spasm #14 03/07/19 tabs lidocaine 5 % topical patch 1 patch topical Q24H back pain #30 03/08/20 ea cyclobenzaprine 10 mg tablet 10 mg PO TID PRN muscle spasm #14 11/10/22 tabs hydrocodone 5 mg-acetaminophen 325 1 tab PO Q4-6H PRN pain #10 tabs 11/10/22 mg tablet prednisone 20 mg tablet 40 mg (2 x 20 mg) PO DAILY 5 days 10/06/24 #10 tabs Allergies Allergy/AdvReac Type Severity Reaction Status Date / Time albuterol [ALBUTEROL] AdvReac Intermediate Shakiness Verified 10/06/24 16:43 Patient History <Amalia Wiggins PA-C - Last Filed: 10/06/24 20:23> Medical History Diabetes Glaucoma History of DVT (deep vein thrombosis) Hyperlipidemia Hypertension Surgical History History of ankle surgery History of bilateral inguinal hernia repair History of hand surgery Social History household members: none Smoking Status: Current some day smoker alcohol intake: former substance use type: does not use Smoking Status: Current some day smoker tobacco type: cigars alcohol intake frequency: holidays/special occasions only Exam <Amalia Wiggins PA-C - Last Filed: 10/06/24 20:23> Narrative Exam Narrative: GENERAL: 78 year old patient appears stated age. Well-developed patient, in mild distress. HEAD: Atraumatic. Normocephalic. EYES: Pupils equal round and reactive. Extraocular motions intact. No scleral icterus. No injection or drainage. ENT: Nose without bleeding, purulent drainage. Airway patent. NECK: Trachea midline. CARDIOVASCULAR: Regular rate and rhythm without murmurs, gallops, or rubs. RESPIRATORY: Coarse lung sounds on auscultation. Moving air all brady. Breath sounds equal bilaterally. No wheezes, rales, or rhonchi. EXTREMITIES: Patient is wearing bilateral supportive knee braces that come up past the mid thigh and down to the mid guy. Examination after removal of the right brace, Patient has tenderness of his calf and posterior thigh as well as popliteal fossa on the right leg circumference appears equal in right and left calves. There is no appreciable erythema or heat noted. No edema or joint tenderness. BACK: there is no CVA tenderness. No midline spinous process tenderness. there is tenderness at the right sacroiliac junction and over the right buttock. There is mild tenderness with palpation over the right greater trochanter. Otherwise nontender without deformity or crepitance. No flank tenderness. NEURO: AOx3. SKIN: there is an approximately 0.5 cm x 1 cm purplish dark reddish lesion that is slightly firm to palpation nontender over the patient's left lateral flank. The skin over this lesion is dry and flaking There is no induration surrounding erythema or fluctuance. Exam is suspicious for precancerous or cancerous lesion. No other rash or erythema of visible areas Initial Vital Signs Initial Vital Signs: Vital Signs Temperature 98.1 F 10/06/24 16:35 Pulse Rate 80 10/06/24 16:35 Respiratory Rate 18 10/06/24 16:35 Blood Pressure 159/85 H 10/06/24 16:35 Pulse Oximetry 96 10/06/24 16:35 Oxygen Delivery Method Room Air 10/06/24 16:35 <Trish Corcoran MD - Last Filed: 10/06/24 21:55> Initial Vital Signs Initial Vital Signs: Vital Signs Temperature 98.1 F 10/06/24 16:35 Pulse Rate 80 10/06/24 16:35 Respiratory Rate 18 10/06/24 16:35 Blood Pressure 159/85 H 10/06/24 16:35 Pulse Oximetry 96 10/06/24 16:35 Oxygen Delivery Method Room Air 10/06/24 16:35 Course <Amalia Wiggins PA-C - Last Filed: 10/06/24 20:23> Orders Ordered: ED Orders 10/06/24 17:30 US periph venous low extrem rt Stat 10/06/24 17:31 XR hip w pel if done RT 2V Stat XR lumbar spine 2-3V Stat Vital Signs Vital signs: Vital Signs - 8 hr 10/06/24 16:35 10/06/24 19:17 Temperature 98.1 F 97.5 F L Pulse Rate 80 70 Respiratory Rate 18 16 Blood Pressure 159/85 H 141/75 H Pulse Oximetry 96 96 Oxygen Delivery Method Room Air Room Air <Trish Corcoran MD - Last Filed: 10/06/24 21:55> Orders Ordered: ED Orders 10/06/24 17:30 US periph venous low extrem rt Stat 10/06/24 17:31 XR hip w pel if done RT 2V Stat XR lumbar spine 2-3V Stat Vital Signs Vital signs: Vital Signs - 8 hr 10/06/24 16:35 10/06/24 19:17 Temperature 98.1 F 97.5 F L Pulse Rate 80 70 Respiratory Rate 18 16 Blood Pressure 159/85 H 141/75 H Pulse Oximetry 96 96 Oxygen Delivery Method Room Air Room Air MDM - Extremity (Nontraumatic) <Amalia Wiggins PA-C - Last Filed: 10/06/24 20:23> Differential Diagnosis Differential diagnosis: Likely deep vein thrombosis of lower extremity and other ( acute on chronic pain, osteoarthritis, degenerative bone disease, sciatica) Imaging Data US - DVT: My Impression: Agree with Radiology interpretation Radiologist's Impression: [address] [address] Ultrasound Report Signed Patient: Maninder Hernandez MR#: [id number] : 1945 Acct:[id number] Age/Sex: 78 / M Date of Service: 10/06/24 Loc: ED Accession Number: [id number] Procedure: US perip venous low extrem rt Ordering Provider: Amalia Wiggins PA-C PROCEDURE: PERIP VENOUS LOW EXTREM RT INDICATIONS: R hip/thigh pain Hx R leg DVT; not on thinners TECHNIQUE: Real-time imaging, as well as color and pulse Doppler interrogation, were performed of the lower extremity deep veins from the inguinal ligament to the popliteal fossa, with documentation of the visualized calf veins. COMPARISON: [facility], PERIP VENOUS LOW EXTREM RT, 12/21/2018, 11:50. FINDINGS: The common femoral, femoral, popliteal, and the visualized calf veins are normally compressible, and free of intraluminal thrombus. Color and pulse Doppler demonstrate normal phasic intraluminal flow. There is normal augmentation response to distal compression maneuver. IMPRESSION: No findings of lower extremity deep venous thrombosis. Dictated by: Rhoda Sanon M.D. on 10/06/2024 at 18:34 Approved by: Rhoda Sanon M.D. on 10/06/2024 at 18:34 XR hip R: My Impression: Agree with Radiology interpretation Radiologist's Impression: [place] [address] XRay Report Signed Patient: Maninder Hernandez MR#: [id number] : 1945 Acct:[id number] Age/Sex: 78 / M Date of Service: 10/06/24 Loc: ED Accession Number: [id number] Procedure: XR hip w pel if done RT 2V Ordering Provider: Amalia Wiggins PA-C PROCEDURE: XR HIP W PEL IF DONE RT 2V INDICATIONS: R hip/LBP radiating to thigh TECHNIQUE: AP pelvis with lateral view(s) of the right hip(s). COMPARISON: [facility], CT, CT ABDOMEN PELVIS WITH CONTRAST, 06/10/2024, 21:24. FINDINGS: Bones: No fractures or dislocations. Pelvic ring appears intact. No suspicious bony lesions. Moderate bilateral hip arthritic change. Degenerative changes are present within the lumbar spine. Soft tissues: The visualized bowel gas pattern is normal. No suspicious soft tissue calcifications. IMPRESSION: Bilateral hip arthritic change. Degenerative changes also present in the lower lumbar spine. Dictated by: Rhoda Sanon M.D. on 10/06/2024 at 19:04 Approved by: Rhoda Sanon M.D. on 10/06/2024 at 19:04 XR Lumbar spine: My Impression: agree with Radiology interpretation Radiologist's Impression: [address] [address] XRay Report Signed Patient: Maninder Hernandez MR#: [id number] : 1945 Acct:[id number] Age/Sex: 78 / M Date of Service: 10/06/24 Loc: ED Accession Number: [id number] Procedure: XR lumbar spine 2-3V Ordering Provider: Amalia Wiggins PA-C PROCEDURE: XR LUMBAR SPINE 2-3V INDICATIONS: R side LBP radiating to thigh TECHNIQUE: 3 views of the lumbar spine were acquired. COMPARISON: [facility], , XR LUMBAR SPINE 2 OR 3 VIEWS, 07/11/2022, 16:58. FINDINGS: Bones: 5 [id number] vertebrae are present. There is straightening of normal lumbar curvature. Multilevel moderate to severe degenerative disc space narrowing is present most severe at L5-S1. Multilevel foraminal narrowing is also present severe at L4-5, L5-S1.. No vertebral body compression fractures. No suspicious bony lesions. Soft tissues: Overlying bowel gas pattern is normal. No suspicious soft tissue calcifications. IMPRESSION: Multilevel degenerative changes most severe at L5-S1. Dictated by: Rhoda Sanon M.D. on 10/06/2024 at 19:05 Approved by: Rhoda Sanon M.D. on 10/06/2024 at 19:05 [facility] Narrative Medical decision making narrative: This is a 78-year-old male with chronic bilateral lower extremity pain and previous right lower extremity DVT, not on blood thinners, also with a history of previous skin cancers who presents today with concern for 3 weeks of pain in his right low back / sacroiliac region and his right upper thigh. Also with concern for a skin lesion on his left flank present for months. Exam of the lesion on his left flank is possibly consistent with precancer or cancerous lesion. Was reportedly previously painful and there is possibility that he did have an abscess there that resolved on its own today there is no evidence of active infection and antibiotics are not prescribed. Strongly encouraged him to follow up closely with PCP or barrel scraper (he states [facility]) for biopsy of this location. Given hx and calf/popliteal fossa tenderness, Peripheral venous Ultrasound of the right leg is obtained with no evidence of DVT. X-ray of the right hip and lumbar spine also obtained showing degenerative changes of the right hip with arthritis as well as some degenerative changes of the lumbar sacral junction. Patient's history and exam do not suggest an infectious process today and labs are not obtained. He has no CVA tenderness or complaint of urinary symptoms. Patient was advised to continue with his regular pain regimen (takes hydrocodone at night chronically) also may take Tylenol for pain, continue with icy hot which he says has been more helpful than lidocaine. Prescription for 5 day course of prednisone. Follow up with PCP and recommend he see Orthopedics for further recommendations. Return precautions provided, follow-up plan discussed, all questions answered. Discharge Plan Departure Patient Disposition: Home Clinical Impression: Skin lesion of back Lumbago with sciatica, right side Qualifiers: Chronicity: acute Back pain laterality: right Qualified Code(s): M54.41 - Lumbago with sciatica, right side Degenerative arthritis Qualifiers: Osteoarthritis location: hip Osteoarthritis type: unspecified Laterality: right Qualified Code(s): M16.11 - Unilateral primary osteoarthritis, right hip Activity Restrictions/Additional Instructions: *You have been diagnosed with [ lumbago with sciatica, degenerative arthritis of the Right hip. ] *What to do: *Please continue to take your regular medications as directed. [1 ] New medication prescriptions sent to your pharmacy: [ prednisone ] [ ] New medication written as a paper prescription [ ] No new medications given *Please follow up with your primary care provider in 2-3 days, call for an appointment. Let them know you were seen in the Emergency Department and that we ask that you be seen in follow up. We will electronically transmit a record of today's note if your PCP is in our system. We performed an ultrasound today to evaluate cause of your pain in your right low back buttock hip and upper leg. We also obtained x-rays of your hip / pelvis and low back. The ultrasound did not show any evidence of a blood clot which is good. The x-rays do show you have some degenerative changes in your hip consistent with osteoarthritis as well as some degenerative changes in your spine, especially at the lunmbar sacral junction as well. It is very possible that your recent pain for the past 3 weeks is something that will resolve/improve in the short term but the findings on the x-ray could potentially account for some of it. Your symptoms are suggestive of sacroiliac dysfunction or sciatica and the arthritic changes in the hip could also account for some of your pain. Regarding the skin lesion on your left back this could possibly represent a precancerous or cancerous lesion and encourage you to see the barrel scraper it sounds like you have already been referred to them by the CT. You should have this biopsied ideally in the next month if possible for further evaluation. It does not appear to be infected today. I am prescribing a short course of prednisone medication which will reduce inflammation and likely help with your symptoms of the pain in your hip and low back. Continue with your other medications as prescribed. You can take Tylenol for pain as well. I would strongly encourage you to both follow up with your primary care provider and also potentially see clinical rehabilitation specialist regarding your symptoms. *If you do not have a primary care provider please contact the [facility] Resource line at [phone]. They will ask some questions about your medical history and help get you set up with a doctor in the community. *Return to Emergency Department if you should have any new, worsening or concerning symptoms, such as [fever greater than 101 F, shaking chills, worsening pain, persistent vomiting or other bothersome symptoms] Prescriptions: New prednisone 20 mg tablet 40 mg PO DAILY 5 Days Qty: 10 0RF No Action glucose 4 GM tablet,chewable 8 tab PO QDAYP PRN (Reason: Hypoglycemia) Qty: 0 Patient Comments: Has not taken recently atorvastatin 20 mg Tablet 20 mg PO DAILY losartan 50 mg Tablet 50 mg PO DAILY latanoprost 0.005 % Drops 1 drp EYE-BOTH BEDTIME glimepiride 4 mg Tablet 8 mg PO QPM lidocaine 5 % adhesive patch,medicated 1 patch TOP Q24H Qty: 30 0RF Patient Comments: Pt does not use often Rx Instructions: leave on most painful area for up to 12 hrs cyclobenzaprine 10 mg tablet 10 mg PO TID PRN (Reason: muscle spasm) Qty: 14 0RF hydrocodone-acetaminophen 5-325 mg tablet 1 tab PO Q4-6H PRN (Reason: pain) Qty: 10 0RF metformin 1,000 mg Tablet Extended Release 24hr 2,000 mg PO QPM polyvinyl alcohol [Artificial Tears (polyvin alc)] 1.4 % Drops 1 - 2 drp EYE-BOTH PRN PRN (Reason: Dry Eye(S)) diltiazem HCl 240 mg Capsule,Extended Release 24 Hr 240 mg PO DAILY dorzolamide-timolol 22.3-6.8 mg/mL Drops 1 drp EYE-BOTH BID capsaicin 0.1 % Cream 1 applic TOPICAL BID PRN (Reason: pain) empagliflozin 10 mg Tablet 10 mg PO QAM cyclobenzaprine 10 mg tablet 10 mg PO TID PRN (Reason: muscle spasm) Qty: 14 0RF Patient Comments: Has not ttaken recently Referrals: Hannah Miller MD [Primary Care Provider] - Stand Alone Forms: Patient Portal/API/Survey ED Sign-out <Trish Corcoran MD - Last Filed: 10/06/24 21:55> Cosign ED Attending Cosignature Attestation: I did not see this patient. I was available all times for consultation.
--- NOTE | 2024-10-06 17:44 | PC.NURSE ---
Pt is concerned for a lump on his RIGHT flank with pain that radiates down his hip and right leg. This pain has been present for the past 3 weeks and is constant. Minimal improvement with icey hot and normal pain medication. . This RN palpates and does appreciate a slight lump. He reports constant pain of his bilateral legs which is chronic. He wears bilateral leg braces. Also has a reported hx of cysts on his kidneys. Provider Feliciano is aware. Pt is able to stand and transfer to a wheelchair.
[2024-10-06 19:17] VITALS: BP 141/75; PULSE 70; RESP 16; TEMP 36.4; O2SAT 96
== END 2024-10-06 20:00 | disposition home or self-care (01) ==
PROVIDERS: Emergency Provider Student in an Organized Health Care Education/Training Program; Family Provider Internal Medicine; PCP Internal Medicine
DX: M54.41 Lumbago with sciatica, right side (principal); M16.11 Unilateral primary osteoarthritis, right hip; L98.9 Disorder of the skin and subcutaneous tissue, unspecified
CPT/HCPCS: 72100; 73502; 93971; 99281; 99283

== ENCOUNTER 2024-12-19 21:11 | Emergency (ER) | payer OTHER, SELFPAY ==
[2020-11-15 23:30] VITALS: BMI 33.3
[2024-12-19 21:19] VITALS: BP 148/82; PULSE 68; RESP 20; TEMP 37.3; O2SAT 95; BMI 32.1
--- NOTE | 2024-12-19 21:21 | EKG_ITS ---
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
--- NOTE | 2024-12-19 21:24 | DI.RAD.S_ITS ---
PROCEDURE: XR CHEST 1V INDICATIONS: chest pain TECHNIQUE: One view of the chest was acquired. COMPARISON: [facility], CT, CT ABDOMEN PELVIS WITH CONTRAST, 06/10/2024, 21:24. [facility], CR, XR CHEST 1V, 11/10/2022, 12:00. [facility], CR, XR CHEST 1V, 12/30/2020, 19:41. [facility], CR, XR CHEST 1V, 11/15/2020, 17:06. FINDINGS: Surgical changes and devices: None. Lungs and pleura: Lungs are clear. No pleural effusions or pneumothorax. Mediastinum: Mediastinal contours appear normal. Heart size is normal. Bones and chest wall: No suspicious bony lesions. Overlying soft tissues appear unremarkable. IMPRESSION: No acute cardiothoracic process. Dictated by: Carlos Foster M.D. on 12/19/2024 at 22:48 Approved by: Carlos Foster M.D. on 12/19/2024 at 22:49
[2024-12-19 21:33] LABS: Add Manual Diff / Slide Review NO; Basophils Absolute Auto 100 /uL (0-100); Eosinophils Absolute Auto 100 /uL (0-450); Eosinophils Percent Auto 2.3 % (2-4); Hematocrit 44.8 % (41-53); Hemoglobin 14.8 g/dL (13.5-17.5); Lymphocytes Absolute Auto 1300 /uL (1100-4500); Lymphocytes Percent Auto 21.5 % (25-40); Mean Corpuscular HGB Conc 33.1 % (30-36); Mean Corpuscular Hemoglobin 32.8 PG (26-34); Monocytes Absolute Auto 700 /uL (0-900); Monocytes Percent Auto 11.9 % (3-14); Neutrophils Absolute Auto 3800 /uL (1500-7000); Neutrophils Percent Auto 63.3 % (50-75); Platelet Count 207 X10^3/uL (150-400); Red Blood Cell Count 4.53 X10^6/uL (4.5-5.9)
[2024-12-19 21:39] LABS: INR 0.9 (0.9-1.3); Prothrombin Time 10.7 SECONDS (9.4-12.5)
[2024-12-19 21:41] LABS: PTT Partial Thromboplastin Tim 31 SECONDS (25.1-36.5)
[2024-12-19 21:43] LABS: Albumin 4.4 g/dL (3.5-5.0); Calcium 8.9 mg/dL (8.4-10.2); Carbon Dioxide 27 mmol/L (22-32); Chloride 106 mmol/L (98-107); Glucose 131 mg/dL (80-110); HEMOLYSIS < 15 (0-50); Lipase 95 U/L (23-300); Potassium 4.3 mmol/L (3.4-5.1); Sodium 141 mmol/L (137-145)
[2024-12-19 21:51] LABS: Alanine Aminotransferase 27 IU/L (<50); Albumin Globulin Ratio 1.8 (1.0-2.8); Alkaline Phosphatase 85 U/L (38-126); Aspartate Aminotransferase 27 IU/L (17-59); BUN Creatinine Ratio 12.4 (6-22); Blood Urea Nitrogen 12 mg/dL (9-20); Creatine Kinase 126 U/L (55-170); Estimated Glomerular Filt Rate > 60 mL/min (>60); Globulin 2.4 g/dL (1.7-4.1); Total Protein 6.8 g/dL (6.3-8.2)
[2024-12-19 21:54] LABS: NT-proBNP (BNP-Adult 18+) 93 pg/mL (<450); Troponin I < 0.012 ng/mL (0.01-0.034)
[2024-12-19 22:45] VITALS: PULSE 60; O2SAT 93
[2024-12-19 22:46] VITALS: BP 141/73; PULSE 64; O2SAT 92
[2024-12-19 23:00] VITALS: BP 137/72; PULSE 62; O2SAT 90
--- NOTE | 2024-12-19 23:00 | ED.GENADULT ---
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 Recovered to baseline quickly. No shaking events, no history of seizures, no incontinence of urine or stool. No recent cough fevers chills. No leg pain or swelling symptoms. Related Data Home Medications Medication Instructions Recorded Confirmed glucose 4 gram chewable tablet 8 tab PO QDAYP PRN Hypoglycemia ##0 11/27/17 11/16/20 atorvastatin 20 mg tablet 20 mg PO DAILY Cholesterol 07/21/18 11/16/20 glimepiride 4 mg tablet 8 mg PO QPM 07/21/18 11/16/20 latanoprost 0.005 % eye drops 1 drp EYE-BOTH BEDTIME 07/21/18 11/16/20 losartan 50 mg tablet 50 mg PO DAILY 07/21/18 11/16/20 capsaicin 0.1 % topical cream 1 applic topical BID PRN pain 12/20/18 11/16/20 diltiazem HCl 240 mg capsule,24 240 mg PO DAILY 12/20/18 11/16/20 hr,extended release dorzolamide 22.3 mg-timolol 6.8 1 drp EYE-BOTH BID 12/20/18 11/16/20 mg/mL eye drops empagliflozin 10 mg tablet 10 mg PO QAM 12/20/18 11/16/20 metformin 1,000 mg tablet,extended 2,000 mg PO QPM 12/20/18 11/16/20 release 24hr (osmotic) polyvinyl alcohol 1.4 % eye drops 1 - 2 drp EYE-BOTH PRN PRN Dry 12/20/18 11/16/20 (Artificial Tears (polyvinyl Eye(S) alcohol)) Previous Rx's Medication Instructions Recorded cyclobenzaprine 10 mg tablet 10 mg PO TID PRN muscle spasm #14 03/07/19 tabs lidocaine 5 % topical patch 1 patch topical Q24H back pain #30 03/08/20 ea cyclobenzaprine 10 mg tablet 10 mg PO TID PRN muscle spasm #14 11/10/22 tabs hydrocodone 5 mg-acetaminophen 325 1 tab PO Q4-6H PRN pain #10 tabs 11/10/22 mg tablet Allergies Allergy/AdvReac Type Severity Reaction Status Date / Time albuterol [ALBUTEROL] AdvReac Intermediate Shakiness Verified 10/06/24 16:43 Patient History Medical History Diabetes Glaucoma History of DVT (deep vein thrombosis) Hyperlipidemia Hypertension Surgical History History of ankle surgery History of bilateral inguinal hernia repair History of hand surgery Social History household members: none Smoking Status: Current some day smoker alcohol intake: former substance use type: does not use Smoking Status: Current some day smoker tobacco type: cigars alcohol intake frequency: holidays/special occasions only Exam Narrative Exam Narrative: GENERAL: Well-developed patient, in mild distress. HEAD: Atraumatic. Normocephalic. EYES: Pupils equal round and reactive. Extraocular motions intact. No scleral icterus. No injection or drainage. ENT: Nose without bleeding, purulent drainage. Throat without erythema, tonsillar hypertrophy or exudate. Airway patent. NECK: Trachea midline. Non tender CARDIOVASCULAR: Regular rate and rhythm without murmurs, gallops, or rubs. RESPIRATORY: Clear to auscultation. Breath sounds equal bilaterally. No wheezes, rales, or rhonchi. GASTROINTESTINAL: Abdomen soft, non-tender, nondistended. EXTREMITIES: No edema or joint tenderness. BACK: Nontender without deformity or crepitance. No flank tenderness. NEURO: AOx3. Motor functions grossly nonfocal SKIN: No rash or erythema of visible areas Initial Vital Signs Initial Vital Signs: Vital Signs Temperature 99.2 F 12/19/24 21:19 Pulse Rate 68 12/19/24 21:19 Respiratory Rate 20 12/19/24 21:19 Blood Pressure 148/82 H 12/19/24 21:19 Pulse Oximetry 95 12/19/24 21:19 Oxygen Delivery Method Room Air 12/19/24 21:19 Course Orders Ordered: Discontinued Medications Aspirin (Aspirin 81 Mg Chew Tab) 324 mg PO NOW ONE Stop: 12/19/24 21:25 Last Admin: 12/19/24 23:33 Dose: 324 mg Documented By: Vital Signs Vital signs: Vital Signs - 8 hr 12/19/24 21:19 12/19/24 22:45 12/19/24 22:46 Temperature 99.2 F Pulse Rate 68 60 64 Respiratory Rate 20 Blood Pressure 148/82 H Pulse Oximetry 95 93 92 Oxygen Delivery Method Room Air 12/19/24 22:46 12/19/24 23:00 12/19/24 23:00 Temperature Pulse Rate 62 Respiratory Rate Blood Pressure 141/73 H 137/72 Pulse Oximetry 90 L Oxygen Delivery Method 12/19/24 23:30 12/20/24 00:00 12/20/24 00:41 Temperature Pulse Rate 66 67 65 Respiratory Rate Blood Pressure Pulse Oximetry 89 L 93 96 Oxygen Delivery Method 12/20/24 00:43 12/20/24 00:43 12/20/24 01:00 Temperature Pulse Rate 65 Respiratory Rate Blood Pressure 134/75 127/76 Pulse Oximetry 95 Oxygen Delivery Method 12/20/24 01:00 12/20/24 01:30 12/20/24 01:30 Temperature Pulse Rate 69 65 Respiratory Rate Blood Pressure 125/69 Pulse Oximetry 91 86 L Oxygen Delivery Method 12/20/24 02:00 12/20/24 02:00 Temperature Pulse Rate 63 Respiratory Rate Blood Pressure 143/69 H Pulse Oximetry 91 Oxygen Delivery Method Medical Decision Making Lab Data Lab results reviewed: Yes I reviewed the patient's lab results. Lab results narrative: White blood cell count 6000, hemoglobin 14.8, platelets normal. Glucose 131, remainder of basic metabolic panel unremarkable. Liver functions normal. Lipase negative. Troponin x2 sets negative/nonmeasurable. 12/19/24 21:20 12/19/24 21:20 Labs: Lab Results 12/19/24 12/20/24 Range/Units 21:20 00:15 WBC 6.0 (4.5-11.0) X10^3/uL RBC 4.53 (4.5-5.9) X10^6/uL Hgb 14.8 (13.5-17.5) g/dL Hct 44.8 (41-53) % MCV 99.0 (80-100) fL MCH 32.8 (26-34) PG MCHC 33.1 (30-36) % RDW 14.0 (11.6-14.8) % Plt Count 207 (150-400) X10^3/uL Neut % (Auto) 63.3 (50-75) % Lymph % (Auto) 21.5 L (25-40) % [place] % (Auto) 11.9 (3-14) % Eos % (Auto) 2.3 (2-4) % Baso % (Auto) 1.0 (0-2) % Neut # (Auto) 3800 (9527-6962) /uL Lymph # (Auto) 1300 (0323-7607) /uL [place] # (Auto) 700 (0-900) /uL Eos # (Auto) 100 (0-450) /uL Baso # (Auto) 100 (0-100) /uL PT 10.7 (9.4-12.5) SECONDS INR 0.9 (0.9-1.3) APTT 31 (25.1-36.5) SECONDS Sodium 141 (137-145) mmol/L Potassium 4.3 (3.4-5.1) mmol/L Chloride 106 (98-107) mmol/L Carbon Dioxide 27 (22-32) mmol/L BUN 12 (9-20) mg/dL Creatinine 0.97 (0.66-1.25) mg/dL Estimated GFR > 60 (>60) mL/min BUN/Creatinine Ratio 12.4 (6-22) Glucose 131 H (80-110) mg/dL Calcium 8.9 (8.4-10.2) mg/dL Magnesium 2.0 (1.6-2.3) mg/dL Total Bilirubin 1.0 (0.2-1.3) mg/dL AST 27 (17-59) IU/L ALT 27 (<50) IU/L Alkaline Phosphatase 85 (38-126) U/L Total Creatine Kinase 126 (55-170) U/L Troponin I < 0.012 < 0.012 (0.01-0.034) ng/mL NT-Pro-B Natriuret Pep 93 (<450) pg/mL Total Protein 6.8 (6.3-8.2) g/dL Albumin 4.4 (3.5-5.0) g/dL Globulin 2.4 (1.7-4.1) g/dL Albumin/Globulin Ratio 1.8 (1.0-2.8) Lipase 95 (23-300) U/L Imaging Data Chest x-ray: Radiologist's Impression: [address] [address] XRay Report Signed Patient: Maninder Hernandez MR#: [id number] : 1945 Acct:[id number] Age/Sex: 78 / M Date of Service: 12/19/24 Loc: ED Accession Number: [id number] Procedure: XR chest 1V Ordering Provider: Elder James MD PROCEDURE: XR CHEST 1V INDICATIONS: chest pain TECHNIQUE: One view of the chest was acquired. COMPARISON: [facility], CT, CT ABDOMEN PELVIS WITH CONTRAST, 06/10/2024, 21:24. [facility], CR, XR CHEST 1V, 11/10/2022, 12:00. [facility], CR, XR CHEST 1V, 12/30/2020, 19:41. [facility], CR, XR CHEST 1V, 11/15/2020, 17:06. FINDINGS: Surgical changes and devices: None. Lungs and pleura: Lungs are clear. No pleural effusions or pneumothorax. Mediastinum: Mediastinal contours appear normal. Heart size is normal. Bones and chest wall: No suspicious bony lesions. Overlying soft tissues appear unremarkable. IMPRESSION: No acute cardiothoracic process. Dictated by: Carlos Foster M.D. on 12/19/2024 at 22:48 Approved by: Carlos Foster M.D. on 12/19/2024 at 22:49 CT scan - head: Radiologist's Impression: [address] [address] [address] Scan Report Signed Patient: Maninder Hernandez MR#: [id number] : 1945 Acct:[id number] Age/Sex: 78 / M Date of Service: 12/19/24 Loc: ED Accession Number: [id number] Procedure: CT head/brain wo con Ordering Provider: Elder James MD PROCEDURE: CT HEAD/BRAIN WO CON INDICATIONS: syncopal episode TECHNIQUE: Noncontrast 4.5 mm thick angled axial sections acquired from the foramen magnum to the vertex, with coronal and sagittal reformats. For radiation dose reduction, the following was used: automated exposure control, adjustment of mA and/or kV according to patient size. COMPARISON: [facility], CT, CT HEAD/BRAIN WO CON, 11/15/2020, 17:02. [facility], CT, CT HEAD/BRAIN WO CON, 10/20/2020, 18:01. FINDINGS: Image quality: Diagnostic. CSF spaces: Basal cisterns are patent. No extra-axial fluid collections. The ventricles are symmetric in size and shape. Brain: No intracranial bleeds or masses. There is cerebral volume loss for age, with resultant ventricular and sulcal prominence. There are periventricular and deep white matter chronic small vessel ischemic changes. There is intracranial internal carotid artery atherosclerosis. Skull and face: Calvarium and visualized facial bones appear intact, without suspicious lesions. Sinuses: Visualized sinuses and mastoids are clear. IMPRESSION: No acute intracranial abnormality. Dictated by: Carlos Foster M.D. on 12/20/2024 at 1:04 Approved by: Carlos Foster M.D. on 12/20/2024 at 1:05 CTA chest PE protocol: Radiologist's Impression: [place] [address] CT Scan Report Signed Patient: Maninder Hernandez MR#: [id number] : 1945 Acct:[id number] Age/Sex: 78 / M Date of Service: 12/19/24 Loc: ED Accession Number: [id number] Procedure: CT angio chest PE protocol Ordering Provider: Elder James MD PROCEDURE: CT ANGIO CHEST PE PROTOCOL INDICATIONS: chest pain, hx DVTs TECHNIQUE: After the administration of intravenous contrast, 2 mm thick sections acquired from the pulmonary apices to the posterior costophrenic angles. 3-dimensional maximum intensity projection (MIP) coronal and sagittal reformats were then acquired through the thorax. For radiation dose reduction, the following was used: automated exposure control, adjustment of mA and/or kV according to patient size. COMPARISON: [facility], CT, CT ANGIO CHEST PE, 06/11/2023, 1:07. FINDINGS: Image quality: Diagnostic. Thyroid: Within normal limits. Cardiac: Heart size within normal limits. No pericardial effusion. Mild mitral annulus calcifications. RV: LV ratio within normal limits. No bowing of the interventricular septum. No reflux of contrast into the hepatic veins. Aorta: Thoracic aortic diameter within normal limits. Pulmonary Artery: Main pulmonary artery diameter within normal limits. No central filling defect to the level of the distal interlobar artery; respiratory motion artifact limits further evaluation. Lungs: No focal lung consolidation. Pleura: No pneumothorax or pleural effusion. Airways: The trachea and mainstem bronchi are patent. Lymph Nodes: No mediastinal, hilar, or axillary lymphadenopathy. Esophagus: Within normal limits. Bones: No acute osseous abnormality. Diffuse idiopathic skeletal hyperostosis of the thoracic spine with partial ankylosis of the posterior spinous processes (). Upper Abdomen: Within normal limits. IMPRESSION: 1. No CT evidence of acute pulmonary embolism. 2. Osseous findings, which can be seen with ankylosing spondylitis. Dictated by: Carlos Foster M.D. on 12/20/2024 at 1:05 Approved by: Carlos Foster M.D. on 12/20/2024 at 1:10 CT scan - abdomen/pelvis: Radiologist's Impression: [place] [address] CT Scan Report Signed Patient: Maninder Hernandez MR#: [id number] : 1945 Acct:[id number] Age/Sex: 78 / M Date of Service: 12/19/24 Loc: ED Accession Number: [id number] Procedure: CT abdomen pelvis w con Ordering Provider: Elder James MD PROCEDURE: CT ABDOMEN PELVIS W CON INDICATIONS: chest abdom pain TECHNIQUE: After the administration of intravenous contrast, axial sections acquired from the lung bases to the pubic symphysis. Coronal and sagittal reformats were performed. For radiation dose reduction, the following was used: automated exposure control, adjustment of mA and/or kV according to patient size. COMPARISON: [facility], CT, CT ABDOMEN PELVIS W CON, 11/10/2022, 18:34. FINDINGS: Image quality: Diagnostic. Peritoneum: No pneumoperitoneum or ascites. Bones: No acute osseous abnormality. Multilevel lumbar osteoarthrosis. Partial ankylosis of the sacroiliac joints. Lumbar syndesmophytes (5/70). Diffuse idiopathic skeletal hyperostosis. Lower Chest: Please see the same-day CT chest angiogram report for further details. Liver: Normal in size and contour. Sub cm hypodense lesions in the right hepatic lobe, too small to characterize, but likely representing simple cysts (4/50). Gallbladder: No stones or pericholecystic fluid. Biliary tree: No intrahepatic or extrahepatic biliary ductal dilatation. Pancreas: Within normal limits. Spleen: Normal in size and contour. Kidneys: No hydronephrosis or obstructive urolithiasis. Re-identified multiple bilateral simple cysts. Adrenals: No adrenal nodularity. Bladder: Normal in size and wall thickness. : No acute abnormality. Stomach: Normal in size and contour. Bowel: Normal in diameter without any bowel obstruction. Appendix within normal limits (5/51). Colonic diverticulosis. Lymph Nodes: No retroperitoneal, mesenteric, or inguinal lymphadenopathy. Vascular: No abdominal aortic aneurysm. The visualized arterial vasculature is patent. Mild atherosclerosis. Soft Tissues: Small fat containing umbilical hernia. IMPRESSION: 1. Osseous findings which can be seen with ankylosing spondylitis. 2. Chronic findings without any acute CT abnormality of the abdomen/pelvis. Dictated by: Carlos Foster M.D. on 12/20/2024 at 1:10 Approved by: Carlos Foster M.D. on 12/20/2024 at 1:16 ECG Data Attestation: I personally reviewed and interpreted this ECG as follows: Interpretation: Normal sinus rhythm with rate of 68, no obvious ST segment elevation or depression changes. LA 176, QRS 124, QTC 414. MDM Narrative Medical decision making narrative: 78-year-old male with brief syncopal episode of unclear etiology, with some component of resolved chest pain and dyspnea. Screening EKG unremarkable. Troponin initial and subsequent troponin negative/unmeasurable. No ectopy while on the monitor. No bradycardia or tachyarrhythmia. EKG with sinus rhythm, no acute changes obvious. Troponin x2 sets negative. CT head no acute changes. See radiology report. CTA chest no pulmonary embolism, no acute changes, normal aorta. See radiology report. CT abdomen and pelvis with IV contrast. No acute changes. See radiology report. We discussed further workup as an inpatient, that might include further telemetry monitoring, cardiac echo, possibly stress testing, MRI of the brain, other. They would like to go home now, we would like to pursue further workup as an outpatient for now. Discharged home with . Return precautions discussed. Discharge Plan Departure Patient Disposition: Home Clinical Impression: Syncope Activity Restrictions/Additional Instructions: Syncopal episode of unclear cause. Some component of shortness of breath and chest pain. EKG and serial blood tests not suggestive of heart attack at this time. Cardiac monitoring did not seem to show bradyarrhythmia or tachyarrhythmia or ectopic beats or any cardiac rhythm disturbance. CT scanning of the brain showed no acute changes. CT angiogram of the chest showed no blood clots to the lungs, normal thoracic aorta, no acute changes in the chest. CT abdomen and pelvis with IV contrast was also performed, also did not show any acute changes. There was some mention on truncal imaging of possible ankylosing spondylitis of the spine, that in and of itself should not necessarily be related to any syncopal passing-out episode, but might be an established diagnosis at some later date, consider further workup as an outpatient. We discussed further evaluation as an inpatient, that might involve further telemetry cardiac monitoring, echocardiogram ultrasound of the heart, evaluation of the carotid vessels, MRI of the brain, other studies. You preferred to go home now, would pursue further workup as an outpatient for now. Recheck advised in close follow up with your regular doctor in the next couple of days. Continue chronic medications for now as prescribed. Return earlier to this/nearest emergency department for any change worsening symptoms or any concerns prior. Thank you for allowing our team to evaluate you today. Prescriptions: No Action glucose 4 GM tablet,chewable 8 tab PO QDAYP PRN (Reason: Hypoglycemia) Qty: 0 Patient Comments: Has not taken recently atorvastatin 20 mg Tablet 20 mg PO DAILY losartan 50 mg Tablet 50 mg PO DAILY latanoprost 0.005 % Drops 1 drp EYE-BOTH BEDTIME glimepiride 4 mg Tablet 8 mg PO QPM lidocaine 5 % adhesive patch,medicated 1 patch TOP Q24H Qty: 30 0RF Patient Comments: Pt does not use often Rx Instructions: leave on most painful area for up to 12 hrs cyclobenzaprine 10 mg tablet 10 mg PO TID PRN (Reason: muscle spasm) Qty: 14 0RF hydrocodone-acetaminophen 5-325 mg tablet 1 tab PO Q4-6H PRN (Reason: pain) Qty: 10 0RF metformin 1,000 mg Tablet Extended Release 24hr 2,000 mg PO QPM polyvinyl alcohol [Artificial Tears (polyvin alc)] 1.4 % Drops 1 - 2 drp EYE-BOTH PRN PRN (Reason: Dry Eye(S)) diltiazem HCl 240 mg Capsule,Extended Release 24 Hr 240 mg PO DAILY dorzolamide-timolol 22.3-6.8 mg/mL Drops 1 drp EYE-BOTH BID capsaicin 0.1 % Cream 1 applic TOPICAL BID PRN (Reason: pain) empagliflozin 10 mg Tablet 10 mg PO QAM cyclobenzaprine 10 mg tablet 10 mg PO TID PRN (Reason: muscle spasm) Qty: 14 0RF Patient Comments: Has not ttaken recently Referrals: Hannah Miller MD [Primary Care Provider] - Stand Alone Forms: Patient Portal/API/Survey
[2024-12-19 23:30] VITALS: PULSE 66; O2SAT 89
[2024-12-19] MEDS: ASPIRIN 81 MG CHEW TAB 324 MG PO (23:33)
--- NOTE | 2024-12-19 23:57 | DI.CT.S_ITS ---
PROCEDURE: CT HEAD/BRAIN WO CON INDICATIONS: syncopal episode TECHNIQUE: Noncontrast 4.5 mm thick angled axial sections acquired from the foramen magnum to the vertex, with coronal and sagittal reformats. For radiation dose reduction, the following was used: automated exposure control, adjustment of mA and/or kV according to patient size. COMPARISON: [facility], CT, CT HEAD/BRAIN WO CON, 11/15/2020, 17:02. [facility], CT, CT HEAD/BRAIN WO CON, 10/20/2020, 18:01. FINDINGS: Image quality: Diagnostic. CSF spaces: Basal cisterns are patent. No extra-axial fluid collections. The ventricles are symmetric in size and shape. Brain: No intracranial bleeds or masses. There is cerebral volume loss for age, with resultant ventricular and sulcal prominence. There are periventricular and deep white matter chronic small vessel ischemic changes. There is intracranial internal carotid artery atherosclerosis. Skull and face: Calvarium and visualized facial bones appear intact, without suspicious lesions. Sinuses: Visualized sinuses and mastoids are clear. IMPRESSION: No acute intracranial abnormality. Dictated by: Carlos Foster M.D. on 12/20/2024 at 1:04 Approved by: Carlos Foster M.D. on 12/20/2024 at 1:05
--- NOTE | 2024-12-19 23:57 | DI.CT.S_ITS ---
PROCEDURE: CT ANGIO CHEST PE PROTOCOL INDICATIONS: chest pain, hx DVTs TECHNIQUE: After the administration of intravenous contrast, 2 mm thick sections acquired from the pulmonary apices to the posterior costophrenic angles. 3-dimensional maximum intensity projection (MIP) coronal and sagittal reformats were then acquired through the thorax. For radiation dose reduction, the following was used: automated exposure control, adjustment of mA and/or kV according to patient size. COMPARISON: [facility], CT, CT ANGIO CHEST PE, 06/11/2023, 1:07. FINDINGS: Image quality: Diagnostic. Thyroid: Within normal limits. Cardiac: Heart size within normal limits. No pericardial effusion. Mild mitral annulus calcifications. RV: LV ratio within normal limits. No bowing of the interventricular septum. No reflux of contrast into the hepatic veins. Aorta: Thoracic aortic diameter within normal limits. Pulmonary Artery: Main pulmonary artery diameter within normal limits. No central filling defect to the level of the distal interlobar artery; respiratory motion artifact limits further evaluation. Lungs: No focal lung consolidation. Pleura: No pneumothorax or pleural effusion. Airways: The trachea and mainstem bronchi are patent. Lymph Nodes: No mediastinal, hilar, or axillary lymphadenopathy. Esophagus: Within normal limits. Bones: No acute osseous abnormality. Diffuse idiopathic skeletal hyperostosis of the thoracic spine with partial ankylosis of the posterior spinous processes (). Upper Abdomen: Within normal limits. IMPRESSION: 1. No CT evidence of acute pulmonary embolism. 2. Osseous findings, which can be seen with ankylosing spondylitis. Dictated by: Carlos Foster M.D. on 12/20/2024 at 1:05 Approved by: Carlos Foster M.D. on 12/20/2024 at 1:10
--- NOTE | 2024-12-19 23:58 | DI.CT.S_ITS ---
PROCEDURE: CT ABDOMEN PELVIS W CON INDICATIONS: chest abdom pain TECHNIQUE: After the administration of intravenous contrast, axial sections acquired from the lung bases to the pubic symphysis. Coronal and sagittal reformats were performed. For radiation dose reduction, the following was used: automated exposure control, adjustment of mA and/or kV according to patient size. COMPARISON: [facility], CT, CT ABDOMEN PELVIS W CON, 11/10/2022, 18:34. FINDINGS: Image quality: Diagnostic. Peritoneum: No pneumoperitoneum or ascites. Bones: No acute osseous abnormality. Multilevel lumbar osteoarthrosis. Partial ankylosis of the sacroiliac joints. Lumbar syndesmophytes (5/70). Diffuse idiopathic skeletal hyperostosis. Lower Chest: Please see the same-day CT chest angiogram report for further details. Liver: Normal in size and contour. Sub cm hypodense lesions in the right hepatic lobe, too small to characterize, but likely representing simple cysts (4/50). Gallbladder: No stones or pericholecystic fluid. Biliary tree: No intrahepatic or extrahepatic biliary ductal dilatation. Pancreas: Within normal limits. Spleen: Normal in size and contour. Kidneys: No hydronephrosis or obstructive urolithiasis. Re-identified multiple bilateral simple cysts. Adrenals: No adrenal nodularity. Bladder: Normal in size and wall thickness. : No acute abnormality. Stomach: Normal in size and contour. Bowel: Normal in diameter without any bowel obstruction. Appendix within normal limits (5/51). Colonic diverticulosis. Lymph Nodes: No retroperitoneal, mesenteric, or inguinal lymphadenopathy. Vascular: No abdominal aortic aneurysm. The visualized arterial vasculature is patent. Mild atherosclerosis. Soft Tissues: Small fat containing umbilical hernia. IMPRESSION: 1. Osseous findings which can be seen with ankylosing spondylitis. 2. Chronic findings without any acute CT abnormality of the abdomen/pelvis. Dictated by: Carlos Foster M.D. on 12/20/2024 at 1:10 Approved by: Carlos Foster M.D. on 12/20/2024 at 1:16
[2024-12-20] VITALS: PULSE 67; O2SAT 93
[2024-12-20 00:41] VITALS: PULSE 65; O2SAT 96
[2024-12-20 00:43] VITALS: BP 134/75; PULSE 65; O2SAT 95
[2024-12-20 00:43] LABS: Troponin I < 0.012 ng/mL (0.01-0.034)
[2024-12-20 01:00] VITALS: BP 127/76; PULSE 69; O2SAT 91
[2024-12-20 01:30] VITALS: BP 125/69; PULSE 65; O2SAT 86
[2024-12-20 02:00] VITALS: BP 143/69; PULSE 63; O2SAT 91
== END 2024-12-20 02:39 | disposition home or self-care (01) ==
PROVIDERS: Emergency Provider Emergency Medicine; Family Provider Internal Medicine; PCP Internal Medicine
DX: R55 Syncope and collapse (principal); R07.9 Chest pain, unspecified; R06.02 Shortness of breath; Z79.01 Long term (current) use of anticoagulants
CPT/HCPCS: 36415; 70450; 71045; 71275; 74177; 80053; 82550; 83690; 83735; 83880; 84484; 85025; 85610; 85730; 93005; 99284; Q9967